=== PATIENT | male | born 1935 | race Caucasian/White ===

== ENCOUNTER 2016-12-03 16:02 | Emergency (ER) | payer MEDICARE, OTHER ==
[2016-12-03 16:31] VITALS: RESP 18; TEMP 97.7
--- NOTE | 2016-12-03 16:55 | ED ---
Lower Extremity Injury HPI - General Chief Complaint: Extremity Injury, Lower Stated Complaint: Foot Injury Time Seen by Provider: 12/03/16 16:34 Source: patient, RN notes reviewed Mode of arrival: ambulatory Limitations: no limitations - History of Present Illness Initial Comments: Patient is a 80-year-old male with chief complaint of right ankle and foot pain for one week and swelling. Patient reports that approximately a week ago he was trying to [place] to get on a bus and tripped and hit his foot on a curb. He reports that he laterally twisted his ankle. He reports that since then he has been able to ambulate however he is noticed increased swelling and some more increased pain over the past day. He states that he has had no other associated symptoms. Reports he has never sprained this ankle before. He denies any peripheral paresthesias. Patient denies any recent fever, chills, shortness of breath, chest pain, back pain, abdominal pain, nausea vomiting, numbness or tingling, dysuria or hematuria, constipation or diarrhea, headaches or visual changes, or any other current symptoms - Related Data Home Medications Medication Instructions Recorded Confirmed Ergocalciferol [Vitamin D2] 50,000 unit PO QMONTH 12/03/16 12/03/16 Gabapentin [Neurontin] 300 mg PO TID 12/03/16 12/03/16 Rivaroxaban [Xarelto] 20 mg PO W/SUPPER 12/03/16 12/03/16 Previous Rx's Medication Instructions Recorded Carvedilol [Coreg] 6.25 mg PO BID-W/MEALS #60 tab 04/11/15 Furosemide [Lasix] 20 mg PO DAILY #30 tab 04/11/15 Lisinopril [Zestril] 5 mg PO DAILY #30 tab 04/11/15 Naproxen 500 mg PO Q12HR #20 tab 12/03/16 Allergies Allergy/AdvReac Type Severity Reaction Status Date / Time No Known Allergies Allergy Verified 12/03/16 17:04 Review of Systems ROS Statement: Those systems with pertinent positive or pertinent negative responses have been documented in the HPI. ROS Other: All systems not noted in ROS Statement are negative. Past Medical History Past Medical History: Coronary Artery Disease (CAD) History of Any Multi-Drug Resistant Organisms: None Reported Past Surgical History: Hernia Repair Past Anesthesia/Blood Transfusion Reactions: No Reported Reaction Past Psychological History: No Psychological Hx Reported Smoking Status: Former smoker Past Alcohol Use History: Occasional Past Drug Use History: None Reported General Exam - General Exam Comments Initial Comments: Patient is a well-appearing 80-year-old male. He does not appear to be in any acute distress. Limitations: no limitations General appearance: alert, in no apparent distress Head exam: Present: atraumatic, normocephalic, normal inspection Eye exam: Present: normal appearance, PERRL, EOMI. Absent: scleral icterus, conjunctival injection, periorbital swelling ENT exam: Present: normal exam, normal oropharynx, mucous membranes moist, TM's normal bilaterally Neck exam: Present: normal inspection. Absent: tenderness, meningismus, lymphadenopathy Respiratory exam: Present: normal lung sounds bilaterally. Absent: respiratory distress, wheezes, rales, rhonchi, stridor Cardiovascular Exam: Present: regular rate, normal rhythm, normal heart sounds. Absent: systolic murmur, diastolic murmur, rubs, gallop, clicks GI/Abdominal exam: Present: soft, normal bowel sounds. Absent: distended, tenderness, guarding, rebound, rigid Extremities exam: Present: normal inspection, full ROM, normal capillary refill. Absent: tenderness, pedal edema, joint swelling, calf tenderness Right Knee exam: Present: normal inspection, full ROM Lower Leg exam: Present: normal inspection, full ROM Ankle exam: Present: normal inspection, full ROM, tenderness, swelling (Patient has significant swelling over the lateral and medial malleolus.) Foot/Toe exam: Present: normal inspection, full ROM, tenderness (over 4th and 5th metatarsal) Neurovascular tendon exam: Present: no vascular compromise Gait: observed and normal Back exam: Present: normal inspection Neurological exam: Present: alert, oriented X3, CN II-XII intact Psychiatric exam: Present: normal affect, normal mood Skin exam: Present: warm, dry, intact, normal color. Absent: rash Course Vital Signs 12/03/16 12/03/16 16:28 17:02 Temperature 97.7 F Pulse Rate 87 72 Respiratory 18 18 Rate Blood Pressure 115/81 132/78 O2 Sat by Pulse 98 99 Oximetry Medical Decision Making - Medical Decision Making Patient is a 80-year-old male with one week of right ankle pain and swelling after tripping over a curb. He states he size primary care provider and instructed him to come the emergency room. He denies any other associated symptoms including erythema or inability to bear weight over the foot. Denies any peripheral paresthesias. X-ray was obtained. X-ray does not show any acute fracture. Patient was given an Js wrap and ankle stirrup splint. I advised patient to rest, ice and elevate extremity. Follow-up with primary care provider. Patient advised to follow-up with orthopedic if symptoms continue persist. Return parameters were discussed. - Radiology Data Radiology results: report reviewed Patient's x-ray was negative for any acute process. There is evidence of soft tissue swelling. Recommended repeat x-ray in the next 7-10 days. Disposition Clinical Impression: Right ankle sprain Disposition: HOME SELF-CARE Condition: Good Instructions: Ankle Sprain (ED) Additional Instructions: Rest, ice, and elevate extremity. It only wear splint and Js wrap while ambulating do not wear was sleeping. Take adhesions as prescribed. Follow-up with orthopedic physician if symptoms continue to persist. Prescriptions: Naproxen 500 mg PO Q12HR #20 tab Referrals: Falguni Cuenca DO [Primary Care Provider] - 1-2 days Chris John DO [Doctor of Osteopathic Medicine] - 1-2 days Time of Disposition: 17:17
--- NOTE | 2016-12-03 17:00 | XR ---
EXAMINATION TYPE: XR ankle complete RT DATE OF EXAM: 12/03/2016 4:55 PM COMPARISON: NONE HISTORY: Pain Three views of the ankle demonstrate the ankle mortise to be intact and symmetric. The joint spaces are preserved. The osseous structures are intact. Soft tissue edema and vascular calcifications are seen. IMPRESSION: 1. No definite acute fracture or dislocation, if symptoms persist follow-up study in 7 to 10 days wou ld be suggested.
--- NOTE | 2016-12-03 17:01 | XR ---
EXAMINATION TYPE: XR foot limited RT DATE OF EXAM: 12/03/2016 4:56 PM COMPARISON: NONE TECHNIQUE: 2 views were obtained HISTORY: Pain The osseous structures are intact and arthropathy of the first MTP joint. Diffuse osteopenia. Narrowi ng of the DIP joint of the second and fourth digits. No erosive changes. Vascular calcifications note d.. There is no acute fracture or dislocation. IMPRESSION: 1. No acute fracture or dislocation. If symptoms persist, follow-up exam in 7 to 10 days could be ob tained.
[2016-12-03 17:04] VITALS: BP 132/78; PULSE 72
== END 2016-12-03 17:26 | disposition home or self-care (01) ==
LOC: EC 16:02
DX: S93.401A Sprain of unspecified ligament of right ankle, initial encounter (principal); I25.10 Atherosclerotic heart disease of native coronary artery without angina pectoris; Z87.891 Personal history of nicotine dependence; Z79.899 Other long term (current) drug therapy; W10.1XXA Fall (on)(from) sidewalk curb, initial encounter; Y92.89 Other specified places as the place of occurrence of the external cause
CPT/HCPCS: 99283

== ENCOUNTER → 2016-12-05 | Outpatient (CLI) | payer MEDICARE, OTHER ==
--- NOTE | 2016-12-06 08:17 | BD ---
EXAMINATION TYPE: MG DEXA axial skeleton. DATE OF EXAM: 12/05/2016 4:07 PM COMPARISON: NONE CLINICAL HISTORY: M81.0 OSTEOPOROSIS Height: 64.5 Weight: 162 FRAX RISK QUESTIONS: Alcohol (3 or more units per day): NO NOT ANYMORE Family History (Parent hip fracture): NOT SURE Glucocorticoids (More than 3mos): NO (Ex: prednisone, prednisolone, methylprednisolone, dexamethasone, and hydrocortisone). History of Fracture in Adulthood: NO Secondary Osteoporosis: ? 1. Type 1 Diabetes: NO 2. Hyperthyroidism: NO 3. Menopause before 45: NA 4. Malnutrition: UNSURE 5. Chronic liver disease: UNSURE Rheumatoid Arthritis: NO Current Tobacco Use: STOPPED 7 YRS AGO RISK FACTORS HISTORY OF: Family History of Osteoporosis: UNSURE Smoke tobacco: STOPPED 7 YRS AGO Drink Alcohol: SOCIAL NOW, PREVIOUSLY YES Active: NOT REALLY Diet low in dairy products/other sources of calcium: YES LOW Lost more than 2 inches in height since high school: YES Frequent falls: UNSTEADY Poor Health: POSSIBLY Adrenal Insufficiency: HAS NEVER HEARD OF IT MEDICATIONS: Prednisone or other steroids: NO Thyroid Medications: NO Osteoporosis Medications: BONIVA, NOW IV THERAPY FOR INFUSION FOR OSTEOPOROSIS Which medication: STOPPED 2 YRS AGO How Lon YRS Additional Medications: UNSURE, PT DOESN'T KNOW, POOR HISTORIAN Additional History: OSTEOPOROSIS, EXAM MEASUREMENTS: Bone mineral densitometry was performed using the [employer] System. Bone mineral density as measured about the Lumbar spine is: ----- L1-L4(G/cm2): 1.453 T Score Values are as follows: ----- L1: 1.6 ----- L2: 2.1 ----- L3: 3.6 ----- L4: 1.9 ----- L1-L4: 2.3 Bone mineral density THIS IS HIS FIRST BONE DENSITY TEST AT [facility] Bone mineral density about the R hip (g/cm2): 0.817 Bone mineral density about the L hip (g/cm2): 0.825 T Score values are as follows: -----R Neck: -1.6 -----L Neck: -1.5 -----R Intertrochanter: -0.8 -----L Intertrochanter: -0.5 Bone mineral density THIS IS HIS FIRST BONE DENSITY TEST AT [facility] FRAX %'S: FOR MAJOR OSTEOPOROTIC FX: 5.7%......FOR HIP FX: 2.2% PROBABILITY OF FX IN 10 Y RS TIME IMPRESSION: Osteopenia (T Score between -2.5 and -1 as noted by T score values at bilateral hips. There is sligh tly increased risk of fracture and the patient may be considered for treatment. Re-Screen 1-2 years. NOTE: T-SCORE=SD OF THE YOUNG ADULT MEAN.
== END | disposition home or self-care (01) ==
LOC: RADBDWWP 15:27
PROVIDERS: ATTEND Internal Medicine Rheumatology
DX: M85.852 Other specified disorders of bone density and structure, left thigh (principal); M85.851 Other specified disorders of bone density and structure, right thigh
CPT/HCPCS: 77080

== ENCOUNTER → 2017-04-01 | Outpatient (CLI) | payer MEDICARE, OTHER ==
[2017-04-01 15:41] LABS: CH 30.8; CHCM 34.5; HCT 37.3 % (39.0-53.0); HDW 2.81; HGB 12.5 gm/dL (13.0-17.5); MCHC 33.5 g/dL (31.0-37.0); MCV 89.8 fL (80.0-100.0); Mean Platelet Volume 6.5; RBC 4.16 m/uL (4.30-5.90); RDW 13.7 % (11.5-15.5); WBC 6.2 k/uL (3.8-10.6)
[2017-04-01 15:53] LABS: Anion Gap 12 mmol/L; Blood Urea Nitrogen 12 mg/dL (9-20); Carbon Dioxide 24 mmol/L (22-30); Chloride 96 mmol/L (98-107); Glucose 101 mg/dL (74-99); Non-African American GFR(MDRD) >60 (>60 ml/min/1.73 sqM); Potassium 3.7 mmol/L (3.5-5.1); Sodium 132 mmol/L (137-145)
== END ==
LOC: LABWHC1 14:56
PROVIDERS: ATTEND Internal Medicine Cardiovascular Disease
DX: I50.9 Heart failure, unspecified (principal); I42.9 Cardiomyopathy, unspecified
CPT/HCPCS: 36415; 80048; 83880; 85027

== ENCOUNTER 2017-10-09 19:34 | Observation (INO) | payer MEDICARE, OTHER ==
[2017-10-09] MEDS ORDERED: HYDROcodone/APAP 5-325MG 1 EACH TAB PO STA (19:51)
[2017-10-09 19:53] VITALS: RESP 18
--- NOTE | 2017-10-09 19:59 | ED ---
Fall HPI - General Chief Complaint: Fall Stated Complaint: fall, L boo injury Time Seen by Provider: 10/09/17 19:46 Source: EMS Mode of arrival: EMS - History of Present Illness Initial Comments: 81-year-old male patient presented to the emergency department today for evaluation of left ankle pain after a slip and fall. Patient states that injury occurred approximately an hour ago. He states he is having significant pain to the left and goes mostly lateral aspect. He states that the pain radiates into his foot. He denies any numbness or tingling to the foot. He states that he did strike his head on the ground however states it is a very minor bump and he is not currently having any head pain. He denies loss of consciousness with this. He denies any neck or back pain. He denies any other injuries. Patient denies any headache, chest pain, shortness of breath, dizziness, weakness, abdominal pain, nausea, vomiting, or difficulties with bowel movements or urination. - Related Data Home Medications Medication Instructions Recorded Confirmed Ergocalciferol [Vitamin D2] 50,000 unit PO QMONTH 12/03/16 12/03/16 Gabapentin [Neurontin] 300 mg PO TID 12/03/16 12/03/16 Rivaroxaban [Xarelto] 20 mg PO W/SUPPER 12/03/16 12/03/16 Previous Rx's Medication Instructions Recorded Carvedilol [Coreg] 6.25 mg PO BID-W/MEALS #60 tab 04/11/15 Furosemide [Lasix] 20 mg PO DAILY #30 tab 04/11/15 Lisinopril [Zestril] 5 mg PO DAILY #30 tab 04/11/15 Naproxen 500 mg PO Q12HR #20 tab 12/03/16 Allergies Allergy/AdvReac Type Severity Reaction Status Date / Time No Known Allergies Allergy Verified 10/09/17 23:05 Review of Systems ROS Statement: Those systems with pertinent positive or pertinent negative responses have been documented in the HPI. ROS Other: All systems not noted in ROS Statement are negative. Past Medical History Past Medical History: Coronary Artery Disease (CAD) History of Any Multi-Drug Resistant Organisms: None Reported Past Surgical History: Hernia Repair Past Anesthesia/Blood Transfusion Reactions: No Reported Reaction Past Psychological History: No Psychological Hx Reported Smoking Status: Former smoker Past Alcohol Use History: Occasional Past Drug Use History: None Reported General Exam Limitations: no limitations General appearance: alert, in no apparent distress, other (This is a well- developed, well-nourished elderly male patient in no acute distress. Vital signs upon presentation are temperature 96.8F, pulse 62, respirations 18, blood pressure 147/81, pulse ox 97% on room air.) Head exam: Present: atraumatic, normocephalic, normal inspection, other (No hematoma, deformity, or bony step-off noted to palpation of the scalp.) Eye exam: Present: normal appearance, PERRL, EOMI. Absent: scleral icterus, conjunctival injection, periorbital swelling ENT exam: Present: normal exam, normal oropharynx, mucous membranes moist Neck exam: Present: normal inspection, full ROM, other (Nontender, no step-off, no deformity to firm midline palpation of the posterior cervical spine. Full range of motion without pain or limitation.). Absent: tenderness, meningismus, lymphadenopathy Respiratory exam: Present: normal lung sounds bilaterally. Absent: respiratory distress, wheezes, rales, rhonchi, stridor Cardiovascular Exam: Present: regular rate, normal rhythm, normal heart sounds. Absent: systolic murmur, diastolic murmur, rubs, gallop, clicks GI/Abdominal exam: Present: soft, normal bowel sounds. Absent: distended, tenderness, guarding, rebound, rigid Extremities exam: Present: tenderness (Tenderness over the lateral aspect of the left ankle.), normal capillary refill, other (There is swelling and ecchymosis noted to the lateral aspect of the left ankle. Pedal and posttibial pulses are 2+ and equal bilaterally. Skin is cool to touch. Cap refills less than 3 seconds.). Absent: full ROM (Decreased range of motion to the left ankle due to increased pain with movement), pedal edema, joint swelling, calf tenderness Back exam: Present: normal inspection, other (Nontender, no step-off, no deformity to firm midline palpation of the thoracic and lumbar vertebrae. Full range of motion without pain or limitation.). Absent: tenderness, paraspinal tenderness, vertebral tenderness Neurological exam: Present: alert, oriented X3, CN II-XII intact Psychiatric exam: Present: normal affect, normal mood Skin exam: Present: warm, dry, intact, normal color. Absent: rash Course Vital Signs 10/09/17 10/09/17 10/09/17 19:46 20:59 22:22 Temperature 96.8 F L Pulse Rate 62 54 L 78 Respiratory 18 18 18 Rate Blood Pressure 147/81 152/89 160/83 O2 Sat by Pulse 97 97 98 Oximetry Procedures - Orthopedic Splinting/Casting Injury #1 Side: left Lower Extremity Injury Location: short leg, ankle Lower Extremity Immobilizer: posterior splint Additional Comments: Neurovascular status intact after splint application. Skin is pink, warm, and dry. Cap refill is less than 3 seconds. Patient denies any numbness or tingling. Medical Decision Making - Medical Decision Making 81-year-old male patient percents into the emergency department today for evaluation of left ankle pain after slip and fall accident. Physical examination did reveal swelling to the lateral aspect of the left ankle. Distal pulses are intact, skin is pink, warm, and dry. Patient also reported striking his head on the ground. He denied any loss of consciousness, current headache, nausea, or vomiting however does take throughout this who did perform computed tomography scan of the head and neck. Those scans were negative for any acute process. X-ray of the left ankle did show a comminuted oblique fracture of the distal shaft of the left tibia, x-ray read that there was no involvement of the fibula however I did see some cortical abnormalities at the distal fibula. Patient has no current transportation, and must remain strict non-weightbearing. Due to the late hour we will be unable to arrange to have medical equipment such as crutches or wheelchair provided for the patient. There is also concern that he will not be able to follow up outpatient with orthopedics due to the fact that his main transportation is the public bus system. We will admit for observation with a social work consult, orthopedics will be consulted as well. We will provide pain medication for him. Left ankle was placed in a posterior OCL splint. Neurovascular status intact after splint application. - Radiology Data Radiology results: report reviewed, image reviewed 3 views of the left ankle show a comminuted, oblique fracture of the distal shaft of the left tibia. No definite intra-articular component. The fibula is intact as seen, as are the visualized hindfoot structures. Mortise is intact. Impression by Dr. Demario Armendariz shows distal tibial fracture. 3 views of the left foot shows no fracture or malalignment of the hindfoot, midfoot or forefoot. The soft tissues of the foot are unremarkable, other than the arterial atherosclerotic calcification. Partial visualization of the distal tibia shaft fracture is noted. Impression by Dr. Demario Armendariz shows no acute left foot process. However distal tibia shaft fracture is noted. CT of the brain and C-spine are performed without contrast. Report was reviewed in its entirety. Impression by Dr. Master Ozuna shows no acute fracture or dislocation evident in the cervical spine. No acute intracranial hemorrhage, mass effect, or midline shift is seen. Disposition Clinical Impression: Left tibial fracture Disposition: ADMITTED IP TO THIS [facility] Condition: Serious Referrals: Falguni Cuenca DO [Primary Care Provider] - 1-2 days Decision to Admit Reason: Admit from EC Decision Date: 10/09/17 Decision Time: 23:03
--- NOTE | 2017-10-09 20:40 | XR ---
PROCEDURE: XR ankle complete LT #3 views DATE AND TIME: 10/09/2017 8:26 PM REFERRING PHYSICIAN: Crissy Bates CLINICAL INDICATION: PHH, Pain TECHNIQUE: Department protocol. COMPARISON: None FINDINGS: There is a comminuted oblique fracture of the distal shaft of the left tibia. No definite i ntra-articular component. The fibula is intact as seen, as are the visualized hindfoot structures. Mortise is intact. IMPRESSION: DISTAL TIBIAL FRACTURE.
--- NOTE | 2017-10-09 20:42 | XR ---
PROCEDURE: XR foot complete LT, 3 views DATE AND TIME: 10/09/2017 8:26 PM REFERRING PHYSICIAN: Crissy Bates CLINICAL INDICATION: PHH, Pain TECHNIQUE: Department protocol. COMPARISON: None FINDINGS: There is no fracture or malalignment of the hindfoot, midfoot or forefoot. The soft tissues of the foot are unremarkable, other than arterial atherosclerotic calcification. Partial visualization of the distal tibial shaft fracture is noted. IMPRESSION: 1. NO ACUTE LEFT FOOT PROCESS. 2. However, distal tibial shaft fracture noted.
--- NOTE | 2017-10-09 21:46 | CT ---
EXAMINATION TYPE: CT brain devon kruse DATE OF EXAM: 10/09/2017 COMPARISON: NONE HISTORY: Fall today. CT DLP: 1328.30 mGycm Automated exposure control for dose reduction was used. TECHNIQUE: CT scan of the head and cervical spine are performed without contrast. FINDINGS: There is no acute intracranial hemorrhage, mass effect, or midline shift identified. The ventricles and sulci are within normal limits in size. The globes are intact and the visualized sin uses are clear. Cervical spine is visualized in its entirety from C1 through upper thoracic levels and demonstrates s atisfactory alignment without evidence of acute fracture or dislocation. Prominent multilevel cervica l spondylosis changes are noted. Prevertebral soft tissue appears within normal limits. The C1-C2 a rticulation is unremarkable. IMPRESSION: 1. THERE IS NO ACUTE FRACTURE OR DISLOCATION EVIDENT IN THE CERVICAL SPINE. 2. NO ACUTE INTRACRANIAL HEMORRHAGE, MASS EFFECT, OR MIDLINE SHIFT IS SEEN.
[2017-10-09] MEDS ORDERED: HYDROcodone/APAP 5-325MG 1 EACH TAB PO PRN (22:55)
[2017-10-09] MEDS ORDERED: NALOXONE 0.4 MG/ML 1 ML VIAL IV PRN (22:55)
[2017-10-09] MEDS ORDERED: ONDANSETRON 4 MG/2 ML VIAL IVP STA (23:00)
[2017-10-10] MEDS: MORPHINE SULFATE 5 MG/ML SYRINGE IV PRN ×3 (00:24→08:48)
[2017-10-10 06:55] LABS: Basophils % (A) 0 %; Eosinophils # (A) 0.2 k/uL (0-0.7); Eosinophils % (A) 3 %; HCT 39.4 % (39.0-53.0); HGB 12.8 gm/dL (13.0-17.5); Lymphocytes # (A) 1.4 k/uL (1.0-4.8); Lymphocytes % (A) 18 %; MCH 29.1 pg (25.0-35.0); MCHC 32.5 g/dL (31.0-37.0); MCV 89.5 fL (80.0-100.0); Mean Platelet Volume 6.9; Monocytes # (A) 0.5 k/uL (0-1.0); Monocytes % (A) 7 %; Neutrophils # (A) 5.4 k/uL (1.3-7.7); Neutrophils % (A) 70 %; Platelet Count 196 k/uL (150-450); RDW 15.7 % (11.5-15.5); WBC 7.7 k/uL (3.8-10.6)
[2017-10-10 07:02] LABS: Anion Gap 9 mmol/L; Blood Urea Nitrogen 13 mg/dL (9-20); Calcium 8.7 mg/dL (8.4-10.2); Carbon Dioxide 28 mmol/L (22-30); Chloride 97 mmol/L (98-107); Glucose 108 mg/dL (74-99); Potassium 3.7 mmol/L (3.5-5.1); Sodium 134 mmol/L (137-145)
--- NOTE | 2017-10-10 07:42 | XR ---
EXAMINATION TYPE: XR chest 2V DATE OF EXAM: 10/10/2017 COMPARISON: 04/08/2015 INDICATION: Presurgical clearance TECHNIQUE: Frontal and lateral views of the chest are obtained. FINDINGS: The heart size is normal. The pulmonary vasculature is normal. Some minimal subsegmental atelectasis along the left diaphragm. There is within small bowel under eac h diaphragm. IMPRESSION: 1. Mild subsegmental atelectasis left lung base. 2. There appears to be air within loops of bowel under right and left hemidiaphragms.
[2017-10-10 07:47] LABS: INR 1.4 (<1.2); Prothrombin Time 13.2 sec (9.0-12.0)
--- NOTE | 2017-10-10 08:08 | CT ---
EXAMINATION TYPE: CT ankle LT wo con DATE OF EXAM: 10/10/2017 COMPARISON: NONE HISTORY: Slipped and fell on ice, fx, pre op CT DLP: [address] of the right ankle with reconstruction imaging. TECHNIQUE: Unenhanced CT of the right ankle was performed with bone and soft tissue window settings s ubmitted in the axial coronal and sagittal planes. At a separate workstation [id number] TR imaging was obta ined. FINDINGS: There is comminuted distal tibial fracture noted with displacement identified of approximat andrew 4.9 mm. No evidence for fracture extension into the ankle mortise. There is also a distal fibular fracture with displacement of 3.8 mm. No additional fractures are identified. There is soft tissue s welling and edema noted. Ankle mortise is intact. IMPRESSION: 1. Distal tibial and fibular fractures as discussed.
[2017-10-10] MEDS ORDERED: ONDANSETRON 4 MG/2 ML VIAL IVP PRN (08:33)
[2017-10-10] MEDS ORDERED: ONDANSETRON 4 MG/2 ML VIAL ONE ×2 (08:48→09:00)
[2017-10-10] MEDS ORDERED: MORPHINE SULFATE 5 MG/ML SYRINGE ONE (09:00)
[2017-10-10] MEDS ORDERED: RIVAROXABAN 10 MG TAB PO ONE (09:00)
[2017-10-10] MEDS ORDERED: HYDROmorphone 1 MG/ML 1 ML SYRINGE ONE ×2 (09:00→14:28)
[2017-10-10] MEDS ORDERED: HYDROcodone/APAP 5-325MG 1 EACH TAB ONE (09:00)
[2017-10-10] MEDS ORDERED: GABAPENTIN 300 MG CAP ONE (09:00)
[2017-10-10] MEDS ORDERED: CARVEDILOL 6.25 MG TAB ONE (09:00)
--- NOTE | 2017-10-10 22:53 | ECHOF ---
Referral Reason: MEASUREMENTS -------- HEIGHT: 182.9 cm WEIGHT: 77.1 kg BP: IVSd: 1.0 cm (0.6 - 1.1) LVIDd: 3.6 cm (3.9 - 5.3) LVPWd: 1.1 cm (0.6 - 1.1) IVSs: 1.4 cm LVIDs: 1.7 cm LVPWs: 1.8 cm Ao Diam: 3.9 cm (2.0 - 3.7) AV Cusp: 1.7 cm (1.5 - 2.6) LA Diam: 4.1 cm (2.7 - 3.8) MV EXCURSION: 23.254 mm (> 18.000) MV EF SLOPE: 191 mm/s (70 - 150) EPSS: 1.8 cm MV E Ariel: 1.10 m/s MV DecT: 165 ms MV A Ariel: 0.41 m/s MV E/A Ratio: 2.70 RAP: 5.00 mmHg RVSP: 42.91 mmHg FINDINGS -------- Sinus rhythm. This was a technically difficult study with suboptimal views. Pt unable to turn due to hip fx. The left ventricular size is normal. Left ventricular wall thickness is normal. Overall left vent ricular systolic function is normal with, an EF between 55 - 60 %. The right ventricle is normal in size and function. The left atrium is mildly dilated. The right atrium is normal in size. The aortic valve is trileaflet, and appears structurally normal. No aortic stenosis or regurgitation. The mitral valve leaflets are mildly thickened. There is trace mitral regurgitation. Mild tricuspid regurgitation present. There is borderline pulmonary artery hypertension. The righ t ventricular systolic pressure, as measured by Doppler, is 42.91mmHg. Pulmonic valve appears structurally normal. The aortic root is mildy dilated. The pericardium is normal. CONCLUSIONS -------- 1. Sinus rhythm. 2. This was a technically difficult study with suboptimal views. 3. Pt unable to turn due to hip fx. 4. The left ventricular size is normal. 5. Left ventricular wall thickness is normal. 6. Overall left ventricular systolic function is normal with, an EF between 55 - 60 %. 7. The right ventricle is normal in size and function. 8. The left atrium is mildly dilated. 9. The right atrium is normal in size. 10. The aortic valve is trileaflet, and appears structurally normal. No aortic stenosis or regurgitat ion. 11. The mitral valve leaflets are mildly thickened. 12. There is trace mitral regurgitation. 13. Mild tricuspid regurgitation present. 14. There is borderline pulmonary artery hypertension. 15. The right ventricular systolic pressure, as measured by Doppler, is 42.91mmHg. 16. Pulmonic valve appears structurally normal. 17. The aortic root is mildy dilated. 18. The pericardium is normal. LOSS CONTROL TECHNICIAN: America Cortez RDCS
--- NOTE | 2017-10-10 22:55 | HP ---
HISTORY AND PHYSICAL DATE OF SERVICE: 10/10/2017. CHIEF COMPLAINT: A fall with the left leg and boo pain. BRIEF HISTORY ON THIS PATIENT: An 81-year-old male patient with a past medical history of coronary artery disease, history of atrial fibrillation, presented to the ED with a complaint of left ankle pain after he slipped and fell. The patient related that he slipped on a patch of ice and he fell down, hitting the back of his head, but the most severe pain was to the left ankle and foot. The patient claims that he did not lose any consciousness and no neck or back pain. Denied any chest pain; any nausea, vomiting, diaphoresis. The patient did not have any new tingling or numbness of his foot. He has a past medical history significant for coronary artery disease, history of atrial fibrillation, vitamin D deficiency, peripheral neuropathy, CHF. PAST SURGICAL HISTORY: Significant for hernia repair. He has no known drug allergies. MEDICATIONS: Patient is on: 1. Coreg 6.25 mg p.o. b.i.d. 2. Lasix 20 mg p.o. daily. 3. Zestril 5 mg p.o. daily and. 4. Naprosyn 500 mg p.o. q.12 hours. He is a former smoker, quit smoking about 5-6 years ago. He is also a former alcoholic, again claims that he quit about a few years ago. Family history is negative for coronary artery disease, hypertension or COPD or any history of cancer in the family. REVIEW OF SYSTEMS: HEENT: Patient denies and any problem with hearing and vision. CARDIOVASCULAR: Denies any chest pain, shortness of breath. GI: No complaints of nausea, vomiting or diaphoresis. GENITOURINARY: Denies dysuria, frequency in urination. NERVOUS: Denies any headaches, lightheadedness or dizziness. ALLERGY/IMMUNOLOGY: No asthma or hay fever. MUSCULOSKELETAL: Pain left ankle and foot as described above. HEMATOLOGY/ONCOLOGY: No history of anemia. ENDOCRINE: No history of diabetes. CONSTITUTIONAL: No headaches. No nausea, vomiting. DERMATOLOGY: No rashes or pigmentation. RHEUMATOLOGY: Complains of arthritic pain in both knees. PHYSICAL EXAMINATION: VITAL SIGNS: A temperature of 96.8, pulse 62, respirations 18, blood pressure 160/83, O2 saturation 97% on time of presentation. HEENT: Atraumatic, normocephalic. Pupils equal and reactive to light. Extraocular movements are intact. Conjunctivae is normal. Buccal mucosa is moist. Neck is supple. No goiter or lymphadenopathy. JVD is negative. No carotid bruit heard. LUNGS: Decreased breath sounds bilaterally, but fair air entry. Heart is irregularly irregular with a heart rate of 86. No murmurs, gallop rhythm. Abdomen is soft and nontender, nondistended. No masses. Bowel sounds are positive. MUSCULOSKELETAL: The patient moves all joints. Some crepitations in knees range of motion. EXTREMITIES: The patient has some tenderness, tenderness, swelling and some ecchymosis on the left outer lower leg and ankle area, 2+ edema. Pulses are palpable. LYMPHATIC SYSTEM: No lymph nodes palpable in the neck and axilla. SKIN: No rashes or pigmentation. NEUROLOGICAL SYSTEM: The patient is alert, oriented x3. No gross motor or sensory deficit. Cranial nerves 2-12 grossly intact. X-RAY DONE ON ADMISSION: X-ray of the left ankle did show a comminuted oblique fracture of the distal shaft of left tibia. Fibula was unremarkable. ASSESSMENT: 1. Left tibial fracture. 2. Uncontrolled hypertension. 3. Atrial fibrillation. Please change blood pressure reading dictated above to .. 4. Cardiomyopathy, congestive heart failure. 5. Degenerative joint disease, polyarthralgias. 6. Peripheral neuropathy. 7. Vitamin D deficiency. Plan is to admit the patient for observation to the medical floor. Consult Orthopedics for further recommendation of the left tibial fracture. Xarelto is put on hold. The patient is going to have IV pain medication for her pain control. The patient will be kept n.p.o. Until further recommendations from Orthopedics. We will hold off home medications at this point. We will order stat echocardiogram of the heart for surgical clearance. The patient's DVT prophylaxis is with SCDs only, and the patient is a FULL CODE. MMODL / IJN: [id number] /
--- NOTE | 2017-10-10 22:55 | CONS ---
CONSULTATION DATE OF CONSULTATION: 10/10/2017 CHIEF COMPLAINT: Left ankle pain. HISTORY OF PRESENT ILLNESS: The patient is a very pleasant 81-year-old male who was admitted to observation with a left distal tibia fracture. According to the patient, he was walking to catch a bus when he slipped and fell on the ice, injuring his left ankle. He says he immediately knew his leg was broken. He was brought to the emergency department, where x-rays showed a displaced distal tibia and fibula fracture. He also had a head CT which was negative. He was admitted for observation. Orthopedics was consulted for management. At the patient's baseline, he walks without assistive device. He lives in an apartment with his . He is very active. He has no other complaints at time of my evaluation. Past medical history, past surgical history, medications, allergies, social history and family history were reviewed with the patient and his and are consistent with the admitting service's H and P. PHYSICAL EXAMINATION: The patient is in no apparent distress and is alert and oriented x3. His head is normocephalic and atraumatic. He has no cervical, thoracic or lumbar tenderness. His chest demonstrates symmetric expansion. His abdomen is soft and nontender. A focused examination of the left lower extremity was conducted. On inspection, there is a posterior splint in place which was taken down. There are no open wounds or fracture blisters. There is significant swelling over the anterior and lateral aspect of the ankle with no wrinkling of the skin. There is exquisite tenderness over the distal ankle. The thigh and calf are soft. He has no tenderness over the knee or hip. Sensation is intact to light touch throughout the left foot and ankle. He is able to actively plantar flex his ankles and his toes. IMAGING: X-rays of the left ankle show a displaced distal third tibia fracture. There is a minimally displaced fibular fracture. CT scan of the left ankle shows a displaced extra-articular distal third tibia fracture and a displaced distal fibula fracture. ASSESSMENT: The patient is an 81-year-old male with a closed left distal extra-articular tibia fracture and left displaced fibular fracture. PLAN: I had a lengthy discussion with the patient, his and their kids on treatment. I recommended operative fixation due to the patient being very active. Due to his current soft tissue swelling, he is unable to undergo surgery at this time. The patient was placed in a very well-padded bulky Quintana splint. He is to remain strictly nonweightbearing on his left leg. He was encouraged to aggressively ice and elevate his leg to help with resolution of swelling. The patient is going to likely be discharged to rehab. He will need to follow up with me in the office next week to take the anterior aspect of the splint down and evaluate for swelling. We discussed that he can safely undergo operative fixation once there is wrinkling of the skin. PROCEDURE: Verbal consent for application of a short-leg splint was obtained. A well-padded bulky Quintana splint was applied. The patient tolerated this well. He was comfortable in the splint. MMODL / IJN: [id number] /
[2017-10-11] MEDS: MORPHINE SULFATE 5 MG/ML SYRINGE IV PRN ×2 (03:22→09:46)
[2017-10-11] MEDS ORDERED: CARVEDILOL 6.25 MG TAB PO SCH (07:30)
[2017-10-11 08:56] VITALS: BP 149/82; PULSE 82; TEMP 97.8
[2017-10-11] MEDS ORDERED: LISINOPRIL 5 MG TAB PO SCH (09:00)
[2017-10-11] MEDS ORDERED: GABAPENTIN 300 MG CAP PO SCH (09:00)
[2017-10-11] MEDS ORDERED: FUROSEMIDE 20 MG TAB PO SCH (09:00)
--- NOTE | 2017-10-11 10:56 | P.PN ---
Subjective The patient is doing well this morning his left ankle feels better after being placed in a well-padded bulky Quintana splint. He has no other complaints today in the office. Objective - Vital Signs Vital signs: Vital Signs Temp 97.8 F 10/11/17 08:00 Pulse 82 10/11/17 08:00 Resp 18 10/11/17 08:00 BP 149/82 10/11/17 08:00 Pulse Ox 94 L 10/11/17 08:00 Intake & Output 10/10/17 10/11/17 10/11/17 18:59 06:59 18:59 Output Total 200 Balance -200 Output: Urine 200 Other: Voiding Method Urinal Urinal # Voids 4 - Exam A focused examination the left lower extremity was conducted. On inspection the patient has a well-padded bulky Quintana splint in place. The tips of the toes are warm and well perfused with brisk capillary refill. There is no pain with passive range of motion of the toes. - Labs CBC & Chem 7: 10/10/17 06:06 10/10/17 06:06 Assessment and Plan Plan: Patient is a very pleasant 81-year-old male with a closed, displaced left distal tibia and lateral malleolus fracture. The patient had a soft tissue evaluation at bedside yesterday and his ankle was too swollen to undergo surgery. He was placed in a well-padded splint. The patient is okay to discharge home an orthopedic standpoint. Instruments strictly nonweightbearing on the left leg. The splint is to stay on at all times. He is to aggressively ice and elevate his leg over the next week to help with resolution of soft tissue swelling. I will see the patient in the office in 1 week to take down the splint and assess his soft tissues.
--- NOTE | 2017-10-11 14:27 | PN ---
PROGRESS NOTE DATE OF SERVICE: 10/11/2017. SUBJECTIVE: The patient claims that he feels fine and he feels that he is ready to go home. Ankle pain is better after he was placed in the joint splint. VITAL SIGNS: Temperature 97.8, pulse 82, respirations 18, blood pressure 149/82, O2 saturation 97%. HEENT: Atraumatic, normocephalic. Pupils were equal and reactive to light. Extraocular movements intact. Buccal mucosa is fair. Neck is supple. No goiter or lymphadenopathy. JVD is negative. No carotid bruit heard. LUNGS: Decreased breath sounds. Scattered rhonchi, but with fair air entry. Heart is irregularly irregular. Heart rate is controlled. There are no murmurs or gallop rhythm. Abdomen is soft, nontender, nondistended. Bowel sounds are positive. There is no organomegaly. GENITOURINARY: There are no lumps or nodules. No penile discharge. EXTREMITIES: Patient's left foot is in a splint. The patient is able to move his left knee. NEUROLOGICAL: Patient is alert, oriented x3. He has no gross motor or sensory deficit. No focal deficit. LABS: From 10/10 are white blood count 7.7, hemoglobin 12.8, hematocrit 39.4 and platelet count of 196. Chemical profile: Sodium 134, potassium 3.7, chloride 97, bicarb 28, BUN 13, creatinine of 0.9, glucose 108. ASSESSMENT: 1. Closed displaced less left distal tibial and lateral malleolar fracture. 2. Atrial fibrillation. 3. Uncontrolled hypertension. 4. Cardiomyopathy, congestive heart failure. 5. Degenerative joint disease with polyarthralgias. 6. Peripheral neuropathy. 7. Vitamin D deficiency. The patient has been on the observation floor. Patient has been seen by Orthopedics and was found to have a markedly swollen ankle found not fit to proceed with surgery. The patient was given a splint and the plan is to discharge home with strict nonweightbearing on the left leg and follow up with Orthopedics in about a week to take down the splint and assess further plan. The patient's blood pressure is markedly improved and stable. Heart rate has been controlled on current medications. No need to make any changes in the blood pressure medications. The patient did have an echocardiogram done yesterday for surgical clearance, which showed ejection fraction of 55%-60% with preserved ventricular systolic function. Will plan to discharge patient home today on current medications to be followed up with Orthopedic Surgery as an outpatient. MMODL / IJN: [id number] /
[2017-10-11] MEDS ORDERED: RIVAROXABAN 10 MG TAB PO SCH (17:30)
== END 2017-10-11 13:55 | disposition home or self-care (01) ==
LOC: EC 19:34 → 3OBS 23:03
PROVIDERS: ADMIT Hospitalist; ATTEND Hospitalist
DX: S82.392A Other fracture of lower end of left tibia, initial encounter for closed fracture (principal); S82.62XA Displaced fracture of lateral malleolus of left fibula, initial encounter for closed fracture; I11.0 Hypertensive heart disease with heart failure; W00.0XXA Fall on same level due to ice and snow, initial encounter; Y93.01 Activity, walking, marching and hiking; I25.10 Atherosclerotic heart disease of native coronary artery without angina pectoris; I50.9 Heart failure, unspecified; M19.90 Unspecified osteoarthritis, unspecified site; I48.91 Unspecified atrial fibrillation; G62.9 Polyneuropathy, unspecified; E55.9 Vitamin D deficiency, unspecified; F10.21 Alcohol dependence, in remission; Z79.01 Long term (current) use of anticoagulants; Z79.899 Other long term (current) drug therapy; Z87.891 Personal history of nicotine dependence
CPT/HCPCS: 29515 ×2; 96374; 96375; 96376 ×2; 99285; 93306; 80048; 85025; 85610; 85730; 71020; 73610; 73630; 72125; 70450; 73700; G0378 ×3; J2405; J2274 ×2; 93005

== ENCOUNTER 2017-10-24 10:34 | Inpatient (IN) | payer MEDICARE, OTHER ==
[2017-10-22 23:21] VITALS: BMI 23.6
[~2017-10-24 10:34] MED LIST: DEXAMETHASONE SOD PHOSPHATE 10 MG/ML 1 ML VIAL IV ONE; ONDANSETRON 4 MG/2 ML VIAL IVP ONE; ceFAZolin IN SWFI 2 GM/20 ML SYRINGE IVP ONE
[2017-10-24] MEDS: LACTATED RINGERS 1,000 ML IV SCH ×2 (12:00→18:36)
[2017-10-24] MEDS ORDERED: LIDOCAINE 1% 20 ML VIAL (10MG/ML) FOR IV START IV ONE (12:00)
[2017-10-24] MEDS ORDERED: LIDOCAINE 1% INJ 10MG/ML (20 ML MDV) ONE (12:48)
[2017-10-24] MEDS ORDERED: fentaNYL (PF) 50 MCG/ML 2 ML AMP ONE (12:48)
[2017-10-24] MEDS ORDERED: HYDROmorphone (PF) 1 MG/ML ONE (12:48)
[2017-10-24] MEDS ORDERED: LIDOCAINE 2%-EPI 1:100,000 20 ML VIAL ONE (12:48)
[2017-10-24] MEDS ORDERED: PHENYLEPHRINE-0.9% NACL SYG 1 MG/10 ML SYRINGE ONE (12:48)
[2017-10-24] MEDS ORDERED: PROPOFOL 10 MG/ML 20 ML VIAL IV ONE (12:48)
[2017-10-24] MEDS ORDERED: MIDAZOLAM 2 MG/2 ML VIAL ONE (12:48)
[2017-10-24] MEDS ORDERED: SUCCINYLCHOLINE CHLORIDE 100 MG/5 ML SYR IV ONE (12:48)
[2017-10-24] MEDS ORDERED: ceFAZolin 1,000 MG in SODIUM CHLORIDE 0.9% 1,000 ML IRRIGATION ONE (13:19)
[2017-10-24] MEDS ORDERED: SENNOSIDES-DOCUSATE SODIUM 1 EACH TAB PO PRN (15:14)
[2017-10-24] MEDS ORDERED: ONDANSETRON 4 MG/2 ML VIAL IVP PRN (15:14)
[2017-10-24] MEDS ORDERED: HYDROcodone/APAP 5-325MG 1 EACH TAB PO PRN (15:14)
[2017-10-24] MEDS ORDERED: TEMAZEPAM 15 MG CAP PO PRN (15:14)
[2017-10-24] MEDS ORDERED: HYDROmorphone 2 MG/ML 1 ML SYRINGE IVP PRN ×3 (15:14)
[2017-10-24] MEDS ORDERED: LACTATED RINGERS 1,000 ML IV ONE ×2 (15:27→17:13)
--- NOTE | 2017-10-24 15:43 | FL ---
EXAMINATION TYPE: FL guidance operating room DATE OF EXAM: 10/24/2017 HISTORY: Flouroscopy time 74 seconds of fluoroscopy provided. IMPRESSION: 1. Fluoroscopy time.
--- NOTE | 2017-10-24 15:44 | XR ---
EXAMINATION TYPE: XR ankle limited LT DATE OF EXAM: 10/24/2017 COMPARISON: NONE HISTORY: Postsurgical TECHNIQUE: One view submitted FINDINGS: There is postsurgical change in near anatomic alignment. IMPRESSION: Postsurgical change
[2017-10-24] MEDS: HYDROmorphone 0.5 MG/0.5 ML SYRINGE IVP PRN ×2 (16:12→16:17)
--- NOTE | 2017-10-24 16:31 | XR ---
EXAMINATION TYPE: XR ankle limited LT DATE OF EXAM: 10/24/2017 CLINICAL HISTORY: Left ankle fracture status post open reduction internal fixation surgery today. TECHNIQUE: Frontal and lateral images of the left ankle are obtained immediately postoperatively. COMPARISON: Left ankle x-ray October 09, 2017 6 FINDINGS: There is overlying bandage material seen which is noted to lower radiographic sensitivity f or evaluation of anatomic detail. There is lateral fixating plate through oblique fracture deformity lateral malleolus. There is lateral anterior fixating plate with multiple fixating screws through comminuted fractures d istal tibial metaphysis. Satisfactory alignment is seen on postoperative views provided. IMPRESSION: As above.
--- NOTE | 2017-10-24 16:32 | P.OP ---
Date of Procedure: 10/24/17 Preoperative Diagnosis: 1. Left distal third tibia and fibula fracture 2. History of prior smoking with current COPD 3. Congestive heart failure Postoperative Diagnosis: Same Procedure(s) Performed: 1. Open reduction and internal fixation of left distal third tibia fracture 2. Open reduction and internal fixation of left lateral malleolus fracture 3. Application of short leg splint by physician Anesthesia: ZAINAB Surgeon: Babak Reinoso Gas Check Pad Maker #1: Evonne Pascual Estimated Blood Loss (ml): 50 IV fluids (ml): 1,000 Pathology: none sent Condition: stable Disposition: PACU Indications for Procedure: Patient is an 81-year-old male with multiple medical problems including CHF and COPD who sustained a closed distal tibia and fibula fracture 2 weeks ago. He was admitted for observation and orthopedics was consulted. He was found to have significant soft tissue swelling that prevented surgery at that time. He was discharged in a splint. He was seen in the office last week it which time his swelling had resolved to the point that there was wrinkling in the skin. Due to the patient being relatively active I recommended surgery. My proposed surgery was open reduction internal fixation of the distal tibia through an anterolateral approach and open reduction and internal fixation of the fibula through a posterolateral approach. I discussed the potential risks and complication of surgery with the patient and his son. These potential risks include but are not limited to risk of anesthesia, risk of superficial infection , risk of deep infection, risk of superficial wound necrosis, risk of deep wound necrosis, risk of fracture nonunion, risk of fracture malunion, risk of intraoperative fracture, risk of postoperative fracture, risk of damage to local blood vessels or nerves, risk of posttraumatic arthritis, risk of symptomatic hardware, risk of need for further surgery, risk of inability to regain preinjury level of function, risk of generalized to satisfaction with surgery, risk of DVT risk of PE risk of other medical complications and possibly loss of life or limb. The patient understands his increased risk of having a complication due to his age and underlying medical comorbidities. He provided his verbal and written consent to go forward with surgery. Operative Findings: The patient had osteopenia with very soft bone Description of Procedure: Patient was identified in preoperative holding and the correct left leg was marked with my initials. I reviewed the consent form with the patient and his family and all their questions were answered. The patient was then brought back to the operating room by anesthesia. He was positioned on the OR table and a general anesthetic and preoperative antibiotics were administered. A tourniquet was applied to the proximal aspect of the left thigh. The right leg was secured to the table with foam and tape. A bone foam bump was placed under his left buttock and a ramp was placed under the left leg. All other bony prominences were well-padded. The patient's leg was then prepped and draped in the standard sterile fashion. Prior to starting surgery timeout was performed identifying the correct patient, operative extremity, and procedure. The patient's leg was then elevated, exsanguinated with an Esmarch bandage, and the tourniquet was inflated to 250 mmHg. I began by outlining an incision over the anterolateral aspect of the distal tibia where an anterolateral approach. Skin incision was made with a 15 blade scalpel and dissection was carried down carefully to the subcutaneous tissue with tenotomy scissors. The superficial peroneal nerve was identified and carefully retracted. The extensor retinaculum was incised longitudinally in line with the skin incision. The anterior compartment muscles were then retracted laterally. The fracture was identified and its edges were sharply debrided to help assist with reduction. An treasury assistant pulled gentle longitudinal traction on the foot while also providing rotation and I attempted to clamp the fracture. Due to the soft bone the clamp fractured through the distal tibia fragment initially and had to be replaced. Once the tibia was out to length it was clamped with 1 brian placed through a stab hole medially and the other brian placed on the lateral aspect of the distal tibia. Clinically the fracture appeared to be out to length with only a small step-off laterally. Fluoroscopy was used to verify reduction in both AP and lateral image. A Dennison elevator was then used to elevate soft tissue off of the lateral face of the tibia. An anterolateral distal tibia plate was then slid up the tibia. Its position was verified both clinically by inspecting the fracture and with fluoroscopy. Once the plate appeared to be in acceptable position was pinned in place. A single 3.5 mm screw was placed in the oblong hole just proximal to the fracture bringing it down to bone. I then proceeded to place four 2.7mm nonlocking screws in the most distal holes of the plate using the lateral fluoroscopic image to direct the drill bit so the screws were not intra- articular. These nonlocking screws brought the plate nicely down to bone. I then proceeded to place locking screws proximal to the nonlocking screws but distal to the fracture. Attention was then turned to the proximal aspect of the plate. A stab incision was made over the most proximal hole of the plate and a percutaneously placed drill bit was used and a fully threaded 3.5 mm nonlocking screw was placed in the most proximal hole of the plate. A stab incision was then made over the lateral aspect of the tibia just proximal to the most proximal fracture fragment and a second 3.5 mm nonlocking screw was placed. A stab incision was then placed between these 2 screws and a locking 3.5 mm screw was placed percutaneously. Fluoroscopy was then used to assess both reduction of the tibia and placement of the hardware. Attention was then turned to the fibula. A longitudinal incision was made over the posterolateral aspect of the ankle. A roller was used to make sure that there was greater than a 5 cm skin bridge. Skin incision was made a 15 blade scalpel. Dissection was carried down to the subcutaneous tissue with tenotomy scissors. The fascia over the peroneal muscles was incised longitudinally in line with the skin incision. The peroneal tendons were retracted posteriorly. The posterior border of the fibula was identified. The periosteum was sharply elevated off the posterior border of the fibula. The fracture site was identified and early callus and consolidating hematoma was sharply debrided. I attempted to reduce and clamp the fracture but the bone was so soft the clamp broke through the distal fragment. I gently reduced the fibula and held it reduced with a K wire placed eccentric leg. A 6-hole one third tubular plate was placed over the posterior border of the distal fibula as an anti-glide construct. A 3.5 mm screw was placed in the hole just proximal to the fracture. Another 3.5 mm screws placed in the most proximal hole of the plate. A third 3.5 mm screw was placed between these in the third hole of the plate. I then placed a fourth 3.5 mm screw in the most distal hole of the plate. I then attempted to place a 2.7 mm lag screw through the plate but it began to fracture the proximal cortex. At this point final fluoroscopic images were taken including an AP view of the distal tibia and ankle as well as a lateral view of the ankle. The tibia fracture appeared to be adequately reduced and the hardware was in acceptable position with 3 screws proximal to the fracture. The fibula fracture appeared to be out to length with no intra-articular screws. At this point both wounds were copiously irrigated. The retinaculum over the anterolateral ankle musculature was closed with a running 0 Vicryl. The deep subcu was reapproximated using 2-0 Vicryl. The skin was closed using 3-0 nylon Allgower modification of the Donati stitch. The posterior lateral incision was closed with 0 Vicryl in the fascia over the peroneal musculature. 2-0 Vicryl was used to close the subcutaneous tissue. 3-0 nylon Algor modification of the Donati stitch were used to close the skin area and all stab incisions were closed using 3-0 nylon horizontal mattress stitches. I verified that all instrument, sponge, and sharp counts were correct. A sterile dressing consisting of Betadine soaked Adaptic, 4 x 4, and web roll was applied. The drapes were taken down and a well-padded bulky Quintana splint was placed. The patient was then awoken from his anesthetic, transferred from an or table to the [facility] and brought to PACU without of the procedure well. Evonne Pascual NP was required as a skilled treasury assistant for patient positioning, surgical retraction, reduction of fracture, placement of hardware, closure of surgical wounds, application of dressing, and application of splint. Plan: The patient is going to be admitted for IV pain medication, IV antibiotics , internal medicine consultation, and discharge planning. He is to be strictly nonweightbearing on his left leg.
--- NOTE | 2017-10-24 17:26 | P.ONQ ---
Anesthesiology Proc Note - PNB - Peripheral Nerve Block Performed Left Popliteal Single Time Out Performed: Yes Procedure Start Time: 16:35 Procedure Stop Time: 16:45 Indication: Acute Post-Operative Pain Sedation Type: Sedate with meaningful contact maintained Preparation: Sterile Prep Position: Prone Catheter: None Needle Types: Facet Needle Size: 100mm (4") Needle Gauge: 21 Technique: Ultrasound Injectate: Other (see comment) (bupivacain 0.5% with epi 1/200k 25 ml) Adjunct: Epinephrine (see comment for dilution ratio) Blood Aspirated: No Pain Paresthesia on Injection Noted: No Resistance on Injection: Normal Events: Uneventful and Well Tolerated
[2017-10-24] MEDS ORDERED: hydrALAZINE HCL 20 MG/ML 1 ML VIAL IVP PRN (17:59)
[2017-10-24] MEDS ORDERED: cloNIDine HCL 0.1 MG TAB PO PRN (17:59)
[2017-10-24] MEDS: CARVEDILOL 6.25 MG TAB PO SCH (19:04)
[2017-10-24] MEDS: LISINOPRIL 5 MG TAB PO SCH (19:04)
[2017-10-24] MEDS: HEPARIN SODIUM,PORCINE 5,000 UNIT/ML 1 ML VIAL SQ SCH (20:26)
[2017-10-24] MEDS: ceFAZolin IN SWFI 2 GM/20 ML SYRINGE IVP SCH (20:27)
[2017-10-24] MEDS: GABAPENTIN 400 MG CAP PO SCH (22:16)
[2017-10-25] MEDS: LACTATED RINGERS 1,000 ML IV SCH ×3 (05:19→19:16)
[2017-10-25] MEDS: HYDROcodone/APAP 5-325MG 1 EACH TAB PO PRN ×4 (05:37→21:42)
[2017-10-25] MEDS: ceFAZolin IN SWFI 2 GM/20 ML SYRINGE IVP SCH (05:37)
[2017-10-25] MEDS: GABAPENTIN 400 MG CAP PO SCH ×3 (08:02→21:42)
[2017-10-25] MEDS: LISINOPRIL 5 MG TAB PO SCH ×2 (08:02→21:44)
[2017-10-25] MEDS: CARVEDILOL 6.25 MG TAB PO SCH ×3 (08:02→17:28)
[2017-10-25] MEDS: FUROSEMIDE 20 MG TAB PO SCH (08:02)
[2017-10-25] MEDS: HEPARIN SODIUM,PORCINE 5,000 UNIT/ML 1 ML VIAL SQ SCH ×2 (08:03→21:42)
[2017-10-25 08:25] LABS: Basophils % (A) 0 %; Eosinophils % (A) 0 %; HCT 33.8 % (39.0-53.0); HGB 11.2 gm/dL (13.0-17.5); Lymphocytes % (A) 14 %; MCH 29.2 pg (25.0-35.0); MCHC 33.1 g/dL (31.0-37.0); MCV 88.2 fL (80.0-100.0); Mean Platelet Volume 6.7; Monocytes # (A) 0.6 k/uL (0-1.0); Monocytes % (A) 9 %; Neutrophils # (A) 5.6 k/uL (1.3-7.7); Neutrophils % (A) 76 %; Platelet Count 253 k/uL (150-450); RBC 3.84 m/uL (4.30-5.90); RDW 13.6 % (11.5-15.5); WBC 7.3 k/uL (3.8-10.6)
[2017-10-25 08:28] LABS: Anion Gap 9 mmol/L; Blood Urea Nitrogen 15 mg/dL (9-20); Calcium 8.8 mg/dL (8.4-10.2); Carbon Dioxide 28 mmol/L (22-30); Chloride 97 mmol/L (98-107); Glucose 120 mg/dL (74-99); Potassium 3.7 mmol/L (3.5-5.1); Sodium 134 mmol/L (137-145)
--- NOTE | 2017-10-25 08:52 | CONS ---
CONSULTATION REASON FOR CONSULTATION: Advice regarding history of atrial fibrillation, CAD, and multiple medications requested by Dr. Reinoso. HISTORY OF PRESENT ILLNESS: This 81-year-old gentleman with past history of atrial fibrillation, history of CAD, CHF, hypertension being followed by Dr. Cuenca in the outpatient setting was admitted after open reduction and fixation of left distal third tibial fracture and as well as left lateral malleolus and as well as application of short-leg splint by Dr. Reinoso for left distal third tibial and fibular fracture. Patient also has history of previous history of COPD, CHF, multiple medical problems. Postoperative the blood pressure is elevated, but currently the blood pressure improved after getting the routine nighttime medications. There is no history of fever, rigors. No history of headache, loss of consciousness, seizures. PAST MEDICAL HISTORY: Atrial fibrillation, CAD, CHF, hypertension, slip and fall on the ice. HOME MEDICATIONS: 1. Xarelto 20 mg with supper. 2. Zestril 5 mg b.i.d. 3. Neurontin 400 mg t.i.d. 4. Lasix 20 mg daily. 5. Coreg 6.25 mg b.i.d. with meals. ALLERGIES: None. FAMILY HISTORY: History coronary artery disease in the family. SOCIAL HISTORY: Previous history of smoking. Occasional alcohol intake. REVIEW OF SYSTEMS: ENT: Diminished hearing or vision. CARDIOVASCULAR: As mentioned. RESPIRATORY: No cough. No hemoptysis. GI: No nausea. : No dysuria. NERVOUS SYSTEM: No numbness, weakness. ALLERGY/IMMUNOLOGY: No asthma. MUSCULOSKELETAL: As mentioned earlier. HEMATOLOGY/ONCOLOGY: No history of anemia. ENDOCRINE: No history of diabetes or hypothyroidism. CONSTITUTIONAL: As mentioned earlier. DERMATOLOGY: Negative. RHEUMATOLOGY: Negative. PSYCHIATRY: As mentioned earlier. EXAMINATION: Alert and oriented x3. Pulse is 88, blood pressure 170/88, respirations 16, temperature 98.1, pulse ox 98% 2 L. HEENT: Conjunctivae normal. Oral mucosa moist. NECK: No jugular venous distention. No carotid bruit. No lymph node enlargement. CARDIOVASCULAR: S1, S2. RESPIRATORY: Breath sounds diminished in the bases. No rhonchi. No crackles. ABDOMEN: Soft, nontender. No mass palpable. LEGS: No edema, no swelling. NERVOUS SYSTEM: Higher functions as mentioned earlier. Moves all four limbs. No focal motor deficits. LYMPHATIC: No lymphadenopathy in the neck, axillae, groin. SKIN: No ulcer, rash, bleeding. LAB STUDIES: Currently not available. ASSESSMENT: 1. Status post open reduction internal fixation of the left distal third tibial fracture and left lateral malleolus fracture. 2. History of atrial fibrillation. 3. History of congestive heart failure. 4. History of coronary artery disease. 5. Hypertension. 6. History of hernia repair. 7. Remote history of nicotine dependence. 8. Peripheral neuropathy. 9. Vitamin D deficiency. 10.Congestive heart failure with chronic diastolic dysfunction, ejection fraction 55- 60%. RECOMMENDATION AND DISCUSSION: In this 81-year-old gentleman who presented with multiple complex medical issues, will monitor the patient closely. Continue the current management and symptomatic treatment. Otherwise at this time I recommend resume the home medications. Xarelto may be initiated when okay with Orthopedic Surgery. Will continue to monitor. We will recommend to monitor fluid and electrolyte balance closely. Otherwise, DVT prophylaxis. Repeat labs. Resume the home medications. We will follow the patient closely with you. Thank you, Dr. Reinoso, for letting us participate in the care of this patient. Patient may be asked to follow with Dr. Cuenca closely after discharge. MMODL / IJN: [id number] /
[2017-10-25] MEDS ORDERED: ENOXAPARIN 40 MG/0.4 ML SYRINGE SQ SCH (09:00)
--- NOTE | 2017-10-25 09:20 | P.PN ---
Subjective Progress Note Date: 10/25/17 Principal diagnosis: Status post ORIF of the left tibia and fibula fractures. This is a 81 year-old male post ORIF of the left tib-fib fractures. This is post-op day 1. The patient was evaluated at the bedside today. The patient denies nausea, vomiting, abdominal pain, shortness of breath, and chest pain this morning. He states his pain is controlled at this time. The patient has not been up out of bed yet today. Objective - Vital Signs Vital signs: Vital Signs Temp 98.1 F 10/25/17 07:13 Pulse 71 10/25/17 07:13 Resp 16 10/25/17 07:13 BP 123/68 10/25/17 07:13 Pulse Ox 99 10/25/17 07:13 Intake & Output 10/24/17 10/25/17 10/25/17 18:59 06:59 18:59 Intake Total 2000 1160 Output Total 50 300 Balance 1950 860 Weight 74.843 kg Intake: IV 2000 Intake, IV Titration 910 Amount Lactated Ringers 1,000 ml 910 @ 70 mls/hr IV .[id number] [facility] Rx#:[id number] Oral 250 Output: Urine 300 Estimated Blood Loss 50 Other: Voiding Method Urinal # Voids 1 - Exam The patient does not appear in acute distress. Alert and orientated x3. Dressing and splint is clean dry and intact. He is able to wiggle his toes without difficulty. Sensation and circulatory status is intact. - Labs CBC & Chem 7: 10/25/17 06:24 10/25/17 06:24 Labs: Abnormal Lab Results - Last 24 Hours (Table) 10/25/17 10/25/17 Range/Units 06:24 06:24 RBC 3.84 L (4.30-5.90) m/uL Hgb 11.2 L (13.0-17.5) gm/dL Hct 33.8 L (39.0-53.0) % Sodium 134 L (137-145) mmol/L Chloride 97 L (98-107) mmol/L Glucose 120 H (74-99) mg/dL Assessment and Plan (1) Status post open reduction with internal fixation (ORIF) of fracture of ankle Current Visit: Yes Status: Acute Code(s): Z96.7 - PRESENCE OF OTHER BONE AND TENDON IMPLANTS; Z87.81 - PERSONAL HISTORY OF (HEALED) TRAUMATIC FRACTURE SNOMED Code(s): 177913464 (2) Left fibular fracture Current Visit: Yes Status: Acute Code(s): S82.402A - UNSP FRACTURE OF SHAFT OF LEFT FIBULA, INIT FOR CLOS FX SNOMED Code(s): 84913081 (3) Left tibial fracture Current Visit: Yes Status: Acute Code(s): S82.202A - UNSP FRACTURE OF SHAFT OF LEFT TIBIA, INIT FOR CLOS FX SNOMED Code(s): 25839088 Plan: 1. Continue pain control 2. Anticoagulation with Xarelto per internal medicine 3. Start physical therapy and ambulation today, non-weightbearing left leg 4. Anticipate discharge to skilled rehab on Friday or Friday.
[2017-10-25] MEDS: hydrOXYzine PAMOATE 25 MG CAP PO PRN ×2 (11:02→16:04)
[2017-10-25] MEDS: RIVAROXABAN 10 MG TAB PO SCH (17:14)
--- NOTE | 2017-10-25 21:11 | CONS ---
CONSULTATION Mr. Gutierrez is an 81-year-old male who presented to undergo left ankle surgery. He has a known history of cardiomyopathy, and coronary artery disease, has been evaluated in the past by Dr. Morris. The patient has declined in the past, aggressive cardiac workup. He has done well from the cardiac standpoint, but apparently 2 weeks ago, fell and fractured his left ankle. He has underwent surgical repair yesterday. At that time, he had a fracture of the distal 3rd of the tibia and left lateral malleolus repair. He has a history of chronic atrial fibrillation and has been anticoagulated. According to him, his breathing has been stable. He denies any dizziness or palpitation. He denies any syncope. No clear PND, orthopnea, or peripheral edema. Has a known history of cardiomyopathy. MEDICATION: At this time include Coreg 6.25 mg twice a day, Xarelto 20 mg daily, lisinopril 5 mg daily, Lasix 20 mg daily. PHYSICAL EXAMINATION: Blood pressure running in the 120s in 130s. His blood pressure was higher earlier. Heart rate in the 80s. LUNGS: Clear. Heart irregularly irregular S1, S2. No S3. No rub. ABDOMEN: Soft, nontender. Left ankle in cast. LAB DATA: Lab data revealed a BUN and creatinine 15 and 0.8, potassium of 3.7. Hemoglobin of 11.2. IMPRESSION: 1. Status post fracture of the left ankle with surgery repair. 2. Chronic atrial fibrillation ablation. 3. History of cardiomyopathy. 4. Hypertension. RECOMMENDATIONS: From the cardiac standpoint, he is stable. I will continue on the present therapy with increasing the hydralazine 5 mg twice a day and stopping his p.r.n. antihypertensive drugs. We will obtain an echocardiogram and if remains stable no further cardiac workup will be needed. Thank you for this consult. We will follow with you. MMODL / IJN: [id number] /
--- NOTE | 2017-10-25 22:08 | PN ---
PROGRESS NOTE DATE OF SERVICE: 10/25/2017 INTERVAL HISTORY: This 81-year-old gentleman who was admitted with ORIF of the left distal tibia-fibula. The area has been improving significantly. Patient is ready for rehab at this time. No chest pain. No palpitations. No fever. EXAM: Alert and oriented x3. Pulse 80, blood pressure 129/69, respirations 16, temperature 97.5, pulse ox 98% on room air. HEENT: Conjunctivae normal. NECK: No jugular venous distention. CARDIOVASCULAR: S1, S2 muffled. RESPIRATORY: Breath sounds diminished in the bases. A few scattered rhonchi. ABDOMEN: Soft. No tenderness. LEGS: No edema. No swelling. NERVOUS SYSTEM: Nonfocal. LABS: WBC 7.2, hemoglobin is 11.2. Sodium 135. ASSESSMENT: 1. Status post open reduction and internal fixation of the left distal third of tibia fracture and left malleolar fracture. 2. History of atrial fibrillation. 3. History of congestive heart failure. 4. History of coronary artery disease. 5. Hypertension. 6. History of hernia repair. 7. Remote history of nicotine dependence. 8. History of peripheral neuropathy. 9. History of vitamin D deficiency. 10.Congestive heart failure with chronic diastolic dysfunction, ejection fraction 55%- 60%. RECOMMENDATIONS AND DISCUSSION: Recommend to continue current medical management, continue monitoring and symptomatic treatment. Otherwise, at this time I recommend to continue with current medications. Continue with Xarelto and closely follow with Orthopedic Surgery. Further recommendations to follow. MMODL / IJN: [id number] /
[2017-10-26] MEDS: hydrOXYzine PAMOATE 25 MG CAP PO PRN ×3 (03:16→15:18)
[2017-10-26] MEDS: HYDROcodone/APAP 5-325MG 1 EACH TAB PO PRN ×4 (03:16→20:02)
--- NOTE | 2017-10-26 09:21 | P.PN ---
Subjective Progress Note Date: 10/26/17 Principal diagnosis: Status post ORIF of the left tibia and fibula fractures. This is a 81 year-old male post ORIF of the left tib-fib fractures. This is post-op day 2. The patient was evaluated at the bedside today. The patient denies nausea, vomiting, abdominal pain, shortness of breath, and chest pain this morning. He states his pain is controlled at this time. The patient is currently sitting up in the chair. Objective - Vital Signs Vital signs: Vital Signs Temp 97.9 F 10/25/17 23:00 Pulse 88 10/26/17 02:28 Resp 17 10/26/17 02:28 BP 87/52 10/26/17 02:28 Pulse Ox 95 10/26/17 02:28 Intake & Output 10/25/17 10/26/17 10/26/17 18:59 06:59 18:59 Intake Total 560 Output Total 760 400 Balance -760 160 Intake: Intake, IV Titration 560 Amount Lactated Ringers 1,000 ml 560 @ 70 mls/hr IV .[id number] COUNTS INCLUDE 234 BEDS AT THE [facility] Rx#:[id number] Output: Urine 760 400 Other: Voiding Method Urinal Urinal - Exam The patient does not appear in acute distress. Alert and orientated x3. Dressing and splint is clean dry and intact. He is able to wiggle his toes without difficulty. Sensation and circulatory status is intact. - Labs CBC & Chem 7: 10/25/17 06:24 10/25/17 06:24 Labs: Abnormal Lab Results - Last 24 Hours (Table) 10/25/17 Range/Units 06:24 Vitamin D 25-Hydroxy 21.7 L (30.0-100.0) ng/mL Assessment and Plan (1) Status post open reduction with internal fixation (ORIF) of fracture of ankle Current Visit: Yes Status: Acute Code(s): Z96.7 - PRESENCE OF OTHER BONE AND TENDON IMPLANTS; Z87.81 - PERSONAL HISTORY OF (HEALED) TRAUMATIC FRACTURE SNOMED Code(s): 958054864 (2) Left fibular fracture Current Visit: Yes Status: Acute Code(s): S82.402A - UNSP FRACTURE OF SHAFT OF LEFT FIBULA, INIT FOR CLOS FX SNOMED Code(s): 82689327 (3) Left tibial fracture Current Visit: Yes Status: Acute Code(s): S82.A - UNSP FRACTURE OF SHAFT OF LEFT TIBIA, INIT FOR CLOS FX SNOMED Code(s): 28181099 Plan: 1. Continue pain control 2. Anticoagulation with Xarelto per internal medicine 3. Continue physical therapy and ambulation today, non-weightbearing left leg 4. Anticipate discharge to skilled rehab on Friday or Friday.
[2017-10-26] MEDS: HEPARIN SODIUM,PORCINE 5,000 UNIT/ML 1 ML VIAL SQ SCH ×2 (09:48→20:01)
[2017-10-26] MEDS: CARVEDILOL 6.25 MG TAB PO SCH ×2 (09:48→16:52)
[2017-10-26] MEDS: LISINOPRIL 5 MG TAB PO SCH ×2 (09:48→20:02)
[2017-10-26] MEDS: GABAPENTIN 400 MG CAP PO SCH ×3 (09:48→20:02)
[2017-10-26] MEDS: FUROSEMIDE 20 MG TAB PO SCH (09:48)
[2017-10-26] MEDS: LACTATED RINGERS 1,000 ML IV SCH (11:26)
--- NOTE | 2017-10-26 15:45 | PN ---
PROGRESS NOTE Mr. Gutierrez is an 81-year-old male who underwent a left ankle surgery. He is doing well this morning. His breathing has been stable. He denies any chest pain. No dizziness, palpitation. He denies any nausea. He has a known history of chronic persistent atrial fibrillation as well as history of cardiomyopathy and hypertension. He continues to be at this time on furosemide 20 mg daily, Coreg 6.5 mg twice a day, lisinopril 5 mg twice a day, and Xarelto 20 mg daily. PHYSICAL EXAMINATION: Blood pressure 119/58 with a heart in 90s. LUNGS: Clear. HEART: Irregular regular S1, S2. No S3. No rub. ABDOMEN: Soft, nontender. Left ankle in cast. IMPRESSION: 1. Status post fracture of the left ankle, status post surgery. 2. Chronic persistent atrial fibrillation. 3. History of hypertension. 4. History of cardiomyopathy. RECOMMENDATION: From the cardiac standpoint he is stable. We will continue present medical regimen. He will follow up with Dr. Morris as an outpatient. We will see him on as needed basis. Please feel free to call us for any questions. MMODL / IJN: [id number] /
[2017-10-26] MEDS: RIVAROXABAN 10 MG TAB PO SCH (16:52)
[2017-10-27 01:57] VITALS: RESP 16
[2017-10-27] MEDS: LACTATED RINGERS 1,000 ML IV SCH ×2 (03:46→15:54)
[2017-10-27] MEDS: HYDROcodone/APAP 5-325MG 1 EACH TAB PO PRN (03:57)
--- NOTE | 2017-10-27 08:34 | PN ---
PROGRESS NOTE DATE OF SERVICE: 10/26/2017 This is an 81-year-old gentleman admitted with ORIF of the distal 3rd of the tibia is being planned for rehab at this time. No chest pain. No palpitations. No fever. PHYSICAL EXAM: Alert and oriented x3. Pulse is 76, blood pressure 124/76, respirations 16, temperature 97.7, pulse ox 97% on room air. HEENT: Conjunctivae normal. NECK: No jugular venous distension. CARDIOVASCULAR SYSTEM: S1, S2, muffled. RESPIRATORY: Breath sounds diminished at the bases, no rhonchi, no crackles. Abdomen is soft, nontender. LEGS: Status post surgery. NERVOUS SYSTEM: No focal deficits. LABS: WBC 7.3, hemoglobin is 11.2, sodium 134. ASSESSMENT: 1. Status post ORIF of the left distal 3rd of tibia fracture and left malleolar fracture. 2. History of atrial fibrillation. 3. History of congestive heart failure. 4. History of coronary artery disease. 5. Hypertension. 6. History of hernia repair. 7. Remote history of nicotine dependence. 8. History of peripheral neuropathy. 9. History of vitamin D deficiency. 10.History of congestive heart failure with chronic diastolic dysfunction, ejection fraction 55% to 60%. 11. RECOMMENDATION: Recommend to continue current med, current with the monitoring and symptomatic management and treatment otherwise at this time. Also vitamin D deficient. Continue to monitor. Otherwise, closely followed with Orthopedic Surgery. Further recommendations recommendations to follow. MMODL / IJN: [id number] /
[2017-10-27] MEDS: LISINOPRIL 5 MG TAB PO SCH (08:42)
[2017-10-27] MEDS: FUROSEMIDE 20 MG TAB PO SCH (08:42)
[2017-10-27] MEDS: GABAPENTIN 400 MG CAP PO SCH (08:42)
[2017-10-27] MEDS: CARVEDILOL 6.25 MG TAB PO SCH (08:42)
[2017-10-27] MEDS: HEPARIN SODIUM,PORCINE 5,000 UNIT/ML 1 ML VIAL SQ SCH (08:42)
[2017-10-27] MEDS ORDERED: HYDROcodone/APAP 7.5-325MG 1 EACH TAB PO PRN (08:48)
--- NOTE | 2017-10-27 08:58 | P.DS ---
Providers Date of admission: 10/24/17 10:34 Expected date of discharge: 10/27/17 Attending physician: Babak Reinoso Consults: 10/24/17 15:17 Consult Physician Routine Consulting Provider: Paris Castaneda Consult Reason/Comments: medical management and anticoagulation Do you want consulting provider notified?: Yes Primary care physician: Stated None - Discharge Diagnosis(es) (1) Status post open reduction with internal fixation (ORIF) of fracture of ankle Patient was admitted to the OR on 10/24/17 to undergo ORIF of left bimalleolar ankle fracture. He had failed conservative measures as an outpatient and desired to proceed with elective surgery after given informed consent. He underwent the above procedure which he tolerated well without complication. Postoperative hospital course has remained without complication. On day of discharge he is afebrile, vital signs stable, labs within acceptable ranges, tolerating by mouth meds and diet, voiding without difficulty, positive flatus, denies abdominal pain or calf pain, pain is controlled on oral pain medication and has no new complaints. Wound is benign, neurovascular status is intact, calf is soft and nontender, abdomen soft and nontender. Review of systems is negative for numbness, tingling, fever, chills, chest pain, shortness breath, nausea, vomiting, dizziness, headaches, slurred speech or other. Current Visit: Yes Status: Acute Priority: Medium Procedures: ORIF Left ANkle fracture Patient Condition at Discharge: Good Plan - Discharge Summary Discharge Rx Participant: Yes New Discharge Prescriptions: New Docusate [Colace] 100 mg PO BID #60 capsule HYDROcodone/APAP 7.5-325MG [Nuevo 7.5-325] 1 - 2 tab PO Q6HR PRN #60 tab PRN Reason: Pain No Action Carvedilol [Coreg] 6.25 mg PO BID-W/MEALS #60 tab Furosemide [Lasix] 20 mg PO DAILY #30 tab Lisinopril [Zestril] 5 mg PO DAILY #30 tab Rivaroxaban [Xarelto] 20 mg PO W/SUPPER Gabapentin [Neurontin] 400 mg PO TID Discharge Medication List Carvedilol [Coreg] 6.25 mg PO BID-W/MEALS #60 tab 04/11/15 [Rx] Furosemide [Lasix] 20 mg PO DAILY #30 tab 04/11/15 [Rx] Lisinopril [Zestril] 5 mg PO DAILY #30 tab 04/11/15 [Rx] Rivaroxaban [Xarelto] 20 mg PO W/SUPPER 12/03/16 [History] Gabapentin [Neurontin] 400 mg PO TID 10/10/17 [History] Docusate [Colace] 100 mg PO BID #60 capsule 10/27/17 [Rx] HYDROcodone/APAP 7.5-325MG [Nuevo 7.5-325] 1 - 2 tab PO Q6HR PRN #60 tab [Rx] Follow up Appointment(s)/Referral(s): Babak Reinoso MD [Medical Doctor] - 10 Days Ambulatory/Diagnostic Orders: Walker w/ Wheels [DME.AMB1] Location: Determined By Patient Activity/Diet/Wound Care/Special Instructions: non weight bearing maintain splint keep clean and dry f/u with Dr. Reinoso in office elevate leg take meds as directed Discharge Disposition: TRANSFER TO SNF/ECF
[2017-10-27] MEDS: HYDROcodone/APAP 7.5-325MG 1 EACH TAB PO PRN ×2 (09:03→14:25)
[2017-10-27 14:55] VITALS: BP 176/88; PULSE 95; TEMP 97.5
--- NOTE | 2017-10-28 11:11 | PN ---
PROGRESS NOTE DATE OF SERVICE: 10/27/2017 This 81-year-old gentleman who was admitted with ORIF of the distal third of the tibia fracture and left malleolar fracture is being closely monitored. No chest pain. No palpitations. No fever. EXAM: Alert and oriented x3. Pulse 87, blood pressure 155/88, respirations 16, temperature 98 degrees, pulse ox 94% on room air. HEENT: Conjunctivae normal. NECK: No jugular venous distention. CARDIOVASCULAR: S1, S2 muffled. RESPIRATORY: Breath sounds diminished in the bases. A few scattered rhonchi. No crackles. ABDOMEN: Soft, nontender. LEGS: No edema. No swelling. NERVOUS SYSTEM: Nonfocal. LABS: WBC 7.5, hemoglobin is 11.2. Sodium 134. ASSESSMENT: 1. Status post open reduction and internal fixation of the left distal third tibia fracture and left malleolar fracture. 2. History of atrial fibrillation. 3. History of congestive heart failure. 4. History of coronary artery disease. 5. Hypertension. 6. History of hernia repair. 7. Remote history of nicotine dependence. 8. History of peripheral neuropathy. 9. History of vitamin D deficiency. 10.History of congestive heart failure with chronic diastolic dysfunction, ejection fraction 50%-60%. RECOMMENDATIONS AND DISCUSSION: Recommend to continue current medical management, continue symptomatic treatment. Otherwise at this time, I recommend follow the patient closely and I would recommend ECF rehab, resume the home medications. Guarded prognosis. Further recommendations to follow. MMCRISTHIANL / SUMIN: [id number] /
== END 2017-10-27 17:30 | DRG 493 ==
LOC: 2ORMAIN 10:34 → 3SUR 15:34
PROVIDERS: ADMIT Orthopaedic Surgery; ATTEND Orthopaedic Surgery
PROC: 0QSH04Z Reposition Left Tibia with Internal Fixation Device, Open Approach (ICD-10-PCS; 2017-10-24)
PROC: 0QSK04Z Reposition Left Fibula with Internal Fixation Device, Open Approach (ICD-10-PCS; principal; 2017-10-24 12:30)
DX: S82.302A Unspecified fracture of lower end of left tibia, initial encounter for closed fracture (principal); I48.1 Persistent atrial fibrillation; G62.9 Polyneuropathy, unspecified; I42.9 Cardiomyopathy, unspecified; I50.32 Chronic diastolic (congestive) heart failure; I11.0 Hypertensive heart disease with heart failure; I48.2 Chronic atrial fibrillation; E55.9 Vitamin D deficiency, unspecified; I25.10 Atherosclerotic heart disease of native coronary artery without angina pectoris; S82.62XA Displaced fracture of lateral malleolus of left fibula, initial encounter for closed fracture; J44.9 Chronic obstructive pulmonary disease, unspecified; M85.80 Other specified disorders of bone density and structure, unspecified site; Z79.01 Long term (current) use of anticoagulants; Z79.899 Other long term (current) drug therapy; Z87.891 Personal history of nicotine dependence; Z82.49 Family history of ischemic heart disease and other diseases of the circulatory system; W00.0XXA Fall on same level due to ice and snow, initial encounter; Y92.9 Unspecified place or not applicable
CPT/HCPCS: 80048; 82306; 85025; 93005

== ENCOUNTER 2018-02-23 21:26 | Emergency (ER) | payer MEDICARE, OTHER ==
--- NOTE | 2018-02-23 21:48 | ED ---
Back Pain HPI - General Chief Complaint: Back Pain/Injury Stated Complaint: back pain Time Seen by Provider: 02/23/18 21:34 Source: patient, RN notes reviewed Limitations: no limitations - History of Present Illness Initial Comments: This is an 82-year-old male who presents to the emergency department with chief complaint of acute onset low back pain. Patient states that at approximately 5 PM this evening he was sitting and felt acute onset of low back pain. He describes it as sharp, increasing with rotational movements. Denies flank pain or urinary symptoms such as dysuria or hematuria. Denies chest pain or shortness of breath. Denies fevers or chills, abdominal pain, nausea or vomiting. Patient states that he broke his left ankle couple of months ago and has been taking [place] for this. He states that the [place] is not helping relieve his low back pain. Denies saddle paresthesias or loss of bladder or bowel function. Denies numbness or tingling or radiation of pain down the legs. - Related Data Home Medications Medication Instructions Recorded Confirmed Rivaroxaban [Xarelto] 20 mg PO W/SUPPER 12/03/16 10/24/17 Gabapentin [Neurontin] 400 mg PO TID 10/10/17 10/24/17 Previous Rx's Medication Instructions Recorded Carvedilol [Coreg] 6.25 mg PO BID-W/MEALS #60 tab 04/11/15 Furosemide [Lasix] 20 mg PO DAILY #30 tab 04/11/15 Lisinopril [Zestril] 5 mg PO DAILY #30 tab 04/11/15 Docusate [Colace] 100 mg PO BID #60 capsule 10/27/17 HYDROcodone/APAP 7.5-325MG [[place] 1 - 2 tab PO Q6HR PRN #60 tab 10/27/17 7.5-325] Sennosides-Docusate Sodium 2 each PO HS PRN tab 10/27/17 [Senokot-S] Allergies Allergy/AdvReac Type Severity Reaction Status Date / Time No Known Allergies Allergy Verified 02/23/18 21:33 Review of Systems ROS Statement: Those systems with pertinent positive or pertinent negative responses have been documented in the HPI. ROS Other: All systems not noted in ROS Statement are negative. Past Medical History Past Medical History: Atrial Fibrillation, Coronary Artery Disease (CAD), Heart Failure, Hypertension Additional Past Medical History / Comment(s): 10/09/17 slip and fall on ice with left tibia fracture, has splint on, and is no weight bearing History of Any Multi-Drug Resistant Organisms: None Reported Past Surgical History: Hernia Repair Past Anesthesia/Blood Transfusion Reactions: No Reported Reaction Past Psychological History: No Psychological Hx Reported Smoking Status: Former smoker Past Alcohol Use History: None Reported Past Drug Use History: None Reported - Past Family History Mother History Unknown: Yes Father Family Medical History: Coronary Artery Disease (CAD) Sister(s) History Unknown: Yes Brother(s) History Unknown: Yes Daughter(s) Family Medical History: No Reported History Son(s) Family Medical History: No Reported History General Exam - General Exam Comments Initial Comments: General: Awake and alert, well-developed; in no apparent distress. is at bedside. HEENT: Head atraumatic, normocephalic. Pupils are equal, round and reactive to light. Extraocular movements intact. Oropharynx moist without erythema or exudate. Neck: Supple. Normal ROM. Cardiovascular: Regular rate and rhythm. No murmurs, rubs or gallops. Chest symmetrical. Respiratory: Lungs clear to auscultation bilaterally. No wheezes, rales or rhonchi. Normal respiratory effort with no use of accessory muscles. Abdomen: Soft, non-distended. Mild tenderness on palpation of periumbilical region. No pulsatile mass. No rigidity, rebound or guarding. Normal bowel sounds in all 4 quadrants. Musculoskeletal: Normal ROM of the spine. Tenderness on palpation of bilateral lumbar paraspinal muscles. No vertebral bony point tenderness. Sensation is intact. Left foot is in a walking boot. Skin: [place], warm and dry without rashes or lesions. Neurological: Alert and oriented x3. CN II-XII grossly intact. Speech is fluent and answers are appropriate. No focal neuro deficits. Psychiatric: Normal mood and affect. No overt signs of depression or anxiety noted. Limitations: no limitations Course Vital Signs 02/23/18 21:30 Temperature 97.1 F L Pulse Rate 73 Respiratory 16 Rate Blood Pressure 178/85 O2 Sat by Pulse 98 Oximetry Medical Decision Making - Medical Decision Making This is an 82-year-old male who presents to the emergency department with chief complaint of acute onset low back pain. On physical examination, there is tenderness along the lumbar paraspinal muscles. Patient is currently taking Allport for a left ankle fracture he sustained a couple of months ago. Patient denies any specific injuries, traumas or recent falls. This case was discussed with attending physician, Dr. Varghese who recommended retrieving a computed tomography scan of the abdomen and pelvis to rule out aortic dissection. 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 Patient denies fevers or chills, chest pain or shortness of breath. Vital signs are stable and he is in no acute distress. Patient will be discharged home at this time to recommendation to follow-up with his primary care provider. Patient is in agreement and voices understanding. All questions were answered. - Radiology Data Radiology results: report reviewed CT abdomen and pelvis without contrast impression: No evidence of renal stone or obstruction. No sign of appendicitis. 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 Atherosclerotic vascular disease. No sign of acute abdomen and pelvis. Cardiomegaly with pleural effusions. This could relate to congestive heart failure. Disposition Clinical Impression: Acute low back pain Disposition: HOME SELF-CARE Condition: Good Instructions: Acute Low Back Pain (ED) Additional Instructions: Please follow up with primary care provider within 1-2 days. Return to emergency department if symptoms should worsen or any concerns arise. Is patient prescribed a controlled substance at d/c from ED?: No Referrals: None,Stated [Primary Care Provider] - 1-2 days Time of Disposition: 22:49
--- NOTE | 2018-02-23 22:43 | CT ---
EXAMINATION TYPE: CT abdomen pelvis wo con DATE OF EXAM: 02/23/2018 COMPARISON: NONE HISTORY: Left flank and low back pain. CT DLP: 362 mGycm Automated exposure control for dose reduction was used. TECHNIQUE: Helical acquisition of images was performed from the lung bases through the pelvis. FINDINGS: Lung bases show bilateral pleural effusions and larger on the right side. Heart is enlarged. There is some atelectasis at the lung bases. Liver and spleen appear normal. Bile ducts are not dilated. Gallbladder appears normal. There is no s ign of a pancreatic mass. There is no adrenal mass. The kidneys have normal size and contour. There is no hydronephrosis. 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 There is no retroperitoneal adenopathy. There is no ascites. There is some retained fecal material in the rectum. Bladder distends smoothly. There is no free fluid in the pelvis. There is no evidence of appendicitis. I see no intestinal wall thickening. There are no dilated loops. There is multilevel spondylosis in the lumbar spine. I see no compressio n fracture. IMPRESSION: NO EVIDENCE OF RENAL STONE OR OBSTRUCTION. NO SIGN OF APPENDICITIS. 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 ATHEROSCLEROTIC VASCULAR DISEASE. NO SIGN OF ACUTE ABDOMEN AND PELVIS. CARDIOMEGALY WITH PLEURAL EFFUSIONS. THIS COULD RELATE TO CONGESTIVE HEART FAILURE.
[2018-02-23] MEDS ORDERED: DIAZEPAM 5 MG TAB PO STA (22:54)
[2018-02-23 23:05] VITALS: BP 189/90; PULSE 65; RESP 18; TEMP 97.6
== END 2018-02-23 23:03 | disposition home or self-care (01) ==
LOC: EC 21:26
DX: M54.5 Low back pain (principal); I48.91 Unspecified atrial fibrillation; I25.10 Atherosclerotic heart disease of native coronary artery without angina pectoris; I11.0 Hypertensive heart disease with heart failure; I50.9 Heart failure, unspecified; Z82.49 Family history of ischemic heart disease and other diseases of the circulatory system; Z87.891 Personal history of nicotine dependence; Z79.01 Long term (current) use of anticoagulants; Z79.899 Other long term (current) drug therapy
CPT/HCPCS: 74176; 99283

== ENCOUNTER 2018-03-20 16:50 | Emergency (ER) | payer MEDICARE, OTHER ==
[2018-03-20 17:07] VITALS: BP 174/104; PULSE 87; RESP 18; TEMP 98.1
--- NOTE | 2018-03-20 17:38 | ED ---
General Adult HPI - General Chief complaint: Recheck/Abnormal Lab/Rx Stated complaint: Needs a brace Time Seen by Provider: 03/20/18 17:22 Source: patient, RN notes reviewed Mode of arrival: ambulatory Limitations: no limitations - History of Present Illness Initial comments: 82-year-old male presents to the emergency department for a chief complaint of needing an ankle brace. Patient states she had surgery on his left ankle weeks ago and has been using a boot. The surgeon ordered him to get an ankle brace and wear with a tennis shoe. Patient comes to the emergency department with a brand-new tennis shoes in search of an ankle brace. Patient states [facility] and they did not have the brace he needed. Patient denies any pain in his foot right now. Patient does not want an exam or any imaging. Patient states he simply needs the brace. Patient has no other complaints at this time including shortness of breath, chest pain, abdominal pain, nausea or vomiting, headache, or visual changes. - Related Data Home Medications Medication Instructions Recorded Confirmed Rivaroxaban [Xarelto] 20 mg PO W/SUPPER 12/03/16 03/20/18 Previous Rx's Medication Instructions Recorded Carvedilol [Coreg] 6.25 mg PO BID-W/MEALS #60 tab 04/11/15 Furosemide [Lasix] 20 mg PO DAILY #30 tab 04/11/15 Lisinopril [Zestril] 5 mg PO DAILY #30 tab 04/11/15 HYDROcodone/APAP 7.5-325MG [[place] 1 - 2 tab PO Q6HR PRN #60 tab 10/27/17 7.5-325] Allergies Allergy/AdvReac Type Severity Reaction Status Date / Time No Known Allergies Allergy Verified 03/20/18 17:12 Review of Systems ROS Statement: Those systems with pertinent positive or pertinent negative responses have been documented in the HPI. ROS Other: All systems not noted in ROS Statement are negative. Past Medical History Past Medical History: Atrial Fibrillation, Coronary Artery Disease (CAD), Heart Failure, Hypertension Additional Past Medical History / Comment(s): 10/09/17 slip and fall on ice with left tibia fracture, has splint on, and is no weight bearing History of Any Multi-Drug Resistant Organisms: None Reported Past Surgical History: Hernia Repair Past Anesthesia/Blood Transfusion Reactions: No Reported Reaction Past Psychological History: No Psychological Hx Reported Smoking Status: Former smoker Past Alcohol Use History: None Reported Past Drug Use History: None Reported - Past Family History Mother History Unknown: Yes Father Family Medical History: Coronary Artery Disease (CAD) Sister(s) History Unknown: Yes Brother(s) History Unknown: Yes Daughter(s) Family Medical History: No Reported History Son(s) Family Medical History: No Reported History General Exam Limitations: no limitations General appearance: alert, in no apparent distress (Patient is sitting in a chair alert and interactive. Pleasant.) Respiratory exam: Present: normal lung sounds bilaterally. Absent: respiratory distress, wheezes, rales, rhonchi, stridor Cardiovascular Exam: Present: regular rate, normal rhythm, normal heart sounds. Absent: systolic murmur, diastolic murmur, rubs, gallop, clicks Extremities exam: Present: full ROM (Full range of motion of the left ankle and foot.), normal capillary refill (Refill less than 2 seconds and pedal pulse 2+.) , other (There is a healed surgical scar on the anterior left ankle.). Absent: tenderness (No tenderness in the left ankle or foot.), pedal edema, joint swelling, calf tenderness Course Vital Signs 03/20/18 16:59 Temperature 98.1 F Pulse Rate 87 Respiratory 18 Rate Blood Pressure 174/104 O2 Sat by Pulse 98 Oximetry Medical Decision Making - Medical Decision Making 82-year-old male presents to the emergency department for a chief complaint of needing an ankle brace. Patient had surgery on his ankle quite some time ago and has been using a walking boot since that time. Patient states the surgeon wanted him to get an ankle brace and wear tennis shoes. Patient states he tried to go to multiple pharmacies to find a brace and could not find one. Patient refuses any imaging or workup including xray. Exam was unremarkable and surgical scar is well-healed. No pain at this time. Patient was given an ankle brace which he tolerated well. Patient was educated to follow up with primary care about his high blood pressure. He is currently asymptomatic and denies headache, visual changes, chest pain, shortness of breath. He will return to the emergency department if he has any other worsening symptoms Disposition Clinical Impression: Normal exam Disposition: HOME SELF-CARE Condition: Good Instructions: RICE Therapy (ED) Additional Instructions: Please take Tylenol for pain. Please use Aircast as directed by orthopedic surgeon. Follow up with orthopedic surgeon in 1-2 days. Return to the emergency department if you develop any symptoms or other concerns. Is patient prescribed a controlled substance at d/c from ED?: No Referrals: Babak Reinoso MD [Medical Doctor] - 1-2 days Shakir Hillman MD [STAFF PHYSICIAN] - 1-2 days Time of Disposition: 17:36
== END 2018-03-20 17:55 | disposition home or self-care (01) ==
LOC: EC 16:50
DX: Z47.89 Encounter for other orthopedic aftercare (principal); I48.91 Unspecified atrial fibrillation; Z87.891 Personal history of nicotine dependence; Z79.01 Long term (current) use of anticoagulants; Z98.890 Other specified postprocedural states
CPT/HCPCS: 99282; L4350

== ENCOUNTER → 2018-04-09 | Outpatient (CLI) | payer MEDICARE, OTHER ==
[2018-04-09 17:25] LABS: Basophils % (A) 0 %; Eosinophils # (A) 0.5 k/uL (0-0.7); Eosinophils % (A) 10 %; HCT 36.9 % (39.0-53.0); HGB 12.1 gm/dL (13.0-17.5); Lymphocytes # (A) 1.6 k/uL (1.0-4.8); Lymphocytes % (A) 29 %; MCH 27.3 pg (25.0-35.0); MCHC 32.7 g/dL (31.0-37.0); MCV 83.3 fL (80.0-100.0); Mean Platelet Volume 6.4; Monocytes # (A) 0.4 k/uL (0-1.0); Monocytes % (A) 7 %; Neutrophils # (A) 2.7 k/uL (1.3-7.7); Neutrophils % (A) 51 %; Platelet Count 198 k/uL (150-450); RBC 4.43 m/uL (4.30-5.90); RDW 14.4 % (11.5-15.5); WBC 5.4 k/uL (3.8-10.6)
[2018-04-09 17:47] LABS: ALT 26 U/L (21-72); AST 20 U/L (17-59); Alkaline Phosphatase 90 U/L (38-126); Anion Gap 13 mmol/L; Blood Urea Nitrogen 11 mg/dL (9-20); Calcium 8.8 mg/dL (8.4-10.2); Carbon Dioxide 24 mmol/L (22-30); Chloride 100 mmol/L (98-107); Glucose 110 mg/dL (74-99); Potassium 3.6 mmol/L (3.5-5.1); Sodium 137 mmol/L (137-145); Total Bilirubin 0.7 mg/dL (0.2-1.3); Total Protein 6.8 g/dL (6.3-8.2)
--- NOTE | 2018-04-10 07:41 | XR ---
EXAMINATION TYPE: XR chest 2V DATE OF EXAM: 04/09/2018 COMPARISON: 10/10/2017 TECHNIQUE: PA and lateral views submitted. HISTORY: Shortness of breath FINDINGS: Bilateral consolidation with tiny right effusion. Biapical pleural thickening and calcification. No o vert failure. The heart is enlarged. Arthropathy of the shoulders. Underlying COPD. Degenerative cote ge of the spine. IMPRESSION: 1. Bibasilar consolidation and small effusion. 2. Correlate for COPD
== END | disposition home or self-care (01) ==
LOC: RADXRMAIN 16:03
PROVIDERS: ATTEND Internal Medicine Cardiovascular Disease
DX: J90 Pleural effusion, not elsewhere classified (principal); R91.8 Other nonspecific abnormal finding of lung field
CPT/HCPCS: 36415; 71046; 80053; 83880; 85025

== ENCOUNTER 2018-09-30 16:28 | Emergency (ER) | payer MEDICARE, OTHER ==
[2018-09-30] MEDS ORDERED: SODIUM CHLORIDE 0.9% 1,000 ML IV STA (17:04)
--- NOTE | 2018-09-30 17:19 | ED ---
Dizziness HPI - General Chief Complaint: Dizziness Stated Complaint: DIZZINESS Time Seen by Provider: 09/30/18 17:04 Source: patient, RN notes reviewed, old records reviewed Mode of arrival: wheelchair Limitations: no limitations - History of Present Illness Initial Comments: THis is an 82 male to the ED for dizziness and near syncopal event. PAtient has heart history and history of Afib. Patient currently without complaint of SALAS, sob, CP. No recent illness or nausea vomiting or diarrhea. Pstient was boarding the bus and then had a near syncopal event. Patient then immediately felt wqell, with no complaints, patient came to hospital to refill RX and wanted to be checked out. Patient with no complaints. MD Complaint: dizziness, near syncope -: hour(s) (2) Timing: sudden onset, now resolved Description: lightheadedness, near-syncope History of Same: Yes History of Trauma: No Severity: mild Improves With: rest Worsens With: exertion Associated Symptoms: denies other symptoms - Related Data Home Medications Medication Instructions Recorded Confirmed Rivaroxaban [Xarelto] 20 mg PO W/SUPPER 12/03/16 09/30/18 HYDROcodone/APAP 5-325MG [[place] 1 tab PO Q6HR PRN 09/30/18 09/30/18 5-325] diphenhydrAMINE [Benadryl] 50 mg PO Q8HR 09/30/18 09/30/18 Previous Rx's Medication Instructions Recorded Carvedilol [Coreg] 6.25 mg PO BID-W/MEALS #60 tab 04/11/15 Furosemide [Lasix] 20 mg PO DAILY #30 tab 04/11/15 Allergies Allergy/AdvReac Type Severity Reaction Status Date / Time No Known Allergies Allergy Verified 09/30/18 17:57 Review of Systems ROS Statement: Those systems with pertinent positive or pertinent negative responses have been documented in the HPI. ROS Other: All systems not noted in ROS Statement are negative. Past Medical History Past Medical History: Atrial Fibrillation, Coronary Artery Disease (CAD), Heart Failure, Hypertension Additional Past Medical History / Comment(s): 10/09/17 slip and fall on ice with left tibia fracture, has splint on, and is no weight bearing History of Any Multi-Drug Resistant Organisms: None Reported Past Surgical History: Hernia Repair Past Anesthesia/Blood Transfusion Reactions: No Reported Reaction Past Psychological History: No Psychological Hx Reported Smoking Status: Former smoker Past Alcohol Use History: None Reported Past Drug Use History: None Reported - Past Family History Mother History Unknown: Yes Father Family Medical History: Coronary Artery Disease (CAD) Sister(s) History Unknown: Yes Brother(s) History Unknown: Yes Daughter(s) Family Medical History: No Reported History Son(s) Family Medical History: No Reported History General Exam Limitations: no limitations General appearance: alert, in no apparent distress Head exam: Present: atraumatic, normocephalic, normal inspection Eye exam: Present: normal appearance, PERRL, EOMI. Absent: scleral icterus, conjunctival injection, periorbital swelling ENT exam: Present: normal exam, mucous membranes moist Neck exam: Present: normal inspection. Absent: tenderness, meningismus, lymphadenopathy Respiratory exam: Present: normal lung sounds bilaterally. Absent: respiratory distress, wheezes, rales, rhonchi, stridor Cardiovascular Exam: Present: regular rate, normal rhythm, normal heart sounds. Absent: systolic murmur, diastolic murmur, rubs, gallop, clicks GI/Abdominal exam: Present: soft, normal bowel sounds. Absent: distended, tenderness, guarding, rebound, rigid Extremities exam: Present: normal inspection, full ROM, normal capillary refill. Absent: tenderness, pedal edema, joint swelling, calf tenderness Back exam: Present: normal inspection Neurological exam: Present: alert, oriented X3, CN II-XII intact Psychiatric exam: Present: normal affect, normal mood Skin exam: Present: warm, dry, intact, normal color. Absent: rash Course Vital Signs 09/30/1818 18 16:30 17:15 17:30 Pulse Rate 82 67 56 L Respiratory 20 24 14 Rate Blood Pressure 111/71 126/83 O2 Sat by Pulse 97 96 Oximetry 09/30/18 18:00 Pulse Rate 61 Respiratory 13 Rate Blood Pressure 112/75 O2 Sat by Pulse 98 Oximetry - Reevaluation(s) Reevaluation #1: 18 18:53 medical record is reviewed Reevaluation #2: 18 18:53 patient has no significant SOB, no CP, no SALAS, no current complaints Reevaluation #3: 18 18:53 patient is able to ambulate without difficulty EKG Findings - EKG Comments: EKG Findings:: EKG shows atrial fibrillation rate of 62, QRS 74, QTc 436 Medical Decision Making - Medical Decision Making 82 male to the ED co dizziness and near syncopal event boarding the bus, patient asymptomatic currently, will discharge home, patient feels well. - Lab Data Result diagrams: 09/30/18 17:20 09/30/18 17:20 Lab Results 09/30/18 09/30/18 09/30/18 Range/Units 17:20 17:20 17:20 WBC 5.7 (3.8-10.6) k/uL RBC 5.15 (4.30-5.90) m/uL Hgb 14.7 (13.0-17.5) gm/dL Hct 43.5 (39.0-53.0) % MCV 84.4 (80.0-100.0) fL MCH 28.6 (25.0-35.0) pg MCHC 33.9 (31.0-37.0) g/dL RDW 15.0 (11.5-15.5) % Plt Count 182 (150-450) k/uL Neutrophils % (Manual) 71 % Band Neutrophils % 1 % Lymphocytes % (Manual) 20 % Monocytes % (Manual) 4 % Eosinophils % (Manual) 3 % Basophils % (Manual) 1 % Neutrophils # (Manual) 4.10 (1.3-7.7) k/uL Lymphocytes # (Manual) 1.14 (1.0-4.8) k/uL Monocytes # (Manual) 0.23 (0-1.0) k/uL Eosinophils # (Manual) 0.17 (0-0.7) k/uL Basophils # (Manual) 0.06 (0-0.2) k/uL Nucleated RBCs 0 (0-0) /100 WBC Manual Slide Review Performed PT (9.0-12.0) sec INR (<1.2) APTT (22.0-30.0) sec Sodium 133 L (137-145) mmol/L Potassium 3.4 L (3.5-5.1) mmol/L Chloride 93 L (98-107) mmol/L Carbon Dioxide 28 (22-30) mmol/L Anion Gap 12 mmol/L BUN 15 (9-20) mg/dL Creatinine 1.19 (0.66-1.25) mg/dL Est GFR (CKD-EPI)AfAm 66 (>60 ml/min/1.73 sqM) Est GFR (CKD-EPI)NonAf 57 (>60 ml/min/1.73 sqM) Glucose 145 H (74-99) mg/dL Calcium 9.2 (8.4-10.2) mg/dL Phosphorus 4.2 (2.5-4.5) mg/dL Magnesium 1.9 (1.6-2.3) mg/dL Total Bilirubin 1.7 H (0.2-1.3) mg/dL AST 27 (17-59) U/L ALT 14 L (21-72) U/L Alkaline Phosphatase 91 (38-126) U/L Total Creatine Kinase 68 (55-170) U/L CK-MB (CK-2) 1.1 (0.0-2.4) ng/mL CK-MB (CK-2) Rel Index 1.6 Troponin I <0.012 (0.000-0.034) ng/mL Total Protein 8.3 H (6.3-8.2) g/dL Albumin 4.5 (3.5-5.0) g/dL TSH 2.190 (0.465-4.680) mIU/L Urine Color Urine Appearance (Clear) Urine pH (5.0-8.0) Ur Specific [place] (1.001-1.035) Urine Protein (Negative) Urine Glucose (UA) (Negative) Urine Ketones (Negative) Urine Blood (Negative) Urine Nitrite (Negative) Urine Bilirubin (Negative) Urine Urobilinogen (<2.0) mg/dL Ur Leukocyte Esterase (Negative) 09/30/18 09/30/18 Range/Units 17:20 18:42 WBC (3.8-10.6) k/uL RBC (4.30-5.90) m/uL Hgb (13.0-17.5) gm/dL Hct (39.0-53.0) % MCV (80.0-100.0) fL MCH (25.0-35.0) pg MCHC (31.0-37.0) g/dL RDW (11.5-15.5) % Plt Count (150-450) k/uL Neutrophils % (Manual) % Band Neutrophils % % Lymphocytes % (Manual) % Monocytes % (Manual) % Eosinophils % (Manual) % Basophils % (Manual) % Neutrophils # (Manual) (1.3-7.7) k/uL Lymphocytes # (Manual) (1.0-4.8) k/uL Monocytes # (Manual) (0-1.0) k/uL Eosinophils # (Manual) (0-0.7) k/uL Basophils # (Manual) (0-0.2) k/uL Nucleated RBCs (0-0) /100 WBC Manual Slide Review PT 16.7 H (9.0-12.0) sec INR 1.7 H (<1.2) APTT 67.6 H (22.0-30.0) sec Sodium (137-145) mmol/L Potassium (3.5-5.1) mmol/L Chloride (98-107) mmol/L Carbon Dioxide (22-30) mmol/L Anion Gap mmol/L BUN (9-20) mg/dL Creatinine (0.66-1.25) mg/dL Est GFR (CKD-EPI)AfAm (>60 ml/min/1.73 sqM) Est GFR (CKD-EPI)NonAf (>60 ml/min/1.73 sqM) Glucose (74-99) mg/dL Calcium (8.4-10.2) mg/dL Phosphorus (2.5-4.5) mg/dL Magnesium (1.6-2.3) mg/dL Total Bilirubin (0.2-1.3) mg/dL AST (17-59) U/L ALT (21-72) U/L Alkaline Phosphatase (38-126) U/L Total Creatine Kinase (55-170) U/L CK-MB (CK-2) (0.0-2.4) ng/mL CK-MB (CK-2) Rel Index Troponin I (0.000-0.034) ng/mL Total Protein (6.3-8.2) g/dL Albumin (3.5-5.0) g/dL TSH (0.465-4.680) mIU/L Urine Color Yellow Urine Appearance Clear (Clear) Urine pH 6.0 (5.0-8.0) Ur Specific [place] 1.005 (1.001-1.035) Urine Protein Negative (Negative) Urine Glucose (UA) Negative (Negative) Urine Ketones Negative (Negative) Urine Blood Negative (Negative) Urine Nitrite Negative (Negative) Urine Bilirubin Negative (Negative) Urine Urobilinogen <2.0 (<2.0) mg/dL Ur Leukocyte Esterase Negative (Negative) Disposition Clinical Impression: Dehydration, Weakness, Dizziness Disposition: HOME SELF-CARE Condition: Good Instructions: Dizziness (ED) Is patient prescribed a controlled substance at d/c from ED?: No Referrals: None,Stated [REFERRING] - 1-2 days
[2018-09-30 17:39] LABS: INR 1.7 (<1.2); Prothrombin Time 16.7 sec (9.0-12.0)
[2018-09-30 17:47] LABS: Albumin 4.5 g/dL (3.5-5.0); Calcium 9.2 mg/dL (8.4-10.2); Magnesium 1.9 mg/dL (1.6-2.3); Phosphorus 4.2 mg/dL (2.5-4.5); Potassium 3.4 mmol/L (3.5-5.1); Total Bilirubin 1.7 mg/dL (0.2-1.3); Total Protein 8.3 g/dL (6.3-8.2)
[2018-09-30 17:50] LABS: Partial Thromboplastin Time 67.6 sec (22.0-30.0)
[2018-09-30 17:51] LABS: Creatine Kinase 68 U/L (55-170)
[2018-09-30 17:53] LABS: HCT 43.5 % (39.0-53.0); HGB 14.7 gm/dL (13.0-17.5); MCH 28.6 pg (25.0-35.0); MCHC 33.9 g/dL (31.0-37.0); MCV 84.4 fL (80.0-100.0); Mean Platelet Volume 6.7; Platelet Count 182 k/uL (150-450); RBC 5.15 m/uL (4.30-5.90); WBC 5.7 k/uL (3.8-10.6)
[2018-09-30 18:04] LABS: Creatine Kinase MB 1.1 ng/mL (0.0-2.4); Troponin I <0.012 ng/mL (0.000-0.034)
[2018-09-30 18:05] LABS: Band Neutrophils % 1 %; Basophils # (M) 0.06 k/uL (0-0.2); Eosinophils # (M) 0.17 k/uL (0-0.7); Lymphocytes # (M) 1.14 k/uL (1.0-4.8); Monocytes # (M) 0.23 k/uL (0-1.0); Neutrophils % (M) 71 %; Nucleated Red Blood Cells 0 /100 WBC (0-0); Total Cells Counted 100
[2018-09-30 18:47] LABS: Appearance,Urine Clear (Clear); Bilirubin,Urine Negative (Negative); Blood,Urine Negative (Negative); Color,Urine Yellow; Glucose,Urine (UA) Negative (Negative); Ketones,Urine Negative (Negative); Leukocyte Esterase,Urine Negative (Negative); Nitrite,Urine Negative (Negative); Protein,Urine Negative (Negative); Specific Gravity,Urine 1.005 (1.001-1.035); Urobilinogen,Urine <2.0 mg/dL (<2.0)
[2018-09-30] MEDS ORDERED: POTASSIUM BICARBONATE/CIT AC 20 MEQ TABLET.EFF PO ONE (18:50)
[2018-09-30 20:01] VITALS: BP 127/87; PULSE 67; RESP 18; TEMP 98.2
== END 2018-09-30 20:00 | disposition home or self-care (01) ==
LOC: EC 16:28
DX: E86.0 Dehydration (principal); I48.91 Unspecified atrial fibrillation; I25.10 Atherosclerotic heart disease of native coronary artery without angina pectoris; I11.0 Hypertensive heart disease with heart failure; I50.9 Heart failure, unspecified; Z87.891 Personal history of nicotine dependence; Z79.01 Long term (current) use of anticoagulants; Z79.899 Other long term (current) drug therapy
CPT/HCPCS: 36415; 80053; 81003; 82550; 82553; 83735; 84100; 84443; 84484; 85025; 85610; 85730; 87086; 93005; 96360; 99284

== ENCOUNTER → 2019-05-14 | Outpatient (CLI) | payer MEDICARE, OTHER ==
[2019-05-14 20:04] LABS: African American GFR (CKD) 72.1 (60.0-200.0); Anion Gap 8.8 mmol/L (4.00-12.00); BUN/Creat Ratio 8.18 Ratio (12.00-20.00); Calcium 8.7 mg/dL (8.7-10.3); Carbon Dioxide 28.2 mmol/L (21.6-31.8); Potassium 3.5 mmol/L (3.5-5.5)
== END | disposition home or self-care (01) ==
LOC: LABWHC1 14:44
PROVIDERS: ATTEND Internal Medicine Cardiovascular Disease
DX: I11.0 Hypertensive heart disease with heart failure (principal); I50.9 Heart failure, unspecified; I42.9 Cardiomyopathy, unspecified
CPT/HCPCS: 36415; 80048; 83880

== ENCOUNTER → 2020-05-11 | Outpatient (CLI) | payer MEDICARE, OTHER ==
[2020-05-11 15:25] LABS: Anisocytosis Slight; Basophils % (A) 0 %; Eosinophils # (A) 0.3 k/uL (0-0.7); Eosinophils % (A) 6 %; HCT 23.7 % (39.0-53.0); Hypochromasia Marked; Lymphocytes # (A) 0.9 k/uL (1.0-4.8); Lymphocytes % (A) 17 %; MCH 18.3 pg (25.0-35.0); MCHC 28.1 g/dL (31.0-37.0); MCV 65.1 fL (80.0-100.0); Mean Platelet Volume 7.2; Microcytosis Marked; Monocytes # (A) 0.3 k/uL (0-1.0); Monocytes % (A) 6 %; Neutrophils # (A) 3.5 k/uL (1.3-7.7); Neutrophils % (A) 68 %; Platelet Count 193 k/uL (150-450); RBC 3.64 m/uL (4.30-5.90); RDW 18.5 % (11.5-15.5); WBC 5.1 k/uL (3.8-10.6)
[2020-05-11 15:33] LABS: HGB 6.7 gm/dL (13.0-17.5)
[2020-05-12 01:29] LABS: ALT <8 U/L (10-49); AST 19 U/L (14-35); African American GFR (CKD) 71.6 (60.0-200.0); Albumin/Globulin Ratio 1.78 (1.60-3.17); Alkaline Phosphatase 80 U/L (41-126); BUN/Creat Ratio 12.73 Ratio (12.00-20.00); Calcium 8.8 mg/dL (8.7-10.3); Carbon Dioxide 25.8 mmol/L (21.6-31.8); Chloride 97 mmol/L (96-109); Globulin 2.3 g/dL (1.6-3.3); Glucose 90 mg/dL (70-110); Non-African American GFR(CKD) 61.8 (60.0-200.0); Potassium 3.9 mmol/L (3.5-5.5); Sodium 132 mmol/L (135-145); Total Bilirubin 0.7 mg/dL (0.3-1.2); Total Protein 6.4 g/dL (6.2-8.2)
== END | disposition home or self-care (01) ==
LOC: LABWHC1 14:35
PROVIDERS: ATTEND Internal Medicine Cardiovascular Disease
DX: I50.9 Heart failure, unspecified (principal); I48.91 Unspecified atrial fibrillation
CPT/HCPCS: 36415; 80053; 84439; 84443; 85025

== ENCOUNTER 2020-05-12 14:04 | Inpatient (IN) | payer MEDICARE, OTHER ==
[2020-05-12] MEDS ORDERED: PANTOPRAZOLE 40 MG/10 ML VIAL IVP STA (14:54)
--- NOTE | 2020-05-12 14:57 | ED ---
General Adult HPI - General Chief complaint: Recheck/Abnormal Lab/Rx Stated complaint: Low hemoglobin Time Seen by Provider: 05/12/20 14:25 Source: patient, family, RN notes reviewed Mode of arrival: ambulatory Limitations: no limitations - History of Present Illness Initial comments: Patient is a pleasant 84-year-old male presenting to the emergency department with concerns for low hemoglobin. Patient did see his heart doctor Dr. Evans yesterday and had blood work done. Patient called today and was told low hemoglobin. Patient states he is on Xarelto. Patient denies any recent bleeding. No black stools. Patient has had some mild loose stools recently however. Patient states he feels fine however family states he has appeared somewhat more fatigued lately. No chest pain or dyspnea. - Related Data Home Medications Medication Instructions Recorded Confirmed Rivaroxaban [Xarelto] 20 mg PO W/SUPPER 12/03/16 09/30/18 HYDROcodone/APAP 5-325MG [[place] 1 tab PO Q6HR PRN 09/30/18 09/30/18 5-325] diphenhydrAMINE [Benadryl] 50 mg PO Q8HR 09/30/18 09/30/18 Previous Rx's Medication Instructions Recorded Furosemide [Lasix] 20 mg PO DAILY #30 tab 04/11/15 carvediloL [Coreg] 6.25 mg PO BID-W/MEALS #60 tab 04/11/15 Allergies Allergy/AdvReac Type Severity Reaction Status Date / Time No Known Allergies Allergy Verified 05/12/20 14:27 Review of Systems ROS Statement: Those systems with pertinent positive or pertinent negative responses have been documented in the HPI. ROS Other: All systems not noted in ROS Statement are negative. Constitutional: Denies: fever Eyes: Denies: eye pain ENT: Denies: ear pain Respiratory: Denies: cough, dyspnea Cardiovascular: Denies: chest pain Endocrine: Reports: as per HPI, fatigue Gastrointestinal: Denies: abdominal pain, melena, hematochezia Genitourinary: Denies: dysuria Musculoskeletal: Denies: back pain Skin: Denies: rash Neurological: Denies: weakness Past Medical History Past Medical History: Atrial Fibrillation, Coronary Artery Disease (CAD), Heart Failure, Hypertension Additional Past Medical History / Comment(s): 10/09/17 slip and fall on ice with left tibia fracture, has splint on, and is no weight bearing History of Any Multi-Drug Resistant Organisms: None Reported Past Surgical History: Hernia Repair Past Anesthesia/Blood Transfusion Reactions: No Reported Reaction Past Psychological History: No Psychological Hx Reported Smoking Status: Former smoker Past Alcohol Use History: None Reported Past Drug Use History: None Reported - Past Family History Mother History Unknown: Yes Father Family Medical History: Coronary Artery Disease (CAD) Sister(s) History Unknown: Yes Brother(s) History Unknown: Yes Daughter(s) Family Medical History: No Reported History Son(s) Family Medical History: No Reported History General Exam Limitations: no limitations General appearance: alert, in no apparent distress Eye exam: Present: normal appearance Neck exam: Present: normal inspection Respiratory exam: Present: normal lung sounds bilaterally Cardiovascular Exam: Present: regular rate, irregular rhythm GI/Abdominal exam: Present: soft. Absent: tenderness Rectal exam: Present: normal inspection. Absent: black stool, bloody stool Extremities exam: Present: normal inspection Neurological exam: Present: alert Psychiatric exam: Present: normal affect, normal mood Skin exam: Present: normal color Course Vital Signs 05/12/20 05/12/20 05/12/20 14:22 15:17 15:19 Temperature 98.2 F Pulse Rate 93 101 H Respiratory 18 18 18 Rate Blood Pressure 144/80 123/68 O2 Sat by Pulse 99 98 Oximetry EKG Findings - EKG Comments: EKG Findings:: A. fib with rate 87. QRS 90. QT 382. QTC 459. Left axis. Premature complexes present. Normal QRS. No acute ST change. Medical Decision Making - Medical Decision Making Patient reevaluated and updated. Case was discussed in detail with Dr. Castaneda, who will admit covering for Dr. Hebert. He does request GI and cardiology con sults. He also requests one unit packed red cells secondary to patient being on Xarelto and a cardiac patient. Blood transfusion ordered - Lab Data Result diagrams: 05/12/20 15:00 05/12/20 15:00 Lab Results 05/12/20 05/12/20 05/12/20 Range/Units 15:00 15:00 15:00 WBC 4.2 (3.8-10.6) k/uL RBC 3.73 L (4.30-5.90) m/uL Hgb 7.1 L (13.0-17.5) gm/dL Hct 24.5 L (39.0-53.0) % MCV 65.6 L (80.0-100.0) fL MCH 19.2 L (25.0-35.0) pg MCHC 29.2 L (31.0-37.0) g/dL RDW 18.3 H (11.5-15.5) % Plt Count 224 (150-450) k/uL Neutrophils % 59 % Lymphocytes % 22 % Monocytes % 8 % Eosinophils % 8 % Basophils % 1 % Neutrophils # 2.5 (1.3-7.7) k/uL Lymphocytes # 0.9 L (1.0-4.8) k/uL Monocytes # 0.3 (0-1.0) k/uL Eosinophils # 0.3 (0-0.7) k/uL Basophils # 0.0 (0-0.2) k/uL Hypochromasia Marked Anisocytosis Slight Microcytosis Marked PT 13.5 H (9.0-12.0) sec INR 1.3 H (<1.2) APTT 41.4 H (22.0-30.0) sec Sodium 132 L (137-145) mmol/L Potassium 3.9 (3.5-5.1) mmol/L Chloride 97 L (98-107) mmol/L Carbon Dioxide 23 (22-30) mmol/L Anion Gap 12 mmol/L BUN 13 (9-20) mg/dL Creatinine 0.94 (0.66-1.25) mg/dL Est GFR (CKD-EPI)AfAm 87 (>60 ml/min/1.73 sqM) Est GFR (CKD-EPI)NonAf 75 (>60 ml/min/1.73 sqM) Glucose 101 H (74-99) mg/dL Calcium 8.8 (8.4-10.2) mg/dL Total Bilirubin 0.8 (0.2-1.3) mg/dL AST 19 (17-59) U/L ALT 7 (4-49) U/L Alkaline Phosphatase 91 (38-126) U/L Total Protein 7.1 (6.3-8.2) g/dL Albumin 4.4 (3.5-5.0) g/dL Stool Occult Blood (Negative) 05/12/20 Range/Units 15:02 WBC (3.8-10.6) k/uL RBC (4.30-5.90) m/uL Hgb (13.0-17.5) gm/dL Hct (39.0-53.0) % MCV (80.0-100.0) fL MCH (25.0-35.0) pg MCHC (31.0-37.0) g/dL RDW (11.5-15.5) % Plt Count (150-450) k/uL Neutrophils % % Lymphocytes % % Monocytes % % Eosinophils % % Basophils % % Neutrophils # (1.3-7.7) k/uL Lymphocytes # (1.0-4.8) k/uL Monocytes # (0-1.0) k/uL Eosinophils # (0-0.7) k/uL Basophils # (0-0.2) k/uL Hypochromasia Anisocytosis Microcytosis PT (9.0-12.0) sec INR (<1.2) APTT (22.0-30.0) sec Sodium (137-145) mmol/L Potassium (3.5-5.1) mmol/L Chloride (98-107) mmol/L Carbon Dioxide (22-30) mmol/L Anion Gap mmol/L BUN (9-20) mg/dL Creatinine (0.66-1.25) mg/dL Est GFR (CKD-EPI)AfAm (>60 ml/min/1.73 sqM) Est GFR (CKD-EPI)NonAf (>60 ml/min/1.73 sqM) Glucose (74-99) mg/dL Calcium (8.4-10.2) mg/dL Total Bilirubin (0.2-1.3) mg/dL AST (17-59) U/L ALT (4-49) U/L Alkaline Phosphatase (38-126) U/L Total Protein (6.3-8.2) g/dL Albumin (3.5-5.0) g/dL Stool Occult Blood Positive (Negative) Critical Care Time Critical Care Time: Yes Total Critical Care Time: 32 Disposition Clinical Impression: Anemia, GI hemorrhage Disposition: ADMITTED IP TO THIS HOSP Is patient prescribed a controlled substance at d/c from ED?: No Referrals: Falguni Hebert DO [Primary Care Provider] - 1-2 days Decision Time: 15:23
[2020-05-12 15:12] LABS: Anisocytosis Slight; Basophils % (A) 1 %; Eosinophils # (A) 0.3 k/uL (0-0.7); Eosinophils % (A) 8 %; HCT 24.5 % (39.0-53.0); HGB 7.1 gm/dL (13.0-17.5); Hypochromasia Marked; Lymphocytes # (A) 0.9 k/uL (1.0-4.8); Lymphocytes % (A) 22 %; MCH 19.2 pg (25.0-35.0); MCHC 29.2 g/dL (31.0-37.0); MCV 65.6 fL (80.0-100.0); Mean Platelet Volume 6.5; Microcytosis Marked; Monocytes # (A) 0.3 k/uL (0-1.0); Monocytes % (A) 8 %; Neutrophils # (A) 2.5 k/uL (1.3-7.7); Neutrophils % (A) 59 %; Platelet Count 224 k/uL (150-450); RBC 3.73 m/uL (4.30-5.90); RDW 18.3 % (11.5-15.5); WBC 4.2 k/uL (3.8-10.6)
[2020-05-12 15:19] LABS: INR 1.3 (<1.2); Partial Thromboplastin Time 41.4 sec (22.0-30.0); Prothrombin Time 13.5 sec (9.0-12.0)
[2020-05-12 15:23] LABS: Albumin 4.4 g/dL (3.5-5.0); Calcium 8.8 mg/dL (8.4-10.2); Potassium 3.9 mmol/L (3.5-5.1); Total Bilirubin 0.8 mg/dL (0.2-1.3); Total Protein 7.1 g/dL (6.3-8.2)
[2020-05-12] MEDS ORDERED: NALOXONE 0.4 MG/ML 1 ML VIAL IV PRN (15:25)
[2020-05-12] MEDS ORDERED: ACETAMINOPHEN TAB 500 MG TAB PO PRN (18:13)
[2020-05-12] MEDS ORDERED: ALPRAZolam 0.25 MG TAB PO PRN (18:13)
--- NOTE | 2020-05-12 20:28 | HP ---
HISTORY AND PHYSICAL DATE OF SERVICE: 05/12/2020 CHIEF COMPLAINT: Anemia. HISTORY OF PRESENT ILLNESS: This 84-year-old gentleman with a past medical history of multiple medical problems, including atrial fibrillation, CAD, CHF, hypertension, being followed by Dr. Cuenca in the outpatient setting, was evaluated by Dr. Morris's office. The patient had complained of some tiredness and weakness. The patient had a hemoglobin workup. Hemoglobin was found to be low and the patient was sent to [facility] and admitted for further evaluation and treatment. Hemoglobin was found to be 7.1. One unit of transfusion was arranged. There is no history of any fever, rigor or chills. No history of headache, loss of consciousness, seizures. No history of any melena. Stool occult blood was positive. Gastroenterology consultation has been sought. There is no history of any fever, rigor or chills. PAST MEDICAL HISTORY: Atrial fibrillation, CAD, CHF, hypertension, history of left tibia fracture, history of nicotine dependence. HOME MEDICATIONS: Zestril 5 mg p.o. daily, Coreg 6.25 mg b.i.d., Neurontin 400 mg p.o. t.i.d., Lasix 20 mg p.o. daily. ALLERGIES: NONE. FAMILY HISTORY: History of coronary artery disease in the family. SOCIAL HISTORY: Previous history of smoking. Occasional alcohol intake. REVIEW OF SYSTEMS: ENT: No diminished hearing. No diminished vision. CARDIOVASCULAR SYSTEM: No angina, palpitations. RESPIRATORY SYSTEM: No cough, hemoptysis. GI: As mentioned earlier. : No dysuria or retention. NERVOUS SYSTEM: No numbness, weakness. ALLERGY/IMMUNOLOGY: No asthma, hayfever. MUSCULOSKELETAL: As mentioned earlier. HEMATOLOGY/ONCOLOGY: Anemia. ENDOCRINE: No history of diabetes, hypothyroidism. CONSTITUTIONAL: As mentioned earlier. DERMATOLOGY: Negative. RHEUMATOLOGY: Negative. PSYCHIATRY: As mentioned earlier. PHYSICAL EXAMINATION: Patient alert and oriented x3. Pulse 101, blood pressure 123/68, respiration 18, temperature 98.2, pulse ox 98% on room air. HEENT: Conjunctivae normal. Oral mucosa moist. NECK: No jugular venous distention. No carotid bruit. No lymph node enlargement. CARDIOVASCULAR SYSTEM: S1, S2 muffled. RESPIRATORY SYSTEM: Breath sounds diminished at the bases. No rhonchi. No crackles. ABDOMEN: Soft, non-tender. No mass palpable. LEGS: No edema. No swelling. NERVOUS SYSTEM: Higher functions as mentioned earlier. Moves all 4 limbs. No focal motor or sensory deficit. LYMPHATICS: No lymph node palpable in neck, axillae or groin. SKIN: No ulcer, rash, bleeding. JOINTS: No active deforming arthropathy. LABS: WBC 4.2, hemoglobin 7.1. INR 1.3. Sodium 132. ASSESSMENT: 1. Anemia, microcytic. Rule out upper GI bleeding. 2. Stool occult blood positive. 3. Mild coagulopathy. 4. Hyponatremia. 5. History of atrial fibrillation. 6. History of coronary artery disease. 7. History of congestive heart failure. 8. Hypertension. 9. History of left tibial fracture. 10.Remote history of nicotine dependence. 11.FULL CODE. RECOMMENDATIONS AND DISCUSSION: In this 84-year-old gentleman who presented with multiple complex medical issues, we will monitor the patient closely, continue the current medications, continue with symptomatic treatment. Otherwise at this time I would recommend one unit transfusion. Repeat labs. Cardiology as well as gastroenterology consultation. Proton pump inhibitors. Prognosis guarded because of the multiple complex medical issues. Will hold antiplatelet agents. Resume the rest of the home medications. Further recommendations to follow. A copy of this dictation is being forwarded to Dr. Cuenca, who is the primary physician. MMODL / IJN: [id number] /
[2020-05-12] MEDS: GABAPENTIN 400 MG CAP PO SCH (21:36)
[2020-05-12] MEDS: SODIUM CHLORIDE 0.9% 1,000 ML IV SCH (23:36)
[2020-05-13 06:35] LABS: Anisocytosis Moderate; Basophils % (A) 1 %; Eosinophils # (A) 0.3 k/uL (0-0.7); Eosinophils % (A) 7 %; HCT 27.6 % (39.0-53.0); HGB 8.2 gm/dL (13.0-17.5); Hypochromasia Marked; Lymphocytes # (A) 1.3 k/uL (1.0-4.8); Lymphocytes % (A) 26 %; MCH 20.5 pg (25.0-35.0); MCHC 29.9 g/dL (31.0-37.0); MCV 68.7 fL (80.0-100.0); Microcytosis Marked; Monocytes # (A) 0.4 k/uL (0-1.0); Monocytes % (A) 8 %; Neutrophils # (A) 2.8 k/uL (1.3-7.7); Neutrophils % (A) 56 %; Platelet Count 199 k/uL (150-450); Poikilocytosis Moderate; RBC 4.01 m/uL (4.30-5.90); RDW 20.5 % (11.5-15.5)
[2020-05-13] MEDS: carvediloL 6.25 MG TAB PO SCH ×2 (07:14→18:30)
[2020-05-13] MEDS: lisinopriL 5 MG TAB PO SCH (08:35)
[2020-05-13] MEDS: GABAPENTIN 400 MG CAP PO SCH ×3 (08:35→21:18)
[2020-05-13] MEDS: PANTOPRAZOLE 40 MG/10 ML VIAL IV SCH (08:35)
[2020-05-13] MEDS: FUROSEMIDE 20 MG TAB PO SCH (08:35)
--- NOTE | 2020-05-13 13:20 | CONS ---
CONSULTATION DATE OF SERVICE: May 13, 2020 REASON FOR CONSULTATION: Severe symptomatic anemia. HISTORY OF PRESENT ILLNESS: The patient is an 84-year-old pleasant white male who was advised to go to the emergency room by Dr. Lui for low hemoglobin. Apparently, he has history of atrial fibrillation and has been on Xarelto for the last several months duration. He had routine labs done on an outpatient basis. Hemoglobin was low and advised to stop the Xarelto and the last dose he took was yesterday morning. He came to the emergency room, was noted to have a hemoglobin of 7.1 g/dL and subsequently received one unit of blood transfusion. This morning hemoglobin is 8.2 g/dL. The patient denies any abdominal pain. Reports no nausea or vomiting. No rectal bleeding or melena. He does not ever recall having a blood transfusion in the past. He denies any recent peptic ulcer disease or recent NSAID use or prior history of peptic ulcer disease. No recent weight loss. PAST MEDICAL HISTORY: Atrial fibrillation, coronary artery disease, congestive heart failure, hypertension, hyperlipidemia. MEDICATIONS: At home, Zestril, Coreg, Neurontin, Lasix, Xarelto. ALLERGIES: None. SOCIAL HISTORY: No smoking. No alcohol use. FAMILY HISTORY: Positive for coronary artery disease. REVIEW OF SYSTEMS: CARDIOPULMONARY: Denies any chest pain, no shortness of breath. : No dysuria or hematuria. MUSCULOSKELETAL unremarkable other than some chronic back pain. NEUROLOGY: Unremarkable. PSYCHIATRIC unremarkable. ENT/VISION: Unremarkable. CONSTITUTIONAL: No recent weight loss. No fever, chills, night sweats. ENDOCRINE unremarkable. HEMATOLOGY: Severe anemia. PHYSICAL EXAMINATION: He appears comfortable. No apparent distress. Vital signs stable. Blood pressure is 152/82, pulse 72, temperature 97.4. HEENT examination unremarkable. Conjunctivae pink. Sclerae anicteric. Oral cavity no lesions. NECK: No JVD. No lymph node enlargement. CHEST was clear to auscultation. HEART: Regular rate and rhythm. ABDOMEN: Soft, it was nontender, nondistended. Bowel sounds are positive. No organomegaly. EXTREMITIES: No pedal edema. SKIN no rashes. NEUROLOGIC: Alert and oriented x3. No focal deficits. LABS: WBC 4.2, hemoglobin 7.1, MCV 65, platelets normal. INR is 1.3. Basic metabolic panel is within normal limits. Stool occult blood was positive. IMPRESSION: 1. Severe symptomatic microcytic hypochromic anemia consistent with iron deficiency secondary to occult gastrointestinal blood loss. The patient has a history of atrial fibrillation on Xarelto which has been on hold. Last dose was yesterday. No prior history of colonoscopy in the past as to the patient's recollection. 2. History of coronary artery disease. 3. Atrial fibrillation on Xarelto, currently on hold since yesterday. 4. History of hypertension. RECOMMENDATIONS: I had a lengthy discussion with the patient regarding further workup of microcytic hypochromic anemia. I did recommend for the patient to undergo an EGD and colonoscopy on Friday. I discussed with him risks, benefits, and complications of the procedure and he is agreeable to it. In the meantime, we will monitor CBC on a daily basis. Continue to hold Xarelto and we will follow with you closely. Thank you for this consultation. MMODL / IJN: [id number] /
--- NOTE | 2020-05-13 16:16 | P.CRDCN ---
History of Present Illness History of present illness: This is Jackeline Jin PA-C dictating a consult on this patient The patient was interviewed and examined by me as well as by Dr. Troncoso Case discussed with Dr. Troncoso and he agrees with the plan of care HPI Patient is a 84-year-old male with a history of atrial fibrillation who was sent for evaluation of abnormal labs. Patient follows with Dr. Morris. He states that for the last month he has been fatigued, more short of breath with exertion and feeling weak. States he has been having diarrhea for about a month. No nausea or vomiting. He denies any abdominal pain or chest pain. He has not noticed any blood in his stool or dark tarry stools. Denies any chest pain or palpitations. He had labs done and was noted to be anemic so he was sent to the emergency department for evaluation. EKG showed atrial fibrillation, rate controlled. Hemoglobin was 7.1. Stool occult was positive. His Xarelto is being held. Patient seen and examined resting in bed. Compla ining of diarrhea. No chest pain or shortness of breath at the time of my examination. ROS: No fevers, chills or rigors, no cough, phlegm or expectoration, Positive for diarrhea no hematuria, dysuria, Positive for weakness no strokes or seizures, no skin lesions. EXAMINATION: Patient is afebrile, pulse in the 80s, respirations 18, blood pressure 142/84, oxygen saturation 100% on room air Patient seen and examined resting in bed, in no acute distress Lungs are clear to auscultation bilaterally Heart is irregularly irregular, no audible murmurs No lower extremity edema Abdomen is soft and nontender to palpation REVIEW OF LABS, ECG & MEDICAL DATA WBC 5.0, hemoglobin 8.2, platelets 199, potassium 3.9, BUN 13, creatinine 0.94 IMPRESSION / ASSESSMENT: #1 symptomatic anemia secondary to GI bleed, Xarelto being held, gastroenterology has been consulted and is planning for EGD and colonoscopy #2 atrial fibrillation, rate controlled, anticoagulation currently on hold secondary to above PLAN: Continue holding anticoagulation Continue all other home cardiac medications including beta blockers, lisinopril, and Lasix Patient will undergo EGD and colonoscopy on Friday Past Medical History Past Medical History: Atrial Fibrillation, Coronary Artery Disease (CAD), Heart Failure, Hypertension Additional Past Medical History / Comment(s): 10/09/17 slip and fall on ice with left tibia fracture, has splint on, and is no weight bearing History of Any Multi-Drug Resistant Organisms: None Reported Past Surgical History: Hernia Repair Past Anesthesia/Blood Transfusion Reactions: No Reported Reaction Past Psychological History: No Psychological Hx Reported Smoking Status: Former smoker Past Alcohol Use History: None Reported Additional Past Alcohol Use History / Comment(s): smoked 1ppd from [id number] Past Drug Use History: None Reported - Past Family History Mother History Unknown: Yes Father Family Medical History: Coronary Artery Disease (CAD) Sister(s) History Unknown: Yes Brother(s) History Unknown: Yes Daughter(s) Family Medical History: No Reported History Son(s) Family Medical History: No Reported History Medications and Allergies Home Medications Medication Instructions Recorded Confirmed Type Furosemide [Lasix] 20 mg PO DAILY #30 tab 04/11/15 05/12/20 Rx Gabapentin [Neurontin] 400 mg PO TID 05/12/20 05/12/20 History carvediloL [Coreg] 6.25 mg PO AC-BID 05/12/20 05/12/20 History lisinopriL [Zestril] 5 mg PO DAILY 05/12/20 05/12/20 History Allergies Allergy/AdvReac Type Severity Reaction Status Date / Time No Known Allergies Allergy Verified 05/12/20 15:45 Physical Exam Vitals: Vital Signs Temp Pulse Pulse Resp BP BP Pulse Ox 05/13/20 12:00 97.3 F L 80 18 147/84 100 05/13/20 08:00 97.6 F 88 18 142/78 05/13/20 04:00 97.4 F L 72 16 153/73 100 05/13/20 00:00 97.7 F 79 16 136/74 100 05/12/20 22:50 98.3 F 72 16 148/73 100 05/12/20 20:10 98.1 F 75 18 153/73 05/12/20 20:00 97.8 F 73 18 147/72 100 05/12/20 19:32 97.8 F 73 18 147/72 100 05/12/20 19:02 98.0 F 68 18 166/76 05/12/20 18:52 97.8 F 82 18 174/86 05/12/20 16:28 18 Intake and Output 05/13/20 05/13/20 05/13/20 06:59 14:59 22:59 Intake Total 840 Output Total 1300 Balance -460 Intake: Oral 840 Output: Urine 1300 Other: # Voids 1 2 Weight 67.7 kg Results 05/13/20 05:41 05/12/20 15:00 CBC 05/13/20 Range/Units 05:41 WBC 5.0 (3.8-10.6) k/uL RBC 4.01 L (4.30-5.90) m/uL Hgb 8.2 L (13.0-17.5) gm/dL Hct 27.6 L (39.0-53.0) % Plt Count 199 (150-450) k/uL Current Medications Generic Name Dose Route Start Last Admin Trade Name Freq PRN Reason Stop Dose Admin Acetaminophen 500 mg 05/12/20 18:13 Tylenol Tab PO Q6HR PRN Fever and/ or Pain Hydrocodone Bitart/Acetaminophen 1 each 05/12/20 18:13 [place] 5-325 PO Q6HR PRN Pain Alprazolam 0.25 mg 05/12/20 18:13 Xanax PO TID PRN Anxiety Carvedilol 6.25 mg 05/13/20 07:30 05/13/20 07:14 Coreg PO 6.25 mg AC-BID SARAH Administration Furosemide 20 mg 05/13/20 09:00 05/13/20 08:35 Lasix PO 20 mg DAILY SARAH Administration Gabapentin 400 mg 05/12/20 22:00 05/13/20 08:35 Neurontin PO 400 mg TID SARAH Administration Hydromorphone HCl 0.5 mg 05/12/20 18:13 Dilaudid IVP Q6HR PRN Severe Pain Sodium Chloride 1,000 mls @ 20 mls/hr 05/12/20 15:30 05/12/20 23:36 Saline 0.9% IV 20 mls/hr .Q24H SARAH Administration Lisinopril 5 mg 05/13/20 09:00 05/13/20 08:35 Zestril PO 5 mg DAILY SARAH Administration Naloxone HCl 0.2 mg 05/12/20 15:25 Narcan IV Q2M PRN Opioid Reversal Pantoprazole Sodium 40 mg 07/25/20 09:00 05/13/20 08:35 Protonix IV 40 mg DAILY SARAH Administration Intake and Output 05/13/20 05/13/20 05/13/20 06:59 14:59 22:59 Intake Total 840 Output Total 1300 Balance -460 Intake: Oral 840 Output: Urine 1300 Other: # Voids 1 2 Weight 67.7 kg 05/13/20 05:41 05/12/20 15:00
[2020-05-13] MEDS: SODIUM CHLORIDE 0.9% 1,000 ML IV SCH (21:19)
[2020-05-14] MEDS: carvediloL 6.25 MG TAB PO SCH ×2 (06:57→17:04)
[2020-05-14 09:17] LABS: Anisocytosis Moderate; HCT 26.6 % (39.0-53.0); HGB 7.8 gm/dL (13.0-17.5); Hypochromasia Marked; MCH 19.8 pg (25.0-35.0); MCHC 29.3 g/dL (31.0-37.0); MCV 67.6 fL (80.0-100.0); Mean Platelet Volume 7.4; Microcytosis Marked; Platelet Count 176 k/uL (150-450); Poikilocytosis Slight; RBC 3.94 m/uL (4.30-5.90); RDW 21.4 % (11.5-15.5); WBC 3.8 k/uL (3.8-10.6)
[2020-05-14] MEDS: FUROSEMIDE 20 MG TAB PO SCH (09:21)
[2020-05-14] MEDS: PANTOPRAZOLE 40 MG/10 ML VIAL IV SCH (09:21)
[2020-05-14] MEDS: lisinopriL 5 MG TAB PO SCH (09:21)
[2020-05-14] MEDS: GABAPENTIN 400 MG CAP PO SCH ×3 (09:21→20:48)
[2020-05-14 09:24] LABS: African American GFR (CKD) >90 (>60 ml/min/1.73 sqM); Anion Gap 9 mmol/L; Blood Urea Nitrogen 10 mg/dL (9-20); Calcium 8.4 mg/dL (8.4-10.2); Carbon Dioxide 24 mmol/L (22-30); Chloride 98 mmol/L (98-107); Glucose 131 mg/dL (74-99); Non-African American GFR(CKD) 80 (>60 ml/min/1.73 sqM); Potassium 3.5 mmol/L (3.5-5.1); Sodium 131 mmol/L (137-145)
--- NOTE | 2020-05-14 14:55 | P.PN ---
Subjective This is Jackeline Jin PA-C dictating a progress note on this patient The patient was interviewed and examined by me as well as by Dr. Troncoso Case discussed with Dr. Troncoso and he agrees with the plan of care HPI/interval history Patient is a 84-year-old male with a history of atrial fibrillation who was sent for evaluation of abnormal labs. He has anemia secondary to GI bleed. Xarelto is on hold. Patient remains in rate controlled atrial fibrillation. Patient seen and examined laying in bed. Denies any dizziness, shortness of breath or chest pain. He did have a bowel movement and denies any bleeding. EXAMINATION Patient is afebrile, pulse 80, respirations 18, blood pressure 134/66, oxygen saturation 100% on room air Patient seen and examined, resting in bed Heart is irregular, no audible murmurs Lungs are clear to auscultation bilaterally REVIEW OF LABS, ECG WBC 3.8, hemoglobin 7.8, platelets 176, potassium 3.5, BUN 10, creatinine 0.87 IMPRESSION / ASSESSMENT: #1 symptomatic anemia secondary to GI bleed, Xarelto being held, gastroenterology has been consulted and is planning for EGD and colonoscopy #2 atrial fibrillation, rate controlled, anticoagulation currently on hold secondary to above PLAN: Continue current cardiac medication regimen Continue holding anticoagulation Continue monitoring hemoglobin Objective - Vital Signs Vital signs: Vital Signs Temp 97.5 F L 05/14/20 08:00 Pulse 64 05/14/20 12:00 Resp 18 05/14/20 12:00 BP 134/66 05/14/20 12:00 Pulse Ox 100 05/14/20 12:00 Intake & Output 05/13/20 05/14/20 05/14/20 18:59 06:59 18:59 Intake Total 1500 440 Output Total 1300 400 Balance 200 40 Weight 68.5 kg Intake: Oral 1500 440 Output: Urine 1300 400 Other: # Voids 2 2 1 - Labs CBC & Chem 7: 05/14/20 08:48 05/14/20 08:48 Labs: Abnormal Lab Results - Last 24 Hours (Table) 05/14/20 05/14/20 Range/Units 08:48 08:48 RBC 3.94 L (4.30-5.90) m/uL Hgb 7.8 L (13.0-17.5) gm/dL Hct 26.6 L (39.0-53.0) % MCV 67.6 L (80.0-100.0) fL MCH 19.8 L (25.0-35.0) pg MCHC 29.3 L (31.0-37.0) g/dL RDW 21.4 H (11.5-15.5) % Sodium 131 L (137-145) mmol/L Glucose 131 H (74-99) mg/dL
--- NOTE | 2020-05-14 15:57 | PN ---
PROGRESS NOTE DATE OF SERVICE: 05/14/2020 Patient is an 84-year-old pleasant male admitted to the hospital with severe symptomatic anemia and no active GI bleed. Hemoglobin of 7, requiring a unit of blood transfusion. Today hemoglobin was 7.8 g/dL. He was on Xarelto which is currently on hold for 2 days. He denies any active GI bleed. PHYSICAL EXAMINATION: Appears comfortable, no apparent distress. Vital signs stable. Blood pressure is 134/66, pulse rate 64, temperature 97.5. HEENT examination unremarkable. Conjunctivae are pink, sclerae anicteric. Oral cavity no lesions. Neck no JVD or lymph node enlargement. Chest was clear to auscultation. Heart revealed regular rate and rhythm. ABDOMEN: Soft bowel sounds are positive. No organomegaly. Extremities no pedal edema. NEUROLOGIC: Alert and oriented x3. No focal deficits. LABS: WBC 3.8, hemoglobin 7.8, platelets 177. IMPRESSION: 1. Severe microcytic hypochromic anemia consistent with iron deficiency anemia most likely from occult gastrointestinal blood loss. Hemoglobin was 7, status post one unit of blood transfusion. His current hemoglobin 7.8. No active bleeding. 2. History of atrial fibrillation, on Xarelto, stopped 2 days ago. RECOMMENDATIONS: 1. Continue with a clear liquid diet. 2. Will proceed with EGD and colonoscopy tomorrow. Discussed with the patient and he is agreeable to it. In the meantime, monitor CBC on a close basis. We will follow with you. Thank you for this consultation. MMCRISTHIANL / IJN: [id number] /
--- NOTE | 2020-05-14 16:57 | P.PN ---
Subjective Progress Note Date: 05/14/20 Principal diagnosis: Acute blood loss anemia/GI bleed Hyponatremia Atrial fibrillation 84-year-old male with a history of atrial fibrillation who was sent for evaluation of abnormal labs. He has anemia secondary to GI bleed. Xarelto is on hold. Patient remains in rate controlled atrial fibrillation. Patient seen and examined laying in bed. Denies any dizziness, shortness of breath or chest pain. He did have a bowel movement and denies any bleeding. 05/14/2020 Patient is seen and evaluated in room with at bedside; patient understands he will be undergoing endoscopy tomorrow Laboratory review shows hemoglobin stable at 7.8; sodium remained stable at 131 Cardiology and gastroenterology following patient; anticoagulation currently on hold due to GI bleed; patient to undergo EGD and colonoscopy possibly tomorrow Objective - Vital Signs Vital signs: Vital Signs Temp 97.5 F L 05/14/20 08:00 Pulse 80 05/14/20 08:00 Resp 18 05/14/20 08:00 BP 117/55 05/14/20 08:00 Pulse Ox 99 05/14/20 08:00 Intake & Output 05/13/20 05/14/20 05/14/20 18:59 06:59 18:59 Intake Total 1500 Output Total 1300 Balance 200 Weight 68.5 kg Intake: Oral 1500 Output: Urine 1300 Other: # Voids 2 2 - Exam PHYSICAL EXAMINATION: GENERAL: The patient is alert and oriented x3, not in any acute distress. Well developed, well nourished. HEENT: Pupils are round and equally reacting to light. EOMI. No scleral icterus. No conjunctival pallor. Normocephalic, atraumatic. No pharyngeal erythema. No thyromegaly. CARDIOVASCULAR: S1 and S2 present. No murmurs, rubs, or gallops. PULMONARY: Chest is clear to auscultation, no wheezing or crackles. ABDOMEN: Soft, nontender, nondistended, normoactive bowel sounds. No palpable organomegaly. MUSCULOSKELETAL: No joint swelling or deformity. EXTREMITIES: No cyanosis, clubbing, or pedal edema. NEUROLOGICAL: Gross neurological examination did not reveal any focal deficits. SKIN: No rashes. - Labs CBC & Chem 7: 05/14/20 08:48 05/14/20 08:48 Labs: Abnormal Lab Results - Last 24 Hours (Table) 05/14/20 05/14/20 Range/Units 08:48 08:48 RBC 3.94 L (4.30-5.90) m/uL Hgb 7.8 L (13.0-17.5) gm/dL Hct 26.6 L (39.0-53.0) % MCV 67.6 L (80.0-100.0) fL MCH 19.8 L (25.0-35.0) pg MCHC 29.3 L (31.0-37.0) g/dL RDW 21.4 H (11.5-15.5) % Sodium 131 L (137-145) mmol/L Glucose 131 H (74-99) mg/dL Assessment and Plan Assessment: 1. Acute blood loss anemia - We will continue to monitor H&H closely and transfuse as needed 2. GI bleed; patient remains on Protonix 40 mg IV daily - GI is following with possible schedule for EGD/colonoscopy tomorrow 3. Atrial fibrillation; remains rate controlled on Coreg 6.25 mg twice a day; anticoagulation on hold due to GI bleed 4. Hypertension; continue with lisinopril 5 mg daily and Coreg 6.25 mg twice a day 5. Electrolyte imbalance/hyponatremia; sodium level stabilized at 131; we will continue to monitor electrolytes and supplement as needed DVT prophylaxis; SCDs only due to GI bleed CODE STATUS; full code Time with Patient: Greater than 30
[2020-05-14] MEDS ORDERED: PEG 3350-NA SULF,BICARB,CL/KCL 4,000 ML BOTTLE PO ONE (17:00)
[2020-05-14] MEDS: SODIUM CHLORIDE 0.9% 1,000 ML IV SCH (17:05)
[2020-05-14] MEDS ORDERED: Potassium Replacement Protocol 1 EACH MISC MISCELLANE PRN (19:14)
[2020-05-14] MEDS: POTASSIUM CHLORIDE ER 20 MEQ TAB.ER PO SCH (20:48)
[2020-05-15] MEDS: carvediloL 6.25 MG TAB PO SCH ×2 (06:40→16:52)
[2020-05-15] MEDS: PANTOPRAZOLE 40 MG/10 ML VIAL IV SCH (08:12)
--- NOTE | 2020-05-15 09:57 | PN ---
PROGRESS NOTE Bj is an 84-year-old gentleman with history of atrial fibrillation and hypertension, who is admitted to the hospital with GI bleed. Cardiology has been consulted because of his atrial fibrillation. This morning, patient is comfortable at rest and is free of symptoms. The patient had anemia secondary to GI bleed and apparently had been on Xarelto that is on hold. I am seeing the patient for the first time today and he is free of cardiac symptoms and is currently awaiting endoscopic evaluation for his bleed. On exam, heart rate is 90 beats per minute, blood pressure is 130/75, respiratory rate is 18. O2 saturation is 98% on room air. There is no jugular venous distention. Chest exam reveals good air entry bilaterally. Heart exam reveals first and second heart sounds. An ejection systolic murmur in the aortic area. Abdomen is soft. Exam of the extremities did not reveal any edema. Peripheral pulses are felt. LABS: Show a hemoglobin of 7.8, potassium is 3.5, creatinine is 0.8. ASSESSMENT: 1. Persistent atrial fibrillation with controlled ventricular rate. 2. Hypertension. 3. Dyslipidemia. 4. GI bleed. PLAN: Will continue to hold the oral anticoagulant. I will obtain a 2D echo to evaluate the LV function and will address the anticoagulant tissue in the outpatient setting after the endoscopic evaluation is complete. Will follow the patient during this hospitalization. DEV / SUMIN: [id number] /
--- NOTE | 2020-05-15 10:30 | CDI ---
Documentation Clarification Form Date: 05/15/2020 10:11:29 AM From: Binta Clayton RN, CCDS Admit Date: 05/12/2020 03:25:00 PM Patient Name: Bj Gutierrez Visit Number: [id number] Discharge Date: ATTENTION: The Clinical Documentation Specialists (CDI) and [facility] Coding Staff appreciate your assistance in clarifying documentation. Please respond to the clarification below the line at the bottom and electronically sign. The CDI & [facility] Coding staff will review the response and follow-up if needed. Please note: Queries are made part of the Legal Health Record. If you have any questions, please contact the author of this message via ITS. Dr. Matthew Troncoso Atrial Fibrillation is documented in your consult and subsequent progress note. Patient with history of atrial fibrillation. Request specificity for the type of atrial fibrillation if known. History/Risk Factors: Atrial Fibrillation, GI bleeding, Coronary artery disease, Congestive heart failure, Hypertension Clinical Indicators: 84-year-old male present on 05/12 with complaints of tiredness and weakness. Patient hemoglobin was found to be 7.1 and was admitted for GI workup. 05/12 VS on admission: 144/80 93 18 98.2 99 % RA 05/12 EKG: Atrial fibrillation with rate 87 Treatment: Telemetry monitoring Xarelto (on hold) Zestril 5 mg po daily Coreg 6.25 MG BID In your professional opinion, can you please clarify the type of Atrial Fibrillation, if known? Chronic/Permanent Paroxysmal Persistent Other, please specify Unable to determine (Last Revision: January 2018) MTDD
--- NOTE | 2020-05-15 11:44 | ECHOF ---
Referral Reason:afib MEASUREMENTS -------- HEIGHT: 180.3 cm WEIGHT: 68.5 kg BP: 138/75 IVSd: 1.2 cm (0.6 - 1.1) LVIDd: 3.8 cm (3.9 - 5.3) LVPWd: 1.2 cm (0.6 - 1.1) IVSs: 1.6 cm LVIDs: 2.8 cm LVPWs: 1.6 cm Ao Diam: 3.5 cm (2.0 - 3.7) AV Cusp: 2.3 cm (1.5 - 2.6) LA Diam: 3.4 cm (2.7 - 3.8) RAP: 5.00 mmHg RVSP: 44.89 mmHg FINDINGS -------- Atrial fibrillation. This was a technically adequate study. The left ventricular size is normal. There is mild concentric left ventricular hypertrophy. Overa ll left ventricular systolic function is low-normal with, an EF between 50 - 55 %. The right ventricle is normal in size. The left atrial size is normal. The right atrial size is normal. Unable to visualize the septum. The aortic valve is trileaflet and appears structurally normal. The mitral valve is normal. There is trace mitral regurgitation. The tricuspid valve appears structurally normal. Mild tricuspid regurgitation present. There is m ild pulmonary hypertension. The right ventricular systolic pressure, as measured by Doppler, is 44. 89mmHg. There is no pulmonic regurgitation present. The aortic root size is normal. IVC Not well visulized. There is no pericardial effusion. CONCLUSIONS -------- 1. Atrial fibrillation. 2. There is mild concentric left ventricular hypertrophy. 3. Overall left ventricular systolic function is low-normal with, an EF between 50 - 55 %. 4. There is trace mitral regurgitation. 5. Mild tricuspid regurgitation present. 6. There is mild pulmonary hypertension. 7. The right ventricular systolic pressure, as measured by Doppler, is 44.89mmHg. PUBLIC SERVICE DIRECTOR: America Cortez RDCS
[2020-05-15] MEDS ORDERED: LACTATED RINGERS 500 ML IV ONE (11:47)
[2020-05-15] MEDS ORDERED: LACTATED RINGERS 1,000 ML IV ONE (11:47)
[2020-05-15] MEDS ORDERED: PROPOFOL 10 MG/ML 20 ML VIAL IV ONE (11:51)
--- NOTE | 2020-05-15 12:42 | P.PCN ---
Date of Procedure: 05/15/20 Description of Procedure: Brief history: Patient is a pleasant 84-year-old male who was seen in the hospital for severe symptomatic iron deficiency anemia. No prior endoscopy reported. He denies any gross GI bleeding seen. Perrformed: Esophagogastroduodenoscopy with biopsy and gold probe ablation of small bowel angioectasia Colonoscopy Estimated blood loss: Minimal. Preoperative diagnosis: Severe symptomatic iron deficiency anemia, no prior endoscopy reported Anesthesia: MAC Procedure: After informed consent was obtained from the patient was brought into the endoscopy unit and IV sedation was administered by anesthesia under continuous monitoring. Initially upper endoscopy was done. The Olympus GF 190 video endoscope was inserted into the mouth and esophagus intubated without any difficulty and was gradually advanced into the stomach and duodenum and carefully examined. The bulb and second part of the duodenum appeared normal, with biopsies taken. There was a nonbleeding angioectasia in the duodenal bulb which was treated with cold probe ablation . The scope was then withdrawn into the stomach adequately insufflated with air and upon careful examination the antrum and body, cardia and fundus appeared normal, except for some mild scattered erythema in the antrum and body suggestive of mild gastritis with biopsies taken . The scope was then withdrawn into the esophagus. The GE junction was located at 38 cm to the incisors. It appeared regular with no erythema erosions or ulcerations. Rest of the esophagus appeared normal. Patient tolerated the procedure well. At this time the patient continued to remain sedation. Initial digital rectal e xamination was normal. Olympus CF 190 video colonoscope was then inserted into the rectum and gradually advanced to the cecum without any difficulty. Careful examination was performed as the scope was gradually being withdrawn. The prep was excellent. The cecum, ascending colon, transverse colon, descending colon, sigmoid colon and rectum appeared normal. A few scattered diverticula noted th roughout the colon. Retroflexion was performed in the rectum and no lesions were noted, low-grade internal hemorrhoids noted.. Patient tolerated the procedure well. Impression: 1. Mild gastritis, antrum and body biopsied. 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 Biopsies of the duodenum. 2. Mild pandiverticulosis. Recommendations: Findings of this examination were discussed with the patient as well as medical team. Okay to resume diet. Okay to resume medications, would hold anticoagulation therapy for an additional 24-48 hours pending hemoglobin. If p atient has further fall in hemoglobin we'll consider video capsule endoscopy. Await pathology from biopsies.
[2020-05-15] MEDS: GABAPENTIN 400 MG CAP PO SCH ×3 (13:12→20:49)
[2020-05-15] MEDS: lisinopriL 5 MG TAB PO SCH (13:12)
[2020-05-15] MEDS: FUROSEMIDE 20 MG TAB PO SCH (13:12)
[2020-05-15] MEDS: SODIUM CHLORIDE 0.9% 1,000 ML IV SCH (15:27)
[2020-05-16] MEDS: carvediloL 6.25 MG TAB PO SCH ×2 (06:28→17:07)
[2020-05-16] MEDS: GABAPENTIN 400 MG CAP PO SCH ×3 (08:40→21:08)
[2020-05-16] MEDS: lisinopriL 5 MG TAB PO SCH (08:40)
[2020-05-16] MEDS: PANTOPRAZOLE 40 MG/10 ML VIAL IV SCH (08:40)
[2020-05-16] MEDS: FUROSEMIDE 20 MG TAB PO SCH (08:40)
--- NOTE | 2020-05-16 10:48 | PN ---
PROGRESS NOTE Bj is an 84-year-old gentleman with history of hypertension who is admitted secondary to GI bleed. Cardiology is consulted because of his persistent atrial fibrillation. An echocardiogram on this admission revealed normal LV function. He had EGD and colonoscopy. He had mild gastritis. GI has recommended that we hold the anticoagulation for another 48 hours and will resume it at that time if the hemoglobin remains stable. On exam today, comfortable at rest. Vital signs are stable. There is no jugular venous distention. Chest exam reveals good air entry bilaterally. Heart exam reveals first and second heart sounds, regular rhythm. Abdomen is soft. Exam of the extremities did not reveal any edema. Peripheral pulses are felt. ASSESSMENT: 1. Persistent atrial fibrillation with controlled ventricular rate. 2. Gastrointestinal bleed without any active source of bleeding. PLAN: Follow hemoglobin and if hemoglobin remains stable, will resume the anticoagulant in 48 hours. BROCKL / SUMIN: [id number] /
[2020-05-16 10:55] LABS: African American GFR (CKD) >90 (>60 ml/min/1.73 sqM); Anion Gap 8 mmol/L; Anisocytosis Moderate; Basophils % (A) 1 %; Blood Urea Nitrogen 8 mg/dL (9-20); Calcium 8.5 mg/dL (8.4-10.2); Carbon Dioxide 27 mmol/L (22-30); Chloride 98 mmol/L (98-107); Eosinophils # (A) 0.2 k/uL (0-0.7); Eosinophils % (A) 4 %; Glucose 112 mg/dL (74-99); Hypochromasia Marked; Lymphocytes % (A) 22 %; MCH 19.9 pg (25.0-35.0); MCHC 29.6 g/dL (31.0-37.0); MCV 67.2 fL (80.0-100.0); Mean Platelet Volume 7.9; Microcytosis Marked; Monocytes # (A) 0.5 k/uL (0-1.0); Monocytes % (A) 11 %; Neutrophils # (A) 2.6 k/uL (1.3-7.7); Neutrophils % (A) 59 %; Non-African American GFR(CKD) 81 (>60 ml/min/1.73 sqM); Platelet Count 169 k/uL (150-450); Poikilocytosis Slight; Potassium 3.4 mmol/L (3.5-5.1); RBC 4.02 m/uL (4.30-5.90); RDW 22.4 % (11.5-15.5); Sodium 133 mmol/L (137-145); WBC 4.4 k/uL (3.8-10.6)
[2020-05-16] MEDS: HYDROcodone/APAP 5-325MG 1 EACH TAB PO PRN (14:17)
--- NOTE | 2020-05-16 15:24 | XR ---
EXAMINATION TYPE: XR abdomen 1V DATE OF EXAM: 05/16/2020 2:54 PM CLINICAL HISTORY: Abdominal pain TECHNIQUE: Upright image of the abdomen and pelvis obtained COMPARISON: None. FINDINGS: Left upper quadrant mildly distended small bowel loops. There is small bowel gas seen dista lly to this point throughout the abdomen. Gas and fecal material is seen in non-distended colon. Ther e is no visceromegaly, pneumoperitoneum, or abnormal calcification appreciated. The lung bases are cl ear with elevation of the left hemidiaphragm. Degenerative changes of the spine. IMPRESSION: Mildly distended left upper quadrant small bowel loops. Findings may represent ileus versus partial b owel obstruction.
[2020-05-16] MEDS ORDERED: POTASSIUM CHLORIDE 20 MEQ in WATER FOR INJECTION 1 100ML.BAG IVPB STA (15:46)
[2020-05-16] MEDS: SODIUM CHLORIDE 0.9% 1,000 ML IV SCH (16:29)
[2020-05-16] MEDS: HYDROmorphone 0.5 MG/0.5 ML SYRINGE IVP PRN ×2 (17:56→23:52)
--- NOTE | 2020-05-16 23:31 | P.PN ---
Subjective Progress Note Date: 05/15/20 Principal diagnosis: Acute blood loss anemia/GI bleed Hyponatremia Atrial fibrillation 84-year-old male with a history of atrial fibrillation who was sent for evaluation of abnormal labs. He has anemia secondary to GI bleed. Xarelto is on hold. Patient remains in rate controlled atrial fibrillation. Patient seen and examined laying in bed. Denies any dizziness, shortness of breath or chest pain. He did have a bowel movement and denies any bleeding. 05/14/2020 Patient is seen and evaluated in room with at bedside; patient understands he will be undergoing endoscopy tomorrow Laboratory review shows hemoglobin stable at 7.8; sodium remained stable at 131 Cardiology and gastroenterology following patient; anticoagulation currently on hold due to GI bleed; patient to undergo EGD and colonoscopy possibly tomorrow 05/15/2020 Patient is currently resting in the bed comfortably. Patient had a EGD showed mild gastritis, antrum and body biopsies. 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 Patient was started on oral diet Anticoagulation is on hold for another 24 to 48 hours as per GI recommendations. Follow-up H&H. Denies any complaints of nausea vomiting or diarrhea. No fever no chills. No cough or sputum production. No chest pain or shortness of breath. Current medications reviewed. Objective - Vital Signs Vital signs: Vital Signs Temp 98.2 F 05/16/20 04:00 Pulse 64 05/16/20 04:00 Resp 18 05/16/20 04:00 BP 118/55 05/16/20 04:00 Pulse Ox 99 05/16/20 04:00 Intake & Output 05/15/20 05/16/20 05/16/20 18:59 06:59 18:59 Intake Total 100 200 Balance 100 200 Weight 68.5 kg Intake: IV 100 Oral 200 Other: Voiding Method Toilet # Voids 1 1 - Exam PHYSICAL EXAMINATION: GENERAL: The patient is alert and oriented x3, not in any acute distress. Well developed, well nourished. HEENT: Pupils are round and equally reacting to light. EOMI. No scleral icterus. No conjunctival pallor. Normocephalic, atraumatic. No pharyngeal erythema. No thyromegaly. CARDIOVASCULAR: S1 and S2 present. No murmurs, rubs, or gallops. PULMONARY: Chest is clear to auscultation, no wheezing or crackles. ABDOMEN: Soft, nontender, nondistended, normoactive bowel sounds. No palpable organomegaly. MUSCULOSKELETAL: No joint swelling or deformity. EXTREMITIES: No cyanosis, clubbing, or pedal edema. NEUROLOGICAL: Gross neurological examination did not reveal any focal deficits. SKIN: No rashes. - Labs CBC & Chem 7: 05/16/20 10:12 05/16/20 10:12 Assessment and Plan Assessment: 1. Acute blood loss anemia - We will continue to monitor H&H closely and transfuse as needed 2. 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 Mild pandiverticulosis 3. Atrial fibrillation; remains rate controlled on Coreg 6.25 mg twice a day; anticoagulation on hold due to GI bleed 4. Hypertension; continue with lisinopril 5 mg daily and Coreg 6.25 mg twice a day 5. Electrolyte imbalance/hyponatremia; sodium level stabilized at 131; we will continue to monitor electrolytes and supplement as needed DVT prophylaxis; SCDs only due to GI bleed CODE STATUS; full code Time with Patient: Greater than 30
[2020-05-17] MEDS: carvediloL 6.25 MG TAB PO SCH ×2 (06:33→17:39)
[2020-05-17] MEDS: HYDROmorphone 0.5 MG/0.5 ML SYRINGE IVP PRN (06:34)
[2020-05-17] MEDS: lisinopriL 5 MG TAB PO SCH (07:45)
[2020-05-17] MEDS: GABAPENTIN 400 MG CAP PO SCH ×2 (07:45→20:11)
[2020-05-17] MEDS: PANTOPRAZOLE 40 MG/10 ML VIAL IV SCH (07:45)
[2020-05-17] MEDS: FUROSEMIDE 20 MG TAB PO SCH (07:45)
[2020-05-17] MEDS: SODIUM CHLORIDE 0.9% 1,000 ML IV SCH (07:51)
[2020-05-17] MEDS: ONDANSETRON 4 MG/2 ML VIAL IVP PRN ×3 (08:04→20:11)
[2020-05-17 12:03] LABS: Anisocytosis Moderate; Basophils % (A) 0 %; Eosinophils % (A) 0 %; HCT 29.4 % (39.0-53.0); HGB 8.7 gm/dL (13.0-17.5); Hypochromasia Marked; Lymphocytes # (A) 0.7 k/uL (1.0-4.8); Lymphocytes % (A) 9 %; MCH 20.2 pg (25.0-35.0); MCHC 29.7 g/dL (31.0-37.0); MCV 68.1 fL (80.0-100.0); Mean Platelet Volume 7.7; Microcytosis Marked; Monocytes # (A) 0.4 k/uL (0-1.0); Monocytes % (A) 6 %; Neutrophils # (A) 6.3 k/uL (1.3-7.7); Neutrophils % (A) 84 %; Platelet Count 184 k/uL (150-450); Poikilocytosis Slight; RBC 4.32 m/uL (4.30-5.90); RDW 22.2 % (11.5-15.5); WBC 7.5 k/uL (3.8-10.6)
[2020-05-17 12:09] LABS: African American GFR (CKD) >90 (>60 ml/min/1.73 sqM); Anion Gap 9 mmol/L; Blood Urea Nitrogen 15 mg/dL (9-20); Calcium 8.8 mg/dL (8.4-10.2); Carbon Dioxide 25 mmol/L (22-30); Chloride 99 mmol/L (98-107); Glucose 132 mg/dL (74-99); Non-African American GFR(CKD) 85 (>60 ml/min/1.73 sqM); Potassium 4.1 mmol/L (3.5-5.1); Sodium 133 mmol/L (137-145)
--- NOTE | 2020-05-17 13:09 | P.PN ---
Subjective Progress Note Date: 05/16/20 Principal diagnosis: Anemia of acute blood loss, duodenal angiectasia, diverticulosis, gastritis Patient is seen sitting bedside today he is tolerating his diet. No nausea or vomiting. He is having some lower abdominal pain. Objective - Vital Signs Vital signs: Vital Signs Temp 97.5 F L 05/16/20 08:00 Pulse 56 L 05/16/20 12:00 Resp 18 05/16/20 12:00 BP 137/67 05/16/20 12:00 Pulse Ox 99 05/16/20 12:00 Intake & Output 05/15/20 05/16/20 05/16/20 18:59 06:59 18:59 Intake Total 100 200 Balance 100 200 Weight 68.5 kg Intake: IV 100 Oral 200 Other: Voiding Method Toilet # Voids 1 1 - Exam On physical examination, patient appears comfortable in no apparent distress. HEAD: Normocephalic, atraumatic. EYES: No scleral icterus. No conjunctival injection. MOUTH: No lesions, tongue midline. NECK: Trachea midline, no gross abnormalities. ABDOMEN: Soft, obese, mildly tender to palpation. Bowel sounds are positive. No organomegaly. No guarding or rigidity. EXTREMITIES: No pedal edema. SKIN: No rashes, no jaundice. NEUROLOGIC: Alert and oriented x3. No focal deficits. - Labs CBC & Chem 7: 05/17/20 11:44 05/17/20 11:44 Labs: Abnormal Lab Results - Last 24 Hours (Table) 05/16/20 05/16/20 Range/Units 10:12 10:12 RBC 4.02 L (4.30-5.90) m/uL Hgb 8.0 L (13.0-17.5) gm/dL Hct 27.0 L (39.0-53.0) % MCV 67.2 L (80.0-100.0) fL MCH 19.9 L (25.0-35.0) pg MCHC 29.6 L (31.0-37.0) g/dL RDW 22.4 H (11.5-15.5) % Sodium 133 L (137-145) mmol/L Potassium 3.4 L (3.5-5.1) mmol/L BUN 8 L (9-20) mg/dL Glucose 112 H (74-99) mg/dL Assessment and Plan (1) Anemia associated with acute blood loss Narrative/Plan: 84-year-old male presenting with anemia underwent EGD significant for gastritis and duodenal angiectasia treated with gold probe ablation and colonoscopy showing pandiverticulosis. No active bleeding on endoscopic evaluation. Current Visit: Yes Status: Acute Code(s): D62 - ACUTE POSTHEMORRHAGIC ANEMIA SNOMED Code(s): 238138163 (2) Angiodysplasia of duodenum with hemorrhage Current Visit: Yes Status: Acute Code(s): K31.811 - ANGIODYSPLASIA OF STOMACH AND DUODENUM WITH BLEEDING SNOMED Code(s): 383048468 (3) GI hemorrhage Current Visit: Yes Status: Acute Code(s): K92.2 - GASTROINTESTINAL HEMORRHAGE, UNSPECIFIED SNOMED Code(s): 07725504 Plan: Supportive care Okay for diet Abdominal x-ray ordered due to abdominal discomfort today. Continue current medical management Continue Protonix therapy Continue to monitor hemoglobin and hematocrit and transfuse as needed Thank you for allowing us to participate in the care of of the patient
--- NOTE | 2020-05-17 15:26 | PN ---
PROGRESS NOTE Bj is an 84-year-old gentleman with history of atrial fibrillation, admitted to hospital with GI bleed, underwent endoscopic workup. The plan at this stage is to resume the oral anticoagulant once we can ensure that his hemoglobin is stable and it has been over the last 2 days. However, the patient developed abdominal discomfort and is currently being worked up for the same. Once that issue is addressed, we can start him back on the oral anticoagulant. On exam, heart rate is 75 beats per minute. Blood pressure is 154/82, respiratory rate is 18. Chest exam reveals good air entry bilaterally. Heart exam reveals first and second heart sounds, irregular rhythm. Abdomen is soft. Exam of the extremities did not reveal any edema. Peripheral pulses are felt. ASSESSMENT: 1. Permanent atrial fibrillation with controlled ventricular rate. 2. GI bleed, status post EGD, colonoscopy. 3. Abdominal pain. PLAN: The patient's hemoglobin is stable. We can resume the anticoagulant once the abdominal pain issues have resolved. MMODL / IJN: [id number] /
[2020-05-17] MEDS: SIMETHICONE 80 MG CHEWABLE PO SCH ×2 (17:39→20:11)
[2020-05-18] MEDS: HYDROcodone/APAP 5-325MG 1 EACH TAB PO PRN (00:54)
[2020-05-18] MEDS: ONDANSETRON 4 MG/2 ML VIAL IVP PRN ×3 (02:58→15:21)
[2020-05-18] MEDS: carvediloL 6.25 MG TAB PO SCH ×2 (06:34→21:32)
[2020-05-18] MEDS: PANTOPRAZOLE 40 MG/10 ML VIAL IV SCH (08:20)
[2020-05-18] MEDS: SIMETHICONE 80 MG CHEWABLE PO SCH ×4 (08:21→23:42)
[2020-05-18] MEDS: GABAPENTIN 400 MG CAP PO SCH ×3 (08:21→23:41)
[2020-05-18] MEDS: lisinopriL 5 MG TAB PO SCH (08:21)
[2020-05-18] MEDS: FUROSEMIDE 20 MG TAB PO SCH (08:21)
[2020-05-18] MEDS ORDERED: IOPAMIDOL CONTRAST (ORAL USE) VIAL PO PRN (11:44)
--- NOTE | 2020-05-18 12:53 | CT ---
EXAMINATION TYPE: CT abdomen pelvis wo con DATE OF EXAM: 05/18/2020 COMPARISON: 02/23/2018 HISTORY: Vomiting stool. CT DLP: 504.4 mGycm Automated exposure control for dose reduction was used. TECHNIQUE: Helical acquisition of images was performed from the lung bases through the pelvis. FINDINGS: LUNG BASES: Heart is enlarged. There is coronary artery calcification and bilateral areas of subsegme ntal consolidation. Pleural-based calcifications noted. LIVER/GB: No significant abnormality is appreciated. PANCREAS: No significant abnormality is seen. SPLEEN: No significant abnormality is seen. ADRENALS: 7 mm incidental right adrenal nodule most likely on the basis of an adenoma.. KIDNEYS: No significant abnormality is seen. ADENOPATHY: None visualized. OSSEOUS STRUCTURES: Hypertrophic and degenerative change of the spine BOWEL: The stomach and several portions of small bowel are markedly distended with the suspicion for a transition point within the right inguinal canal secondary to a right inguinal hernia. Findings ar e suspicious for a right inguinal hernia small bowel obstruction. OTHER: Small amount of free fluid in the pelvis. Atherosclerotic change aorta with evidence of a infr arenal aortic aneurysm measuring 3.5 cm. IMPRESSION: 1. Markedly dilated small bowel loops and stomach with suspicion for a obstruction secondary to right inguinal hernia. Report called to the patient's nurse. 2. Small amount of ascites 3. 3.5 cm abdominal aortic aneurysm. 4. Basilar consolidation likely in the basis of atelectasis with tiny effusion. 5. Severe cardiomegaly with atherosclerotic change of the coronary arteries. 6. Pleural based calcifications correlate for asbestos related disease
[2020-05-18] MEDS: SODIUM CHLORIDE 0.9% 1,000 ML IV SCH (16:05)
--- NOTE | 2020-05-18 16:31 | CDI ---
Documentation Clarification Form Date: 05/18/2020 04:07:00 PM From: Binta Clayton RN, CCDS Admit Date: 05/12/2020 03:25:00 PM Patient Name: Bj Gutierrez Visit Number: [id number] Discharge Date: ATTENTION: The Clinical Documentation Specialists (CDI) and [facility] Coding Staff appreciate your assistance in clarifying documentation. Please respond to the clarification below the line at the bottom and electronically sign. The CDI & [facility] Coding staff will review the response and follow-up if needed. Please note: Queries are made part of the Legal Health Record. If you have any questions, please contact the author of this message via ITS. Dr. Lisandra Cooper History of congestive heart failure is documented in the past medial history and H/P. Please provide further specificity of the heart failure. History/Risk Factors: Coronary artery disease, Atrial fibrillation, Heart failure Clinical Indicators: 84-year-old male with past medical history of coronary artery disease and heart failure. Medication list include ongoing treatment with Lasix 20 mg po daily 05/12 VS/Pulse OX: 114/80 93 18 98.2 99 % RA Echocardiogram Results: Atrial fibrillation. Overall left ventricular systolic function is low-normal with, an EF between 50-55 % Treatment: Lasix 20 mg po daily Coreg 6.25 mg po ac-bid Zestril 5 mg po daily In your professional opinion, can you please clarify the acuity and type of CHF if known? Diastolic Heart Failure: Acute Chronic Acute on Chronic Systolic & Diastolic Heart Failure: Acute Chronic Acute on Chronic Heart Failure Unable to Determine Other, please specify (Last Revision: January 2018) Chronic CHF with diastolic dysfunction MTDD
--- NOTE | 2020-05-18 16:33 | PN ---
PROGRESS NOTE Bj is an 84-year-old gentleman who has history of atrial fibrillation that is admitted to hospital with GI bleed. Yesterday has had some abdominal discomfort, that is currently being evaluated. Patient is doing well and is currently free of chest pain, palpitations but does complain of vague abdominal discomfort. PHYSICAL EXAM: Comfortable at rest. Vital signs are stable. There is no jugular venous distention. Chest exam reveals good air entry bilaterally. Heart exam reveals first and second heart sounds, regular rhythm. Abdomen is soft. Exam of extremities did not reveal any edema. Peripheral pulses are felt. ASSESSMENT: 1. GI bleed, status post EGD. No active source of bleeding. 2. Permanent atrial fibrillation. PLAN: Will resume the oral anticoagulant once the abdominal discomfort issues have resolved. MMODL / IJN: [id number] /
--- NOTE | 2020-05-18 17:20 | P.GSCN ---
History of Present Illness Consult date: 05/18/20 Reason for Consult: Small bowel obstruction History of present illness: This is a 4-year-old male who was admitted to the hospital for workup of GI bleed. Patient has developed a small bowel obstruction with feculent vomiting. His CAT scan today shows an incarcerated right inguinal hernia creating a high- grade small bowel obstruction Past Medical History Past Medical History: Atrial Fibrillation, Coronary Artery Disease (CAD), Heart Failure, Hypertension Additional Past Medical History / Comment(s): 10/09/17 slip and fall on ice with left tibia fracture, has splint on, and is no weight bearing History of Any Multi-Drug Resistant Organisms: None Reported Past Surgical History: Hernia Repair Past Anesthesia/Blood Transfusion Reactions: No Reported Reaction Past Psychological History: No Psychological Hx Reported Smoking Status: Former smoker Past Alcohol Use History: None Reported Additional Past Alcohol Use History / Comment(s): smoked 1ppd from [id number] Past Drug Use History: None Reported - Past Family History Mother History Unknown: Yes Father Family Medical History: Coronary Artery Disease (CAD) Sister(s) History Unknown: Yes Brother(s) History Unknown: Yes Daughter(s) Family Medical History: No Reported History Son(s) Family Medical History: No Reported History Medications and Allergies Home Medications Medication Instructions Recorded Confirmed Type Furosemide [Lasix] 20 mg PO DAILY #30 tab 04/11/15 05/12/20 Rx Gabapentin [Neurontin] 400 mg PO TID 05/12/20 05/12/20 History carvediloL [Coreg] 6.25 mg PO AC-BID 05/12/20 05/12/20 History lisinopriL [Zestril] 5 mg PO DAILY 05/12/20 05/12/20 History Allergies Allergy/AdvReac Type Severity Reaction Status Date / Time No Known Allergies Allergy Verified 05/12/20 15:45 Surgical - Exam Vital Signs Temp Pulse Resp BP Pulse Ox 98.2 F 93 18 144/80 99 05/12/20 14:22 05/12/20 14:22 05/12/20 14:22 05/12/20 14:22 05/12/20 14:22 - General well developed, well nourished, no distress - Eyes PERRL - ENT normal pinna - Neck no masses - Respiratory normal expansion - Cardiovascular Rhythm: regular - Abdomen Abdomen: soft, non tender Hernia: inguinal (Tender mass in right groin consistent with incarcerated inguinal hernia) Results - Labs 05/17/20 11:44 05/17/20 11:44 Assessment and Plan Assessment: Incarcerated we'll hernia creating small bowel obstruction. Patient undergo exploratory laparotomy with repair of inguinal hernia today
[2020-05-18] MEDS ORDERED: NEOSTIGMINE 1 MG/ML 10 ML VIAL ONE (19:10)
[2020-05-18] MEDS ORDERED: ROCURONIUM 10 MG/ML (5 ML VIAL) IV ONE (19:10)
[2020-05-18] MEDS ORDERED: GLYCOPYRROLATE 0.2 MG/ML 2 ML VIAL ONE (19:10)
[2020-05-18] MEDS ORDERED: PROPOFOL 10 MG/ML 20 ML VIAL IV ONE (19:10)
[2020-05-18] MEDS ORDERED: ONDANSETRON 4 MG/2 ML VIAL ONE (19:10)
[2020-05-18] MEDS ORDERED: fentaNYL (PF) 50 MCG/ML 2 ML AMP ONE (19:10)
[2020-05-18] MEDS ORDERED: METOPROLOL TARTRATE 5 MG/5 ML VIAL IVP ONE (19:10)
[2020-05-18] MEDS ORDERED: DEXAMETHASONE SOD PHOSPHATE 10 MG/ML 1 ML VIAL ONE (19:10)
[2020-05-18] MEDS ORDERED: SUCCINYLCHOLINE CHLORIDE 100 MG/5 ML SYR IV ONE (19:10)
[2020-05-18] MEDS ORDERED: PHENYLEPHRINE-0.9% NACL SYG 1 MG/10 ML SYRINGE ONE (19:10)
[2020-05-18] MEDS ORDERED: ceFAZolin 1,000 MG VIAL IVPB ONE (19:17)
[2020-05-18] MEDS ORDERED: IV FLUID CONTINUATION 1,000 ML IV ONE (19:17)
--- NOTE | 2020-05-18 19:58 | P.OP ---
Date of Procedure: 05/18/20 Preoperative Diagnosis: Incarcerated inguinal hernia Postoperative Diagnosis: Incarcerated femoral hernia Procedure(s) Performed: (Femoral hernia Anesthesia: ZAINAB Surgeon: Frank Morgan Estimated Blood Loss (ml): 5 Pathology: other (Hernia sac) Condition: stable Disposition: PACU Description of Procedure: The patient's placed on the operating table in the supine position. He received general anesthesia. His abdomen was prepped and draped usual fashion. Standard inguinal hernia incision was made in the right groin. Using ultrasound a subcutaneous tissue divided. The fascia external oblique was exposed. The hernia sac appeared to be below the inguinal ligament. The hernia sac was then grasped. The bowel had already been spontaneously reduce. This point the hernia sac was opened there was no enteric contents. At this point the hernia sac underwent a high ligation with 2-0 Vicryl. In the femoral canal piece of Prolene mesh was placed this was secured with 3-0 Prolene. The wounds for hemostasis. There is no bleeding seen. The Margarita's fascia was closed with 2-0 Vicryl. Skin was closed interrupted 3-0 Monocryl suture. Dermabond was applied. Patient top she will was sent to recovery room stable condition.
[2020-05-18] MEDS ORDERED: HYDROmorphone 1 MG/ML 1 ML SYRINGE IM PRN (19:59)
[2020-05-18] MEDS ORDERED: LABETALOL SYRINGE 5 MG/ML IVP ONE (20:55)
[2020-05-18] MEDS ORDERED: LACTATED RINGERS 1,000 ML IV ONE ×2 (20:57→22:00)
[2020-05-18] MEDS ORDERED: EPINEPHrine 10 ML SYRINGE (0.1 MG/ML) IV ONE (22:00)
[2020-05-18] MEDS ORDERED: ATROPINE SULFATE 0.1 MG/ML 10ML SYRINGE IVP ONE (22:00)
[2020-05-18] MEDS ORDERED: propofoL 100 ML IV ONE (23:22)
[2020-05-18 23:23] LABS: Glucose,Whole Blood 162 mg/dL (75-99)
--- NOTE | 2020-05-18 23:31 | P.PN ---
Subjective Progress Note Date: 05/16/20 Principal diagnosis: Acute blood loss anemia/GI bleed Hyponatremia Atrial fibrillation 84-year-old male with a history of atrial fibrillation who was sent for evaluation of abnormal labs. He has anemia secondary to GI bleed. Xarelto is on hold. Patient remains in rate controlled atrial fibrillation. Patient seen and examined laying in bed. Denies any dizziness, shortness of breath or chest pain. He did have a bowel movement and denies any bleeding. 05/14/2020 Patient is seen and evaluated in room with at bedside; patient understands he will be undergoing endoscopy tomorrow Laboratory review shows hemoglobin stable at 7.8; sodium remained stable at 131 Cardiology and gastroenterology following patient; anticoagulation currently on hold due to GI bleed; patient to undergo EGD and colonoscopy possibly tomorrow 05/15/2020 Patient is currently resting in the bed comfortably. Patient had a EGD showed mild gastritis, antrum and body biopsies. 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 Patient was started on oral diet Anticoagulation is on hold for another 24 to 48 hours as per GI recommendations. Follow-up H&H. Denies any complaints of nausea vomiting or diarrhea. No fever no chills. No cough or sputum production. No chest pain or shortness of breath. 05/16/2020 Patient is currently lying in the bed and seems to be mildly distressed due to lower abdominal pain. Abdominal x-ray was done this afternoon showed mildly distended left upper quadrant small bowel loops. Findings may represent ileus versus partial small bowel obstruction. Patient was kept nothing by mouth. Continued on pain management and IV hydration. Laboratory data showed hemoglobin 8.0 and platelets 169. Sodium 133, potassium 3.4 which will be replaced. GI is following. Current medications reviewed. Objective - Vital Signs Vital signs: Vital Signs Temp 98.2 F 05/16/20 04:00 Pulse 64 05/16/20 04:00 Resp 18 05/16/20 04:00 BP 118/55 05/16/20 04:00 Pulse Ox 99 05/16/20 04:00 Intake & Output 05/15/20 05/16/20 05/16/20 18:59 06:59 18:59 Intake Total 100 200 Balance 100 200 Weight 68.5 kg Intake: IV 100 Oral 200 Other: Voiding Method Toilet # Voids 1 1 - Exam PHYSICAL EXAMINATION: GENERAL: The patient is alert and oriented x3, not in any acute distress. Well developed, well nourished. HEENT: Pupils are round and equally reacting to light. EOMI. No scleral icterus. No conjunctival pallor. Normocephalic, atraumatic. No pharyngeal erythema. No thyromegaly. CARDIOVASCULAR: S1 and S2 present. No murmurs, rubs, or gallops. PULMONARY: Chest is clear to auscultation, no wheezing or crackles. ABDOMEN: Soft, nontender, nondistended, diminished bowel sounds. No palpable organomegaly. MUSCULOSKELETAL: No joint swelling or deformity. EXTREMITIES: No cyanosis, clubbing, or pedal edema. NEUROLOGICAL: Gross neurological examination did not reveal any focal deficits. SKIN: No rashes. - Labs CBC & Chem 7: 05/17/20 11:44 05/17/20 11:44 Assessment and Plan Assessment: 1. Abdominal pain secondary to acute small bowel ileus and possible obstruction. 1. Acute blood loss anemia - We will continue to monitor H&H closely and transfuse as needed 2. 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 Mild pandiverticulosis 3. Atrial fibrillation; remains rate controlled on Coreg 6.25 mg twice a day; anticoagulation on hold due to GI bleed 4. Hypertension; continue with lisinopril 5 mg daily and Coreg 6.25 mg twice a day 5. Electrolyte imbalance/hyponatremia; sodium level stabilized at 131; we will continue to monitor electrolytes and supplement as needed DVT prophylaxis; SCDs only due to GI bleed CODE STATUS; full code Time with Patient: Greater than 30
--- NOTE | 2020-05-18 23:35 | P.PN ---
Subjective Progress Note Date: 05/17/20 Principal diagnosis: Acute blood loss anemia/GI bleed Hyponatremia Atrial fibrillation 84-year-old male with a history of atrial fibrillation who was sent for evaluation of abnormal labs. He has anemia secondary to GI bleed. Xarelto is on hold. Patient remains in rate controlled atrial fibrillation. Patient seen and examined laying in bed. Denies any dizziness, shortness of breath or chest pain. He did have a bowel movement and denies any bleeding. 05/14/2020 Patient is seen and evaluated in room with at bedside; patient understands he will be undergoing endoscopy tomorrow Laboratory review shows hemoglobin stable at 7.8; sodium remained stable at 131 Cardiology and gastroenterology following patient; anticoagulation currently on hold due to GI bleed; patient to undergo EGD and colonoscopy possibly tomorrow 05/15/2020 Patient is currently resting in the bed comfortably. Patient had a EGD showed mild gastritis, antrum and body biopsies. 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 Patient was started on oral diet Anticoagulation is on hold for another 24 to 48 hours as per GI recommendations. Follow-up H&H. Denies any complaints of nausea vomiting or diarrhea. No fever no chills. No cough or sputum production. No chest pain or shortness of breath. 05/16/2020 Patient is currently lying in the bed and seems to be mildly distressed due to lower abdominal pain. Abdominal x-ray was done this afternoon showed mildly distended left upper quadrant small bowel loops. Findings may represent ileus versus partial small bowel obstruction. Patient was kept nothing by mouth. Continued on pain management and IV hydration. Laboratory data showed hemoglobin 8.0 and platelets 169. Sodium 133, potassium 3.4 which will be replaced. GI is following. 05/17/2020 Patient is currently lying in the bed comfortably. No complaints of chest pain abdominal pain is improved and patient is requesting oral diet. Hemoglobin level is slightly better than yesterday. No nausea vomiting. No diarrhea. Patient did have small bowel movement. Patient has been afebrile. Laboratory data reviewed. Current medications reviewed. Objective - Vital Signs Vital signs: Vital Signs Temp 98.1 F 05/17/20 20:00 Pulse 90 05/17/20 20:00 Resp 20 05/17/20 20:00 BP 132/67 05/17/20 20:00 Pulse Ox 98 07/29/20 20:00 Intake & Output 05/17/20 05/17/20 05/18/20 06:59 18:59 06:59 Intake Total 160 Balance 160 Weight 69.5 kg Intake: Intake, IV Titration 160 Amount Sodium Chloride 0.9% 1, 160 000 ml @ 20 mls/hr IV . Q24H SARAH Rx#:[id number] Oral 0 Other: Voiding Method Toilet Toilet # Voids 4 - Exam PHYSICAL EXAMINATION: GENERAL: The patient is alert and oriented x3, not in any acute distress. Well developed, well nourished. HEENT: Pupils are round and equally reacting to light. EOMI. No scleral icterus. No conjunctival pallor. Normocephalic, atraumatic. No pharyngeal erythema. No thyromegaly. CARDIOVASCULAR: S1 and S2 present. No murmurs, rubs, or gallops. PULMONARY: Chest is clear to auscultation, no wheezing or crackles. ABDOMEN: Soft, nontender, nondistended, normoactive bowel sounds. No palpable organomegaly. MUSCULOSKELETAL: No joint swelling or deformity. EXTREMITIES: No cyanosis, clubbing, or pedal edema. NEUROLOGICAL: Gross neurological examination did not reveal any focal deficits. SKIN: No rashes. - Labs CBC & Chem 7: 05/17/20 11:44 05/17/20 11:44 Labs: Abnormal Lab Results - Last 24 Hours (Table) 05/17/20 05/17/20 Range/Units 11:44 11:44 Hgb 8.7 L (13.0-17.5) gm/dL Hct 29.4 L (39.0-53.0) % MCV 68.1 L (80.0-100.0) fL MCH 20.2 L (25.0-35.0) pg MCHC 29.7 L (31.0-37.0) g/dL RDW 22.2 H (11.5-15.5) % Lymphocytes # 0.7 L (1.0-4.8) k/uL Sodium 133 L (137-145) mmol/L Glucose 132 H (74-99) mg/dL Assessment and Plan Assessment: 1. Abdominal pain secondary to acute small bowel ileus and possible obstruction. improving. 1. Acute blood loss anemia - We will continue to monitor H&H closely and transfuse as needed 2. 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 Mild pandiverticulosis 3. Atrial fibrillation; remains rate controlled on Coreg 6.25 mg twice a day; anticoagulation on hold due to GI bleed 4. Hypertension; continue with lisinopril 5 mg daily and Coreg 6.25 mg twice a day 5. Electrolyte imbalance/hyponatremia; sodium level stabilized at 131; we will continue to monitor electrolytes and supplement as needed DVT prophylaxis; SCDs only due to GI bleed CODE STATUS; full code Time with Patient: Greater than 30
--- NOTE | 2020-05-18 23:38 | P.PN ---
Subjective Progress Note Date: 05/18/20 Principal diagnosis: Acute blood loss anemia/GI bleed Hyponatremia Atrial fibrillation 84-year-old male with a history of atrial fibrillation who was sent for evaluation of abnormal labs. He has anemia secondary to GI bleed. Xarelto is on hold. Patient remains in rate controlled atrial fibrillation. Patient seen and examined laying in bed. Denies any dizziness, shortness of breath or chest pain. He did have a bowel movement and denies any bleeding. 05/14/2020 Patient is seen and evaluated in room with at bedside; patient understands he will be undergoing endoscopy tomorrow Laboratory review shows hemoglobin stable at 7.8; sodium remained stable at 131 Cardiology and gastroenterology following patient; anticoagulation currently on hold due to GI bleed; patient to undergo EGD and colonoscopy possibly tomorrow 05/15/2020 Patient is currently resting in the bed comfortably. Patient had a EGD showed mild gastritis, antrum and body biopsies. 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 Patient was started on oral diet Anticoagulation is on hold for another 24 to 48 hours as per GI recommendations. Follow-up H&H. Denies any complaints of nausea vomiting or diarrhea. No fever no chills. No cough or sputum production. No chest pain or shortness of breath. 05/16/2020 Patient is currently lying in the bed and seems to be mildly distressed due to lower abdominal pain. Abdominal x-ray was done this afternoon showed mildly distended left upper quadrant small bowel loops. Findings may represent ileus versus partial small bowel obstruction. Patient was kept nothing by mouth. Continued on pain management and IV hydration. Laboratory data showed hemoglobin 8.0 and platelets 169. Sodium 133, potassium 3.4 which will be replaced. GI is following. 05/17/2020 Patient is currently lying in the bed comfortably. No complaints of chest pain abdominal pain is improved and patient is requesting oral diet. Hemoglobin level is slightly better than yesterday. No nausea vomiting. No diarrhea. Patient did have small bowel movement. Patient has been afebrile. Laboratory data reviewed. 05/18/2020 Patient is still complaining of abdominal pain today. Patient has been a febrile. No complaints of chest pain or shortness of breath. CT of the abdomen pelvis was done which showed a markedly dilated small bowel loops and stomach with suspicion for a obstruction secondary to right inguinal hernia. General surgery was consulted and is planning for inguinal hernia repair due to incarcerated hernia. Patient will be continued on nothing by mouth. Follow-up CBC and CMP tomorrow. Current medications reviewed. Objective - Vital Signs Vital signs: Vital Signs Temp 99.2 F 05/18/20 20:30 Pulse 106 H 05/18/20 21:17 Resp 22 05/18/20 21:17 BP 150/80 05/18/20 21:17 Pulse Ox 100 05/18/20 21:17 Intake & Output 05/18/20 05/18/20 05/19/20 06:59 18:59 06:59 Intake Total 240 700 Output Total 100 302 Balance 240 -100 398 Weight 66.4 kg Intake: IV 700 Oral 240 Output: Urine 300 Emesis 100 Estimated Blood Loss 2 Other: Voiding Method Toilet # Voids 1 1 - Exam PHYSICAL EXAMINATION: GENERAL: The patient is alert and oriented x3, not in any acute distress. Well developed, well nourished. HEENT: Pupils are round and equally reacting to light. EOMI. No scleral icterus. No conjunctival pallor. Normocephalic, atraumatic. No pharyngeal erythema. No thyromegaly. CARDIOVASCULAR: S1 and S2 present. No murmurs, rubs, or gallops. PULMONARY: Chest is clear to auscultation, no wheezing or crackles. ABDOMEN: Soft, nontender, nondistended, normoactive bowel sounds. No palpable organomegaly. MUSCULOSKELETAL: No joint swelling or deformity. EXTREMITIES: No cyanosis, clubbing, or pedal edema. NEUROLOGICAL: Gross neurological examination did not reveal any focal deficits. SKIN: No rashes. - Labs CBC & Chem 7: 05/17/20 11:44 05/17/20 11:44 Assessment and Plan Assessment: 1. Incarcerated right inguinal hernia with small bowel obstruction. 1. Abdominal pain secondary to acute small bowel ileus and possible obstruction. improving. 1. Acute blood loss anemia - We will continue to monitor H&H closely and transfuse as needed 2. 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 Mild pandiverticulosis 3. Atrial fibrillation; remains rate controlled on Coreg 6.25 mg twice a day; anticoagulation on hold due to GI bleed 4. Hypertension; continue with lisinopril 5 mg daily and Coreg 6.25 mg twice a day 5. Electrolyte imbalance/hyponatremia; sodium level stabilized at 131; we will continue to monitor electrolytes and supplement as needed DVT prophylaxis; SCDs only due to GI bleed CODE STATUS; full code Time with Patient: Greater than 30
--- NOTE | 2020-05-18 23:39 | XR ---
EXAMINATION TYPE: XR chest 1V DATE OF EXAM: 05/18/2020 COMPARISON: 04/09/2018 HISTORY: Short of breath TECHNIQUE: Single view supine FINDINGS: Endotracheal tube is 3.5 cm from the cassie. There is blunting left costophrenic angle cons istent with pleural effusion. The right lung is fairly clear. There is no gross heart failure. There is nasogastric tube in the stomach. IMPRESSION: Left pleural effusion increased compared to old exam. There is clearing of the right pleu ral effusion compared to old exam. Left lower lobe pneumonia not excluded.
[2020-05-19 00:08] LABS: ALT 25 U/L (4-49); AST 93 U/L (17-59); African American GFR (CKD) >90 (>60 ml/min/1.73 sqM); Albumin 3.2 g/dL (3.5-5.0); Alkaline Phosphatase 66 U/L (38-126); Anion Gap 9 mmol/L; Blood Urea Nitrogen 19 mg/dL (9-20); Calcium 8.2 mg/dL (8.4-10.2); Carbon Dioxide 22 mmol/L (22-30); Chloride 102 mmol/L (98-107); Glucose 143 mg/dL (74-99); Magnesium 1.7 mg/dL (1.6-2.3); Non-African American GFR(CKD) 81 (>60 ml/min/1.73 sqM); Potassium 3.4 mmol/L (3.5-5.1); Sodium 133 mmol/L (137-145); Total Bilirubin 1.3 mg/dL (0.2-1.3); Total Protein 5.7 g/dL (6.3-8.2)
[2020-05-19 00:18] LABS: ABG Base Excess 1.8 mmol/L; ABG HCO3 26 mmol/L (21-25); ABG PCO2 35 mmHg (35-45); ABG PH 7.47 (7.35-7.45); ABG PO2 263 mmHg (83-108); ABG TCO2 27 mmol/L (19-24); Allen Test Performed? Yes
[2020-05-19 00:27] LABS: Anisocytosis Moderate; Basophils % (A) 0 %; Eosinophils % (A) 0 %; HCT 30.4 % (39.0-53.0); HGB 8.8 gm/dL (13.0-17.5); Hypochromasia Marked; Lymphocytes # (A) 0.2 k/uL (1.0-4.8); Lymphocytes % (A) 4 %; MCHC 28.9 g/dL (31.0-37.0); MCV 69.3 fL (80.0-100.0); Mean Platelet Volume 7.5; Microcytosis Marked; Monocytes # (A) 0.3 k/uL (0-1.0); Monocytes % (A) 6 %; Neutrophils # (A) 4.7 k/uL (1.3-7.7); Neutrophils % (A) 88 %; Platelet Count 154 k/uL (150-450); Poikilocytosis Slight; RBC 4.39 m/uL (4.30-5.90); RDW 21.8 % (11.5-15.5); WBC 5.4 k/uL (3.8-10.6)
[2020-05-19 00:44] LABS: Appearance,Urine Clear (Clear); Bacteria,Urine Rare /hpf; Bilirubin,Urine Negative (Negative); Blood,Urine Negative (Negative); Color,Urine Yellow; Glucose,Urine (UA) Negative (Negative); Hyaline Casts,Urine 5 /lpf (0-2); Ketones,Urine Negative (Negative); Leukocyte Esterase,Urine Moderate (Negative); Mucus,Urine Rare /hpf; Nitrite,Urine Negative (Negative); Protein,Urine Negative (Negative); RBC,Urine 4 /hpf (0-5); Specific Gravity,Urine 1.012 (1.001-1.035); Squamous Epithelial Cell,Urine <1 /hpf (0-4); Urobilinogen,Urine <2.0 mg/dL (<2.0); WBC,Urine 8 /hpf (0-5)
[2020-05-19] MEDS: LACTATED RINGERS 1,000 ML IV SCH ×2 (01:00→02:56)
[2020-05-19] MEDS: MAGNESIUM SULFATE-D5W PMX 1 GM in DEXTROSE/WATER 1 100ML.BAG IVPB SCH ×2 (01:22→02:42)
[2020-05-19] MEDS: POTASSIUM BICARBONATE/CIT AC 20 MEQ TABLET.EFF NG-TUBE SCH ×4 (01:22→08:14)
[2020-05-19] MEDS: SODIUM CHLORIDE 0.9% 1,000 ML IV SCH (02:14)
[2020-05-19] MEDS: NOREPINEPHRINE 4 MG in SODIUM CHLORIDE 0.9% 250 ML IV SCH ×2 (02:43→22:16)
[2020-05-19 05:00] LABS: Anisocytosis Moderate; Basophils % (A) 0 %; Eosinophils % (A) 0 %; HCT 29.5 % (39.0-53.0); HGB 8.5 gm/dL (13.0-17.5); Hypochromasia Marked; Lymphocytes # (A) 0.3 k/uL (1.0-4.8); Lymphocytes % (A) 4 %; MCH 19.7 pg (25.0-35.0); MCHC 28.9 g/dL (31.0-37.0); Mean Platelet Volume 7.3; Microcytosis Marked; Monocytes # (A) 0.5 k/uL (0-1.0); Monocytes % (A) 6 %; Neutrophils # (A) 7.4 k/uL (1.3-7.7); Neutrophils % (A) 88 %; Platelet Count 165 k/uL (150-450); Poikilocytosis Slight; RBC 4.34 m/uL (4.30-5.90); RDW 22.7 % (11.5-15.5); WBC 8.4 k/uL (3.8-10.6)
[2020-05-19 05:01] LABS: ABG Base Excess 0.8 mmol/L; ABG HCO3 25 mmol/L (21-25); ABG Oxygen Saturation 98.8 % (94-97); ABG PCO2 35 mmHg (35-45); ABG PH 7.46 (7.35-7.45); ABG PO2 119 mmHg (83-108); ABG TCO2 26 mmol/L (19-24); Allen Test Performed? Yes
[2020-05-19 05:04] LABS: Calcium 8.2 mg/dL (8.4-10.2); Magnesium 2.5 mg/dL (1.6-2.3); Potassium 3.3 mmol/L (3.5-5.1)
[2020-05-19] MEDS: FUROSEMIDE 20 MG TAB PO SCH (08:14)
[2020-05-19] MEDS: PANTOPRAZOLE 40 MG/10 ML VIAL IV SCH (08:14)
[2020-05-19] MEDS: GABAPENTIN 400 MG CAP PO SCH ×3 (08:14→23:02)
[2020-05-19] MEDS: SIMETHICONE 80 MG CHEWABLE PO SCH (08:15)
--- NOTE | 2020-05-19 08:54 | XR ---
EXAMINATION TYPE: XR chest 1V DATE OF EXAM: 05/19/2020 CLINICAL HISTORY: Ventilation. Respiratory failure. TECHNIQUE: Portable semiupright view of the chest obtained COMPARISON: Chest radiograph 05/18/2020 FINDINGS: Endotracheal tube distal tip midway between the clavicular heads and the cassie. Enteric t ube nonvisualization of the distal tip, with side-port just below the level of the GE junction. The c ardiomediastinal silhouette is unchanged. Pulmonary vasculature is normal. There is similar. Small to moderate left pleural effusion. No pneumothorax seen. IMPRESSION: [id number] left pleural effusion similar to 05/18/2020 comparison.
[2020-05-19] MEDS ORDERED: CHLORHEXIDINE GLUCONATE 15 ML CUP MUCOUS MEM SCH (09:00)
--- NOTE | 2020-05-19 10:49 | P.PN ---
Subjective Progress Note Date: 05/18/20 Principal diagnosis: Anemia of acute blood loss, duodenal angiectasia, diverticulosis, gastritis, nausea and vomiting, small bowel obstruction Patient is seen sitting bedside earlier today he had multiple episodes of vomiting and continued to have abdominal pain. At this time a computed tomography scan was ordered which showed evidence of dilated small bowel and stomach likely secondary to a right inguinal hernia. At this time surgery was consult and the plan is for the patient to go for surgery Objective - Vital Signs Vital signs: Vital Signs Temp 98.5 F 05/19/20 08:00 Pulse 64 05/19/20 08:30 Resp 16 05/19/20 08:30 BP 118/64 05/19/20 08:30 Pulse Ox 96 05/19/20 08:30 Intake & Output 05/18/20 05/19/20 05/19/20 18:59 06:59 18:59 Intake Total 4025.371 161.164 Output Total 100 894 65 Balance -100 3131.371 96.164 Intake: IV 3930 40 0.9 NaCl 80 40 Lactated Ringers 1050 Magnesium Sulfate 200 Intake, IV Titration 15.371 61.164 Amount Norepinephrine 4 mg In 12.6 Sodium Chloride 0.9% 250 ml @ 0.05 MCG/KG/MIN 12. 649 mls/hr IV .Q20H5M [facility] Rx#:[id number] propofoL 1,000 mg In 15.371 48.564 Empty Bag 1 bag @ Titrate IV .Q0M [facility] Rx#: [id number] Oral 80 Tube Feeding 60 Output: Urine 892 65 Emesis 100 Estimated Blood Loss 2 Other: Voiding Method Toilet Indwelling Catheter # Voids 1 - Exam On physical examination, patient appears comfortable in no apparent distress. HEAD: Normocephalic, atraumatic. EYES: No scleral icterus. No conjunctival injection. MOUTH: No lesions, tongue midline. NECK: Trachea midline, no gross abnormalities. ABDOMEN: Soft, obese, mildly tender to palpation and distended. Bowel sounds are positive. No organomegaly. No guarding or rigidity. EXTREMITIES: No pedal edema. SKIN: No rashes, no jaundice. NEUROLOGIC: Alert and oriented x3. No focal deficits. - Labs CBC & Chem 7: 05/19/20 04:35 05/19/20 04:35 Labs: Abnormal Lab Results - Last 24 Hours (Table) 05/12/20 05/18/20 05/18/20 Range/Units 15:00 00:00 23:21 Hgb (13.0-17.5) gm/dL Hct (39.0-53.0) % MCV (80.0-100.0) fL MCH (25.0-35.0) pg MCHC (31.0-37.0) g/dL RDW (11.5-15.5) % Lymphocytes # (1.0-4.8) k/uL ABG pH (7.35-7.45) ABG pO2 (83-108) mmHg ABG HCO3 (21-25) mmol/L ABG Total CO2 (19-24) mmol/L ABG O2 Saturation (94-97) % Sodium (137-145) mmol/L Potassium (3.5-5.1) mmol/L Glucose (74-99) mg/dL POC Glucose (mg/dL) 162 H (75-99) mg/dL Calcium (8.4-10.2) mg/dL Magnesium (1.6-2.3) mg/dL AST (17-59) U/L Troponin I (0.000-0.034) ng/mL Total Protein (6.3-8.2) g/dL Albumin (3.5-5.0) g/dL Ur Leukocyte Esterase Moderate H (Negative) Urine WBC 8 H (0-5) /hpf Urine Bacteria Rare H (None) /hpf Hyaline Casts 5 H (0-2) /lpf Urine Mucus Rare H (None) /hpf Crossmatch See Detail 05/18/20 05/18/20 05/18/20 Range/Units 23:42 23:44 23:44 Hgb 8.8 L (13.0-17.5) gm/dL Hct 30.4 L (39.0-53.0) % MCV 69.3 L (80.0-100.0) fL MCH 20.0 L (25.0-35.0) pg MCHC 28.9 L (31.0-37.0) g/dL RDW 21.8 H (11.5-15.5) % Lymphocytes # 0.2 L (1.0-4.8) k/uL ABG pH (7.35-7.45) ABG pO2 (83-108) mmHg ABG HCO3 (21-25) mmol/L ABG Total CO2 (19-24) mmol/L ABG O2 Saturation (94-97) % Sodium 133 L (137-145) mmol/L Potassium 3.4 L (3.5-5.1) mmol/L Glucose 143 H (74-99) mg/dL POC Glucose (mg/dL) (75-99) mg/dL Calcium 8.2 L (8.4-10.2) mg/dL Magnesium (1.6-2.3) mg/dL AST 93 H (17-59) U/L Troponin I 0.036 H* (0.000-0.034) ng/mL Total Protein 5.7 L (6.3-8.2) g/dL Albumin 3.2 L (3.5-5.0) g/dL Ur Leukocyte Esterase (Negative) Urine WBC (0-5) /hpf Urine Bacteria (None) /hpf Hyaline Casts (0-2) /lpf Urine Mucus (None) /hpf Crossmatch 05/19/20 05/19/20 05/19/20 Range/Units 00:17 04:35 04:35 Hgb 8.5 L (13.0-17.5) gm/dL Hct 29.5 L (39.0-53.0) % MCV 68.0 L (80.0-100.0) fL MCH 19.7 L (25.0-35.0) pg MCHC 28.9 L (31.0-37.0) g/dL RDW 22.7 H (11.5-15.5) % Lymphocytes # 0.3 L (1.0-4.8) k/uL ABG pH 7.47 H (7.35-7.45) ABG pO2 263 H (83-108) mmHg ABG HCO3 26 H (21-25) mmol/L ABG Total CO2 27 H (19-24) mmol/L ABG O2 Saturation 100.0 H (94-97) % Sodium 132 L (137-145) mmol/L Potassium 3.3 L (3.5-5.1) mmol/L Glucose 142 H (74-99) mg/dL POC Glucose (mg/dL) (75-99) mg/dL Calcium 8.2 L (8.4-10.2) mg/dL Magnesium 2.5 H (1.6-2.3) mg/dL AST (17-59) U/L Troponin I (0.000-0.034) ng/mL Total Protein (6.3-8.2) g/dL Albumin (3.5-5.0) g/dL Ur Leukocyte Esterase (Negative) Urine WBC (0-5) /hpf Urine Bacteria (None) /hpf Hyaline Casts (0-2) /lpf Urine Mucus (None) /hpf Crossmatch 05/19/20 Range/Units 04:59 Hgb (13.0-17.5) gm/dL Hct (39.0-53.0) % MCV (80.0-100.0) fL MCH (25.0-35.0) pg MCHC (31.0-37.0) g/dL RDW (11.5-15.5) % Lymphocytes # (1.0-4.8) k/uL ABG pH 7.46 H (7.35-7.45) ABG pO2 119 H (83-108) mmHg ABG HCO3 (21-25) mmol/L ABG Total CO2 26 H (19-24) mmol/L ABG O2 Saturation 98.8 H (94-97) % Sodium (137-145) mmol/L Potassium (3.5-5.1) mmol/L Glucose (74-99) mg/dL POC Glucose (mg/dL) (75-99) mg/dL Calcium (8.4-10.2) mg/dL Magnesium (1.6-2.3) mg/dL AST (17-59) U/L Troponin I (0.000-0.034) ng/mL Total Protein (6.3-8.2) g/dL Albumin (3.5-5.0) g/dL Ur Leukocyte Esterase (Negative) Urine WBC (0-5) /hpf Urine Bacteria (None) /hpf Hyaline Casts (0-2) /lpf Urine Mucus (None) /hpf Crossmatch Assessment and Plan (1) Anemia associated with acute blood loss Narrative/Plan: 84-year-old male presenting with anemia underwent EGD significant for gastritis and duodenal angiectasia treated with gold probe ablation and colonoscopy showing pandiverticulosis. No active bleeding on endoscopic evaluation. Patient developed abdominal pain and computed tomography scan was ordered suggestive of bowel obstruction secondary to right inguinal hernia and surgery was consult. Current Visit: Yes Status: Acute Code(s): D62 - ACUTE POSTHEMORRHAGIC ANEMIA SNOMED Code(s): 367619241 (2) Angiodysplasia of duodenum with hemorrhage Current Visit: Yes Status: Acute Code(s): K31.811 - ANGIODYSPLASIA OF STOMACH AND DUODENUM WITH BLEEDING SNOMED Code(s): 009440577 (3) GI hemorrhage Current Visit: Yes Status: Acute Code(s): K92.2 - GASTROINTESTINAL HEMORRHAGE, UNSPECIFIED SNOMED Code(s): 12506219 Plan: Supportive care Okay for diet CT scan performed with findings of dilation of the small bowel and stomach with suspicion for obstruction secondary to right inguinal hernia Surgery service has been consultated, we'll defer further management to their service Continue Protonix therapy Continue to monitor hemoglobin and hematocrit and transfuse as needed Thank you for allowing us to participate in the care of of the patient
--- NOTE | 2020-05-19 11:00 | CONS ---
CONSULTATION PULMONARY/CRITICAL CARE CONSULTATION: DATE OF SERVICE: 05/19/2020 This is an 84-year-old male who presented to the emergency department back on May 12 for concerns of low hemoglobin. The patient more recently apparently developed an incarcerated femoral hernia. The patient underwent surgery for that. Apparently by the time the surgery was done, the incarcerated femoral hernia had reduced itself. Anyway, I was consulted because initially the patient was extubated in the recovery area. At post extubation, the patient developed cardiopulmonary arrest, which required CPR for an unknown period of time with eventual return of spontaneous circulation. He apparently did receive atropine, had some atrial fibrillation and ventricular fibrillation and was eventually resuscitated. At that time, he was reintubated. Currently, the patient is on the volume assist-control mode rate of 14, tidal volume 500, FiO2 of 50%, PEEP of 5. Blood gases show a pO2 of 119, pCO2 of 35, and a pH 7.46. Currently, he is on norepinephrine at 3.3 mcg/minute and propofol at 23 mcg/kg/per minute, as well as saline at 20 mL an hour. Today, will see if we cannot wake the patient up and get him extubated. He has had a pretty uneventful night according to the nurses. HOME MEDICATIONS: Reviewed. He apparently is on Xarelto, [place] and Benadryl. In addition, he takes Lasix and Coreg. ALLERGIES: Denied. MEDICAL HISTORY: Apparently positive for atrial fibrillation, CAD, heart failure, hypertension. He has also had a previous slip and fall on ice with left tibial fracture. SURGICAL HISTORY: Includes hernia repair. SOCIAL HISTORY: Positive for previous tobacco use. No alcohol use or illicit drug use. FAMILY HISTORY: Positive for father with CAD, a mother with no health history, a sister who is healthy. Brother who is healthy, a daughter who is healthy and a son with no major medical issues. REVIEW OF SYSTEMS: CONSTITUTIONAL: Negative. NEUROLOGIC: Negative. HEENT: Negative. CARDIOVASCULAR: Negative. PULMONARY: Negative. GI: Negative. : Negative. RHEUMATOLOGIC: Negative. IMMUNOLOGIC: Negative. ENDOCRINOLOGIC: Negative. DERMATOLOGIC: Negative. Current vital signs are reviewed, temperature is 98.5, heart rate 64, respiratory rate 16, blood pressure 118/64 mean 82, and saturations 96%. Appears in no acute distress. Currently comfortable on the propofol at 23 mcg/kg/minute. HEENT: Examination is grossly unremarkable. There is no orally placed endotracheal tube and NG tube. NECK: Supple, full range of motion. No adenopathy. Neck veins are flat. CARDIOVASCULAR: Examination reveals regular rhythm and rate. Heart rate 64. S1, S2 normal. Heart sounds are distant. No S3, S4. No distinct murmur. LUNGS: Reveal mostly clear breath sounds. No wheezes or rhonchi. No crackles. Breath sounds equal. ABDOMEN: Soft, bowel sounds are noted. EXTREMITIES: Intact. No cyanosis, clubbing, or edema. A recent incision in the right femoral area is noted. SKIN: Without rash. NEUROLOGIC: Examination cannot be adequately assessed. LABS: Reviewed. White count 8.4, hemoglobin 8.5, hematocrit 29.5, platelet count is 165,000. Blood gases have been noted. PO2 is 119, pCO2 of 35, and pH of 7.46. This is consistent with the patient with hyperoxia and mild respiratory alkalosis. Sodium 132, potassium 3.3, chloride 98, CO2 is 26, anion gap 8. BUN and creatinine were 18 and 0.94. No recent chest x-ray to review. The patient did have a CT of the abdomen and pelvis which showed remarkably dilated small bowel loops and stomach with suspicion for obstruction secondary to right inguinal hernia. There is also a small amount of ascites. 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 ASSESSMENT: 1. Postoperative day #1 status post attempted repair of incarcerated right femoral hernia. 2. Routine postoperative ventilator management with an episode of cardiopulmonary arrest with cardiopulmonary resuscitation and return of spontaneous circulation, post extubation. The patient did have atrial fibrillation and ventricular fibrillation at that time. 3. Most recent admission for anemia and GI bleed. 4. History of atrial fibrillation. 5. History of hypertension. 6. Coronary artery disease. 7. Previous hernia repair. 8. History of left tibial fracture. PLAN: Currently, the patient will have a daily interruption of sedation and potentially a spontaneous breathing trial. Will place him on PSV 5, CPAP of 5 when he is fully awake. Will get some weaning parameters including tidal volume, vital capacity, negative inspiratory force, respiratory rate, minute volume, and rapid shallow breathing index. Will also do a cuff leak test. If the patient passes those things, will consider extubation. He is currently on a small dose of norepinephrine at 3.3 mcg/minute. He is getting saline at 20 mL an hour. The propofol at 23 mcg/kg/per minute will be turned off. Additional recommendations and suggestions are forthcoming. MMODL / IJN: [id number] /
--- NOTE | 2020-05-19 11:00 | P.PN ---
<Evonne Phillips Shelia - Last Filed: 05/19/20 10:56> Subjective Progress Note Date: 05/19/20 CHIEF COMPLAINT: Incarcerated inguinal hernia HISTORY OF PRESENT ILLNESS: Patient examined at the bedside in the intensive care unit with Dr. Mackey (covering for Dr. Morgan). Patient is status post repair of incarcerated femoral hernia. Postop day #1. Patient was reintubated in the recovery room yesterday. Patient's vital signs are stable this morning. He is afebrile. WBC 8.4. Hemoglobin 8.5. PHYSICAL EXAM: VITAL SIGNS: Reviewed GENERAL: Well-developed in no acute distress. HEENT: No sclera icterus. Extraocular movements grossly intact. Moist buccal mucosa. Head is atraumatic, normocephalic. Hears conversational speech. No nasal drainage. NECK: Supple without lymphadenopathy. CHEST: Non-labored respirations and equal bilateral excursions on mechanical ventilation. CARDIOVASCULAR: Irregular rhythm. Palpable 2+ radial pulses. ABDOMEN: Soft. Nondistended. Incision clean dry and intact. NG tube to low intermittent suction. MUSCULOSKELETAL: No clubbing or cyanosis. NEUROLOGIC: Lightly sedated on mechanical ventilation PSYCH: Lightly sedated on mechanical ventilation SKIN: Well perfused. Good skin turgor. ASSESSMENT: 1. Incarcerated femoral hernia PLAN: -Continue ventilator management per Dr. Elizondo -Nursing reports weaning trial and possible extubation pending CPAP trial -Keep NG tube in if patient gets extubated today. Continue NPO status as well for today. -If extubated today, can consider clear liquid diet starting tomorrow Nurse practitioner note has been reviewed by physician. Signing provider agrees with the documented findings, assessment, and plan of care. Objective - Vital Signs Vital signs: Vital Signs Temp 98.5 F 05/19/20 08:00 Pulse 64 05/19/20 08:30 Resp 16 05/19/20 08:30 BP 118/64 05/19/20 08:30 Pulse Ox 96 05/19/20 08:30 Intake & Output 05/18/20 05/19/20 05/19/20 18:59 06:59 18:59 Intake Total 4025.371 161.164 Output Total 100 894 65 Balance -100 3131.371 96.164 Intake: IV 3930 40 0.9 NaCl 80 40 Lactated Ringers 1050 Magnesium Sulfate 200 Intake, IV Titration 15.371 61.164 Amount Norepinephrine 4 mg In 12.6 Sodium Chloride 0.9% 250 ml @ 0.05 MCG/KG/MIN 12. 649 mls/hr IV .Q20H5M [facility] Rx#:[id number] propofoL 1,000 mg In 15.371 48.564 Empty Bag 1 bag @ Titrate IV .Q0M [facility] Rx#: [id number] Oral 80 Tube Feeding 60 Output: Urine 892 65 Emesis 100 Estimated Blood Loss 2 Other: Voiding Method Toilet Indwelling Catheter # Voids 1 - Labs CBC & Chem 7: 05/19/20 04:35 05/19/20 04:35 Labs: Abnormal Lab Results - Last 24 Hours (Table) 05/12/20 05/18/20 05/18/20 Range/Units 15:00 00:00 23:21 Hgb (13.0-17.5) gm/dL Hct (39.0-53.0) % MCV (80.0-100.0) fL MCH (25.0-35.0) pg MCHC (31.0-37.0) g/dL RDW (11.5-15.5) % Lymphocytes # (1.0-4.8) k/uL ABG pH (7.35-7.45) ABG pO2 (83-108) mmHg ABG HCO3 (21-25) mmol/L ABG Total CO2 (19-24) mmol/L ABG O2 Saturation (94-97) % Sodium (137-145) mmol/L Potassium (3.5-5.1) mmol/L Glucose (74-99) mg/dL POC Glucose (mg/dL) 162 H (75-99) mg/dL Calcium (8.4-10.2) mg/dL Magnesium (1.6-2.3) mg/dL AST (17-59) U/L Troponin I (0.000-0.034) ng/mL Total Protein (6.3-8.2) g/dL Albumin (3.5-5.0) g/dL Ur Leukocyte Esterase Moderate H (Negative) Urine WBC 8 H (0-5) /hpf Urine Bacteria Rare H (None) /hpf Hyaline Casts 5 H (0-2) /lpf Urine Mucus Rare H (None) /hpf Crossmatch See Detail 05/18/20 05/18/20 05/18/20 Range/Units 23:42 23:44 23:44 Hgb 8.8 L (13.0-17.5) gm/dL Hct 30.4 L (39.0-53.0) % MCV 69.3 L (80.0-100.0) fL MCH 20.0 L (25.0-35.0) pg MCHC 28.9 L (31.0-37.0) g/dL RDW 21.8 H (11.5-15.5) % Lymphocytes # 0.2 L (1.0-4.8) k/uL ABG pH (7.35-7.45) ABG pO2 (83-108) mmHg ABG HCO3 (21-25) mmol/L ABG Total CO2 (19-24) mmol/L ABG O2 Saturation (94-97) % Sodium 133 L (137-145) mmol/L Potassium 3.4 L (3.5-5.1) mmol/L Glucose 143 H (74-99) mg/dL POC Glucose (mg/dL) (75-99) mg/dL Calcium 8.2 L (8.4-10.2) mg/dL Magnesium (1.6-2.3) mg/dL AST 93 H (17-59) U/L Troponin I 0.036 H* (0.000-0.034) ng/mL Total Protein 5.7 L (6.3-8.2) g/dL Albumin 3.2 L (3.5-5.0) g/dL Ur Leukocyte Esterase (Negative) Urine WBC (0-5) /hpf Urine Bacteria (None) /hpf Hyaline Casts (0-2) /lpf Urine Mucus (None) /hpf Crossmatch 05/19/20 05/19/20 05/19/20 Range/Units 00:17 04:35 04:35 Hgb 8.5 L (13.0-17.5) gm/dL Hct 29.5 L (39.0-53.0) % MCV 68.0 L (80.0-100.0) fL MCH 19.7 L (25.0-35.0) pg MCHC 28.9 L (31.0-37.0) g/dL RDW 22.7 H (11.5-15.5) % Lymphocytes # 0.3 L (1.0-4.8) k/uL ABG pH 7.47 H (7.35-7.45) ABG pO2 263 H (83-108) mmHg ABG HCO3 26 H (21-25) mmol/L ABG Total CO2 27 H (19-24) mmol/L ABG O2 Saturation 100.0 H (94-97) % Sodium 132 L (137-145) mmol/L Potassium 3.3 L (3.5-5.1) mmol/L Glucose 142 H (74-99) mg/dL POC Glucose (mg/dL) (75-99) mg/dL Calcium 8.2 L (8.4-10.2) mg/dL Magnesium 2.5 H (1.6-2.3) mg/dL AST (17-59) U/L Troponin I (0.000-0.034) ng/mL Total Protein (6.3-8.2) g/dL Albumin (3.5-5.0) g/dL Ur Leukocyte Esterase (Negative) Urine WBC (0-5) /hpf Urine Bacteria (None) /hpf Hyaline Casts (0-2) /lpf Urine Mucus (None) /hpf Crossmatch 05/19/20 Range/Units 04:59 Hgb (13.0-17.5) gm/dL Hct (39.0-53.0) % MCV (80.0-100.0) fL MCH (25.0-35.0) pg MCHC (31.0-37.0) g/dL RDW (11.5-15.5) % Lymphocytes # (1.0-4.8) k/uL ABG pH 7.46 H (7.35-7.45) ABG pO2 119 H (83-108) mmHg ABG HCO3 (21-25) mmol/L ABG Total CO2 26 H (19-24) mmol/L ABG O2 Saturation 98.8 H (94-97) % Sodium (137-145) mmol/L Potassium (3.5-5.1) mmol/L Glucose (74-99) mg/dL POC Glucose (mg/dL) (75-99) mg/dL Calcium (8.4-10.2) mg/dL Magnesium (1.6-2.3) mg/dL AST (17-59) U/L Troponin I (0.000-0.034) ng/mL Total Protein (6.3-8.2) g/dL Albumin (3.5-5.0) g/dL Ur Leukocyte Esterase (Negative) Urine WBC (0-5) /hpf Urine Bacteria (None) /hpf Hyaline Casts (0-2) /lpf Urine Mucus (None) /hpf Crossmatch <Chiquis Mackey N - Last Filed: 05/21/20 22:19> Subjective Patient seen and evaluated with above. Otherwise, stable from a surgical standpoint. Extubation per ICU protocol. Objective - Vital Signs Vital signs: Vital Signs Temp 98.3 F 05/21/20 14:53 Pulse 63 05/21/20 14:53 Resp 19 05/21/20 16:39 BP 132/77 05/21/20 14:53 Pulse Ox 100 05/21/20 14:53 Intake & Output 05/21/20 05/21/20 05/22/20 06:59 18:59 06:59 Intake Total 380.372 138.902 Output Total 200 Balance 180.372 138.902 Weight 70 kg 70 kg Intake: IV 320 0.9 NaCl 320 Intake, IV Titration 60.372 138.902 Amount Heparin Sod,Pork in 0.45% 60.372 138.902 NaCl 25,000 unit In 0.45 % NaCl 1 250ml.bag @ 12 UNITS/KG/HR 8.424 mls/hr IV .Q24H [facility] Rx#: [id number] Output: Urine 200 Other: Voiding Method Indwelling Catheter Toilet # Voids 2 # Bowel Movements 1 - Labs CBC & Chem 7: 05/21/20 04:25 05/21/20 04:25 Labs: Abnormal Lab Results - Last 24 Hours (Table) 05/21/20 05/21/20 05/21/20 Range/Units 04:25 04:25 04:25 RBC 3.85 L (4.30-5.90) m/uL Hgb 7.7 L (13.0-17.5) gm/dL Hct 27.0 L (39.0-53.0) % MCV 70.0 L (80.0-100.0) fL MCH 20.0 L (25.0-35.0) pg MCHC 28.5 L (31.0-37.0) g/dL RDW 22.1 H (11.5-15.5) % Lymphocytes # 0.8 L (1.0-4.8) k/uL APTT 46.5 H (22.0-30.0) sec Potassium 3.4 L (3.5-5.1) mmol/L Assessment and Plan (1) Femoral hernia of right side Current Visit: Yes Status: Acute Code(s): K41.90 - UNIL FEMORAL HERNIA, W/O OBST OR GANGRENE, NOT SPCF RECUR SNOMED Code(s): 06494981671492310 (2) Femoral hernia of right side with obstruction Current Visit: Yes Status: Acute Code(s): K41.30 - UNIL FEMORAL HERNIA, W OBST, W/O GANGRENE, NOT SPCF RECUR SNOMED Code(s): 914772459 (3) Anemia Current Visit: Yes Status: Acute Code(s): D64.9 - ANEMIA, UNSPECIFIED SNOMED Code(s): 362706399 (4) Afib Current Visit: No Status: Acute Code(s): I48.91 - UNSPECIFIED ATRIAL FIBRILLATION SNOMED Code(s): 75105564
[2020-05-19] MEDS ORDERED: HYDROmorphone 1 MG/ML 1 ML SYRINGE IVP PRN (12:34)
--- NOTE | 2020-05-19 15:41 | PN ---
PROGRESS NOTE FOLLOW-UP NOTE: This patient is an 84-year-old gentleman with history of atrial fibrillation who was admitted to hospital with GI bleed, had abdominal discomfort related to inguinal hernia, for which he underwent hernia repair. I am told that in the postoperative setting he became bradycardiac, had an episode of ventricular fibrillation, and had to be intubated. He is currently in ICU on a ventilator. On exam, heart rate is 63 beats per minute, irregular. Blood pressure is 111/60, respiratory rate 16. Chest exam reveals good air entry bilaterally. Heart exam reveals first and second heart sounds, irregular rhythm. Abdomen is status post surgery. Examination of extremities did not reveal any edema. ASSESSMENT: 1. Persistent atrial fibrillation with controlled ventricular rate. 2. Gastrointestinal bleed, status post endoscopic evaluation and therapeutic endoscopy. 3. Persistent atrial fibrillation. PLAN: Patient will start IV heparin whenever it is okay with the surgeon. MMODL / IJN: [id number] /
[2020-05-20 03:14] LABS: African American GFR (CKD) >90 (>60 ml/min/1.73 sqM); Anion Gap 5 mmol/L; Blood Urea Nitrogen 22 mg/dL (9-20); Calcium 7.9 mg/dL (8.4-10.2); Carbon Dioxide 27 mmol/L (22-30); Chloride 102 mmol/L (98-107); Glucose 113 mg/dL (74-99); Non-African American GFR(CKD) 81 (>60 ml/min/1.73 sqM); Potassium 3.2 mmol/L (3.5-5.1); Sodium 134 mmol/L (137-145)
[2020-05-20] MEDS ORDERED: Potassium Replacement Protocol 1 EACH MISC MISCELLANE PRN ×2 (03:52→21:36)
[2020-05-20] MEDS: POTASSIUM CHLORIDE 10 MEQ in WATER FOR INJECTION 1 100ML.BAG IVPB SCH ×7 (04:11→22:43)
[2020-05-20 05:28] LABS: Anisocytosis Moderate; Basophils % (A) 0 %; Eosinophils % (A) 0 %; HCT 28.6 % (39.0-53.0); HGB 8.3 gm/dL (13.0-17.5); Hypochromasia Marked; Lymphocytes # (A) 0.9 k/uL (1.0-4.8); Lymphocytes % (A) 10 %; MCH 20.3 pg (25.0-35.0); MCHC 29.1 g/dL (31.0-37.0); MCV 69.9 fL (80.0-100.0); Mean Platelet Volume 6.9; Microcytosis Marked; Monocytes # (A) 0.6 k/uL (0-1.0); Monocytes % (A) 7 %; Neutrophils # (A) 7.4 k/uL (1.3-7.7); Neutrophils % (A) 82 %; Platelet Count 150 k/uL (150-450); Poikilocytosis Slight; RBC 4.09 m/uL (4.30-5.90); RDW 22.4 % (11.5-15.5); WBC 9.1 k/uL (3.8-10.6)
[2020-05-20 05:33] LABS: African American GFR (CKD) >90 (>60 ml/min/1.73 sqM); Anion Gap 5 mmol/L; Blood Urea Nitrogen 23 mg/dL (9-20); Calcium 8.1 mg/dL (8.4-10.2); Carbon Dioxide 28 mmol/L (22-30); Chloride 102 mmol/L (98-107); Glucose 108 mg/dL (74-99); Non-African American GFR(CKD) 81 (>60 ml/min/1.73 sqM); Potassium 3.5 mmol/L (3.5-5.1); Sodium 135 mmol/L (137-145)
--- NOTE | 2020-05-20 06:08 | XR ---
EXAMINATION TYPE: XR chest 1V DATE OF EXAM: 05/20/2020 HISTORY: Mechanical ventilation. REFERENCE: Previous study dated 05/19/2020. FINDINGS: There is continuing left basilar airspace disease which may be improved slightly. There is a left-sided effusion. The heart is minimally enlarged. There is mild blunting of the right CP angle. I could not exclude a small right effusion. IMPRESSION: SLIGHT IMPROVEMENT IN AERATION OF THE LEFT LUNG BASE.
[2020-05-20] MEDS: GABAPENTIN 400 MG CAP PO SCH ×3 (08:13→22:34)
[2020-05-20] MEDS: PANTOPRAZOLE 40 MG/10 ML VIAL IV SCH (08:13)
--- NOTE | 2020-05-20 11:13 | PN ---
PROGRESS NOTE DATE OF SERVICE: May 20, 2020 84-year-old male who presented to the emergency department on May 12 with concerns of anemia. He was found to have an incarcerated femoral hernia. Currently, he is postop day #2, status post repair of incarcerated femoral hernia. The surgery was done by Dr. Morgan. Currently, the patient is on O2 at 2 L. He is getting 0.9 at 20 mL an hour. He still has an NG tube in place. He is doing very well and could be downgraded to the general medical floor or surgical floor. He denies any pain. There is no shortness of breath. No chest discomfort. Nothing like this. He had an uneventful night according to the nurse. PHYSICAL EXAMINATION: VITAL SIGNS: Vital signs are stable. Temperature 98. Heart rate 84, respiratory rate 18, blood pressure 134/85, mean 101 and 2 L saturations 100%. GENERAL: Appears in no acute distress. HEENT: Examination is grossly unremarkable. NECK: Supple. Full range of motion. No adenopathy. Neck veins are flat. CARDIOVASCULAR: Examination reveals regular rhythm and rate. S1, S2 normal. No S3, S4, or murmur. LUNGS: Clear. Breath sounds equal. ABDOMEN: Soft. Bowel sounds are not heard. EXTREMITIES are intact. No cyanosis, clubbing, or edema. SKIN: Without rash. NEUROLOGIC: Examination is brief but nonfocal. LABS: White count 9.1, hemoglobin 8.3, hematocrit 28.6, platelet count 150,000. Sodium 135, potassium 3.5, chloride 102, CO2 28. Anion gap is 5. BUN and creatinine were 23 and 0.84. A chest x-ray was done. It shows improved aeration, particularly at the left lung base. Medications are reviewed. He is on Tylenol, Neurontin, Dilaudid, Narcan, Zofran, Protonix, potassium replacement, and a basic IV at 20 mL an hour. The patient was extubated yesterday. ASSESSMENT: 1. Postoperative day number two status post repair of incarcerated right femoral hernia. 2. Routine postoperative ventilator management, with an episode of cardiopulmonary arrest and cardiopulmonary resuscitation with return of spontaneous circulation post extubation. The patient apparently did have atrial fibrillation and ventricular fibrillation at that time. Both of those have resolved. 3. Anemia with gastrointestinal bleed. 4. History of atrial fibrillation. 5. History of hypertension. 6. Coronary artery disease. 7. Previous hernia repair. 8. History of left tibial fracture. PLAN: The patient was on PSV CPAP yesterday. He had excellent weaning parameters. The patient was extubated. He is currently on 2 L. He has no major complaints. He is postop day #2. The patient could be downgraded to the general medical floor. MMCORIN / SPEEDY: [id number] /
--- NOTE | 2020-05-20 13:22 | P.PN ---
Subjective Progress Note Date: 05/20/20 History of present illness: This is an 84-year-old male patient of Dr. Morris with past medical history of persistent atrial fibrillation admitted to the hospital for anemia and GI bleed related to incarcerated femoral hernia status post repair. In the postop period, there is concern for bradycardia and episode of ventricular fibrillation and patient had to be intubated. He has been successfully extubated. 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 We would like to start heparin drip once cleared by general surgery. He currently has NG tube in place and Tristan catheter in place. Patient is denying any chest pain, shortness of breath or palpitations. Chest x-ray reveals slight improvement in aeration of the left lung base. Hemoglobin 8.3, white count 9.1. Sodium 135, potassium 3.5, BUN 23 and creatinine 0.84. Physical examination: Gen: This is a an 84-year-old male, resting in the ICU bed and appears to be comfortable and in no acute distress. VS:Afebrile, heart rate 80, blood pressure 135/89, pulse ox 90% on 2 L nasal cannula. HEENT: Head is atraumatic, normocephalic. Pupils equal, round. Sclerae is anicteric. NECK: Supple. No JVD. No lymphadenopathy. No thyromegaly. LUNGS: Clear to auscultation. No wheezes or rhonchi. No intercostal retractions. HEART: Irregularly irregular heart rhythm. ABDOMEN: Soft. Bowel sounds are present. No masses. No tenderness. EXTREMITIES: No pedal edema. No calf tenderness. Dorsalis pedis +1 bilaterally. NEUROLOGICAL: Patient is awake, alert and oriented x3. Cranial nerves 2 through 12 are grossly intact. Assessment: Persistent atrial fibrillation, rate controlled Acute blood loss anemia secondary to GI bleed Status post incarcerated right femoral hernia repair Episode of cardiopulmonary arrest and ventricular fibrillation, stable Plan: Patient is currently rate controlled Start heparin drip once cleared by general surgery Patient is normally on Coreg 6.25 mg twice daily at home Further recommendations to follow based upon clinical course. Nurse practitioner note has been reviewed, I agree with documented findings and plan of care. Patient was seen and examined. Objective - Vital Signs Vital signs: Vital Signs Temp 98.0 F 05/20/20 04:00 Pulse 93 05/20/20 10:00 Resp 17 08/01/20 10:00 BP 127/64 05/20/20 10:00 Pulse Ox 99 05/20/20 10:00 Intake & Output 05/19/20 05/20/20 05/20/20 18:59 06:59 18:59 Intake Total 547.631 240 110 Output Total 285 575 365 Balance 262.631 -335 -255 Weight 66.4 kg 70.2 kg Intake: IV 220 240 80 0.9 NaCl 220 240 80 Intake, IV Titration 267.631 Amount Norepinephrine 4 mg In 156.293 Sodium Chloride 0.9% 250 ml @ 0.05 MCG/KG/MIN 12. 649 mls/hr IV .Q20H5M [facility] Rx#:[id number] propofoL 1,000 mg In 111.338 Empty Bag 1 bag @ Titrate IV .Q0M [facility] Rx#: [id number] Tube Feeding 60 Other 30 Output: Gastric Drainage 200 200 Urine 285 375 165 Other: Voiding Method Indwelling Catheter Indwelling Catheter - Labs CBC & Chem 7: 05/20/20 04:31 05/20/20 04:31 Labs: Abnormal Lab Results - Last 24 Hours (Table) 05/20/20 05/20/20 05/20/20 Range/Units 02:45 04:31 04:31 RBC 4.09 L (4.30-5.90) m/uL Hgb 8.3 L (13.0-17.5) gm/dL Hct 28.6 L (39.0-53.0) % MCV 69.9 L (80.0-100.0) fL MCH 20.3 L (25.0-35.0) pg MCHC 29.1 L (31.0-37.0) g/dL RDW 22.4 H (11.5-15.5) % Lymphocytes # 0.9 L (1.0-4.8) k/uL Sodium 134 L 135 L (137-145) mmol/L Potassium 3.2 L (3.5-5.1) mmol/L BUN 22 H 23 H (9-20) mg/dL Glucose 113 H 108 H (74-99) mg/dL Calcium 7.9 L 8.1 L (8.4-10.2) mg/dL
--- NOTE | 2020-05-20 13:54 | P.PN ---
Subjective Progress Note Date: 05/20/20 CHIEF COMPLAINT: Femoral hernia HISTORY OF PRESENT ILLNESS: The patient is a 84-year-old male status post incarcerated right femoral hernia repair, 05/18/2020. He was in the intensive care unit due to respiratory distress and was intubated. He is extubated today. He feels well. Denies any abdominal pain. He is alert. He is hungry. ROS: No reports of nausea and vomiting. No bowel movements. No fevers or chills. No new chest pain. No productive sputum PHYSICAL EXAM: VITAL SIGNS: Reviewed CONSTITUTIONAL: Well developed and in no acute distress. EYES: Conjuctivae without sclera icterus. Extraocular movements grossly intact. HEAD, EARS, NOSE, THROAT: Moist buccal mucosa. Head is atraumatic, normocephalic. Hears conversational speech. No nasal drainage. I removed his NG tube NECK: Supple. No thyroidomegaly. RESPIRATORY: Non-labored respirations and equal bilateral excursions. CARDIOVASCULAR: Palpable 2+ radial pulses. ABDOMEN: Incisions clean dry and intact, right groin. Soft. No peritonitis. MUSCULOSKELETAL: No gross deformity of the lower extremities noted. No clubb ing. No cyanosis. SKIN: Good skin turgor. Well perfused. NEUROLOGIC: Cranial nerves II through XII grossly intact. No focal or lateralizing signs. PSYCH: Appropriate affect. Alert and oriented to person, place. : Tristan with urine yellow and clear. CLINICAL LABS: White blood cell count normal, 9.8. Hgb 8.2. ASSESSMENT: 1. Incarcerated right femoral hernia PLAN: 1. Start liquids 2. May transfer out of ICU to floor 3. May start heparin gtt. Objective - Vital Signs Vital signs: Vital Signs Temp 98.0 F 05/20/20 04:00 Pulse 85 05/20/20 13:00 Resp 17 05/20/20 13:00 BP 132/75 05/20/20 13:00 Pulse Ox 98 05/20/20 13:00 Intake & Output 05/19/20 05/20/20 05/20/20 18:59 06:59 18:59 Intake Total 547.631 240 150 Output Total 285 575 475 Balance 798.461 335 -951 Weight 66.4 kg 70.2 kg Intake: IV 220 240 120 0.9 NaCl 220 240 120 Intake, IV Titration 267.631 Amount Norepinephrine 4 mg In 156.293 Sodium Chloride 0.9% 250 ml @ 0.05 MCG/KG/MIN 12. 649 mls/hr IV .Q20H5M [facility] Rx#:[id number] propofoL 1,000 mg In 111.338 Empty Bag 1 bag @ Titrate IV .Q0M [facility] Rx#: [id number] Tube Feeding 60 Other 30 Output: Gastric Drainage 200 200 Urine 285 375 275 Other: Voiding Method Indwelling Catheter Indwelling Catheter Indwelling Catheter - Labs CBC & Chem 7: 05/20/20 14:09 05/20/20 04:31 Labs: Abnormal Lab Results - Last 24 Hours (Table) 05/20/20 05/20/20 05/20/20 Range/Units 02:45 04:31 04:31 RBC 4.09 L (4.30-5.90) m/uL Hgb 8.3 L (13.0-17.5) gm/dL Hct 28.6 L (39.0-53.0) % MCV 69.9 L (80.0-100.0) fL MCH 20.3 L (25.0-35.0) pg MCHC 29.1 L (31.0-37.0) g/dL RDW 22.4 H (11.5-15.5) % Lymphocytes # 0.9 L (1.0-4.8) k/uL Sodium 134 L 135 L (137-145) mmol/L Potassium 3.2 L (3.5-5.1) mmol/L BUN 22 H 23 H (9-20) mg/dL Glucose 113 H 108 H (74-99) mg/dL Calcium 7.9 L 8.1 L (8.4-10.2) mg/dL Assessment and Plan (1) Femoral hernia of right side Current Visit: Yes Status: Acute Code(s): K41.90 - UNIL FEMORAL HERNIA, W/O OBST OR GANGRENE, NOT SPCF RECUR SNOMED Code(s): 97644062331590955 (2) Femoral hernia of right side with obstruction Current Visit: Yes Status: Acute Code(s): K41.30 - UNIL FEMORAL HERNIA, W OBST, W/O GANGRENE, NOT SPCF RECUR SNOMED Code(s): 509595475 (3) Anemia Current Visit: Yes Status: Acute Code(s): D64.9 - ANEMIA, UNSPECIFIED SNOMED Code(s): 760220722 (4) Afib Current Visit: No Status: Acute Code(s): I48.91 - UNSPECIFIED ATRIAL FIBRILLATION SNOMED Code(s): 52894302
[2020-05-20] MEDS ORDERED: HEPARIN SODIUM,PORCINE 5,000 UNIT/ML 1 ML VIAL IV PRN (14:02)
[2020-05-20 14:21] LABS: Anisocytosis Moderate; Basophils % (A) 0 %; Eosinophils % (A) 0 %; HCT 28.7 % (39.0-53.0); HGB 8.2 gm/dL (13.0-17.5); Hypochromasia Marked; Lymphocytes # (A) 0.8 k/uL (1.0-4.8); Lymphocytes % (A) 8 %; MCH 19.5 pg (25.0-35.0); MCHC 28.5 g/dL (31.0-37.0); MCV 68.3 fL (80.0-100.0); Mean Platelet Volume 8.6; Microcytosis Marked; Monocytes # (A) 0.6 k/uL (0-1.0); Monocytes % (A) 6 %; Neutrophils # (A) 8.2 k/uL (1.3-7.7); Neutrophils % (A) 84 %; Platelet Count 141 k/uL (150-450); Poikilocytosis Slight; RDW 22.6 % (11.5-15.5); WBC 9.8 k/uL (3.8-10.6)
[2020-05-20 14:27] LABS: INR 1.1 (<1.2); Partial Thromboplastin Time 30.7 sec (22.0-30.0)
[2020-05-20] MEDS: HEPARIN SOD,PORK IN 0.45% NACL 25,000 UNIT in 0.45% NACL 1 250ML.BAG IV SCH (14:56)
[2020-05-20] MEDS: SODIUM CHLORIDE 0.9% 1,000 ML IV SCH (14:58)
--- NOTE | 2020-05-20 22:59 | P.PN ---
Subjective Progress Note Date: 05/19/20 Principal diagnosis: Acute blood loss anemia/GI bleed Hyponatremia Atrial fibrillation incarcerated Hernia Repair 84-year-old male with a history of atrial fibrillation who was sent for evaluation of abnormal labs. He has anemia secondary to GI bleed. Xarelto is on hold. Patient remains in rate controlled atrial fibrillation. Patient seen and examined laying in bed. Denies any dizziness, shortness of breath or chest pain. He did have a bowel movement and denies any bleeding. 05/14/2020 Patient is seen and evaluated in room with at bedside; patient understands he will be undergoing endoscopy tomorrow Laboratory review shows hemoglobin stable at 7.8; sodium remained stable at 131 Cardiology and gastroenterology following patient; anticoagulation currently on hold due to GI bleed; patient to undergo EGD and colonoscopy possibly tomorrow 05/15/2020 Patient is currently resting in the bed comfortably. Patient had a EGD showed mild gastritis, antrum and body biopsies. 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 Patient was started on oral diet Anticoagulation is on hold for another 24 to 48 hours as per GI recommendations. Follow-up H&H. Denies any complaints of nausea vomiting or diarrhea. No fever no chills. No cough or sputum production. No chest pain or shortness of breath. 05/16/2020 Patient is currently lying in the bed and seems to be mildly distressed due to lower abdominal pain. Abdominal x-ray was done this afternoon showed mildly distended left upper quadrant small bowel loops. Findings may represent ileus versus partial small bowel obstruction. Patient was kept nothing by mouth. Continued on pain management and IV hydration. Laboratory data showed hemoglobin 8.0 and platelets 169. Sodium 133, potassium 3.4 which will be replaced. GI is following. 05/17/2020 Patient is currently lying in the bed comfortably. No complaints of chest pain abdominal pain is improved and patient is requesting oral diet. Hemoglobin level is slightly better than yesterday. No nausea vomiting. No diarrhea. Patient did have small bowel movement. Patient has been afebrile. Laboratory data reviewed. 05/18/2020 Patient is still complaining of abdominal pain today. Patient has been afebrile. No complaints of chest pain or shortness of breath. CT of the abdomen pelvis was done which showed a markedly dilated small bowel loops and stomach with suspicion for a obstruction secondary to right inguinal hernia. General surgery was consulted and is planning for inguinal hernia repair due to incarcerated hernia. Patient will be continued on nothing by mouth. Follow-up CBC and CMP tomorrow. [id number] Patient is status post repair of incarcerated femoral hernia. Bowel has been already spontaneously reduced. Postoperatively patient had an episode of ventri cular fibrillation and was intubated. Currently patient was extubated. Continued on NG tube. Patient is currently in MICU. Awake alert and able to communicate slowly. Patient has been afebrile. Chest x-ray today showed small to moderate left pleural effusion similar to 05/18/2020 Pulmonary, cardiology and general surgery is following. Current medications reviewed. Objective - Vital Signs Vital signs: Vital Signs Temp 98.1 F 05/19/20 12:00 Pulse 81 05/19/20 15:00 Resp 18 05/19/20 15:00 BP 116/56 05/19/20 15:00 Pulse Ox 100 05/19/20 15:00 Intake & Output 05/18/20 05/19/20 05/19/20 18:59 06:59 18:59 Intake Total 4025.371 487.631 Output Total 100 894 205 Balance -100 3131.371 282.631 Weight 66.4 kg Intake: IV 3930 160 0.9 NaCl 80 160 Lactated Ringers 1050 Magnesium Sulfate 200 Intake, IV Titration 15.371 267.631 Amount Norepinephrine 4 mg In 156.293 Sodium Chloride 0.9% 250 ml @ 0.05 MCG/KG/MIN 12. 649 mls/hr IV .Q20H5M [facility] Rx#:[id number] propofoL 1,000 mg In 15.371 111.338 Empty Bag 1 bag @ Titrate IV .Q0M [facility] Rx#: [id number] Oral 80 Tube Feeding 60 Output: Urine 892 205 Emesis 100 Estimated Blood Loss 2 Other: Voiding Method Toilet Indwelling Catheter Indwelling Catheter # Voids 1 - Exam PHYSICAL EXAMINATION: GENERAL: The patient is alert and oriented, drowsy, not in any acute distress. Well developed, well nourished. HEENT: Pupils are round and equally reacting to light. EOMI. No scleral icterus. No conjunctival pallor. Normocephalic, atraumatic. No pharyngeal erythema. No thyromegaly. CARDIOVASCULAR: S1 and S2 present. No murmurs, rubs, or gallops. PULMONARY: Chest is clear to auscultation, no wheezing or crackles. ABDOMEN: Soft, nontender, surgical site bandaged. nondistended, diminished bowel sounds. No palpable organomegaly. MUSCULOSKELETAL: No joint swelling or deformity. EXTREMITIES: No cyanosis, clubbing, or pedal edema. NEUROLOGICAL: Gross neurological examination did not reveal any focal deficits. SKIN: No rashes. - Labs CBC & Chem 7: 05/20/20 14:09 05/20/20 20:51 Labs: Abnormal Lab Results - Last 24 Hours (Table) 05/12/20 05/18/20 05/18/20 Range/Units 15:00 00:00 23:21 Hgb (13.0-17.5) gm/dL Hct (39.0-53.0) % MCV (80.0-100.0) fL MCH (25.0-35.0) pg MCHC (31.0-37.0) g/dL RDW (11.5-15.5) % Lymphocytes # (1.0-4.8) k/uL ABG pH (7.35-7.45) ABG pO2 (83-108) mmHg ABG HCO3 (21-25) mmol/L ABG Total CO2 (19-24) mmol/L ABG O2 Saturation (94-97) % Sodium (137-145) mmol/L Potassium (3.5-5.1) mmol/L Glucose (74-99) mg/dL POC Glucose (mg/dL) 162 H (75-99) mg/dL Calcium (8.4-10.2) mg/dL Magnesium (1.6-2.3) mg/dL AST (17-59) U/L Troponin I (0.000-0.034) ng/mL Total Protein (6.3-8.2) g/dL Albumin (3.5-5.0) g/dL Ur Leukocyte Esterase Moderate H (Negative) Urine WBC 8 H (0-5) /hpf Urine Bacteria Rare H (None) /hpf Hyaline Casts 5 H (0-2) /lpf Urine Mucus Rare H (None) /hpf Crossmatch See Detail 07/30/20 07/30/20 07/30/20 Range/Units 23:42 23:44 23:44 Hgb 8.8 L (13.0-17.5) gm/dL Hct 30.4 L (39.0-53.0) % MCV 69.3 L (80.0-100.0) fL MCH 20.0 L (25.0-35.0) pg MCHC 28.9 L (31.0-37.0) g/dL RDW 21.8 H (11.5-15.5) % Lymphocytes # 0.2 L (1.0-4.8) k/uL ABG pH (7.35-7.45) ABG pO2 (83-108) mmHg ABG HCO3 (21-25) mmol/L ABG Total CO2 (19-24) mmol/L ABG O2 Saturation (94-97) % Sodium 133 L (137-145) mmol/L Potassium 3.4 L (3.5-5.1) mmol/L Glucose 143 H (74-99) mg/dL POC Glucose (mg/dL) (75-99) mg/dL Calcium 8.2 L (8.4-10.2) mg/dL Magnesium (1.6-2.3) mg/dL AST 93 H (17-59) U/L Troponin I 0.036 H* (0.000-0.034) ng/mL Total Protein 5.7 L (6.3-8.2) g/dL Albumin 3.2 L (3.5-5.0) g/dL Ur Leukocyte Esterase (Negative) Urine WBC (0-5) /hpf Urine Bacteria (None) /hpf Hyaline Casts (0-2) /lpf Urine Mucus (None) /hpf Crossmatch 05/19/20 05/19/20 05/19/20 Range/Units 00:17 04:35 04:35 Hgb 8.5 L (13.0-17.5) gm/dL Hct 29.5 L (39.0-53.0) % MCV 68.0 L (80.0-100.0) fL MCH 19.7 L (25.0-35.0) pg MCHC 28.9 L (31.0-37.0) g/dL RDW 22.7 H (11.5-15.5) % Lymphocytes # 0.3 L (1.0-4.8) k/uL ABG pH 7.47 H (7.35-7.45) ABG pO2 263 H (83-108) mmHg ABG HCO3 26 H (21-25) mmol/L ABG Total CO2 27 H (19-24) mmol/L ABG O2 Saturation 100.0 H (94-97) % Sodium 132 L (137-145) mmol/L Potassium 3.3 L (3.5-5.1) mmol/L Glucose 142 H (74-99) mg/dL POC Glucose (mg/dL) (75-99) mg/dL Calcium 8.2 L (8.4-10.2) mg/dL Magnesium 2.5 H (1.6-2.3) mg/dL AST (17-59) U/L Troponin I (0.000-0.034) ng/mL Total Protein (6.3-8.2) g/dL Albumin (3.5-5.0) g/dL Ur Leukocyte Esterase (Negative) Urine WBC (0-5) /hpf Urine Bacteria (None) /hpf Hyaline Casts (0-2) /lpf Urine Mucus (None) /hpf Crossmatch 05/19/20 Range/Units 04:59 Hgb (13.0-17.5) gm/dL Hct (39.0-53.0) % MCV (80.0-100.0) fL MCH (25.0-35.0) pg MCHC (31.0-37.0) g/dL RDW (11.5-15.5) % Lymphocytes # (1.0-4.8) k/uL ABG pH 7.46 H (7.35-7.45) ABG pO2 119 H (83-108) mmHg ABG HCO3 (21-25) mmol/L ABG Total CO2 26 H (19-24) mmol/L ABG O2 Saturation 98.8 H (94-97) % Sodium (137-145) mmol/L Potassium (3.5-5.1) mmol/L Glucose (74-99) mg/dL POC Glucose (mg/dL) (75-99) mg/dL Calcium (8.4-10.2) mg/dL Magnesium (1.6-2.3) mg/dL AST (17-59) U/L Troponin I (0.000-0.034) ng/mL Total Protein (6.3-8.2) g/dL Albumin (3.5-5.0) g/dL Ur Leukocyte Esterase (Negative) Urine WBC (0-5) /hpf Urine Bacteria (None) /hpf Hyaline Casts (0-2) /lpf Urine Mucus (None) /hpf Crossmatch Assessment and Plan Assessment: 1. Incarcerated right inguinal hernia with small bowel obstruction.Status post inguinal hernia repair. Bowel was spontaneously reduced. 1. Abdominal pain secondary to acute small bowel ileus and possible obstruction. improving. 1. Acute blood loss anemia - We will continue to monitor H&H closely and transfuse as needed 2. 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 Mild pandiverticulosis 3. Persistent Atrial fibrillation; remains rate controlled on Coreg 6.25 mg twice a day; anticoagulation on hold due to GI bleed 4. Hypertension; continue with lisinopril 5 mg daily and Coreg 6.25 mg twice a day 5. Electrolyte imbalance/hyponatremia; sodium level stabilized at 131; we will continue to monitor electrolytes and supplement as needed DVT prophylaxis; SCDs only due to GI bleed CODE STATUS; full code Time with Patient: Greater than 30
--- NOTE | 2020-05-20 23:02 | P.PN ---
Subjective Progress Note Date: 05/20/20 Principal diagnosis: Acute blood loss anemia/GI bleed Hyponatremia Atrial fibrillation incarcerated Hernia Repair 84-year-old male with a history of atrial fibrillation who was sent for evaluation of abnormal labs. He has anemia secondary to GI bleed. Xarelto is on hold. Patient remains in rate controlled atrial fibrillation. Patient seen and examined laying in bed. Denies any dizziness, shortness of breath or chest pain. He did have a bowel movement and denies any bleeding. 05/14/2020 Patient is seen and evaluated in room with at bedside; patient understands he will be undergoing endoscopy tomorrow Laboratory review shows hemoglobin stable at 7.8; sodium remained stable at 131 Cardiology and gastroenterology following patient; anticoagulation currently on hold due to GI bleed; patient to undergo EGD and colonoscopy possibly tomorrow 05/15/2020 Patient is currently resting in the bed comfortably. Patient had a EGD showed mild gastritis, antrum and body biopsies. 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 Patient was started on oral diet Anticoagulation is on hold for another 24 to 48 hours as per GI recommendations. Follow-up H&H. Denies any complaints of nausea vomiting or diarrhea. No fever no chills. No cough or sputum production. No chest pain or shortness of breath. 05/16/2020 Patient is currently lying in the bed and seems to be mildly distressed due to lower abdominal pain. Abdominal x-ray was done this afternoon showed mildly distended left upper quadrant small bowel loops. Findings may represent ileus versus partial small bowel obstruction. Patient was kept nothing by mouth. Continued on pain management and IV hydration. Laboratory data showed hemoglobin 8.0 and platelets 169. Sodium 133, potassium 3.4 which will be replaced. GI is following. 05/17/2020 Patient is currently lying in the bed comfortably. No complaints of chest pain abdominal pain is improved and patient is requesting oral diet. Hemoglobin level is slightly better than yesterday. No nausea vomiting. No diarrhea. Patient did have small bowel movement. Patient has been afebrile. Laboratory data reviewed. 05/18/2020 Patient is still complaining of abdominal pain today. Patient has been afebrile. No complaints of chest pain or shortness of breath. CT of the abdomen pelvis was done which showed a markedly dilated small bowel loops and stomach with suspicion for a obstruction secondary to right inguinal hernia. General surgery was consulted and is planning for inguinal hernia repair due to incarcerated hernia. Patient will be continued on nothing by mouth. Follow-up CBC and CMP tomorrow. [id number] Patient is status post repair of incarcerated femoral hernia. Bowel has been already spontaneously reduced. Postoperatively patient had an episode of ventri cular fibrillation and was intubated. Currently patient was extubated. Continued on NG tube. Patient is currently in MICU. Awake alert and able to communicate slowly. Patient has been afebrile. Chest x-ray today showed small to moderate left pleural effusion similar to 05/18/2020 Pulmonary, cardiology and general surgery is following. 05/20/2020 Patient is currently lying in the bed comfortably. Status post right inguinal hernia repair due to incarcerated hernia. Remains on NG tube. Patient is being continued on heparin drip due to persistent atrial fibrillation. Cardiology is following. Will monitor H&H. Chest x-ray showed slight improvement in aeration of the left lung base. Cammie nt is currently saturating at 98% on 2 L nasal cannula. Cardiology pulmonary and general surgery is on board. Current medications reviewed. Objective - Vital Signs Vital signs: Vital Signs Temp 98.2 F 05/20/20 16:00 Pulse 93 05/20/20 18:00 Resp 20 05/20/20 18:00 BP 107/89 05/20/20 18:00 Pulse Ox 100 05/20/20 18:00 Intake & Output 05/20/20 05/20/20 05/21/20 06:59 18:59 06:59 Intake Total 240 832.0 260.372 Output Total 575 575 Balance -335 257.0 260.372 Weight 70.2 kg Intake: IV 240 260 200 0.9 NaCl 240 260 200 Intake, IV Titration 42.0 60.372 Amount Heparin Sod,Pork in 0.45% 42.0 60.372 NaCl 25,000 unit In 0.45 % NaCl 1 250ml.bag @ 12 UNITS/KG/HR 8.424 mls/hr IV .Q24H [facility] Rx#: [id number] Tube Feeding 500 Other 30 Output: Gastric Drainage 200 200 Urine 375 375 Other: Voiding Method Indwelling Catheter Indwelling Catheter - Exam PHYSICAL EXAMINATION: GENERAL: The patient is alert and oriented, drowsy, not in any acute distress. Well developed, well nourished. HEENT: Pupils are round and equally reacting to light. EOMI. No scleral icterus. No conjunctival pallor. Normocephalic, atraumatic. No pharyngeal erythema. No thyromegaly. CARDIOVASCULAR: S1 and S2 present. No murmurs, rubs, or gallops. PULMONARY: Chest is clear to auscultation, no wheezing or crackles. ABDOMEN: Soft, nontender, surgical site bandaged. nondistended, diminished bowel sounds. No palpable organomegaly. MUSCULOSKELETAL: No joint swelling or deformity. EXTREMITIES: No cyanosis, clubbing, or pedal edema. NEUROLOGICAL: Gross neurological examination did not reveal any focal deficits. SKIN: No rashes. - Labs CBC & Chem 7: 05/20/20 14:09 05/20/20 20:51 Labs: Abnormal Lab Results - Last 24 Hours (Table) 05/20/20 05/20/20 05/20/20 Range/Units 02:45 04:31 04:31 RBC 4.09 L (4.30-5.90) m/uL Hgb 8.3 L (13.0-17.5) gm/dL Hct 28.6 L (39.0-53.0) % MCV 69.9 L (80.0-100.0) fL MCH 20.3 L (25.0-35.0) pg MCHC 29.1 L (31.0-37.0) g/dL RDW 22.4 H (11.5-15.5) % Plt Count (150-450) k/uL Neutrophils # (1.3-7.7) k/uL Lymphocytes # 0.9 L (1.0-4.8) k/uL APTT (22.0-30.0) sec Sodium 134 L 135 L (137-145) mmol/L Potassium 3.2 L (3.5-5.1) mmol/L BUN 22 H 23 H (9-20) mg/dL Glucose 113 H 108 H (74-99) mg/dL Calcium 7.9 L 8.1 L (8.4-10.2) mg/dL 05/20/20 05/20/20 05/20/20 Range/Units 14:09 14:09 20:51 RBC 4.20 L (4.30-5.90) m/uL Hgb 8.2 L (13.0-17.5) gm/dL Hct 28.7 L (39.0-53.0) % MCV 68.3 L (80.0-100.0) fL MCH 19.5 L (25.0-35.0) pg MCHC 28.5 L (31.0-37.0) g/dL RDW 22.6 H (11.5-15.5) % Plt Count 141 L (150-450) k/uL Neutrophils # 8.2 H (1.3-7.7) k/uL Lymphocytes # 0.8 L (1.0-4.8) k/uL APTT 30.7 H 38.7 H (22.0-30.0) sec Sodium (137-145) mmol/L Potassium (3.5-5.1) mmol/L BUN (9-20) mg/dL Glucose (74-99) mg/dL Calcium (8.4-10.2) mg/dL Assessment and Plan Assessment: 1. Incarcerated right inguinal hernia with small bowel obstruction.Status post inguinal hernia repair. Bowel was spontaneously reduced. 1. Abdominal pain secondary to acute small bowel ileus and possible obstruction. improved now. 1. Acute blood loss anemia due to GI bleed. - We will continue to monitor H&H closely and transfuse as needed 2. 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 Mild pandiverticulosis 3. Persistent Atrial fibrillation; remains rate controlled on Coreg 6.25 mg twice a day; anticoagulation on hold due to GI bleed 4. Hypertension; continue with lisinopril 5 mg daily and Coreg 6.25 mg twice a day 5. Electrolyte imbalance/hyponatremia; sodium level stabilized at 131; we will continue to monitor electrolytes and supplement as needed DVT prophylaxis; SCDs only due to GI bleed CODE STATUS; full code Time with Patient: Greater than 30
[2020-05-21 05:13] LABS: Anisocytosis Moderate; Basophils % (A) 0 %; Eosinophils % (A) 0 %; HGB 7.7 gm/dL (13.0-17.5); Hypochromasia Marked; Lymphocytes # (A) 0.8 k/uL (1.0-4.8); Lymphocytes % (A) 10 %; MCHC 28.5 g/dL (31.0-37.0); Mean Platelet Volume 6.9; Microcytosis Marked; Monocytes # (A) 0.5 k/uL (0-1.0); Monocytes % (A) 6 %; Neutrophils # (A) 6.5 k/uL (1.3-7.7); Neutrophils % (A) 82 %; Platelet Count 153 k/uL (150-450); Poikilocytosis Slight; RBC 3.85 m/uL (4.30-5.90); RDW 22.1 % (11.5-15.5); WBC 7.9 k/uL (3.8-10.6)
[2020-05-21] MEDS: PANTOPRAZOLE 40 MG/10 ML VIAL IV SCH (07:55)
[2020-05-21] MEDS: GABAPENTIN 400 MG CAP PO SCH ×3 (07:55→23:04)
--- NOTE | 2020-05-21 09:45 | P.PN ---
Subjective Progress Note Date: 05/21/20 History of present illness: This is an 84-year-old male patient of Dr. Morris with past medical history of persistent atrial fibrillation admitted to the hospital for anemia and GI bleed related to incarcerated femoral hernia status post repair. In the postop period, there is concern for bradycardia and episode of ventricular fibrillation and patient had to be intubated. He has been successfully extubated. 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 We would like to start heparin drip once cleared by general surgery. He currently has NG tube in place and Tristan catheter in place. Patient is denying any chest pain, shortness of breath or palpitations. Chest x-ray reveals slight improvement in aeration of the left lung base. Hemoglobin 8.3, white count 9.1. Sodium 135, potassium 3.5, BUN 23 and creatinine 0.84. 05/21: Patient is seen today on the [facility] floor. Dr. Mackey has cleared him yesterday to start heparin drip. His heart rate is running in the 90s and we'll start Coreg 6.25 mg twice daily which is his home dose. Today we will also resume patient's Xarelto. Patient denies any new complaints. He denies having any chest pain, shortness of breath, lightheadedness or dizziness. Repeat blood work reveals WBC 7.9, hemoglobin 7.7. Potassium 3.4. Physical examination: Gen: This is a an 84-year-old male, resting in an recliner and appears to be comfortable and in no acute distress. VS:Afebrile, heart rate 90, blood pressure 138/80, pulse ox 92% on 2 L nasal cannula. HEENT: Head is atraumatic, normocephalic. Pupils equal, round. Sclerae is anicteric. NECK: Supple. No JVD. No lymphadenopathy. No thyromegaly. LUNGS: Clear to auscultation. No wheezes or rhonchi. No intercostal retractions. HEART: Irregularly irregular heart rhythm. ABDOMEN: Soft. Bowel sounds are present. No masses. No tenderness. EXTREMITIES: No pedal edema. No calf tenderness. Dorsalis pedis +1 bi laterally. NEUROLOGICAL: Patient is awake, alert and oriented x3. Cranial nerves 2 through 12 are grossly intact. Assessment: Persistent atrial fibrillation, rate controlled Acute blood loss anemia secondary to GI bleed Status post incarcerated right femoral hernia repair Episode of cardiopulmonary arrest and ventricular fibrillation, stable Plan: Patient is currently rate controlled Discontinue heparin drip and start patient on Xarelto 20 mg daily Resume patient on Coreg 6.25 mg twice daily Further recommendations to follow based upon clinical course. Nurse practitioner note has been reviewed, I agree with documented findings and plan of care. Patient was seen and examined. Objective - Vital Signs Vital signs: Vital Signs Temp 98.3 F 05/21/20 07:00 Pulse 90 05/21/20 07:00 Resp 18 05/21/20 07:00 BP 138/80 05/21/20 07:00 Pulse Ox 92 L 05/21/20 07:00 Intake & Output 05/20/20 05/21/20 05/21/20 18:59 06:59 18:59 Intake Total 832.0 380.372 Output Total 575 200 Balance 257.0 180.372 Weight 70 kg Intake: IV 260 320 0.9 NaCl 260 320 Intake, IV Titration 42.0 60.372 Amount Heparin Sod,Pork in 0.45% 42.0 60.372 NaCl 25,000 unit In 0.45 % NaCl 1 250ml.bag @ 12 UNITS/KG/HR 8.424 mls/hr IV .Q24H [facility] Rx#: [id number] Tube Feeding 500 Other 30 Output: Gastric Drainage 200 Urine 375 200 Other: Voiding Method Indwelling Catheter Indwelling Catheter - Labs CBC & Chem 7: 05/21/20 04:25 05/21/20 04:25 Labs: Abnormal Lab Results - Last 24 Hours (Table) 05/20/20 05/20/20 05/20/20 Range/Units 14:09 14:09 20:51 RBC 4.20 L (4.30-5.90) m/uL Hgb 8.2 L (13.0-17.5) gm/dL Hct 28.7 L (39.0-53.0) % MCV 68.3 L (80.0-100.0) fL MCH 19.5 L (25.0-35.0) pg MCHC 28.5 L (31.0-37.0) g/dL RDW 22.6 H (11.5-15.5) % Plt Count 141 L (150-450) k/uL Neutrophils # 8.2 H (1.3-7.7) k/uL Lymphocytes # 0.8 L (1.0-4.8) k/uL APTT 30.7 H 38.7 H (22.0-30.0) sec Potassium (3.5-5.1) mmol/L 05/21/20 05/21/20 05/21/20 Range/Units 04:25 04:25 04:25 RBC 3.85 L (4.30-5.90) m/uL Hgb 7.7 L (13.0-17.5) gm/dL Hct 27.0 L (39.0-53.0) % MCV 70.0 L (80.0-100.0) fL MCH 20.0 L (25.0-35.0) pg MCHC 28.5 L (31.0-37.0) g/dL RDW 22.1 H (11.5-15.5) % Plt Count (150-450) k/uL Neutrophils # (1.3-7.7) k/uL Lymphocytes # 0.8 L (1.0-4.8) k/uL APTT 46.5 H (22.0-30.0) sec Potassium 3.4 L (3.5-5.1) mmol/L
--- NOTE | 2020-05-21 13:46 | P.PN ---
Subjective Progress Note Date: 05/21/20 Principal diagnosis: The patient is seen today 05/21/2020 in follow-up on the surgical floor. He is currently resting quite comfortably in bed. Awake and alert in no acute distre ss. This is postoperative day #3 of a repair of incarcerated femoral hernia. He denies any shortness of breath, cough or congestion. Maintaining good O2 saturations in the 90s on 2 L/m per nasal cannula. He's been afebrile. Hemodynamically stable. He did require 1 unit of packed red blood cells this admission. Current hemoglobin 7.7. White count 7.9. Is currently on a heparin drip. To be transitioned to Xarelto. Objective - Vital Signs Vital signs: Vital Signs Temp 98.3 F 05/21/20 07:00 Pulse 90 05/21/20 07:00 Resp 18 05/21/20 07:00 BP 138/80 05/21/20 07:00 Pulse Ox 92 L 05/21/20 07:00 Intake & Output 05/20/20 05/21/20 05/21/20 18:59 06:59 18:59 Intake Total 832.0 380.372 138.902 Output Total 575 200 Balance 257.0 180.372 138.902 Weight 70 kg Intake: IV 260 320 0.9 NaCl 260 320 Intake, IV Titration 42.0 60.372 138.902 Amount Heparin Sod,Pork in 0.45% 42.0 60.372 138.902 NaCl 25,000 unit In 0.45 % NaCl 1 250ml.bag @ 12 UNITS/KG/HR 8.424 mls/hr IV .Q24H [facility] Rx#: [id number] Tube Feeding 500 Other 30 Output: Gastric Drainage 200 Urine 375 200 Other: Voiding Method Indwelling Catheter Indwelling Catheter - Exam Gen: This is a very pleasant 84-year-old male, resting in bed, on 2 L nasal cannula, and appears to be comfortable and in no acute distress. HEENT: Head is atraumatic, normocephalic. Pupils equal, round. Sclerae is anicteric. NECK: Supple. No JVD. No lymphadenopathy. No thyromegaly. LUNGS: Crackles in the left lung base. No wheezes or rhonchi. No intercostal retractions. HEART: Irregularly irregular heart rhythm. ABDOMEN: Soft. Bowel sounds are present. No masses. No tenderness. EXTREMITIES: No pedal edema. No calf tenderness. Dorsalis pedis +1 bilaterally. NEUROLOGICAL: Patient is awake, alert and oriented x3. Cranial nerves 2 through 12 are grossly intact. - Labs CBC & Chem 7: 05/21/20 04:25 05/21/20 04:25 Labs: Abnormal Lab Results - Last 24 Hours (Table) 05/20/20 05/20/20 05/20/20 Range/Units 14:09 14:09 20:51 RBC 4.20 L (4.30-5.90) m/uL Hgb 8.2 L (13.0-17.5) gm/dL Hct 28.7 L (39.0-53.0) % MCV 68.3 L (80.0-100.0) fL MCH 19.5 L (25.0-35.0) pg MCHC 28.5 L (31.0-37.0) g/dL RDW 22.6 H (11.5-15.5) % Plt Count 141 L (150-450) k/uL Neutrophils # 8.2 H (1.3-7.7) k/uL Lymphocytes # 0.8 L (1.0-4.8) k/uL APTT 30.7 H 38.7 H (22.0-30.0) sec Potassium (3.5-5.1) mmol/L 05/21/20 05/21/20 05/21/20 Range/Units 04:25 04:25 04:25 RBC 3.85 L (4.30-5.90) m/uL Hgb 7.7 L (13.0-17.5) gm/dL Hct 27.0 L (39.0-53.0) % MCV 70.0 L (80.0-100.0) fL MCH 20.0 L (25.0-35.0) pg MCHC 28.5 L (31.0-37.0) g/dL RDW 22.1 H (11.5-15.5) % Plt Count (150-450) k/uL Neutrophils # (1.3-7.7) k/uL Lymphocytes # 0.8 L (1.0-4.8) k/uL APTT 46.5 H (22.0-30.0) sec Potassium 3.4 L (3.5-5.1) mmol/L Assessment and Plan Assessment: 1 Status post repair of incarcerated right femoral hernia, postoperative day #3. 2 Postoperative ventilatory mechanical ventilation requirement secondary to an episode of cardiopulmonary arrest with CPR and return of spontaneous circulation, episodes of atrial fibrillation and ventricular fibrillation. 3 Anemia with gastrointestinal bleed status post 1 unit packed red blood cells this admission, current hemoglobin 7.7 4 History of atrial fibrillation initiated on a heparin drip currently being transitioned to Xarelto 5 Hypertension 6 Coronary disease 7 Previous hernia. 8 History of left tibial fracture Plan: The patient was seen and evaluated by Dr. Elizondo Currently stable from the pulmonary and critical care standpoint Titrate down the FiO2 as tolerated Encourage increased use the incentive spirometer and cough and deep breathing exercises Increase his activity as tolerated We'll continue to follow I, the cosigning physician, performed a history & physical examination of the patient. Lungs sounds with crackles in the left lung base. Maintaining good O2 saturations in the 90s on 2 L/m per nasal cannula. I discussed the assessment and plan of care with my nurse practitioner, Wilda Gutierrez. I attest to the above note as dictated by her.
--- NOTE | 2020-05-21 14:03 | P.PN ---
Subjective Progress Note Date: 05/21/20 CHIEF COMPLAINT: Femoral hernia HISTORY OF PRESENT ILLNESS: The patient is a 84-year-old male status post incarcerated right femoral hernia repair, 05/18/2020. He is on the floor. He is tolerating clear liquid diet. Pain is well-controlled. He is yet to ambulate with PT OT. ROS: No reports of nausea and vomiting. No fevers or chills. No new chest pain. No productive sputum PHYSICAL EXAM: VITAL SIGNS: Reviewed CONSTITUTIONAL: Well developed and in no acute distress. EYES: Conjuctivae without sclera icterus. Extraocular movements grossly intact. HEAD, EARS, NOSE, THROAT: Moist buccal mucosa. Head is atraumatic, normocephalic. Hears conversational speech. No nasal drainage. NECK: Supple. No thyroidomegaly. RESPIRATORY: Non-labored respirations and equal bilateral excursions. CARDIOVASCULAR: Palpable 2+ radial pulses. ABDOMEN: No peritonitis. MUSCULOSKELETAL: No gross deformity of the lower extremities noted. No clubbing. No cyanosis. SKIN: Good skin turgor. Well perfused. NEUROLOGIC: Cranial nerves II through XII grossly intact. No focal or lateralizing signs. PSYCH: Appropriate affect. Alert and oriented to person, place. CLINICAL LABS: White blood cell count normal, 9.8. Hgb 8.2, now 7.7 ASSESSMENT: 1. Incarcerated right femoral hernia PLAN: 1. May advance diet as tolerated 2. Will need PT/OT. Objective - Vital Signs Vital signs: Vital Signs Temp 98.3 F 05/21/20 07:00 Pulse 90 05/21/20 07:00 Resp 18 05/21/20 07:00 BP 138/80 05/21/20 07:00 Pulse Ox 92 L 05/21/20 07:00 Intake & Output 05/20/20 05/21/20 05/21/20 18:59 06:59 18:59 Intake Total 832.0 380.372 138.902 Output Total 575 200 Balance 257.0 180.372 138.902 Weight 70 kg Intake: IV 260 320 0.9 NaCl 260 320 Intake, IV Titration 42.0 60.372 138.902 Amount Heparin Sod,Pork in 0.45% 42.0 60.372 138.902 NaCl 25,000 unit In 0.45 % NaCl 1 250ml.bag @ 12 UNITS/KG/HR 8.424 mls/hr IV .Q24H [facility] Rx#: [id number] Tube Feeding 500 Other 30 Output: Gastric Drainage 200 Urine 375 200 Other: Voiding Method Indwelling Catheter Indwelling Catheter - Labs CBC & Chem 7: 05/21/20 04:25 05/21/20 04:25 Labs: Abnormal Lab Results - Last 24 Hours (Table) 05/20/20 05/20/20 05/20/20 Range/Units 14:09 14:09 20:51 RBC 4.20 L (4.30-5.90) m/uL Hgb 8.2 L (13.0-17.5) gm/dL Hct 28.7 L (39.0-53.0) % MCV 68.3 L (80.0-100.0) fL MCH 19.5 L (25.0-35.0) pg MCHC 28.5 L (31.0-37.0) g/dL RDW 22.6 H (11.5-15.5) % Plt Count 141 L (150-450) k/uL Neutrophils # 8.2 H (1.3-7.7) k/uL Lymphocytes # 0.8 L (1.0-4.8) k/uL APTT 30.7 H 38.7 H (22.0-30.0) sec Potassium (3.5-5.1) mmol/L 05/21/20 05/21/20 05/21/20 Range/Units 04:25 04:25 04:25 RBC 3.85 L (4.30-5.90) m/uL Hgb 7.7 L (13.0-17.5) gm/dL Hct 27.0 L (39.0-53.0) % MCV 70.0 L (80.0-100.0) fL MCH 20.0 L (25.0-35.0) pg MCHC 28.5 L (31.0-37.0) g/dL RDW 22.1 H (11.5-15.5) % Plt Count (150-450) k/uL Neutrophils # (1.3-7.7) k/uL Lymphocytes # 0.8 L (1.0-4.8) k/uL APTT 46.5 H (22.0-30.0) sec Potassium 3.4 L (3.5-5.1) mmol/L Assessment and Plan (1) Femoral hernia of right side Current Visit: Yes Status: Acute Code(s): K41.90 - UNIL FEMORAL HERNIA, W/O OBST OR GANGRENE, NOT SPCF RECUR SNOMED Code(s): 15673307397071263 (2) Femoral hernia of right side with obstruction Current Visit: Yes Status: Acute Code(s): K41.30 - UNIL FEMORAL HERNIA, W OBST, W/O GANGRENE, NOT SPCF RECUR SNOMED Code(s): 513677046 (3) Anemia Current Visit: Yes Status: Acute Code(s): D64.9 - ANEMIA, UNSPECIFIED SNOMED Code(s): 080982660 (4) Afib Current Visit: No Status: Acute Code(s): I48.91 - UNSPECIFIED ATRIAL FIBRIL LATION SNOMED Code(s): 32538123
[2020-05-21 14:55] VITALS: BMI 22.1
[2020-05-21] MEDS: carvediloL 6.25 MG TAB PO SCH ×2 (16:50→17:22)
[2020-05-21] MEDS: HEPARIN SOD,PORK IN 0.45% NACL 25,000 UNIT in 0.45% NACL 1 250ML.BAG IV SCH (17:19)
[2020-05-21] MEDS: RIVAROXABAN 20 MG TAB PO SCH (17:22)
[2020-05-21] MEDS: SODIUM CHLORIDE 0.9% 1,000 ML IV SCH ×2 (20:06→23:05)
[2020-05-21] MEDS: POTASSIUM CHLORIDE ER 20 MEQ TAB.ER PO SCH ×2 (21:40→23:04)
--- NOTE | 2020-05-21 23:30 | P.PN ---
Subjective Progress Note Date: 05/21/20 Principal diagnosis: Acute blood loss anemia/GI bleed Hyponatremia Atrial fibrillation incarcerated Hernia Repair 84-year-old male with a history of atrial fibrillation who was sent for evaluation of abnormal labs. He has anemia secondary to GI bleed. Xarelto is on hold. Patient remains in rate controlled atrial fibrillation. Patient seen and examined laying in bed. Denies any dizziness, shortness of breath or chest pain. He did have a bowel movement and denies any bleeding. 05/14/2020 Patient is seen and evaluated in room with at bedside; patient understands he will be undergoing endoscopy tomorrow Laboratory review shows hemoglobin stable at 7.8; sodium remained stable at 131 Cardiology and gastroenterology following patient; anticoagulation currently on hold due to GI bleed; patient to undergo EGD and colonoscopy possibly tomorrow 05/15/2020 Patient is currently resting in the bed comfortably. Patient had a EGD showed mild gastritis, antrum and body biopsies. 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 Patient was started on oral diet Anticoagulation is on hold for another 24 to 48 hours as per GI recommendations. Follow-up H&H. Denies any complaints of nausea vomiting or diarrhea. No fever no chills. No cough or sputum production. No chest pain or shortness of breath. 05/16/2020 Patient is currently lying in the bed and seems to be mildly distressed due to lower abdominal pain. Abdominal x-ray was done this afternoon showed mildly distended left upper quadrant small bowel loops. Findings may represent ileus versus partial small bowel obstruction. Patient was kept nothing by mouth. Continued on pain management and IV hydration. Laboratory data showed hemoglobin 8.0 and platelets 169. Sodium 133, potassium 3.4 which will be replaced. GI is following. 05/17/2020 Patient is currently lying in the bed comfortably. No complaints of chest pain abdominal pain is improved and patient is requesting oral diet. Hemoglobin level is slightly better than yesterday. No nausea vomiting. No diarrhea. Patient did have small bowel movement. Patient has been afebrile. Laboratory data reviewed. 05/18/2020 Patient is still complaining of abdominal pain today. Patient has been afebrile. No complaints of chest pain or shortness of breath. CT of the abdomen pelvis was done which showed a markedly dilated small bowel loops and stomach with suspicion for a obstruction secondary to right inguinal hernia. General surgery was consulted and is planning for inguinal hernia repair due to incarcerated hernia. Patient will be continued on nothing by mouth. Follow-up CBC and CMP tomorrow. [id number] Patient is status post repair of incarcerated femoral hernia. Bowel has been already spontaneously reduced. Postoperatively patient had an episode of ventricular fibrillation and was intubated. Currently patient was extubated. Continued on NG tube. Patient is currently in MICU. Awake alert and able to communicate slowly. Patient has been afebrile. Chest x-ray today showed small to moderate left pleural effusion similar to 05/18/2020 Pulmonary, cardiology and general surgery is following. 05/20/2020 Patient is currently lying in the bed comfortably. Status post right inguinal hernia repair due to incarcerated hernia. Remains on NG tube. Patient is being continued on heparin drip due to persistent atrial fibrillation. Cardiology is following. Will monitor H&H. Chest x-ray showed slight improvement in aeration of the left lung base. Patient is currently saturating at 98% on 2 L nasal cannula. Cardiology pulmonary and general surgery is on board. 05/21/2020 Patient is currently lying in the bed comfortably. Denies any complaints of abdominal pain. No nausea vomiting or diarrhea. Patient was started on a clear liquid diet. Otherwise hemoglobin level is 7.7 today. Heparin drip has been discontinued and patient was started on Xarelto.Patient was started back on home dose of Coreg. Cardiology is following. PT OT will be consulted. Current medications reviewed. Objective - Vital Signs Vital signs: Vital Signs Temp 98.3 F 05/21/20 14:53 Pulse 63 05/21/20 14:53 Resp 19 05/21/20 14:53 BP 132/77 05/21/20 14:53 Pulse Ox 100 05/21/20 14:53 Intake & Output 05/20/20 05/21/20 05/21/20 18:59 06:59 18:59 Intake Total 832.0 380.372 138.902 Output Total 575 200 Balance 257.0 180.372 138.902 Weight 70 kg 70 kg Intake: IV 260 320 0.9 NaCl 260 320 Intake, IV Titration 42.0 60.372 138.902 Amount Heparin Sod,Pork in 0.45% 42.0 60.372 138.902 NaCl 25,000 unit In 0.45 % NaCl 1 250ml.bag @ 12 UNITS/KG/HR 8.424 mls/hr IV .Q24H [facility] Rx#: [id number] Tube Feeding 500 Other 30 Output: Gastric Drainage 200 Urine 375 200 Other: Voiding Method Indwelling Catheter Indwelling Catheter # Voids 2 - Exam PHYSICAL EXAMINATION: GENERAL: The patient is alert and oriented, drowsy, not in any acute distress. Well developed, well nourished. HEENT: Pupils are round and equally reacting to light. EOMI. No scleral icterus. No conjunctival pallor. Normocephalic, atraumatic. No pharyngeal erythema. No thyromegaly. CARDIOVASCULAR: S1 and S2 present. No murmurs, rubs, or gallops. PULMONARY: Chest is clear to auscultation, no wheezing or crackles. ABDOMEN: Soft, nontender, surgical site bandaged. nondistended, diminished bowel sounds. No palpable organomegaly. MUSCULOSKELETAL: No joint swelling or deformity. EXTREMITIES: No cyanosis, clubbing, or pedal edema. NEUROLOGICAL: Gross neurological examination did not reveal any focal deficits. SKIN: No rashes. - Labs CBC & Chem 7: 05/21/20 04:25 05/21/20 04:25 Labs: Abnormal Lab Results - Last 24 Hours (Table) 05/20/20 05/21/20 05/21/20 Range/Units 20:51 04:25 04:25 RBC 3.85 L (4.30-5.90) m/uL Hgb 7.7 L (13.0-17.5) gm/dL Hct 27.0 L (39.0-53.0) % MCV 70.0 L (80.0-100.0) fL MCH 20.0 L (25.0-35.0) pg MCHC 28.5 L (31.0-37.0) g/dL RDW 22.1 H (11.5-15.5) % Lymphocytes # 0.8 L (1.0-4.8) k/uL APTT 38.7 H 46.5 H (22.0-30.0) sec Potassium (3.5-5.1) mmol/L 05/21/20 Range/Units 04:25 RBC (4.30-5.90) m/uL Hgb (13.0-17.5) gm/dL Hct (39.0-53.0) % MCV (80.0-100.0) fL MCH (25.0-35.0) pg MCHC (31.0-37.0) g/dL RDW (11.5-15.5) % Lymphocytes # (1.0-4.8) k/uL APTT (22.0-30.0) sec Potassium 3.4 L (3.5-5.1) mmol/L Assessment and Plan Assessment: 1. Incarcerated right inguinal hernia with small bowel obstruction.Status post inguinal hernia repair. Bowel was spontaneously reduced. 1. Abdominal pain secondary to acute small bowel ileus and possible obstruction. improved now. 1. Acute blood loss anemia due to GI bleed. - We will continue to monitor H&H closely and transfuse as needed 2. 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 Mild pandiverticulosis 3. Persistent Atrial fibrillation; remains rate controlled on Coreg 6.25 mg twi ce a day; anticoagulation on hold due to GI bleed 4. Hypertension; continue with lisinopril 5 mg daily and Coreg 6.25 mg twice a day 5. Electrolyte imbalance/hyponatremia; sodium level stabilized at 131; we will continue to monitor electrolytes and supplement as needed DVT prophylaxis; SCDs only due to GI bleed CODE STATUS; full code Time with Patient: Greater than 30
[2020-05-22 08:04] LABS: Anisocytosis Moderate; Basophils % (A) 0 %; Eosinophils # (A) 0.1 k/uL (0-0.7); Eosinophils % (A) 2 %; HCT 25.3 % (39.0-53.0); HGB 7.4 gm/dL (13.0-17.5); Hypochromasia Marked; Lymphocytes # (A) 0.7 k/uL (1.0-4.8); Lymphocytes % (A) 15 %; MCH 19.9 pg (25.0-35.0); MCHC 29.2 g/dL (31.0-37.0); MCV 68.1 fL (80.0-100.0); Mean Platelet Volume 7.2; Microcytosis Marked; Monocytes # (A) 0.4 k/uL (0-1.0); Monocytes % (A) 9 %; Neutrophils # (A) 3.4 k/uL (1.3-7.7); Neutrophils % (A) 71 %; Platelet Count 159 k/uL (150-450); Poikilocytosis Slight; RBC 3.72 m/uL (4.30-5.90); RDW 22.1 % (11.5-15.5); WBC 4.8 k/uL (3.8-10.6)
[2020-05-22] MEDS: carvediloL 6.25 MG TAB PO SCH ×2 (08:16→17:25)
[2020-05-22] MEDS: GABAPENTIN 400 MG CAP PO SCH ×3 (08:16→22:36)
[2020-05-22 08:18] LABS: African American GFR (CKD) >90 (>60 ml/min/1.73 sqM); Anion Gap 6 mmol/L; Blood Urea Nitrogen 13 mg/dL (9-20); Calcium 7.3 mg/dL (8.4-10.2); Carbon Dioxide 24 mmol/L (22-30); Chloride 102 mmol/L (98-107); Glucose 101 mg/dL (74-99); Non-African American GFR(CKD) >90 (>60 ml/min/1.73 sqM); Potassium 3.2 mmol/L (3.5-5.1); Sodium 132 mmol/L (137-145)
[2020-05-22] MEDS: PANTOPRAZOLE 40 MG/10 ML VIAL IV SCH (09:09)
--- NOTE | 2020-05-22 09:20 | P.PN ---
Subjective 84-year-old male with a history of atrial fibrillation and multiple medical problems as below, patient was admitted on 05/12 for acute blood loss anemia secondary to GI bleed and found to have right femoral hernia that needed surgical repair. 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 Surgery and GI team are following. Postoperatively he underwent cardiac arrest with A. fib and V. fib. Pulmonary: The patient stable yesterday. Nurse [facility] on board for his A. fib. Xarelto still on hold. This morning he had been tried to his diet. However he was hungry, he denies nausea vomiting, no bowel pain he had one bowel movement last night with no blood. Hemoglobin is 7.7 and this morning 7.4, sodium 132, potassium 3.2 been replaced. Xarelto has been started yesterday by cardiology team, also he was started on Coreg 6.25 mg twice a day Physical therapy is been requested and pending Objective - Vital Signs Vital signs: Vital Signs Temp 97.9 F 05/22/20 07:00 Pulse 86 05/22/20 07:00 Resp 18 05/22/20 07:00 BP 129/66 05/22/20 07:00 Pulse Ox 99 05/22/20 07:00 Intake & Output 05/21/20 05/22/20 05/22/20 18:59 06:59 18:59 Intake Total 138.902 Output Total 400 Balance 138.902 -400 Weight 70 kg Intake: Intake, IV Titration 138.902 Amount Heparin Sod,Pork in 0.45% 138.902 NaCl 25,000 unit In 0.45 % NaCl 1 250ml.bag @ 12 UNITS/KG/HR 8.424 mls/hr IV .Q24H [facility] Rx#: [id number] Output: Urine 400 Other: Voiding Method Toilet # Voids 2 1 # Bowel Movements 1 - Exam GENERAL: The patient is alert and oriented x3, not in any acute distress. Well developed, well nourished. HEENT: Pupils are round and equally reacting to light. EOMI. No scleral icterus. No conjunctival pallor. Normocephalic, atraumatic. No pharyngeal erythema. No thyromegaly. CARDIOVASCULAR: S1 and S2 present. No murmurs, rubs, or gallops. PULMONARY: Chest is clear to auscultation, no wheezing or crackles. ABDOMEN: Soft, nontender, nondistended, normoactive bowel sounds. No palpable organomegaly. MUSCULOSKELETAL: No joint swelling or deformity. EXTREMITIES: No cyanosis, clubbing, or pedal edema. NEUROLOGICAL: Gross neurological examination did not reveal any focal deficits. SKIN: No rashes. no petechiae. - Labs CBC & Chem 7: 05/22/20 06:50 05/22/20 06:50 Labs: Abnormal Lab Results - Last 24 Hours (Table) 05/22/20 05/22/20 05/22/20 Range/Units 06:50 06:50 06:50 RBC 3.72 L (4.30-5.90) m/uL Hgb 7.4 L (13.0-17.5) gm/dL Hct 25.3 L (39.0-53.0) % MCV 68.1 L (80.0-100.0) fL MCH 19.9 L (25.0-35.0) pg MCHC 29.2 L (31.0-37.0) g/dL RDW 22.1 H (11.5-15.5) % Lymphocytes # 0.7 L (1.0-4.8) k/uL APTT 42.1 H (22.0-30.0) sec Sodium 132 L (137-145) mmol/L Potassium 3.2 L (3.5-5.1) mmol/L Creatinine 0.60 L (0.66-1.25) mg/dL Glucose 101 H (74-99) mg/dL Calcium 7.3 L (8.4-10.2) mg/dL Assessment and Plan Assessment: 1. Incarcerated right inguinal hernia with small bowel obstruction.Status post inguinal hernia repair. Patient is tolerating diet well and has regular bowel movements 1. Abdominal pain secondary to acute small bowel ileus and possible obstruction. improved now. 1. Acute blood loss anemia due to GI bleed. He is status post gold probe ablation for his duodenal angiectasia. - Hemoglobin is stable, patient was started on Xarelto - We will continue to monitor H&H closely and transfuse as needed 2. GI bleed; patient remains on Protonix 40 mg IV daily - Status post EGD showed mild gastritis, nonbleeding duodenal angiectasia pamela yaneli with gold probe ablation. Mild pandiverticulosis 3. Persistent Atrial fibrillation; remains rate controlled on Coreg 6.25 mg twice a day; anticoagulation restarted by social insurance administrator team 4. Hypertension; continue with lisinopril 5 mg daily and Coreg 6.25 mg twice a day 5. Electrolyte imbalance/hyponatremia; sodium level stabilized at 131; we will continue to monitor electrolytes and supplement as needed DVT prophylaxis; SCDs only due to GI bleed CODE STATUS; full code PT/OT: Pending
--- NOTE | 2020-05-22 12:57 | P.PN ---
Progress Note - Text Progress Note Date: 05/22/20 The patient is postoperative day 4. He is tolerating full liquids. On exam vital signs are stable. Abdomen soft. Incision site is clean dry intact. Status post repair of incarcerated right femoral hernia. Patient will have his diet advanced.
--- NOTE | 2020-05-22 13:31 | P.PN ---
Subjective Progress Note Date: 05/22/20 Principal diagnosis: Surgery right femoral hernia, status post surgical repair, acute hypoxic respiratory failure, acute cardiopulmonary arrest with ROSC On 05/22/2020 patient seen in follow-up on the general medical surgical floor. Of note patient was admitted on 05/12/2020 3 the emergency department for concern of suspected GI bleeding, and evidence of low hemoglobin on his outpatient blood work. Patient underwent EGD with biopsy and cold probe ablation of small bowel angiectasia for evidence of mild gastritis, nonbleeding duodenal angiectasia. Colonoscopy showed mild pain and diverticulosis. During the course of his stay patient developed a small bowel obstruction with feculent vomiting. His computed tomography scan showed an incarcerated right inguinal hernia creating a high-grade small bowel obstruction. On 05/18/2020 patient underwent right inguinal incarcerated hernia repair, which apparently by the time the surgery was done the hernia had reduced itself. Patient was extubated in the recovery room following the surgery however he suffered cardiopulmonary arrest requiring CPR, and ACLS with eventual return of spontaneous circulation. Patient was reintubated, he was cared for in the intensive care unit. Patient was successfully weaned and extubated from the mechanical ventilator on 05/20/2020. His mentation seems to have recovered, today she is awake and alert, he is answering questions appropriately, he denies any acute distress. He was transferred out of the intensive care unit yesterday, overnight he has not had any acute events, he is on 3 L of oxygen the pulse ox of 95%, hemodynamically stable, he is afebrile. Denies any shortness of breath, denies any abdominal pain, no nausea vomiting diarrhea, he is tolerating full liquid d iet, his diet is being advanced per surgery. Right groin inguinal hernia repair site is clean dry and intact. he remains in A. fib with a controlled rate, she is on oral anticoagulation in the form of Xarelto. His last chest x-ray was done on 05/20/2020 showing slight improvement in aeration of the left lung base with the previously noted left basilar airspace disease. Today's labs have been reviewed, showing white blood cell count of 4.8, hemoglobin of 7.4, platelet count is 159, sodium is 132, potassium is 3.2, the rest of electrolytes are within normal limits. BUN is 13, creatinine 0.60. Patient is participating with physical therapy Objective - Vital Signs Vital signs: Vital Signs Temp 98.0 F 05/22/20 11:48 Pulse 80 05/22/20 11:48 Resp 18 05/22/20 11:48 BP 102/64 05/22/20 11:48 Pulse Ox 95 05/22/20 11:48 Intake & Output 05/21/20 05/22/20 05/22/20 18:59 06:59 18:59 Intake Total 138.902 Output Total 400 Balance 138.902 -400 Weight 70 kg Intake: Intake, IV Titration 138.902 Amount Heparin Sod,Pork in 0.45% 138.902 NaCl 25,000 unit In 0.45 % NaCl 1 250ml.bag @ 12 UNITS/KG/HR 8.424 mls/hr IV .Q24H [facility] Rx#: [id number] Output: Urine 400 Other: Voiding Method Toilet # Voids 2 1 # Bowel Movements 1 - Exam GENERAL EXAM: Alert, very pleasant, 84-year-old on 3 L of oxygen a pulse ox of 95% is seen comfortably in bed, comfortable in no apparent distress. HEAD: Normocephalic/atraumatic. EYES: Normal reaction of pupils, equal size. Conjunctiva pink, sclera white. NOSE: Clear with pink turbinates. THROAT: No erythema or exudates. NECK: No masses, no JVD, no thyroid enlargement, no adenopathy. CHEST: No chest wall deformity. Symmetrical expansion. LUNGS: Equal air entry with no crackles, wheeze, rhonchi or dullness. CVS: Regular rate and rhythm, normal S1 and S2, no gallops, no murmurs, no rubs ABDOMEN: Soft, nontender. No hepatosplenomegaly, normal bowel sounds, no guarding or rigidity. Right inguinal surgical incision is clean dry and intact EXTREMITIES: No clubbing, no edema, no cyanosis, 2+ pulses and upper and lower extremities. MUSCULOSKELETAL: Muscle strength and tone normal. SPINE: No scoliosis or deformity SKIN: No rashes CENTRAL NERVOUS SYSTEM: Alert and oriented -3. No focal deficits, tone is normal in all 4 extremities. PSYCHIATRIC: Alert and oriented -3. Appropriate affect. Intact judgment and insight. - Labs CBC & Chem 7: 05/22/20 06:50 05/22/20 06:50 Labs: Abnormal Lab Results - Last 24 Hours (Table) 05/22/20 05/22/20 05/22/20 Range/Units 06:50 06:50 06:50 RBC 3.72 L (4.30-5.90) m/uL Hgb 7.4 L (13.0-17.5) gm/dL Hct 25.3 L (39.0-53.0) % MCV 68.1 L (80.0-100.0) fL MCH 19.9 L (25.0-35.0) pg MCHC 29.2 L (31.0-37.0) g/dL RDW 22.1 H (11.5-15.5) % Lymphocytes # 0.7 L (1.0-4.8) k/uL APTT 42.1 H (22.0-30.0) sec Sodium 132 L (137-145) mmol/L Potassium 3.2 L (3.5-5.1) mmol/L Creatinine 0.60 L (0.66-1.25) mg/dL Glucose 101 H (74-99) mg/dL Calcium 7.3 L (8.4-10.2) mg/dL Assessment and Plan Plan: Assessment: #1. Acute symptomatic anemia, status post EGD with biopsy and gold probe ablation of small bowel angiectasia, nonbleeding duodenal angiectasia. Colonoscopy showed mild pandiverticulosis. Patient was admitted on 05/12/2020 with a hemoglobin of 7.1, received 1 unit of packed red blood cells during this admission, current hemoglobin on 05/22/2000 27.4 #2. Acute small bowel obstruction, related to incarcerated right inguinal hernia, status post surgical repair, postoperative day 4 #3. Acute cardiopulmonary arrest an episode of ventricular fibrillation, and postoperative day 0, shortly after extubation in the recovery room, requiring CPR, ACLS, and reintubation on 05/18/2020 #4. Acute hypoxic respiratory failure related to acute cardiopulmonary arrest, emergently intubated on 05/18/2020, subsequently successfully weaned and extubated on 05/20/2020 #5. Chronic atrial fibrillation on Xarelto, with no evidence of recurrent GI bleeding #6. Hypertension #7. Coronary artery disease #8. History of chronic congestive heart failure with preserved left systolic function and EF of 50-55% mild TR, trace MR, mild PAH with right-sided pressures of 44.8 mmHg #9. Former smoker Plan: Continue weaning FiO2, encourage deep breathing and coughing, clinically patient is stable, no acute complaints, no worsening dyspnea, vital signs are stable, no acute events overnight, patient has been started on oral diet, being advanced per surgery, no abdominal pain, no nausea or vomiting. Hemodynamically stable, no evidence of bleeding. Follow-up chest x-ray in the morning. I performed a history & physical examination of the patient and discussed their management with my nurse practitioner, Magaly Chiu. I reviewed the nurse practitioner's note and agree with the documented findings and plan of care. Lung sounds are positive for diminished breath sounds. The findings and the impression was discussed with the patient. I attest to the documentation by the nurse practitioner. Time with Patient: Less than 30
[2020-05-22] MEDS: RIVAROXABAN 20 MG TAB PO SCH (17:25)
[2020-05-22] MEDS: POTASSIUM CHLORIDE ER 20 MEQ TAB.ER PO SCH ×2 (21:32→22:37)
[2020-05-23] MEDS: SODIUM CHLORIDE 0.9% 1,000 ML IV SCH (00:59)
[2020-05-23] MEDS: POTASSIUM CHLORIDE 10 MEQ in WATER FOR INJECTION 1 100ML.BAG IVPB SCH ×4 (01:20→04:11)
[2020-05-23] MEDS: carvediloL 6.25 MG TAB PO SCH ×2 (07:21→16:07)
[2020-05-23] MEDS: GABAPENTIN 400 MG CAP PO SCH ×3 (08:51→21:25)
[2020-05-23 08:59] LABS: African American GFR (CKD) >90 (>60 ml/min/1.73 sqM); Anion Gap 7 mmol/L; Blood Urea Nitrogen 10 mg/dL (9-20); Calcium 7.6 mg/dL (8.4-10.2); Carbon Dioxide 25 mmol/L (22-30); Chloride 99 mmol/L (98-107); Glucose 118 mg/dL (74-99); Magnesium 1.9 mg/dL (1.6-2.3); Non-African American GFR(CKD) >90 (>60 ml/min/1.73 sqM); Sodium 131 mmol/L (137-145)
[2020-05-23 09:07] LABS: Potassium 3.7 mmol/L (3.5-5.1)
[2020-05-23] MEDS: PANTOPRAZOLE 40 MG/10 ML VIAL IV SCH (09:25)
--- NOTE | 2020-05-23 09:37 | XR ---
EXAMINATION TYPE: XR chest 1V portable DATE OF EXAM: 05/23/2020 CLINICAL HISTORY: Shortness of breath TECHNIQUE: Portable frontal view of the chest obtained COMPARISON: 05/20/2020 chest radiograph FINDINGS: The cardiomediastinal silhouette is unchanged. There is redemonstrated left basilar airspa ce opacities and small left pleural effusion. There is increased right basilar airspace opacities and small right effusion. No pneumothorax. IMPRESSION: Persistent left basilar airspace opacity and small left pleural effusion. New right basil ar airspace opacity and small right pleural effusion versus 05/20/2020.
[2020-05-23 09:43] LABS: Anisocytosis Moderate; HCT 26.8 % (39.0-53.0); HGB 7.8 gm/dL (13.0-17.5); Hypochromasia Marked; MCH 20.2 pg (25.0-35.0); MCHC 29.2 g/dL (31.0-37.0); MCV 69.2 fL (80.0-100.0); Mean Platelet Volume 7.4; Microcytosis Marked; Platelet Count 177 k/uL (150-450); Poikilocytosis Slight; RBC 3.87 m/uL (4.30-5.90); RDW 22.4 % (11.5-15.5); WBC 6.3 k/uL (3.8-10.6)
[2020-05-23] MEDS ORDERED: FUROSEMIDE 10 MG/ML 4 ML VIAL IV STA (10:47)
--- NOTE | 2020-05-23 11:53 | P.PN ---
Progress Note - Text Progress Note Date: 05/23/20 The patient appears well. He has multiple pain. Is tolerating a diet. On exam vital signs are stable. Abdomen soft. Right groin incision is clean dry tach. Status post repair of incarcerated rating right femoral hernia. Patient will be discharged home per medicine
--- NOTE | 2020-05-23 12:56 | CDI ---
Documentation Clarification Form Date: 05/23/2020 12:11:59 PM From: Binta Clayton RN, CCDS Admit Date: 05/12/2020 03:25:00 PM Patient Name: Bj Gutierrez Visit Number: [id number] Discharge Date: ATTENTION: The Clinical Documentation Specialists (CDI) and [facility] Coding Staff appreciate your assistance in clarifying documentation. Please respond to the clarification below the line at the bottom and electronically sign. The CDI & [facility] Coding staff will review the response and follow-up if needed. Please note: Queries are made part of the Legal Health Record. If you have any questions, please contact the author of this message via ITS. Dr. Wagner Bates 05/19 Cardiopumonary arrest which required CPR for Atrial fibrillation and Ventricular fibrillation is documented in the pulmonary progress note on 05/19/20. Please provide possible indication of ventricular fibrillation. Patients Preoperative Diagnosis: Incarcerated inguinal hernia Post-Operative Diagnosis: Incarcerated femoral hernia 05/18 Procedure performed: Femoral hernia History/Risk Factors: Persistent Atrial Fibrillation, GI Bleeding, Coronary artery disease, Hypertension, CHF Clinical Indicators: 84-year-old male on 05/18 was post procedure femoral hernia repair was extubated to simple mask @ 8/L at 21:25 05/18 at 22:15 vital signs; 119/59 100 14 Rentubated at 22:30 vital signs 85/50 80 14 on mechanical vent. Treatment: ICU monitoring Mechanical ventilation (reintubation) Adrenalin 1ml IV X1 Atropine 1mg IVP X1 .9NS 20 mls hr, Propofol at 23 mcg/kg per min In order to accurately reflect this patients severity of illness, please clarify if the patient ventricular fibrillation: -is a complication of surgical procedure -is an expected outcome of the surgical procedure -is related to co-morbid condition(s) of -Other please specify -Unable to determine (Last Revision: November 2019) please have pulmonary give the reason MTDD
--- NOTE | 2020-05-23 13:06 | P.PN ---
Subjective Progress Note Date: 05/23/20 Principal diagnosis: Surgery right femoral hernia, status post surgical repair, acute hypoxic respiratory failure, acute cardiopulmonary arrest with ROSC On 05/22/2020 patient seen in follow-up on the general medical surgical floor. Of note patient was admitted on 05/12/2020 3 the emergency department for concern of suspected GI bleeding, and evidence of low hemoglobin on his outpatient blood work. Patient underwent EGD with biopsy and cold probe ablation of small bowel angiectasia for evidence of mild gastritis, nonbleeding duodenal angiectasia. Colonoscopy showed mild pain and diverticulosis. During the course of his stay patient developed a small bowel obstruction with feculent vomiting. His computed tomography scan showed an incarcerated right inguinal hernia creating a high-grade small bowel obstruction. On 05/18/2020 patient underwent right inguinal incarcerated hernia repair, which apparently by the time the surgery was done the hernia had reduced itself. Patient was extubated in the recovery room following the surgery however he suffered cardiopulmonary arrest requiring CPR, and ACLS with eventual return of spontaneous circulation. Patient was reintubated, he was cared for in the intensive care unit. Patient was successfully weaned and extubated from the mechanical ventilator on 05/20/2020. His mentation seems to have recovered, today she is awake and alert, he is answering questions appropriately, he denies any acute distress. He was transferred out of the intensive care unit yesterday, overnight he has not had any acute events, he is on 3 L of oxygen the pulse ox of 95%, hemodynamically stable, he is afebrile. Denies any shortness of breath, denies any abdominal pain, no nausea vomiting diarrhea, he is tolerating full liquid d iet, his diet is being advanced per surgery. Right groin inguinal hernia repair site is clean dry and intact. he remains in A. fib with a controlled rate, she is on oral anticoagulation in the form of Xarelto. His last chest x-ray was done on 05/20/2020 showing slight improvement in aeration of the left lung base with the previously noted left basilar airspace disease. Today's labs have been reviewed, showing white blood cell count of 4.8, hemoglobin of 7.4, platelet count is 159, sodium is 132, potassium is 3.2, the rest of electrolytes are within normal limits. BUN is 13, creatinine 0.60. Patient is participating with physical therapy On 05/23/2020 patient seen in follow-up on the general medical surgical floor, he is resting comfortably in bed, he denies any acute distress, denies any worsening dyspnea, he is on room air his pulse ox of 95%, hemodynamically stable, he is afebrile, abdomen is nontender, is right groin incision is clean dry and intact, today's chest x-ray has been reviewed showing persistent left basilar airspace disease and small left pleural effusion, there was a new right basilar airspace opacity and small right pleural effusion noted compared to previous exam. We'll give the patient a dose of IV Lasix. No worsening dyspnea, white blood cell count is within normal limits 6.3, hemoglobin is 7.8, relatively stable, no evidence of recurrent bleeding, patient has been restarted on his Xarelto. Sodium is 131, and the rest of the electrolytes were within normal limits, BUN is 10 creatinine 0.63. ProBNP came back elevated at 6730. The fluids have been cut back to KVO. Patient is tolerating regular diet, he had been up in the chair yesterday, and his participating with physical therapy. Objective - Vital Signs Vital signs: Vital Signs Temp 98.7 F 05/23/20 11:31 Pulse 83 05/23/20 11:31 Resp 19 05/23/20 11:31 BP 122/62 05/23/20 11:31 Pulse Ox 95 05/23/20 12:32 Intake & Output 05/22/20 05/23/20 05/23/20 18:59 06:59 18:59 Intake Total 160 Output Total 200 Balance -200 160 Intake: IV 160 Sodium Chloride 0.9% 1, 160 000 ml @ 20 mls/hr IV . Q24H [facility] Rx#:[id number] Output: Urine 200 Other: Voiding Method Urinal Urinal Urinal # Voids 2 - Exam GENERAL EXAM: Alert, very pleasant, 84-year-old on 3 L of oxygen a pulse ox of 97% is seen comfortably in bed, comfortable in no apparent distress. HEAD: Normocephalic/atraumatic. EYES: Normal reaction of pupils, equal size. Conjunctiva pink, sclera white. NOSE: Clear with pink turbinates. THROAT: No erythema or exudates. NECK: No masses, no JVD, no thyroid enlargement, no adenopathy. CHEST: No chest wall deformity. Symmetrical expansion. LUNGS: Equal air entry with no crackles, wheeze, rhonchi or dullness. CVS: Regular rate and rhythm, normal S1 and S2, no gallops, no murmurs, no rubs ABDOMEN: Soft, nontender. No hepatosplenomegaly, normal bowel sounds, no guarding or rigidity. Right inguinal surgical incision is clean dry and intact EXTREMITIES: No clubbing, no edema, no cyanosis, 2+ pulses and upper and lower extremities. MUSCULOSKELETAL: Muscle strength and tone normal. SPINE: No scoliosis or deformity SKIN: No rashes CENTRAL NERVOUS SYSTEM: Alert and oriented -3. No focal deficits, tone is normal in all 4 extremities. PSYCHIATRIC: Alert and oriented -3. Appropriate affect. Intact judgment and insight. - Labs CBC & Chem 7: 05/23/20 07:39 05/23/20 07:39 Labs: Abnormal Lab Results - Last 24 Hours (Table) 05/23/20 05/23/20 05/23/20 Range/Units 00:29 07:39 07:39 RBC 3.87 L (4.30-5.90) m/uL Hgb 7.8 L (13.0-17.5) gm/dL Hct 26.8 L (39.0-53.0) % MCV 69.2 L (80.0-100.0) fL MCH 20.2 L (25.0-35.0) pg MCHC 29.2 L (31.0-37.0) g/dL RDW 22.4 H (11.5-15.5) % Sodium 131 L (137-145) mmol/L Potassium 3.1 L (3.5-5.1) mmol/L Creatinine 0.63 L (0.66-1.25) mg/dL Glucose 118 H (74-99) mg/dL Calcium 7.6 L (8.4-10.2) mg/dL Assessment and Plan Plan: Assessment: #1. Acute symptomatic anemia, status post EGD with biopsy and gold probe ablation of small bowel angiectasia, nonbleeding duodenal angiectasia. Colonoscopy showed mild pandiverticulosis. Patient was admitted on 05/12/2020 with a hemoglobin of 7.1, received 1 unit of packed red blood cells during this admission, current hemoglobin on 05/22/2000 27.4 #2. Acute small bowel obstruction, related to incarcerated right inguinal hernia, status post surgical repair, postoperative day 5 #3. Acute cardiopulmonary arrest an episode of ventricular fibrillation, and postoperative day 0, shortly after extubation in the recovery room, requiring CPR, ACLS, and reintubation on 05/18/2020 #4. Acute hypoxic respiratory failure related to acute cardiopulmonary arrest, emergently intubated on 05/18/2020, subsequently successfully weaned and extubated on 05/20/2020 #5. Chronic atrial fibrillation on Xarelto, with no evidence of recurrent GI bleeding #6. Hypertension #7. Coronary artery disease #8. History of chronic congestive heart failure with preserved left systolic function and EF of 50-55% mild TR, trace MR, mild PAH with right-sided pressures of 44.8 mmHg #9. Former smoker #10. Bibasilar airspace opacity and small bilateral pleural effusions possibly related to fluid overload and atelectasis, we'll give the patient on dose of Lasix Plan: Continue weaning FiO2, encouraged the patient sit up in chair, deep breathing cough, today's chest x-ray shows bibasilar airspace disease and small bilateral pleural effusions, will give patient a dose of IV Lasix, Hep-Lock IV fluids, otherwise patient is doing well, he is working with physical therapy, discharge planning is in progress for discharge to [facility] nursing [facility] rehab. I performed a history & physical examination of the patient and discussed their management with my nurse practitioner, Magaly Chiu. I reviewed the nurse practitioner's note and agree with the documented findings and plan of care. Lung sounds are positive for diminished breath sounds. The findings and the impression was discussed with the patient. I attest to the documentation by the nurse practitioner. Time with Patient: Less than 30
--- NOTE | 2020-05-23 14:14 | P.PN ---
Subjective This is a pleasant 84-year-old male past medical history significant for persistent atrial fibrillation presented to the hospital with anemia and GI bleed related to an incarcerated femoral hernia he is status post surgical repair. He follows in the office with Dr. Morris. He is seen and examined resting comfortably lying flat in bed in no acute distress. He denies symptoms of chest pain, shortness of breath, dizziness or palpitations. Blood pressure 120/62 heart rate 83 afebrile maintaining oxygen saturation on nasal cannula. Laboratory data reviewed, WBC 6.3, hemoglobin 7.8, platelets 177, sodium 131, potassium 3.7, creatinine 0.63. GENERAL: Well-appearing, well-nourished and in no acute distress. NECK: Supple without JVD or thyromegaly. LUNGS: Breath sounds clear to auscultation bilaterally. Respiration equal and unlabored. No wheezes, rales or rhonchi. HEART: Irregular rate and rhythm without murmurs, rubs or gallops. S1 and S2 heard. EXTREMITIES: Normal range of motion, no edema. No clubbing or cyanosis. Peripheral pulses intact. ASSESSMENT Chronic persistent atrial fibrillation, rate controlled. Xarelto was resumed Acute blood loss anemia secondary to GI bleeding Status post incarcerated right femoral hernia repair Episode of V. fib requiring intubation and CPR PLAN Stable on current regimen. Continue long-term anticoagulation. Follow-up my office with Dr. Morris. We will follow along as needed. Nurse Practitioner note has been reviewed, I agree with a documented findings and plan of care. Patient was seen and examined. Objective - Vital Signs Vital signs: Vital Signs Temp 98.7 F 05/23/20 11:31 Pulse 83 05/23/20 11:31 Resp 19 05/23/20 11:31 BP 122/62 05/23/20 11:31 Pulse Ox 97 05/23/20 11:31 Intake & Output 05/22/20 05/23/20 05/23/20 18:59 06:59 18:59 Intake Total 160 Output Total 200 Balance -200 160 Intake: IV 160 Sodium Chloride 0.9% 1, 160 000 ml @ 20 mls/hr IV . Q24H [facility] Rx#:[id number] Output: Urine 200 Other: Voiding Method Urinal Urinal Urinal # Voids 2 - Labs CBC & Chem 7: 05/23/20 07:39 05/23/20 07:39 Labs: Abnormal Lab Results - Last 24 Hours (Table) 05/23/20 05/23/20 05/23/20 Range/Units 00:29 07:39 07:39 RBC 3.87 L (4.30-5.90) m/uL Hgb 7.8 L (13.0-17.5) gm/dL Hct 26.8 L (39.0-53.0) % MCV 69.2 L (80.0-100.0) fL MCH 20.2 L (25.0-35.0) pg MCHC 29.2 L (31.0-37.0) g/dL RDW 22.4 H (11.5-15.5) % Sodium 131 L (137-145) mmol/L Potassium 3.1 L (3.5-5.1) mmol/L Creatinine 0.63 L (0.66-1.25) mg/dL Glucose 118 H (74-99) mg/dL Calcium 7.6 L (8.4-10.2) mg/dL
--- NOTE | 2020-05-23 15:33 | P.PN ---
Subjective 84-year-old male with a history of atrial fibrillation and multiple medical problems as below, patient was admitted on 05/12 for acute blood loss anemia secondary to GI bleed and found to have right femoral hernia that needed surgical repair. 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 Surgery and GI team are following. Postoperatively he underwent cardiac arrest with A. fib and V. fib. Pulmonary: The patient stable yesterday. Surgery Aid on board for his A. fib. Xarelto still on hold. This morning he had been tried to his diet. However he was hungry, he denies nausea vomiting, no bowel pain he had one bowel movement last night with no blood. Hemoglobin is 7.7 and this morning 7.4, sodium 132, potassium 3.2 been replaced. Xarelto has been started yesterday by cardiology team, also he was started on Coreg 6.25 mg twice a day 05/23/2020 Patient is approved to go to subacute rehabilitation but patient has bilateral pleural effusions because of which patient was started on IV Lasix patient is also with hyponatremic probably hypervolemic hyponatremia. Patient has elevated proBNP. Patient the will be monitored today for his heart failure improves will be discharged to subacute rehabilitation tomorrow. Patient is still quite weak although feels better still on oxygen which we'll try to wean off. Chest x-ray is consistent with CHF with bilateral pleural effusions.Constitutional: Denied any fatigue denied any fever. Cardio vascular: denied any chest pain, palpitations Gastrointestinal denied any nausea vomiting Pulmonary: Denied any shortness of breath cough Neurologic denied any new focal deficits All inpatient medications were reviewed and appropriate changes in these medications as dictated in the interval history and assessment and plan. Objective - Vital Signs Vital signs: Vital Signs Temp 97.5 F L 05/23/20 14:57 Pulse 79 05/23/20 14:57 Resp 19 05/23/20 14:57 BP 125/75 05/23/20 14:57 Pulse Ox 96 05/23/20 14:57 Intake & Output 05/22/20 05/23/20 05/23/20 18:59 06:59 18:59 Intake Total 160 Output Total 200 Balance -200 160 Intake: IV 160 Sodium Chloride 0.9% 1, 160 000 ml @ 20 mls/hr IV . Q24H [facility] Rx#:[id number] Output: Urine 200 Other: Voiding Method Urinal Urinal Urinal # Voids 2 - Exam PHYSICAL EXAMINATION: GENERAL: The patient is alert and oriented x3, not in any acute distress. Well developed, well nourished. Patient appears to be significantly lethargic and weak although denies any complaints HEENT: Pupils are round and equally reacting to light. EOMI. No scleral icterus. No conjunctival pallor. Normocephalic, atraumatic. No pharyngeal erythema. No thyromegaly. CARDIOVASCULAR: S1 and S2 present. No murmurs, rubs, or gallops. PULMONARY: Chest is clear to auscultation, no wheezing or crackles. ABDOMEN: Soft, nontender, nondistended, normoactive bowel sounds. No palpable organomegaly. MUSCULOSKELETAL: No joint swelling or deformity. EXTREMITIES: No cyanosis, clubbing, or pedal edema. NEUROLOGICAL: Gross neurological examination did not reveal any focal deficits. SKIN: No rashes. - Labs CBC & Chem 7: 05/23/20 07:39 05/23/20 07:39 Labs: Abnormal Lab Results - Last 24 Hours (Table) 05/23/20 05/23/20 05/23/20 Range/Units 00:29 07:39 07:39 RBC 3.87 L (4.30-5.90) m/uL Hgb 7.8 L (13.0-17.5) gm/dL Hct 26.8 L (39.0-53.0) % MCV 69.2 L (80.0-100.0) fL MCH 20.2 L (25.0-35.0) pg MCHC 29.2 L (31.0-37.0) g/dL RDW 22.4 H (11.5-15.5) % Sodium 131 L (137-145) mmol/L Potassium 3.1 L (3.5-5.1) mmol/L Creatinine 0.63 L (0.66-1.25) mg/dL Glucose 118 H (74-99) mg/dL Calcium 7.6 L (8.4-10.2) mg/dL Assessment and Plan Plan: Assessment and Plan Assessment: - Incarcerated right inguinal hernia with small bowel obstruction.Status post in guinal hernia repair. Patient is tolerating diet well and has regular bowel movements - Abdominal pain secondary to acute small bowel ileus and possible obstruction. improved now. . Acute blood loss anemia due to GI bleed. He is status post gold probe ablation for his duodenal angiectasia. - Hemoglobin is stable, patient was started on Xarelto -Congestive heart failure chronic diastolic dysfunction with acute exacerbation IV Lasix as mentioned above -Hypervolemic hyponatremia expected to improve with Lasix - Persistent Atrial fibrillation; remains rate controlled on Coreg 6.25 mg twice a day; anticoagulation restarted by operations supervisor chemical cleaning team - Hypertension; continue with lisinopril 5 mg daily and Coreg 6.25 mg twice a day - Electrolyte imbalance/hyponatremia; sodium level stabilized at 131; we will continue to monitor electrolytes and supplement as needed DVT prophylaxis; SCDs only d
[2020-05-23] MEDS: RIVAROXABAN 20 MG TAB PO SCH (16:07)
[2020-05-24] MEDS: carvediloL 6.25 MG TAB PO SCH (08:06)
[2020-05-24] MEDS: GABAPENTIN 400 MG CAP PO SCH ×2 (08:06→08:08)
[2020-05-24] MEDS: PANTOPRAZOLE 40 MG/10 ML VIAL IV SCH (08:34)
[2020-05-24 09:07] LABS: Anisocytosis Moderate; HCT 27.6 % (39.0-53.0); HGB 8.1 gm/dL (13.0-17.5); Hypochromasia Marked; MCHC 29.3 g/dL (31.0-37.0); MCV 68.1 fL (80.0-100.0); Mean Platelet Volume 6.7; Microcytosis Marked; Platelet Count 207 k/uL (150-450); Poikilocytosis Slight; RBC 4.05 m/uL (4.30-5.90); RDW 22.8 % (11.5-15.5); WBC 7.6 k/uL (3.8-10.6)
[2020-05-24 09:24] LABS: African American GFR (CKD) >90 (>60 ml/min/1.73 sqM); Anion Gap 7 mmol/L; Blood Urea Nitrogen 10 mg/dL (9-20); Calcium 7.8 mg/dL (8.4-10.2); Carbon Dioxide 28 mmol/L (22-30); Chloride 96 mmol/L (98-107); Glucose 117 mg/dL (74-99); Non-African American GFR(CKD) 88 (>60 ml/min/1.73 sqM); Potassium 3.2 mmol/L (3.5-5.1); Sodium 131 mmol/L (137-145)
[2020-05-24] MEDS: POTASSIUM CHLORIDE ER 20 MEQ TAB.ER PO SCH ×2 (10:56→11:44)
--- NOTE | 2020-05-24 12:42 | P.DS ---
Providers Date of admission: 05/12/20 15:25 Attending physician: Lisandra Cooper Consults: 05/12/20 15:27 Consult Physician Urgent Consulting Provider: Annika Morris Consult Reason/Comments: anemia, cardiac pt Do you want consulting provider notified?: Yes 05/18/20 11:34 Consult Physician Urgent Consulting Provider: Frank Morgan Consult Reason/Comments: ileus vs SBO s/p EGD/Colonoscopy Do you want consulting provider notified?: Yes 05/18/20 22:49 Consult Physician Stat Consulting Provider: Clint Elizondo Consult Reason/Comments: mechanical ventilation Do you want consulting provider notified?: Already Contacted 05/18/20 23:42 Consult Physician Stat Consulting Provider: Clint Elizondo Consult Reason/Comments: ICU management Do you want consulting provider notified?: Already Contacted Primary care physician: Falguni Cuenca [facility] Course: 84-year-old male with a history of atrial fibrillation and multiple medical problems as below, patient was admitted on 05/12 for acute blood loss anemia secondary to GI bleed and found to have right femoral hernia that needed surgical repair. 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 Surgery and GI team are following. Postoperatively he underwent cardiac arrest with A. fib and V. fib. Pulmonary: The patient stable yesterday. Adventure Therapist on board for his A. fib. Xarelto still on hold. This morning he had been tried to his diet. However he was hungry, he denies nausea vomiting, no bowel pain he had one bowel movement last night with no blood. Hemoglobin is 7.7 and this morning 7.4, sodium 132, potassium 3.2 been replaced. Xarelto has been started yesterday by cardiology team, also he was started on Coreg 6.25 mg twice a day 05/23/2020 Patient is approved to go to subacute rehabilitation but patient has bilateral pleural effusions because of which patient was started on IV Lasix patient is also with hyponatremic probably hypervolemic hyponatremia. Patient has elevated proBNP. Patient the will be monitored today for his heart failure improves will be discharged to subacute rehabilitation tomorrow. Patient is still quite weak although feels better still on oxygen which we'll try to wean off. Chest x-ray is consistent with CHF with bilateral pleural effusions.Constitutional: Denied any fatigue denied any fever. 05/24/2020 Patient is off Lasix patient is off oxygen. Patient appears to have some chronic diastolic dysfunction with acute exacerbation patient was switched to 20 mg of oral Lasix patient's serum sodium is 131 remains stable at this level. I'm expecting it'll improve patient will need a repeat basic metabolic profile and now around 3-4 days. Patient was started on anticoagulation for gram atrial fibrillation patient is presently rate controlled. Discussed with gastroenterology because of his recent GI bleed secondary to duodenal ectasia which was clamped. PHYSICAL EXAMINATION: GENERAL: The patient is alert and oriented x3, thin built significantly weak. HEENT: Pupils are round and equally reacting to light. EOMI. No scleral icterus. No conjunctival pallor. Normocephalic, atraumatic. No pharyngeal erythema. No thyromegaly. CARDIOVASCULAR: S1 and S2 present. No murmurs, rubs, or gallops. PULMONARY: Chest is clear to auscultation, no wheezing or crackles. ABDOMEN: Soft, nontender, nondistended, normoactive bowel sounds. No palpable organomegaly. MUSCULOSKELETAL: No joint swelling or deformity. EXTREMITIES: No cyanosis, clubbing, or pedal edema. NEUROLOGICAL: Gross neurological examination did not reveal any focal deficits. SKIN: No rashes. Assessment and Plan Assessment: - Incarcerated right inguinal hernia with small bowel obstruction.Status post inguinal hernia repair. . Acute blood loss anemia due to GI bleed. He is status post gold probe ablation for his duodenal angiectasia. - Hemoglobin is stable, patient was started on Xarelto -Congestive heart failure chronic diastolic dysfunction with acute exacerbation improved now and patient is off oxygen -hyponatremia: Secondary to IV diuretics expected to improve as diuretics are being changed to oral now - Persistent Atrial fibrillation; remains rate controlled on Coreg 6.25 mg twice a daypatient is on anti-correlation as mentioned above - Hypertension; continue with lisinopril 5 mg daily and Coreg 6.25 mg twice a day Plan - Discharge Summary Discharge Rx Participant: Yes New Discharge Prescriptions: New Pantoprazole Sodium [Protonix] 40 mg PO DAILY #30 tablet. Rivaroxaban [Xarelto] 20 mg PO W/SUPPER #0 tab Continue Furosemide [Lasix] 20 mg PO DAILY #30 tab lisinopriL [Zestril] 5 mg PO DAILY Gabapentin [Neurontin] 400 mg PO TID carvediloL [Coreg] 6.25 mg PO AC-BID Discharge Medication List Furosemide [Lasix] 20 mg PO DAILY #30 tab 04/11/15 [Rx] Gabapentin [Neurontin] 400 mg PO TID 05/12/20 [History] carvediloL [Coreg] 6.25 mg PO AC-BID 05/12/20 [History] lisinopriL [Zestril] 5 mg PO DAILY 05/12/20 [History] Pantoprazole Sodium [Protonix] 40 mg PO DAILY #30 tablet. 05/24/20 [Rx] Rivaroxaban [Xarelto] 20 mg PO W/SUPPER #0 tab 05/24/20 [Rx] Follow up Appointment(s)/Referral(s): Fer Mott MD [STAFF PHYSICIAN] - 1 Week Falguni Cuenca DO [Primary Care Provider] - 1-2 days Annika Morris MD [STAFF PHYSICIAN] - 06/08/20 2:30 pm Vinicio Villasenor MD [STAFF PHYSICIAN] - 06/05/20 3:15 pm Patient Instructions/Handouts: Gastrointestinal Bleeding (DC), Anemia (DC) Discharge Disposition: TRANSFER TO SNF/ECF
--- NOTE | 2020-05-24 14:15 | P.PN ---
Subjective Progress Note Date: 05/24/20 CHIEF COMPLAINT: HISTORY OF PRESENT ILLNESS: Status post right femoral hernia repair. Patient denies any pain. Denies any nausea or vomiting. Reports tolerating diet. Reports having bowel movements. Low-grade temp of 100 this morning. WBC 7.6 PHYSICAL EXAM: VITAL SIGNS: Reviewed. GENERAL: Well-developed in no acute distress. HEENT: No sclera icterus. Extraocular movements grossly intact. Moist buccal mucosa. Head is atraumatic, normocephalic. ABDOMEN: Soft. Nondistended. Nontender. Right groin incision clean dry and intact NEUROLOGIC: Alert and oriented. Cranial nerves II through XII grossly intact. ASSESSMENT: 1. Status post repair of incarcerated right femoral hernia PLAN: Patient is surgically stable for discharge Physician Inserting Operator note has been reviewed by physician. Signing provider agrees with the documented findings, assessment, and plan of care. Objective - Vital Signs Vital signs: Vital Signs Temp 98.2 F 05/24/20 07:00 Pulse 69 05/24/20 07:00 Resp 18 05/24/20 07:00 BP 117/72 05/24/20 07:00 Pulse Ox 93 L 05/24/20 07:00 Intake & Output 05/23/20 05/24/20 05/24/20 18:59 06:59 18:59 Intake Total 160 160 Output Total 550 Balance 160 -550 160 Weight 70 kg Intake: IV 160 160 Sodium Chloride 0.9% 1, 160 160 000 ml @ 20 mls/hr IV . Q24H [facility] Rx#:[id number] Output: Urine 550 Other: Voiding Method Urinal Urinal # Voids 1 - Labs CBC & Chem 7: 05/24/20 07:54 05/24/20 07:54 Labs: Abnormal Lab Results - Last 24 Hours (Table) 05/24/20 05/24/20 Range/Units 07:54 07:54 RBC 4.05 L (4.30-5.90) m/uL Hgb 8.1 L (13.0-17.5) gm/dL Hct 27.6 L (39.0-53.0) % MCV 68.1 L (80.0-100.0) fL MCH 20.0 L (25.0-35.0) pg MCHC 29.3 L (31.0-37.0) g/dL RDW 22.8 H (11.5-15.5) % Sodium 131 L (137-145) mmol/L Potassium 3.2 L (3.5-5.1) mmol/L Chloride 96 L (98-107) mmol/L Glucose 117 H (74-99) mg/dL Calcium 7.8 L (8.4-10.2) mg/dL
[2020-05-24 14:22] VITALS: BP 104/61; PULSE 92; RESP 20; TEMP 98
--- NOTE | 2020-06-05 09:58 | CDI ---
Documentation Clarification Form Date: 06/05/2020 09:38:00 AM From: Binta Clayton RN, CCDS Admit Date: 05/12/2020 03:25:00 PM Patient Name: Bj Gutierrez Visit Number: [id number] Discharge Date: 05/24/2020 04:44:00 PM ATTENTION: The Clinical Documentation Specialists (CDI) and [facility] Coding Staff appreciate your assistance in clarifying documentation. Please respond to the clarification below the line at the bottom and electronically sign. The CDI & [facility] Coding staff will review the response and follow-up if needed. Please note: Queries are made part of the Legal Health Record. If you have any questions, please contact the author of this message via ITS. Dr. Clint Elizondo 05/19 Cardiopulmonary arrest which required CPR for Atrial fibrillation and Ventricular fibrillation is documented in the pulmonary progress note on 05/19/20. Please provide possible indication of ventricular fibrillation. Patients Preoperative Diagnosis: Incarcerated inguinal hernia Post-Operative Diagnosis: Incarcerated femoral hernia 05/18 Procedure performed: Femoral hernia History/Risk Factors: Persistent Atrial Fibrillation, GI Bleeding, Coronary artery disease, Hypertension, CHF Clinical Indicators: 84-year-old male on 05/18 was post procedure femoral hernia repair was extubated to simple mask @ 8/L at 21:25 in recovery. 06/19 Pulmonary consult: "At post extubation, the patient developed cardiopulmonary arrest, which required CPR for an unknown period of time with eventual return of spontaneous circulation. He apparently did receive atropine, had some atrial fibrillation and ventricular fibrillation and was eventually resuscitated". 05/18 at 22:15 vital signs; 119/59 100 14 Reintubated at 22:30 vital signs 85/50 80 14 on mechanical vent. Treatment: ICU monitoring Mechanical ventilation (reintubation) Adrenalin 1ml IV X1 Atropine 1mg IVP X1 .9NS 20 mls hr, Propofol at 23 mcg/kg per min In order to accurately reflect this patients severity of illness, please clarify if the patient ventricular fibrillation: -is a complication of surgical procedure -is an expected outcome of the surgical procedure -is related to co-morbid condition(s) of -Other please specify -Unable to determine (Last Revision: November 2019) Unable to determine MTDD
== END 2020-05-24 16:44 | DRG 350 ==
LOC: EC 14:04 → 3SCARD 15:25 → 2SICU 05-18 22:16 → 4SSUR 05-21 06:17
PROVIDERS: ADMIT Internal Medicine; ATTEND Internal Medicine
PROC: 0DB98ZX Excision of Duodenum, Via Natural or Artificial Opening Endoscopic, Diagnostic (ICD-10-PCS; 2020-05-15 07:30)
PROC: 0D588ZZ Destruction of Small Intestine, Via Natural or Artificial Opening Endoscopic (ICD-10-PCS; 2020-05-15 07:30)
PROC: 0DJD8ZZ Inspection of Lower Intestinal Tract, Via Natural or Artificial Opening Endoscopic (ICD-10-PCS; 2020-05-15 07:30)
PROC: 0DB78ZX Excision of Stomach, Pylorus, Via Natural or Artificial Opening Endoscopic, Diagnostic (ICD-10-PCS; 2020-05-15 07:30)
PROC: 30233N1 Transfusion of Nonautologous Red Blood Cells into Peripheral Vein, Percutaneous Approach (ICD-10-PCS; 2020-05-15 07:30)
PROC: 0YU70JZ Supplement Right Femoral Region with Synthetic Substitute, Open Approach (ICD-10-PCS; principal; 2020-05-18 19:17)
PROC: 3E033XZ Introduction of Vasopressor into Peripheral Vein, Percutaneous Approach (ICD-10-PCS; 2020-05-19)
PROC: 5A1945Z Respiratory Ventilation, 24-96 Consecutive Hours (ICD-10-PCS; 2020-05-19)
PROC: 0BH17EZ Insertion of Endotracheal Airway into Trachea, Via Natural or Artificial Opening (ICD-10-PCS; 2020-05-19)
DX: K31.811 Angiodysplasia of stomach and duodenum with bleeding (principal); I49.01 Ventricular fibrillation; I46.9 Cardiac arrest, cause unspecified; J96.01 Acute respiratory failure with hypoxia; I50.43 Acute on chronic combined systolic (congestive) and diastolic (congestive) heart failure; K41.30 Unilateral femoral hernia, with obstruction, without gangrene, not specified as recurrent; D62 Acute posthemorrhagic anemia; D68.9 Coagulation defect, unspecified; E87.1 Hypo-osmolality and hyponatremia; I48.21 Permanent atrial fibrillation; K56.7 Ileus, unspecified; I25.10 Atherosclerotic heart disease of native coronary artery without angina pectoris; I11.0 Hypertensive heart disease with heart failure; E78.5 Hyperlipidemia, unspecified; Z11.59 Encounter for screening for other viral diseases; K57.90 Diverticulosis of intestine, part unspecified, without perforation or abscess without bleeding; K29.70 Gastritis, unspecified, without bleeding; Z79.01 Long term (current) use of anticoagulants; Z79.899 Other long term (current) drug therapy; Z98.890 Other specified postprocedural states; Z87.891 Personal history of nicotine dependence; Z82.49 Family history of ischemic heart disease and other diseases of the circulatory system
CPT/HCPCS: 36415; 36600; 43239; 43270; 45378; 71045; 74018; 74176; 80048; 80053; 81001; 82272; 82805; 83735; 83880; 84132; 84439; 84443; 84484; 85025; 85027; 85610; 85730; 86850; 86900; 86901; 86920; 87635; 88302; 88305; 88342; 93005; 93306; 94002; 94003; 96374; 99285

== ENCOUNTER 2020-06-02 17:26 | Inpatient (IN) | payer MEDICARE, OTHER ==
[2020-06-02 18:34] LABS: Anisocytosis Moderate; Basophils % (A) 1 %; Eosinophils # (A) 0.2 k/uL (0-0.7); Eosinophils % (A) 4 %; HCT 26.6 % (39.0-53.0); HGB 7.7 gm/dL (13.0-17.5); Hypochromasia Marked; Lymphocytes # (A) 1.1 k/uL (1.0-4.8); Lymphocytes % (A) 21 %; MCH 19.8 pg (25.0-35.0); MCV 68.3 fL (80.0-100.0); Mean Platelet Volume 6.8; Microcytosis Marked; Monocytes # (A) 0.5 k/uL (0-1.0); Monocytes % (A) 8 %; Neutrophils # (A) 3.5 k/uL (1.3-7.7); Neutrophils % (A) 64 %; Platelet Count 485 k/uL (150-450); Poikilocytosis Slight; RBC 3.89 m/uL (4.30-5.90); RDW 22.7 % (11.5-15.5); WBC 5.5 k/uL (3.8-10.6)
--- NOTE | 2020-06-02 18:43 | ED ---
GI Bleed HPI - General Chief complaint: GI Bleed Stated complaint: Abnormal Labs Time Seen by Provider: 06/02/20 18:05 Source: EMS Mode of arrival: EMS Limitations: no limitations - History of Present Illness Initial comments: 84-year-old male who presents emergency department from [facility] for low hemoglobin. Patient was recently hospitalized and had a GI bleed with clipping due to a duodenal angiectasia. He was then sent to [facility] where his hemoglobin has been stable up until today. Labs were performed and the patient had a hemoglobin of 6.8. He was instructed to come to the hospital to get up blood transfusion. Patient thought he was going to [facility]. EMS did transfer him here. He denies any black, tarry or sticky stools. No hematochezia. Reports he was placed back on his Elquis for his A. fib. Has been feeling well here he denies any weakness. Eyes hemoptysis or hematemesis. No nausea or vomiting. Good oral intake. The remainder of the HPI is limited as the patient is a very poor historian - Related Data Home Medications Medication Instructions Recorded Confirmed carvediloL [Coreg] 6.25 mg PO BID@0600,1700 05/12/20 06/02/20 lisinopriL [Zestril] 5 mg PO DAILY@0800 05/12/20 06/02/20 Acetaminophen [Tylenol Arthritis] 650 mg PO Q4H PRN 06/02/20 06/02/20 Furosemide [Lasix] 20 mg PO DAILY@0800 06/02/20 06/02/20 Gabapentin [Neurontin] 400 mg PO TID@0600,1400,2100 06/02/20 06/02/20 Lactose-Reduced Food [Ensure Plus] 1 can PO BID@0800,1700 06/02/20 06/02/20 Loperamide [Imodium] 2 mg PO DAILY PRN 06/02/20 06/02/20 Magnesium Hydroxide [Milk of 7,200 mg PO DAILY PRN 06/02/20 06/02/20 Magnesia Concentrate] Na Phos,M-B/Na Phos,Di-Ba [Fleet 133 ml RECTAL DAILY PRN 06/02/20 06/02/20 Adult] Omeprazole 20 mg PO BID@0800,1700 06/02/20 06/02/20 Pantoprazole Sodium [Protonix] 40 mg PO DAILY@0600 06/02/20 06/02/20 Potassium Citrate [Potassium 10 meq PO DAILY@0806/02/20 06/02/20 Citrate ER] bisacodyL [Dulcolax] 10 mg RECTAL DAILY PRN 06/02/20 06/02/20 Allergies Allergy/AdvReac Type Severity Reaction Status Date / Time No Known Allergies Allergy Verified 06/02/20 19:56 Review of Systems ROS Statement: Those systems with pertinent positive or pertinent negative responses have been documented in the HPI. ROS Other: All systems not noted in ROS Statement are negative. Past Medical History Past Medical History: Atrial Fibrillation, Coronary Artery Disease (CAD), Heart Failure, Hypertension Additional Past Medical History / Comment(s): 10/09/17 slip and fall on ice with left tibia fracture, has splint on, and is no weight bearing History of Any Multi-Drug Resistant Organisms: None Reported Past Surgical History: Hernia Repair Past Anesthesia/Blood Transfusion Reactions: No Reported Reaction Past Psychological History: No Psychological Hx Reported Smoking Status: Former smoker Past Alcohol Use History: None Reported Past Drug Use History: None Reported - Past Family History Mother History Unknown: Yes Father Family Medical History: Coronary Artery Disease (CAD) Sister(s) History Unknown: Yes Brother(s) History Unknown: Yes Daughter(s) Family Medical History: No Reported History Son(s) Family Medical History: No Reported History General Exam Limitations: no limitations General appearance: alert, in no apparent distress Head exam: Present: atraumatic, normocephalic, normal inspection Eye exam: Present: normal appearance, PERRL, EOMI. Absent: scleral icterus, conjunctival injection, periorbital swelling ENT exam: Present: normal exam, mucous membranes moist Neck exam: Present: normal inspection. Absent: tenderness, meningismus, lymphadenopathy Respiratory exam: Present: normal lung sounds bilaterally. Absent: respiratory distress, wheezes, rales, rhonchi, stridor Cardiovascular Exam: Present: regular rate, normal rhythm, normal heart sounds. Absent: systolic murmur, diastolic murmur, rubs, gallop, clicks GI/Abdominal exam: Present: soft, normal bowel sounds. Absent: distended, tenderness, guarding, rebound, rigid Rectal exam: Present: normal inspection, normal rectal tone. Absent: black stool, bloody stool Extremities exam: Present: normal inspection, full ROM, normal capillary refill. Absent: tenderness, pedal edema, joint swelling, calf tenderness Back exam: Present: normal inspection Neurological exam: Present: alert, oriented X3, CN II-XII intact Psychiatric exam: Present: normal affect, normal mood Skin exam: Present: warm, dry, intact, normal color. Absent: rash Course Vital Signs 06/02/20 06/02/20 18:02 19:37 Pulse Rate 84 97 Respiratory 16 Rate Blood Pressure 128/85 139/83 O2 Sat by Pulse 97 Oximetry Medical Decision Making - Medical Decision Making Upon arrival the patient is placed in room 4. A thorough history and physical exam was performed. Patient has accompanied blood work which reports a hemoglobin of 6.8. As I am assuming that the patient is continuously losing blood I did perform a rectal exam which does not demonstrate any gross blood. Specimen is sent for occult testing. I did repeat the patient's labs which demonstrates a hemoglobin of 7.7. PT patient is fecal occult positive. The pa angel does have a stable hemoglobin at this time he will not be transfused. I did recommend hospital admission order repeat labs in the morning as the patient is still fecal occult blood positive. He did agree to this. I discussed the case with Petty from [facility]. Patient was transferred to the floor in stable condition - Lab Data Result diagrams: 06/06/20 07:45 06/04/20 09:10 Lab Results 06/02/20 06/02/20 06/02/20 Range/Units 18:17 18:17 18:17 WBC 5.5 (3.8-10.6) k/uL RBC 3.89 L (4.30-5.90) m/uL Hgb 7.7 L (13.0-17.5) gm/dL Hct 26.6 L (39.0-53.0) % MCV 68.3 L (80.0-100.0) fL MCH 19.8 L (25.0-35.0) pg MCHC 29.0 L (31.0-37.0) g/dL RDW 22.7 H (11.5-15.5) % Plt Count 485 H (150-450) k/uL Neutrophils % 64 % Lymphocytes % 21 % Monocytes % 8 % Eosinophils % 4 % Basophils % 1 % Neutrophils # 3.5 (1.3-7.7) k/uL Lymphocytes # 1.1 (1.0-4.8) k/uL Monocytes # 0.5 (0-1.0) k/uL Eosinophils # 0.2 (0-0.7) k/uL Basophils # 0.0 (0-0.2) k/uL Hypochromasia Marked Poikilocytosis Slight Anisocytosis Moderate Microcytosis Marked PT 13.0 H (9.0-12.0) sec INR 1.3 H (<1.2) APTT 39.0 H (22.0-30.0) sec Sodium 132 L (137-145) mmol/L Potassium 4.2 (3.5-5.1) mmol/L Chloride 97 L (98-107) mmol/L Carbon Dioxide 26 (22-30) mmol/L Anion Gap 9 mmol/L BUN 17 (9-20) mg/dL Creatinine 0.91 (0.66-1.25) mg/dL Est GFR (CKD-EPI)AfAm 90 (>60 ml/min/1.73 sqM) Est GFR (CKD-EPI)NonAf 78 (>60 ml/min/1.73 sqM) Glucose 103 H (74-99) mg/dL Plasma Lactic Acid Surinder (0.7-2.0) mmol/L Calcium 8.3 L (8.4-10.2) mg/dL Total Bilirubin 0.7 (0.2-1.3) mg/dL AST 20 (17-59) U/L ALT 9 (4-49) U/L Alkaline Phosphatase 112 (38-126) U/L Total Protein 6.0 L (6.3-8.2) g/dL Albumin 3.4 L (3.5-5.0) g/dL Stool Occult Blood (Negative) 06/02/20 06/02/20 Range/Units 18:17 18:23 WBC (3.8-10.6) k/uL RBC (4.30-5.90) m/uL Hgb (13.0-17.5) gm/dL Hct (39.0-53.0) % MCV (80.0-100.0) fL MCH (25.0-35.0) pg MCHC (31.0-37.0) g/dL RDW (11.5-15.5) % Plt Count (150-450) k/uL Neutrophils % % Lymphocytes % % Monocytes % % Eosinophils % % Basophils % % Neutrophils # (1.3-7.7) k/uL Lymphocytes # (1.0-4.8) k/uL Monocytes # (0-1.0) k/uL Eosinophils # (0-0.7) k/uL Basophils # (0-0.2) k/uL Hypochromasia Poikilocytosis Anisocytosis Microcytosis PT (9.0-12.0) sec INR (<1.2) APTT (22.0-30.0) sec Sodium (137-145) mmol/L Potassium (3.5-5.1) mmol/L Chloride (98-107) mmol/L Carbon Dioxide (22-30) mmol/L Anion Gap mmol/L BUN (9-20) mg/dL Creatinine (0.66-1.25) mg/dL Est GFR (CKD-EPI)AfAm (>60 ml/min/1.73 sqM) Est GFR (CKD-EPI)NonAf (>60 ml/min/1.73 sqM) Glucose (74-99) mg/dL Plasma Lactic Acid Surinder 1.1 (0.7-2.0) mmol/L Calcium (8.4-10.2) mg/dL Total Bilirubin (0.2-1.3) mg/dL AST (17-59) U/L ALT (4-49) U/L Alkaline Phosphatase (38-126) U/L Total Protein (6.3-8.2) g/dL Albumin (3.5-5.0) g/dL Stool Occult Blood Positive (Negative) - EKG Data EKG Comments: EKG demonstrates A. fib with a rate of 75. QRS 90. QTC of 49. No acute ST segment elevations or depressions Disposition Clinical Impression: Anemia Disposition: ADMITTED IP TO THIS HOSP Condition: Stable Is patient prescribed a controlled substance at d/c from ED?: No Decision to Admit Reason: Admit from EC Decision Date: 06/02/20 Decision Time: 18:42
[2020-06-02 18:51] LABS: INR 1.3 (<1.2)
[2020-06-02 19:12] LABS: Albumin 3.4 g/dL (3.5-5.0); Calcium 8.3 mg/dL (8.4-10.2); Potassium 4.2 mmol/L (3.5-5.1); Total Bilirubin 0.7 mg/dL (0.2-1.3)
[2020-06-02] MEDS ORDERED: NALOXONE 0.4 MG/ML 1 ML VIAL IV PRN (19:21)
[2020-06-02] MEDS ORDERED: bisacodyL 10 MG SUPP RECTAL PRN (22:13)
[2020-06-03] MEDS: ACETAMINOPHEN TAB 325 MG TAB PO PRN ×2 (00:39→19:41)
[2020-06-03] MEDS: carvediloL 6.25 MG TAB PO SCH ×2 (05:48→18:09)
[2020-06-03] MEDS: GABAPENTIN 400 MG CAP PO SCH ×3 (05:48→20:17)
[2020-06-03] MEDS ORDERED: PANTOPRAZOLE 40 MG TABLET PO SCH (06:00)
[2020-06-03 08:10] LABS: Anisocytosis Moderate; Basophils % (A) 1 %; Eosinophils # (A) 0.2 k/uL (0-0.7); Eosinophils % (A) 4 %; HCT 26.5 % (39.0-53.0); HGB 7.8 gm/dL (13.0-17.5); Hypochromasia Marked; Lymphocytes # (A) 0.9 k/uL (1.0-4.8); Lymphocytes % (A) 17 %; MCHC 29.3 g/dL (31.0-37.0); MCV 71.7 fL (80.0-100.0); Mean Platelet Volume 7.1; Microcytosis Marked; Monocytes # (A) 0.4 k/uL (0-1.0); Monocytes % (A) 8 %; Neutrophils # (A) 3.6 k/uL (1.3-7.7); Neutrophils % (A) 69 %; Platelet Count 404 k/uL (150-450); Poikilocytosis Slight; RDW 23.6 % (11.5-15.5); WBC 5.1 k/uL (3.8-10.6)
[2020-06-03 08:26] LABS: Potassium 3.9 mmol/L (3.5-5.1)
[2020-06-03 08:27] LABS: African American GFR (CKD) >90 (>60 ml/min/1.73 sqM); Anion Gap 6 mmol/L; Blood Urea Nitrogen 14 mg/dL (9-20); Calcium 8.1 mg/dL (8.4-10.2); Carbon Dioxide 28 mmol/L (22-30); Chloride 99 mmol/L (98-107); Glucose 96 mg/dL (74-99); Non-African American GFR(CKD) 81 (>60 ml/min/1.73 sqM); Sodium 133 mmol/L (137-145)
[2020-06-03] MEDS: FUROSEMIDE 20 MG TAB PO SCH (09:20)
[2020-06-03] MEDS: lisinopriL 5 MG TAB PO SCH (09:20)
--- NOTE | 2020-06-03 09:41 | P.HPIM ---
History of Present Illness This is a pleasant 84 years old male with past medical history of atrial fibrillation, acute GI bleed. Coronary artery disease, heart failure, hypertension. Patient was sent from our wait for low hemoglobin, his hemoglobin was 6.8 and he got one unit of blood transfusion. Patient denies abdominal pain, no nausea vomiting, no overt bleeding in the stool. No chest pain or dyspnea or other complaints He was recently discharged from the hospital 05/12-05/24 for GI bleed and he was in the ICU for short time. 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 His course was complicated by postop cardiac arrest with A. fib and V. fib. Xarelto was held at that time for short time and then resumed prior to discharge, found to have some diastolic dysfunction Vitas looks stable EKG showing A. fib at [address]-T changes. CBC showing low hemoglobin 7.7 and 7.8, compared to 8.1 upon discharge last time. He is status post one unit of blood transfusion. BMP and liver enzymes were unremarkable. Lactic acid is normal at 1.1. Positive occult blood in stool Review of Systems CONSTITUTIONAL: No fever, no malaise, no fatigue. HEENT: No recent visual problems or hearing problems. Denied any sore throat. CARDIOVASCULAR: No orthopnea, PND, no palpitations, no syncope. PULMONARY: No shortness of breath, no cough, no hemoptysis. GASTROINTESTINAL: No diarrhea, no nausea, no vomiting, no abdominal pain. Normoactive bowel sounds. NEUROLOGICAL: No headaches, no weakness, no numbness. HEMATOLOGICAL: Denies any bleeding or petechiae. GENITOURINARY: Denies any burning micturition, frequency, or urgency. MUSCULOSKELETAL/RHEUMATOLOGICAL: Denies any joint pain, swelling, or any muscle pain. ENDOCRINE: Denies any polyuria or polydipsia. Past Medical History Past Medical History: Atrial Fibrillation, Coronary Artery Disease (CAD), Heart Failure, Hypertension Additional Past Medical History / Comment(s): 10/09/17 slip and fall on ice with left tibia fracture, has splint on, and is no weight bearing History of Any Multi-Drug Resistant Organisms: None Reported Past Surgical History: Hernia Repair Additional Past Surgical History / Comment(s): Ankle surgery; hernia repair x 2 Past Anesthesia/Blood Transfusion Reactions: No Reported Reaction Past Psychological History: No Psychological Hx Reported Smoking Status: Former smoker Past Alcohol Use History: None Reported Past Drug Use History: None Reported - Past Family History Mother History Unknown: Yes Father Family Medical History: Coronary Artery Disease (CAD) Sister(s) History Unknown: Yes Brother(s) History Unknown: Yes Daughter(s) Family Medical History: No Reported History Son(s) Family Medical History: No Reported History Medications and Allergies Home Medications Medication Instructions Recorded Confirmed Type carvediloL [Coreg] 6.25 mg PO BID@0600,1700 05/12/20 06/02/20 History lisinopriL [Zestril] 5 mg PO DAILY@0805/12/20 06/02/20 History Acetaminophen [Tylenol Arthritis] 650 mg PO Q4H PRN 06/02/20 06/02/20 History Amoxicillin 1,000 mg PO BID@0800,1700 06/02/20 06/02/20 History Clarithromycin 500 mg PO BID@0800,209906/02/20 06/02/20 History Furosemide [Lasix] 20 mg PO DAILY@0806/02/20 06/02/20 History Gabapentin [Neurontin] 400 mg PO TID@0600,1400,209906/02/20 06/02/20 History Lactose-Reduced Food [Ensure Plus] 1 can PO BID@0800,1700 06/02/20 06/02/20 History Loperamide [Imodium] 2 mg PO DAILY PRN 06/02/20 06/02/20 History Magnesium Hydroxide [Milk of 7,200 mg PO DAILY PRN 06/02/20 06/02/20 History Magnesia Concentrate] Na Phos,M-B/Na Phos,Di-Ba [Fleet 133 ml RECTAL DAILY PRN 06/02/20 06/02/20 History Adult] Omeprazole 20 mg PO BID@0800,0 06/02/20 06/02/20 History Pantoprazole Sodium [Protonix] 40 mg PO DAILY@0600 06/02/20 06/02/20 History Potassium Citrate [Potassium 10 meq PO DAILY@0800 06/02/20 06/02/20 History Citrate ER] Rivaroxaban [Xarelto] 20 mg PO DAILY@1700 06/02/20 06/02/20 History bisacodyL [Dulcolax] 10 mg RECTAL DAILY PRN 06/02/20 06/02/20 History Allergies Allergy/AdvReac Type Severity Reaction Status Date / Time No Known Allergies Allergy Verified 06/02/20 19:56 Physical Exam Vitals: Vital Signs Temp Pulse Pulse Pulse Resp BP BP 06/03/20 04:51 97.7 F 85 17 124/72 06/03/20 04:26 97.9 F 75 16 145/75 06/03/20 02:38 97.7 F 73 16 123/65 06/03/20 02:08 97.5 F L 91 16 125/69 06/03/20 02:05 98 F 84 16 113/68 06/03/20 01:58 98 F 84 16 113/68 06/03/20 01:53 97.9 F 84 16 123/74 06/03/20 00:00 16 06/02/20 21:39 97.7 F 94 18 136/65 06/02/20 19:37 97 16 139/83 06/02/20 18:02 84 128/85 Pulse Ox 06/03/20 04:51 95 06/03/20 04:26 97 06/03/20 02:38 06/03/20 02:08 95 06/03/20 02:05 98 06/03/20 01:58 98 06/03/20 01:53 97 06/03/20 00:00 06/02/20 21:39 100 06/02/20 19:37 97 06/02/20 18:02 Intake and Output 06/02/20 06/03/20 06/03/20 22:59 06:59 14:59 Intake Total 310 Balance 310 Intake: Blood Product 310 Rc As-1 Unit 310 [id number] Other: # Voids 2 1 # Bowel Movements 1 # Emeses 0 Weight 72.575 kg 71.1 kg GENERAL: The patient is alert and oriented x3, not in any acute distress. Well developed, well nourished. HEENT: Pupils are round and equally reacting to light. EOMI. No scleral icterus. No conjunctival pallor. Normocephalic, atraumatic. No pharyngeal erythema. No thyromegaly. CARDIOVASCULAR: S1 and S2 present. No murmurs, rubs, or gallops. PULMONARY: Chest is clear to auscultation, no wheezing or crackles. ABDOMEN: Soft, nontender, nondistended, normoactive bowel sounds. No palpable organomegaly. MUSCULOSKELETAL: No joint swelling or deformity. EXTREMITIES: No cyanosis, clubbing, or pedal edema. NEUROLOGICAL: Gross neurological examination did not reveal any focal deficits. SKIN: No rashes. No petechiae Results CBC & Chem 7: 06/03/20 07:47 06/03/20 07:47 Labs: Abnormal Lab Results - Last 24 Hours (Table) 06/02/20 06/02/20 06/02/20 Range/Units 18:17 18:17 18:17 RBC 3.89 L (4.30-5.90) m/uL Hgb 7.7 L (13.0-17.5) gm/dL Hct 26.6 L (39.0-53.0) % MCV 68.3 L (80.0-100.0) fL MCH 19.8 L (25.0-35.0) pg MCHC 29.0 L (31.0-37.0) g/dL RDW 22.7 H (11.5-15.5) % Plt Count 485 H (150-450) k/uL Lymphocytes # (1.0-4.8) k/uL PT 13.0 H (9.0-12.0) sec INR 1.3 H (<1.2) APTT 39.0 H (22.0-30.0) sec Sodium 132 L (137-145) mmol/L Chloride 97 L (98-107) mmol/L Glucose 103 H (74-99) mg/dL Calcium 8.3 L (8.4-10.2) mg/dL Total Protein 6.0 L (6.3-8.2) g/dL Albumin 3.4 L (3.5-5.0) g/dL Crossmatch 06/02/20 06/03/20 06/03/20 Range/Units 21:31 07:47 07:47 RBC 3.70 L (4.30-5.90) m/uL Hgb 7.8 L (13.0-17.5) gm/dL Hct 26.5 L (39.0-53.0) % MCV 71.7 L (80.0-100.0) fL MCH 21.0 L (25.0-35.0) pg MCHC 29.3 L (31.0-37.0) g/dL RDW 23.6 H (11.5-15.5) % Plt Count (150-450) k/uL Lymphocytes # 0.9 L (1.0-4.8) k/uL PT (9.0-12.0) sec INR (<1.2) APTT (22.0-30.0) sec Sodium 133 L (137-145) mmol/L Chloride (98-107) mmol/L Glucose (74-99) mg/dL Calcium 8.1 L (8.4-10.2) mg/dL Total Protein (6.3-8.2) g/dL Albumin (3.5-5.0) g/dL Crossmatch See Detail Thrombosis Risk Factor Assmnt - Choose All That Apply Any of the Below Risk Factors Present?: Yes Other Risk Factors: Yes Each Risk Factor Represents 3 Points: Age 75 years or older Thrombosis Risk Factor Assessment Total Risk Factor Score: 3 Thrombosis Risk Factor Assessment Level: Moderate Risk Assessment and Plan Assessment: Acute GI bleed Acute blood loss anemia Chronic atrial fibrillation on Xarelto 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 Monitor hemoglobin and transfuse blood as needed. I'll Xarelto. Continue with Protonix. GI consult Labs and medication were reviewed.. Continue same treatment. Continue with symptomatic treatment. Resume home medication. Monitor lytes and vitals. DVT and GI prophylaxis. Further recommendations of the clinical course of the patient DVT prophylaxis: No anti-coagulation in view of GI bleed GI Prophylaxis: Ppi PT/OT: Pending Prognosis is guarded
[2020-06-03] MEDS: PANTOPRAZOLE 40 MG/10 ML VIAL IVP SCH ×2 (11:14→20:17)
--- NOTE | 2020-06-03 21:43 | P.CONS ---
History of Present Illness - Reason for Consult Consult date: 06/03/20 Anemia Requesting physician: Ravin E Sheet - Chief Complaint Anemia - History of Present Illness 84-year-old male with medical history significant for atrial fibrillation, coronary artery disease, hypertension and recent hospitalization for anemia and presented back to the hospital due to low hemoglobin found to be 6.8. The patient denies any abdominal pain, nausea, vomiting, or any signs or symptoms of GI bleeding including hematemesis, coffee-ground emesis, melena or hematochezia. Patient had endoscopic evaluation on his hospitalization in April with findings of mild gastritis in the duodenal angiectasia treated with coagulation therapy with no active bleeding or old blood noted on EGD or colonoscopy and diverticulosis found on colonoscopy. Currently hemoglobin stable at 7.8 with WBC 5.1, platelet count 404,000. Stool testing was positive for occult blood on presentation. He also underwent hernia repair on his last hospitalization after developing abdominal pain secondary to an incarcerated hernia. Review of Systems REVIEW OF SYSTEMS: CONSTITUTIONAL: Denies any fevers, chills, weight change or fatigue. CARDIOVASCULAR: Denies any chest pain, palpitations high or low blood pressures RESPIRATORY: Denies any shortness of breath, hemoptysis or cough. GENITOURINARY: No dysuria or hematuria. MUSCULOSKELETAL: No weakness reported. SKIN: Denies any new rashes or lesions, jaundice or pallor. PSYCHIATRIC: Denies any depression or anxiety. NEUROLOGY: Denies headache, denies any new focal deficits. EARS/NOSE/THROAT: No recent hearing change, congestion, nasal discharge or sore throat. EYES: No pain in eyes, discharge or change in vision. GASTROINTESTINAL: As per HPI. Past Medical History Past Medical History: Atrial Fibrillation, Coronary Artery Disease (CAD), Heart Failure, Hypertension Additional Past Medical History / Comment(s): 10/09/17 slip and fall on ice with left tibia fracture, has splint on, and is no weight bearing History of Any Multi-Drug Resistant Organisms: None Reported Past Surgical History: Hernia Repair Additional Past Surgical History / Comment(s): Ankle surgery; hernia repair x 2 Past Anesthesia/Blood Transfusion Reactions: No Reported Reaction Past Psychological History: No Psychological Hx Reported Smoking Status: Former smoker Past Alcohol Use History: None Reported Past Drug Use History: None Reported - Past Family History Mother History Unknown: Yes Father Family Medical History: Coronary Artery Disease (CAD) Sister(s) History Unknown: Yes Brother(s) History Unknown: Yes Daughter(s) Family Medical History: No Reported History Son(s) Family Medical History: No Reported History Medications and Allergies Home Medications Medication Instructions Recorded Confirmed Type carvediloL [Coreg] 6.25 mg PO BID@0600,1700 05/12/20 06/02/20 History lisinopriL [Zestril] 5 mg PO DAILY@0805/12/20 06/02/20 History Acetaminophen [Tylenol Arthritis] 650 mg PO Q4H PRN 06/02/20 06/02/20 History Amoxicillin 1,000 mg PO BID@0800,169906/02/20 06/02/20 History Clarithromycin 500 mg PO BID@0800,209906/02/20 06/02/20 History Furosemide [Lasix] 20 mg PO DAILY@0806/02/20 06/02/20 History Gabapentin [Neurontin] 400 mg PO TID@0600,1400,209906/02/20 06/02/20 History Lactose-Reduced Food [Ensure Plus] 1 can PO BID@0800,1700 06/02/20 06/02/20 History Loperamide [Imodium] 2 mg PO DAILY PRN 06/02/20 06/02/20 History Magnesium Hydroxide [Milk of 7,200 mg PO DAILY PRN 06/02/20 06/02/20 History Magnesia Concentrate] Na Phos,M-B/Na Phos,Di-Ba [Fleet 133 ml RECTAL DAILY PRN 06/02/20 06/02/20 History Adult] Omeprazole 20 mg PO BID@0800,1700 06/02/20 06/02/20 History Pantoprazole Sodium [Protonix] 40 mg PO DAILY@0606/02/20 06/02/20 History Potassium Citrate [Potassium 10 meq PO DAILY@79906/02/20 06/02/20 History Citrate ER] Rivaroxaban [Xarelto] 20 mg PO DAILY@169906/02/20 06/02/20 History bisacodyL [Dulcolax] 10 mg RECTAL DAILY PRN 06/02/20 06/02/20 History Allergies Allergy/AdvReac Type Severity Reaction Status Date / Time No Known Allergies Allergy Verified 06/02/20 19:56 Physical Exam Vitals: Vital Signs Temp Pulse Pulse Pulse Resp BP BP 06/03/20 11:41 98.3 F 85 17 114/67 06/03/20 04:51 97.7 F 85 17 124/72 06/03/20 04:26 97.9 F 75 16 145/75 06/03/20 02:38 97.7 F 73 16 123/65 06/03/20 02:08 97.5 F L 91 16 125/69 06/03/20 02:05 98 F 84 16 113/68 06/03/20 01:58 98 F 84 16 113/68 06/03/20 01:53 97.9 F 84 16 123/74 06/03/20 00:00 16 06/02/20 21:39 97.7 F 94 18 136/65 06/02/20 19:37 97 16 139/83 06/02/20 18:02 84 128/85 Pulse Ox 06/03/20 11:41 96 06/03/20 04:51 95 06/03/20 04:26 97 06/03/20 02:38 06/03/20 02:08 95 06/03/20 02:05 98 06/03/20 01:58 98 06/03/20 01:53 97 06/03/20 00:00 06/02/20 21:39 100 06/02/20 19:37 97 06/02/20 18:02 Intake and Output 06/02/20 06/03/20 06/03/20 22:59 06:59 14:59 Intake Total 310 Balance 310 Intake: Blood Product 310 Rc As-1 Unit 310 [id number] Other: Voiding Method Toilet Urinal # Voids 2 1 # Bowel Movements 1 # Emeses 0 Weight 72.575 kg 71.1 kg On physical examination, patient appears comfortable in no apparent distress. HEAD: Normocephalic, atraumatic. EYES: No scleral icterus. No conjunctival injection. MOUTH: No lesions, tongue midline. NECK: Trachea midline, no gross abnormalities. CHEST: Decreased air entry in all lung neely. HEART: S1-S2 appreciated. ABDOMEN: Soft, obese. Bowel sounds are positive. No organomegaly. No guarding or rigidity. EXTREMITIES: No pedal edema. SKIN: No rashes, no jaundice. NEUROLOGIC: Alert and oriented x3. Results CBC & Chem 7: 06/03/20 07:47 06/03/20 07:47 Labs: Abnormal Lab Results - Last 24 Hours (Table) 06/02/20 06/02/20 06/02/20 Range/Units 18:17 18:17 18:17 RBC 3.89 L (4.30-5.90) m/uL Hgb 7.7 L (13.0-17.5) gm/dL Hct 26.6 L (39.0-53.0) % MCV 68.3 L (80.0-100.0) fL MCH 19.8 L (25.0-35.0) pg MCHC 29.0 L (31.0-37.0) g/dL RDW 22.7 H (11.5-15.5) % Plt Count 485 H (150-450) k/uL Lymphocytes # (1.0-4.8) k/uL PT 13.0 H (9.0-12.0) sec INR 1.3 H (<1.2) APTT 39.0 H (22.0-30.0) sec Sodium 132 L (137-145) mmol/L Chloride 97 L (98-107) mmol/L Glucose 103 H (74-99) mg/dL Calcium 8.3 L (8.4-10.2) mg/dL Total Protein 6.0 L (6.3-8.2) g/dL Albumin 3.4 L (3.5-5.0) g/dL Crossmatch 06/02/20 06/03/20 06/03/20 Range/Units 21:31 07:47 07:47 RBC 3.70 L (4.30-5.90) m/uL Hgb 7.8 L (13.0-17.5) gm/dL Hct 26.5 L (39.0-53.0) % MCV 71.7 L (80.0-100.0) fL MCH 21.0 L (25.0-35.0) pg MCHC 29.3 L (31.0-37.0) g/dL RDW 23.6 H (11.5-15.5) % Plt Count (150-450) k/uL Lymphocytes # 0.9 L (1.0-4.8) k/uL PT (9.0-12.0) sec INR (<1.2) APTT (22.0-30.0) sec Sodium 133 L (137-145) mmol/L Chloride (98-107) mmol/L Glucose (74-99) mg/dL Calcium 8.1 L (8.4-10.2) mg/dL Total Protein (6.3-8.2) g/dL Albumin (3.5-5.0) g/dL Crossmatch See Detail Assessment and Plan (1) Angiodysplasia of duodenum with hemorrhage Narrative/Plan: 84-year-old male with multiple medical comorbidities recently hospitalized for anemia with findings of gastritis and nonbleeding AVM treated with coagulation therapy on EGD and pandiverticulosis on colonoscopy. He presents back for anemia. Denies any signs or symptoms of GI bleeding. No abdominal pain. He also recently underwent hernia repair due to an incarcerated inguinal hernia. Stool testing was positive for occult blood. Hemoglobin was 6.7 on presentation but is stable status post transfusion of packed red blood cells. Unclear etiology, plan will be for video capsule endoscopy to rule out small bowel bleed. Current Visit: No Status: Acute Code(s): K31.811 - ANGIODYSPLASIA OF STOMACH AND DUODENUM WITH BLEEDING SNOMED Code(s): 214280321 (2) Diverticulosis Current Visit: Yes Status: Acute Code(s): K57.90 - DVRTCLOS OF INTEST, PART UNSP, W/O PERF OR ABSCESS W/O BLEED SNOMED Code(s): 899022100 Plan: Supportive care We'll change diet to clear liquids for tomorrow Magnesium citrate will be ordered for tomorrow night Plan for video capsule endoscopy on Friday Can consider second look endoscopy if any bleeding is noted which is amenable to endoscopic therapy Continue monitor hemoglobin and hematocrit and transfuse as needed Thank you for allowing us to participate in the care of the patient
[2020-06-04] MEDS: carvediloL 6.25 MG TAB PO SCH ×2 (05:39→18:08)
[2020-06-04] MEDS: GABAPENTIN 400 MG CAP PO SCH ×3 (05:39→20:10)
[2020-06-04] MEDS: FUROSEMIDE 20 MG TAB PO SCH (08:21)
[2020-06-04] MEDS: PANTOPRAZOLE 40 MG/10 ML VIAL IVP SCH ×2 (08:21→20:10)
[2020-06-04] MEDS: lisinopriL 5 MG TAB PO SCH (08:21)
[2020-06-04 09:48] LABS: Anisocytosis Moderate; Basophils % (A) 1 %; Eosinophils # (A) 0.2 k/uL (0-0.7); Eosinophils % (A) 4 %; HGB 7.6 gm/dL (13.0-17.5); Hypochromasia Marked; Lymphocytes # (A) 1.2 k/uL (1.0-4.8); Lymphocytes % (A) 22 %; MCH 20.9 pg (25.0-35.0); MCHC 29.3 g/dL (31.0-37.0); MCV 71.3 fL (80.0-100.0); Mean Platelet Volume 6.6; Microcytosis Marked; Monocytes # (A) 0.5 k/uL (0-1.0); Monocytes % (A) 9 %; Neutrophils # (A) 3.2 k/uL (1.3-7.7); Neutrophils % (A) 61 %; Platelet Count 390 k/uL (150-450); Poikilocytosis Slight; RBC 3.65 m/uL (4.30-5.90); RDW 23.5 % (11.5-15.5); WBC 5.3 k/uL (3.8-10.6)
[2020-06-04 10:06] LABS: African American GFR (CKD) >90 (>60 ml/min/1.73 sqM); Anion Gap 6 mmol/L; Blood Urea Nitrogen 12 mg/dL (9-20); Calcium 8.3 mg/dL (8.4-10.2); Carbon Dioxide 27 mmol/L (22-30); Chloride 98 mmol/L (98-107); Glucose 98 mg/dL (74-99); Non-African American GFR(CKD) 81 (>60 ml/min/1.73 sqM); Potassium 3.5 mmol/L (3.5-5.1); Sodium 131 mmol/L (137-145)
--- NOTE | 2020-06-04 10:43 | P.PN ---
Subjective This is a pleasant 84 years old male with past medical history of atrial fibrillation, acute GI bleed. Coronary artery disease, heart failure, hyp ertension. Patient was sent from our wait for low hemoglobin, his hemoglobin was 6.8 and he got one unit of blood transfusion. Patient denies abdominal pain, no nausea vomiting, no overt bleeding in the stool. No chest pain or dyspnea or other complaints He was recently discharged from the hospital 05/12-05/24 for GI bleed and he was in the ICU for short time. 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 His course was complicated by postop cardiac arrest with A. fib and V. fib. Xarelto was held at that time for short time and then resumed prior to discharge, found to have some diastolic dysfunction Vitas looks stable EKG showing A. fib at [address]-T changes. CBC showing low hemoglobin 7.7 and 7.8, compared to 8.1 upon discharge last time. He is status post one unit of blood transfusion. BMP and liver enzymes were unremarkable. Lactic acid is normal at 1.1. Positive occult blood in stool 06/04/2020 Patient is awake with no abdominal pain. Also denies chest pain or dyspnea. No other new complaints. He is hemodynamically stable, hem, and continue with IV Protonix twice daily. oglobin is 7.8, and down to 6.6 only. Platelet and the blue CR normal as well as BMP Xarelto is still on hold GI team on the caseAnd they recommended capsule endoscopy on Friday Review of Systems CONSTITUTIONAL: No fever, no malaise, no fatigue. HEENT: No recent visual problems or hearing problems. Denied any sore throat. CARDIOVASCULAR: No orthopnea, PND, no palpitations, no syncope. PULMONARY: No shortness of breath, no cough, no hemoptysis. GASTROINTESTINAL: No diarrhea, no nausea, no vomiting, no abdominal pain. Normoactive bowel sounds. NEUROLOGICAL: No headaches, no weakness, no numbness. HEMATOLOGICAL: Denies any bleeding or petechiae. GENITOURINARY: Denies any burning micturition, frequency, or urgency. MUSCULOSKELETAL/RHEUMATOLOGICAL: Denies any joint pain, swelling, or any muscle pain. ENDOCRINE: Denies any polyuria or polydipsia. Active Medications Generic Name Dose Route Start Last Admin Trade Name Freq PRN Reason Stop Dose Admin Acetaminophen 650 mg 06/02/20 22:13 06/03/20 19:41 Tylenol Tab PO 650 mg Q4H PRN Administration Pain Bisacodyl 10 mg 06/02/20 22:13 Dulcolax RECTAL DAILY PRN Constipation Carvedilol 6.25 mg 06/03/20 06:00 06/04/20 05:39 Coreg PO 6.25 mg BID@0600,1700 [facility] Administration Furosemide 20 mg 06/03/20 08:00 06/04/20 08:21 Lasix PO 20 mg DAILY@0800 SARAH Administration Gabapentin 400 mg 06/03/20 06:00 06/04/20 05:39 Neurontin PO 400 mg TID@0600,1400,2100 [facility] Administration Lisinopril 5 mg 06/03/20 08:00 06/04/20 08:21 Zestril PO 5 mg DAILY@0800 SARAH Administration Magnesium Citrate 296 ml 06/04/20 17:00 Citrate Of Magnesia PO 06/04/20 17:01 ONCE ONE Naloxone HCl 0.2 mg 06/02/20 19:21 Narcan IV Q2M PRN Opioid Reversal Pantoprazole Sodium 40 mg 06/03/20 09:45 06/04/20 08:21 Protonix IVP 40 mg BID SARAH Administration Objective - Vital Signs Vital signs: Vital Signs Temp 97.4 F L 06/04/20 05:46 Pulse 83 06/04/20 05:46 Resp 17 06/04/20 05:46 BP 149/78 06/04/20 05:46 Pulse Ox 94 L 06/04/20 05:46 Intake & Output 06/03/20 06/04/20 06/04/20 18:59 06:59 18:59 Intake Total 600 Output Total 600 Balance 600 -600 Weight 70.7 kg Intake: Oral 600 Output: Urine 600 Other: Voiding Method Toilet Toilet Urinal Urinal # Voids 2 0 - Exam GENERAL: The patient is alert and oriented x3, not in any acute distress. Well developed, well nourished. HEENT: Pupils are round and equally reacting to light. EOMI. No scleral icterus. No conjunctival pallor. Normocephalic, atraumatic. No pharyngeal erythema. No thyromegaly. CARDIOVASCULAR: S1 and S2 present. No murmurs, rubs, or gallops. PULMONARY: Chest is clear to auscultation, no wheezing or crackles. ABDOMEN: Soft, nontender, nondistended, normoactive bowel sounds. No palpable organomegaly. MUSCULOSKELETAL: No joint swelling or deformity. EXTREMITIES: No cyanosis, clubbing, or pedal edema. NEUROLOGICAL: Gross neurological examination did not reveal any focal deficits. SKIN: No rashes. no petechiae. 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 Monitor hemoglobin and transfuse blood as needed. Hold Xarelto. Continue with Protonix. GI consult . Capsule endoscopy tomorrow Labs and medication were reviewed.. Continue same treatment. Continue with symptomatic treatment. Resume home medication. Monitor lytes and vitals. DVT and GI prophylaxis. Further recommendations of the clinical course of the patient DVT prophylaxis: No anti-coagulation in view of GI bleed GI Prophylaxis: Ppi PT/OT: Pending Prognosis is guarded
[2020-06-04] MEDS ORDERED: MAGNESIUM CITRATE 296 ML BOTTLE PO ONE (17:00)
[2020-06-05] MEDS: GABAPENTIN 400 MG CAP PO SCH ×3 (02:52→20:08)
[2020-06-05] MEDS: carvediloL 6.25 MG TAB PO SCH ×2 (02:52→17:04)
[2020-06-05 06:57] LABS: Anisocytosis Moderate; Basophils % (A) 0 %; Eosinophils # (A) 0.2 k/uL (0-0.7); Eosinophils % (A) 4 %; HCT 26.7 % (39.0-53.0); HGB 7.9 gm/dL (13.0-17.5); Hypochromasia Marked; Lymphocytes # (A) 1.1 k/uL (1.0-4.8); Lymphocytes % (A) 21 %; MCHC 29.5 g/dL (31.0-37.0); MCV 71.2 fL (80.0-100.0); Mean Platelet Volume 6.5; Microcytosis Marked; Monocytes # (A) 0.5 k/uL (0-1.0); Monocytes % (A) 9 %; Neutrophils # (A) 3.1 k/uL (1.3-7.7); Neutrophils % (A) 61 %; Platelet Count 379 k/uL (150-450); Poikilocytosis Slight; RBC 3.74 m/uL (4.30-5.90); RDW 23.6 % (11.5-15.5)
[2020-06-05] MEDS ORDERED: SIMETHICONE 40 MG/0.6 ML DROPS 2,000 MG/30 ML BOTTLE PO ONE (07:18)
--- NOTE | 2020-06-05 07:32 | P.PN ---
Subjective Progress Note Date: 06/04/20 Principal diagnosis: Angiodysplasia of the small bowel, diverticulosis, microcytic hypochromic anemia Patient is seen sitting bedside. He is tolerating his diet. No signs or sym ptoms of GI bleeding reported. No abdominal pain reported. Objective - Vital Signs Vital signs: Vital Signs Temp 97.4 F L 06/04/20 05:46 Pulse 83 06/04/20 05:46 Resp 17 06/04/20 05:46 BP 149/78 06/04/20 05:46 Pulse Ox 94 L 06/04/20 05:46 Intake & Output 06/03/20 06/04/20 06/04/20 18:59 06:59 18:59 Intake Total 600 Output Total 600 Balance 600 -600 Weight 70.7 kg Intake: Oral 600 Output: Urine 600 Other: Voiding Method Toilet Toilet Toilet Urinal Urinal Urinal # Voids 2 0 - Exam On physical examination, patient appears comfortable in no apparent distress. HEAD: Normocephalic, atraumatic. EYES: No scleral icterus. No conjunctival injection. MOUTH: No lesions, tongue midline. NECK: Trachea midline, no gross abnormalities. ABDOMEN: Soft, nontender to palpation. Bowel sounds are positive. No organomegaly. No guarding or rigidity. EXTREMITIES: No pedal edema. SKIN: No rashes, no jaundice. NEUROLOGIC: Alert and oriented. No focal deficits. - Labs CBC & Chem 7: 06/05/20 06:30 06/04/20 09:10 Labs: Abnormal Lab Results - Last 24 Hours (Table) 06/04/20 06/04/20 Range/Units 09:10 09:10 RBC 3.65 L (4.30-5.90) m/uL Hgb 7.6 L (13.0-17.5) gm/dL Hct 26.0 L (39.0-53.0) % MCV 71.3 L (80.0-100.0) fL MCH 20.9 L (25.0-35.0) pg MCHC 29.3 L (31.0-37.0) g/dL RDW 23.5 H (11.5-15.5) % Sodium 131 L (137-145) mmol/L Calcium 8.3 L (8.4-10.2) mg/dL Assessment and Plan (1) Angiodysplasia of duodenum with hemorrhage Narrative/Plan: 84-year-old male with multiple medical comorbidities recently hospitalized for anemia with findings of gastritis and nonbleeding AVM treated with coagulation therapy on EGD and pandiverticulosis on colonoscopy. He presents back for anemia. Denies any signs or symptoms of GI bleeding. No abdominal pain. He also recently underwent hernia repair due to an incarcerated inguinal hernia. Stool testing was positive for occult blood. Hemoglobin was 6.7 on presentation but is stable status post transfusion of packed red blood cells, 7.6 from 7.8 yesterday. Unclear etiology, plan will be for video capsule endoscopy to rule out small bowel bleed. Current Visit: No Status: Acute Code(s): K31.811 - ANGIODYSPLASIA OF STOMACH AND DUODENUM WITH BLEEDING SNOMED Code(s): 751622139 (2) Diverticulosis Current Visit: Yes Status: Acute Code(s): K57.90 - DVRTCLOS OF INTEST, PART UNSP, W/O PERF OR ABSCESS W/O BLEED SNOMED Code(s): 511321705 (3) Anemia Narrative/Plan: Microcytic hypochromic anemia with no signs or symptoms of GI bleeding, stool testing was positive for blood. He did have an EGD and colonoscopy on his last admission with no active bleeding noted. Current Visit: Yes Status: Acute Code(s): D64.9 - ANEMIA, UNSPECIFIED SNOMED Code(s): 983122049 Plan: Supportive care Clear liquid diet Magnesium citrate tonight Plan for video capsule endoscopy on Friday Can consider second look endoscopy if any bleeding is noted which is amenable to endoscopic therapy Continue monitor hemoglobin and hematocrit and transfuse as needed Thank you for allowing us to participate in the care of the patient
[2020-06-05] MEDS: PANTOPRAZOLE 40 MG/10 ML VIAL IVP SCH ×2 (12:10→20:08)
[2020-06-05] MEDS: FUROSEMIDE 20 MG TAB PO SCH (12:11)
[2020-06-05] MEDS: lisinopriL 5 MG TAB PO SCH (12:11)
--- NOTE | 2020-06-05 20:20 | PN ---
PROGRESS NOTE DATE OF DICTATION: 06/05/2020 This patient is an 84-year-old pleasant white male admitted to the hospital with severe symptomatic anemia and hemoglobin of 6.8 g/dL requiring 2 units of blood transfusion. The patient was admitted to the hospital a month ago for the same reasons, and he underwent an upper endoscopy as well as colonoscopy that showed mild gastritis and duodenal angiectasia, for which he underwent argon plasma coagulation, as well as diverticulosis. He is currently undergoing small bowel capsule endoscopy to evaluate the anemia. In the meantime patient is doing well. He denies any abdominal pain. He reports no nausea, vomiting. No rectal bleeding or melena. PHYSICAL EXAMINATION: Appears comfortable. No apparent distress. Vital signs are stable. Blood pressure is 140/73, pulse rate 87, temperature 97.9. HEENT examination unremarkable. Conjunctivae pink. Sclerae anicteric. Oral cavity no lesions. NECK: No JVD or lymph node enlargement. CHEST: Clear to auscultation. HEART: Regular rate and rhythm. ABDOMEN: Soft. Bowel sounds are positive. No organomegaly. EXTREMITIES: No pedal edema. NEUROLOGIC: Alert and oriented x3. No focal deficits. LABS: Labs from today show WBC 5, hemoglobin 7.9, platelets normal, MCV 71. INR is 1.3. Stool occult blood was positive. IMPRESSION: 1. Severe symptomatic anemia consistent with iron deficiency anemia. Clinically no evidence of active ongoing bleeding. He underwent an EGD and colonoscopy during his last hospitalization that showed duodenal angioectasia that we cauterized and some gastritis and diverticulosis. He is currently undergoing small bowel capsule endoscopy today. 2. Microcytic hypochromic anemia. 3. History of atrial fibrillation, on Xarelto, currently on hold. RECOMMENDATIONS: 1. Monitor CBC closely. 2. Start him on a regular diet for dinner today. 3. Await small bowel capsule endoscopy results. 4. Will follow with you closely. Thank you for this consultation. MMODL / IJN: [id number] /
--- NOTE | 2020-06-05 21:03 | P.PN ---
Subjective This is a pleasant 84 years old male with past medical history of atrial fibrillation, acute GI bleed. Coronary artery disease, heart failure, hyp ertension. Patient was sent from our wait for low hemoglobin, his hemoglobin was 6.8 and he got one unit of blood transfusion. Patient denies abdominal pain, no nausea vomiting, no overt bleeding in the stool. No chest pain or dyspnea or other complaints He was recently discharged from the hospital 05/12-05/24 for GI bleed and he was in the ICU for short time. 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 His course was complicated by postop cardiac arrest with A. fib and V. fib. Xarelto was held at that time for short time and then resumed prior to discharge, found to have some diastolic dysfunction Vitas looks stable EKG showing A. fib at [address]-T changes. CBC showing low hemoglobin 7.7 and 7.8, compared to 8.1 upon discharge last time. He is status post one unit of blood transfusion. BMP and liver enzymes were unremarkable. Lactic acid is normal at 1.1. Positive occult blood in stool 06/04/2020 Patient is awake with no abdominal pain. Also denies chest pain or dyspnea. No other new complaints. He is hemodynamically stable, hem, and continue with IV Protonix twice daily. oglobin is 7.8, and down to 6.6 only. Platelet and the blue CR normal as well as BMP Xarelto is still on hold GI team on the caseAnd they recommended capsule endoscopy on Friday06/05/2020 Patient remains asymptomatic, hemoglobin improved to 7.9, his walking with no difficulty Capsule endoscopy is in progress, GI team on the case We'll keep monitoring Objective - Vital Signs Vital signs: Vital Signs Temp 98.2 F 06/05/20 20:07 Pulse 93 06/05/20 20:07 Resp 18 06/05/20 20:07 BP 119/67 06/05/20 20:07 Pulse Ox 97 06/05/20 20:07 Intake & Output 06/05/20 06/05/20 06/06/20 06:59 18:59 06:59 Intake Total 590 Balance 590 Weight 68.2 kg Intake: Oral 590 Other: Voiding Method Toilet # Voids 3 1 # Bowel Movements 1 - Exam GENERAL: The patient is alert and oriented x3, not in any acute distress. Well developed, well nourished. HEENT: Pupils are round and equally reacting to light. EOMI. No scleral icterus. No conjunctival pallor. Normocephalic, atraumatic. No pharyngeal erythema. No thyromegaly. CARDIOVASCULAR: S1 and S2 present. No murmurs, rubs, or gallops. PULMONARY: Chest is clear to auscultation, no wheezing or crackles. ABDOMEN: Soft, nontender, nondistended, normoactive bowel sounds. No palpable organomegaly. MUSCULOSKELETAL: No joint swelling or deformity. EXTREMITIES: No cyanosis, clubbing, or pedal edema. NEUROLOGICAL: Gross neurological examination did not reveal any focal deficits. SKIN: No rashes. no petechiae. 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 Monitor hemoglobin and transfuse blood as needed. Hold Xarelto. Continue with Protonix. GI consult . Capsule endoscopy tomorrow Labs and medication were reviewed.. Continue same treatment. Continue with symptomatic treatment. Resume home medication. Monitor lytes and vitals. DVT and GI prophylaxis. Further recommendations of the clinical course of the patient DVT prophylaxis: No anti-coagulation in view of GI bleed GI Prophylaxis: Ppi PT/OT: Pending Prognosis is guarded
[2020-06-06] MEDS: GABAPENTIN 400 MG CAP PO SCH ×2 (05:21→13:19)
[2020-06-06] MEDS: carvediloL 6.25 MG TAB PO SCH (05:22)
[2020-06-06 05:23] VITALS: RESP 16; TEMP 98.1
[2020-06-06 08:00] LABS: Anisocytosis Moderate; Basophils % (A) 1 %; Eosinophils # (A) 0.2 k/uL (0-0.7); Eosinophils % (A) 4 %; HCT 27.4 % (39.0-53.0); Hypochromasia Marked; Lymphocytes # (A) 1.2 k/uL (1.0-4.8); Lymphocytes % (A) 26 %; MCH 20.7 pg (25.0-35.0); MCV 71.4 fL (80.0-100.0); Mean Platelet Volume 7.8; Microcytosis Marked; Monocytes # (A) 0.5 k/uL (0-1.0); Monocytes % (A) 10 %; Neutrophils # (A) 2.6 k/uL (1.3-7.7); Neutrophils % (A) 56 %; Platelet Count 306 k/uL (150-450); Poikilocytosis Slight; RBC 3.84 m/uL (4.30-5.90); RDW 23.8 % (11.5-15.5); WBC 4.6 k/uL (3.8-10.6)
[2020-06-06] MEDS: lisinopriL 5 MG TAB PO SCH (08:27)
[2020-06-06] MEDS: FUROSEMIDE 20 MG TAB PO SCH (08:27)
[2020-06-06] MEDS: PANTOPRAZOLE 40 MG/10 ML VIAL IVP SCH (08:28)
[2020-06-06 13:12] VITALS: BP 129/87; PULSE 73
--- NOTE | 2020-06-06 22:54 | PN ---
PROGRESS NOTE DATE OF DICTATION: 06/06/2020 This patient is an 84-year-old pleasant white male admitted to the hospital with severe anemia with a hemoglobin of 6, requiring 2 units of blood transfusion. He underwent EGD and colonoscopy during his last hospitalization a month ago by Dr. Villasenor that was unremarkable. He had a small bowel capsule endoscopy done yesterday that was done by Dr. Villasenor which revealed a few scattered nonbleeding angioectasia in the distal duodenum and proximal jejunum. The patient in the meantime is doing well. Xarelto has been on hold. Hemoglobin stable. Today hemoglobin is 8 g/dL. He denies any rectal bleeding or melena. PHYSICAL EXAMINATION: Appears comfortable. No apparent distress. Vital signs are stable. Blood pressure is 129/97, pulse rate 73, temperature 98.4. HEENT examination unremarkable. Conjunctivae pink. Sclerae anicteric. Oral cavity no lesions. NECK: No JVD or lymph node enlargement. CHEST: Clear to auscultation. HEART: Regular rate and rhythm. ABDOMEN: Soft. Bowel sounds are positive. No organomegaly. EXTREMITIES: No pedal edema. SKIN: No rashes. NEUROLOGIC: Alert and oriented x3. No focal deficits. LABS: WBC 4.6, hemoglobin 8, platelets 306. Basic metabolic panel is within normal limits. IMPRESSION: 1. Severe symptomatic anemia requiring 2 units of PRBC transfusion. Small bowel capsule endoscopy done yesterday showed nonbleeding angioectasia in the distal duodenum and proximal jejunum, which appears to be the source of occult blood loss. 2. Atrial fibrillation, on Xarelto, currently on hold. 3. Anemia. Hemoglobin stable. RECOMMENDATIONS: Discussed the findings of small bowel capsule endoscopy with the patient. At this time we will hold off on the anticoagulation if okay with Cardiology for another week, and if his hemoglobin is stable, it can be restarted at that time. If he continues to have recurrent anemia, he may need to have a small bowel enteroscopy for possible cautery of the angiodysplasia in the distal duodenum and proximal jejunum. The patient is agreeable with the plan. Discussed with Dr. Jay. He will be discharged home today with outpatient followup with Dr. Villasenor in 2 weeks. Thank you for this consultation. MMODL / IJN: [id number] /
--- NOTE | 2020-06-06 23:33 | P.DS ---
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 Coronary artery disease, heart failure, hypertension. He was recently discharged from the hospital 05/12-05/24 for GI bleed and he was in the ICU for short time. 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 Patient was sent from rehab for low hemoglobin, his hemoglobin was 6.8 and he got two units of blood transfusion. His hemoglobin remained stable after that and on discharge was 8.0 Patient underwent Capsule endoscopy which showed nonbleeding angiectasia in the distal duodenum and proximal G Diana, which appears to be source of occult blood loss. GI team cleared patient for discharge and they recommended to hold Xarelto for 1 week and if there is no evidence of bleeding then it can be resumed. Patient informed about this recommendation and he said it back to me. Also I called his PCP office and I spoke with Dr. Hebert about the above recommendation to restart Xarelto after one week, and he kindly took note of this and he expected the patient on 06/12 at 2-40 p.m. and patient agrees for this appointment. Also patient agrees with his appointment with Yoshi Howard on 06/[address] Morris on 06/08 Physical therapist recommended home health care Problems and management plan were discussed with the patient and he verbalized understanding and acceptance Patient was found stable and can be discharged home however he needs follow-up as an outpatient. Patient was instructed to follow up with PCP, GI and cardiology as above and patient agrees Gen: patient is a AAOx3, no distress CVS: S1-S2, RRR, no murmur Lungs: B/L CTA, no wheezing Abdomen: soft, no distention, no tenderness, positive bowel sounds Extremity: no leg edema or induration Time spent more than 35 minutes Patient Condition at Discharge: Stable Plan - Discharge Summary New Discharge Prescriptions: Continue lisinopriL [Zestril] 5 mg PO DAILY@0800 carvediloL [Coreg] 6.25 mg PO BID@0600,1700 Lactose-Reduced Food [Ensure Plus] 1 can PO BID@0800,1700 Magnesium Hydroxide [Milk of Magnesia Concentrate] 7,200 mg PO DAILY PRN PRN Reason: Constipation lasting 3days Pantoprazole Sodium [Protonix] 40 mg PO DAILY@0600 Potassium Citrate [Potassium Citrate ER] 10 meq PO DAILY@0800 Furosemide [Lasix] 20 mg PO DAILY@0800 Loperamide [Imodium] 2 mg PO DAILY PRN PRN Reason: Diarrhea bisacodyL [Dulcolax] 10 mg RECTAL DAILY PRN PRN Reason: Constipation Na Phos,M-B/Na Phos,Di-Ba [Fleet Adult] 133 ml RECTAL DAILY PRN PRN Reason: Constipation Gabapentin [Neurontin] 400 mg PO TID@0600,1400,2100 Acetaminophen [Tylenol Arthritis] 650 mg PO Q4H PRN PRN Reason: Pain Omeprazole 20 mg PO BID@0800,1700 Discontinued Clarithromycin 500 mg PO BID@0800,2100 Rivaroxaban [Xarelto] 20 mg PO DAILY@1700 Amoxicillin 1,000 mg PO BID@0800,1700 Discharge Medication List carvediloL [Coreg] 6.25 mg PO BID@0600,1700 05/12/20 [History] lisinopriL [Zestril] 5 mg PO DAILY@0800 05/12/20 [History] Acetaminophen [Tylenol Arthritis] 650 mg PO Q4H PRN 06/02/20 [History] Furosemide [Lasix] 20 mg PO DAILY@0800 06/02/20 [History] Gabapentin [Neurontin] 400 mg PO TID@0600,1400,2100 06/02/20 [History] Lactose-Reduced Food [Ensure Plus] 1 can PO BID@0800,1700 06/02/20 [History] Loperamide [Imodium] 2 mg PO DAILY PRN 06/02/20 [History] Magnesium Hydroxide [Milk of Magnesia Concentrate] 7,200 mg PO DAILY PRN 06/02/20 [History] Na Phos,M-B/Na Phos,Di-Ba [Fleet Adult] 133 ml RECTAL DAILY PRN 06/02/20 [History] Omeprazole 20 mg PO BID@0800,1700 06/02/20 [History] Pantoprazole Sodium [Protonix] 40 mg PO DAILY@0600 06/02/20 [History] Potassium Citrate [Potassium Citrate ER] 10 meq PO DAILY@0800 06/02/20 [History] bisacodyL [Dulcolax] 10 mg RECTAL DAILY PRN 06/02/20 [History] Follow up Appointment(s)/Referral(s): Leatha Bates MD [STAFF PHYSICIAN] - 06/19/20 1:30 pm Falguni Hebert DO [REFERRING] - 06/12/20 2:40 pm [facility], [NON-STAFF] - 1 Week Annika Morris MD [STAFF PHYSICIAN] - 06/08/20 2:30 pm Patient Instructions/Handouts: Heart Failure (DC), Iron Deficiency Anemia (DC) Activity/Diet/Wound Care/Special Instructions: Heart healthy diet Activity is limited till you see your doctor Hold Xarelto for 1 week, then resume Xarelto with your doctor after 1 week at 20 mg daily while keep monitoring for any bleeding and monitor hemoglobin Discharge Disposition: HOME WITH HOME HEALTH SERVICES
== END 2020-06-06 17:26 | disposition home health service (06) | DRG 378 ==
LOC: EC 17:26 → 5NMEDONC 19:21
PROVIDERS: ADMIT Internal Medicine; ATTEND Internal Medicine
PROC: 30233N1 Transfusion of Nonautologous Red Blood Cells into Peripheral Vein, Percutaneous Approach (ICD-10-PCS; principal; 2020-06-02)
DX: K31.811 Angiodysplasia of stomach and duodenum with bleeding (principal); D62 Acute posthemorrhagic anemia; I48.20 Chronic atrial fibrillation, unspecified; I50.32 Chronic diastolic (congestive) heart failure; K40.30 Unilateral inguinal hernia, with obstruction, without gangrene, not specified as recurrent; I25.10 Atherosclerotic heart disease of native coronary artery without angina pectoris; I11.0 Hypertensive heart disease with heart failure; K57.90 Diverticulosis of intestine, part unspecified, without perforation or abscess without bleeding; K29.70 Gastritis, unspecified, without bleeding; K55.20 Angiodysplasia of colon without hemorrhage; D50.9 Iron deficiency anemia, unspecified; Z79.01 Long term (current) use of anticoagulants; Z79.899 Other long term (current) drug therapy; Z98.890 Other specified postprocedural states; Z87.891 Personal history of nicotine dependence; Z82.49 Family history of ischemic heart disease and other diseases of the circulatory system
CPT/HCPCS: 36415; 80048; 80053; 82272; 83605; 85025; 85610; 85730; 86850; 86900; 86901; 86920; 91110; 93005; 99284

== ENCOUNTER 2021-02-07 12:00 | Inpatient (IN) | payer MEDICARE, OTHER ==
[2021-02-07] MEDS ORDERED: SODIUM CHLORIDE 0.9% 1,000 ML IV STA ×2 (12:03)
--- NOTE | 2021-02-07 12:26 | ED ---
Weakness HPI - General Stated complaint: Weakness Time Seen by Provider: 02/07/21 12:00 Source: EMS, RN notes reviewed, old records reviewed Mode of arrival: EMS - History of Present Illness Initial comments: This is an 85-year-old male with a history of multiple medical problems including GI bleed and anemia hypertension and COPD who was sent in by family by EMS with complaints of weakness for the past couple days decreased oral intake. Per paramedics she did demonstrate A. fib with RVR rate going from 1 07/20/1939 he also did demonstrate urinary incontinence and route he is slow to answer but does know her birthday main. No complaints of any falls fevers chills nausea vomiting sweats. MD Complaint: generalized weakness - Related Data Home Medications Medication Instructions Recorded Confirmed carvediloL [Coreg] 6.25 mg PO BID 05/12/20 02/07/21 lisinopriL [Zestril] 5 mg PO DAILY 05/12/20 02/07/21 Furosemide [Lasix] 20 mg PO DAILY 06/02/20 02/07/21 Rivaroxaban [Xarelto] 20 mg PO HS 02/07/21 02/07/21 Allergies Allergy/AdvReac Type Severity Reaction Status Date / Time No Known Allergies Allergy Verified 02/07/21 14:01 Review of Systems ROS Statement: Those systems with pertinent positive or pertinent negative responses have been documented in the HPI. ROS Other: All systems not noted in ROS Statement are negative. Past Medical History Past Medical History: Atrial Fibrillation, Coronary Artery Disease (CAD), Heart Failure, Hypertension Additional Past Medical History / Comment(s): 10/09/17 slip and fall on ice with left tibia fracture, has splint on, and is no weight bearing History of Any Multi-Drug Resistant Organisms: None Reported Past Surgical History: Hernia Repair Additional Past Surgical History / Comment(s): Ankle surgery; hernia repair x 2 Past Anesthesia/Blood Transfusion Reactions: No Reported Reaction Past Psychological History: No Psychological Hx Reported Smoking Status: Former smoker Past Alcohol Use History: None Reported Past Drug Use History: None Reported - Past Family History Mother History Unknown: Yes Father Family Medical History: Coronary Artery Disease (CAD) Sister(s) History Unknown: Yes Brother(s) History Unknown: Yes Daughter(s) Family Medical History: No Reported History Son(s) Family Medical History: No Reported History General Exam - General Exam Comments Initial Comments: This is a well-developed asthenic appearing male who is awake alert somewhat lethargic. General appearance: alert, lethargic Head exam: Present: atraumatic, normocephalic, normal inspection Eye exam: Present: normal appearance, PERRL, EOMI. Absent: scleral icterus, c onjunctival injection, periorbital swelling ENT exam: Present: mucous membranes dry Neck exam: Present: normal inspection, full ROM, other. Absent: tenderness, meningismus, lymphadenopathy Respiratory exam: Present: decreased breath sounds (No stridor JVD or bruits). Absent: respiratory distress, wheezes, rales, rhonchi, stridor Cardiovascular Exam: Present: tachycardia, irregular rhythm, normal heart sounds. Absent: systolic murmur, diastolic murmur, rubs, gallop, clicks GI/Abdominal exam: Present: soft, normal bowel sounds. Absent: distended, tenderness, guarding, rebound, rigid Extremities exam: Present: normal inspection, full ROM, normal capillary refill. Absent: tenderness, pedal edema, joint swelling, calf tenderness Back exam: Present: normal inspection Neurological exam: Present: alert, oriented X3, CN II-XII intact Psychiatric exam: Present: normal affect, normal mood Skin exam: Present: warm, dry, intact, normal color. Absent: rash Course Vital Signs 02/07/21 02/07/21 12:20 13:26 Temperature 100.2 F H Pulse Rate 52 L Respiratory 18 20 Rate Blood Pressure 103/88 O2 Sat by Pulse 93 L Oximetry EKG Findings - EKG Results: EKG: interpreted by ERMD (A. fib RVR 121 heart rate QRS 90 QT since QTC 324/460 PVCs noted) Medical Decision Making - Medical Decision Making Patient case is discussed with Dr. Castaneda. Patient will be admitted he does demonstrate evidence of CHF elevated troponin elevated positive. Lactic acid 3.4 troponin 0.085 d-dimer 1.5 to - Lab Data Result diagrams: 02/07/21 12:32 02/07/21 12:32 Lab Results 02/07/21 02/07/21 02/07/21 Range/Units 12:32 12:32 12:32 WBC 5.0 (3.8-10.6) k/uL RBC 6.17 H (4.30-5.90) m/uL Hgb 13.8 (13.0-17.5) gm/dL Hct 42.6 (39.0-53.0) % MCV 69.2 L (80.0-100.0) fL MCH 22.4 L (25.0-35.0) pg MCHC 32.4 (31.0-37.0) g/dL RDW 17.8 H (11.5-15.5) % Plt Count 104 L (150-450) k/uL MPV 7.7 Neutrophils % 79 % Lymphocytes % 16 % Monocytes % 4 % Eosinophils % 0 % Basophils % 0 % Neutrophils # 3.9 (1.3-7.7) k/uL Lymphocytes # 0.8 L (1.0-4.8) k/uL Monocytes # 0.2 (0-1.0) k/uL Eosinophils # 0.0 (0-0.7) k/uL Basophils # 0.0 (0-0.2) k/uL Hypochromasia Slight Anisocytosis Slight Microcytosis Marked PT 13.2 H (9.0-12.0) sec INR 1.3 H (<1.2) APTT 28.2 (22.0-30.0) sec D-Dimer 1.52 H (<0.60) mg/L FEU Sodium 133 L (137-145) mmol/L Potassium 3.6 (3.5-5.1) mmol/L Chloride 94 L (98-107) mmol/L Carbon Dioxide 25 (22-30) mmol/L Anion Gap 14 mmol/L BUN 26 H (9-20) mg/dL Creatinine 1.09 (0.66-1.25) mg/dL Est GFR (CKD-EPI)AfAm 72 (>60 ml/min/1.73 sqM) Est GFR (CKD-EPI)NonAf 62 (>60 ml/min/1.73 sqM) Glucose 145 H (74-99) mg/dL Plasma Lactic Acid Surinder (0.7-2.0) mmol/L Calcium 8.9 (8.4-10.2) mg/dL Magnesium 2.1 (1.6-2.3) mg/dL Total Bilirubin 1.5 H (0.2-1.3) mg/dL AST 39 (17-59) U/L ALT 13 (4-49) U/L Alkaline Phosphatase 75 (38-126) U/L Creatine Kinase 237 H (55-170) U/L Troponin I (0.000-0.034) ng/mL NT-Pro-B Natriuret Pep pg/mL Total Protein 7.7 (6.3-8.2) g/dL Albumin 4.2 (3.5-5.0) g/dL Urine Color Urine Appearance (Clear) Urine pH (5.0-8.0) Ur Specific [place] (1.001-1.035) Urine Protein (Negative) Urine Glucose (UA) (Negative) Urine Ketones (Negative) Urine Blood (Negative) Urine Nitrite (Negative) Urine Bilirubin (Negative) Urine Urobilinogen (<2.0) mg/dL Ur Leukocyte Esterase (Negative) Urine RBC (0-5) /hpf Urine WBC (0-5) /hpf Ur Squamous Epith Cells (0-4) /hpf Urine Mucus (None) /hpf Coronavirus (PCR) (Not Detectd) 02/07/21 02/07/21 02/07/21 Range/Units 12:32 12:32 12:32 WBC (3.8-10.6) k/uL RBC (4.30-5.90) m/uL Hgb (13.0-17.5) gm/dL Hct (39.0-53.0) % MCV (80.0-100.0) fL MCH (25.0-35.0) pg MCHC (31.0-37.0) g/dL RDW (11.5-15.5) % Plt Count (150-450) k/uL MPV Neutrophils % % Lymphocytes % % Monocytes % % Eosinophils % % Basophils % % Neutrophils # (1.3-7.7) k/uL Lymphocytes # (1.0-4.8) k/uL Monocytes # (0-1.0) k/uL Eosinophils # (0-0.7) k/uL Basophils # (0-0.2) k/uL Hypochromasia Anisocytosis Microcytosis PT (9.0-12.0) sec INR (<1.2) APTT (22.0-30.0) sec D-Dimer (<0.60) mg/L FEU Sodium (137-145) mmol/L Potassium (3.5-5.1) mmol/L Chloride (98-107) mmol/L Carbon Dioxide (22-30) mmol/L Anion Gap mmol/L BUN (9-20) mg/dL Creatinine (0.66-1.25) mg/dL Est GFR (CKD-EPI)AfAm (>60 ml/min/1.73 sqM) Est GFR (CKD-EPI)NonAf (>60 ml/min/1.73 sqM) Glucose (74-99) mg/dL Plasma Lactic Acid Surinder 3.4 H* (0.7-2.0) mmol/L Calcium (8.4-10.2) mg/dL Magnesium (1.6-2.3) mg/dL Total Bilirubin (0.2-1.3) mg/dL AST (17-59) U/L ALT (4-49) U/L Alkaline Phosphatase (38-126) U/L Creatine Kinase (55-170) U/L Troponin I 0.085 H* (0.000-0.034) ng/mL NT-Pro-B Natriuret Pep 84230 pg/mL Total Protein (6.3-8.2) g/dL Albumin (3.5-5.0) g/dL Urine Color Urine Appearance (Clear) Urine pH (5.0-8.0) Ur Specific [place] (1.001-1.035) Urine Protein (Negative) Urine Glucose (UA) (Negative) Urine Ketones (Negative) Urine Blood (Negative) Urine Nitrite (Negative) Urine Bilirubin (Negative) Urine Urobilinogen (<2.0) mg/dL Ur Leukocyte Esterase (Negative) Urine RBC (0-5) /hpf Urine WBC (0-5) /hpf Ur Squamous Epith Cells (0-4) /hpf Urine Mucus (None) /hpf Coronavirus (PCR) (Not Detectd) 02/07/21 02/07/21 Range/Units 12:32 12:51 WBC (3.8-10.6) k/uL RBC (4.30-5.90) m/uL Hgb (13.0-17.5) gm/dL Hct (39.0-53.0) % MCV (80.0-100.0) fL MCH (25.0-35.0) pg MCHC (31.0-37.0) g/dL RDW (11.5-15.5) % Plt Count (150-450) k/uL MPV Neutrophils % % Lymphocytes % % Monocytes % % Eosinophils % % Basophils % % Neutrophils # (1.3-7.7) k/uL Lymphocytes # (1.0-4.8) k/uL Monocytes # (0-1.0) k/uL Eosinophils # (0-0.7) k/uL Basophils # (0-0.2) k/uL Hypochromasia Anisocytosis Microcytosis PT (9.0-12.0) sec INR (<1.2) APTT (22.0-30.0) sec D-Dimer (<0.60) mg/L FEU Sodium (137-145) mmol/L Potassium (3.5-5.1) mmol/L Chloride (98-107) mmol/L Carbon Dioxide (22-30) mmol/L Anion Gap mmol/L BUN (9-20) mg/dL Creatinine (0.66-1.25) mg/dL Est GFR (CKD-EPI)AfAm (>60 ml/min/1.73 sqM) Est GFR (CKD-EPI)NonAf (>60 ml/min/1.73 sqM) Glucose (74-99) mg/dL Plasma Lactic Acid Surinder (0.7-2.0) mmol/L Calcium (8.4-10.2) mg/dL Magnesium (1.6-2.3) mg/dL Total Bilirubin (0.2-1.3) mg/dL AST (17-59) U/L ALT (4-49) U/L Alkaline Phosphatase (38-126) U/L Creatine Kinase (55-170) U/L Troponin I (0.000-0.034) ng/mL NT-Pro-B Natriuret Pep pg/mL Total Protein (6.3-8.2) g/dL Albumin (3.5-5.0) g/dL Urine Color Dark Yellow Urine Appearance Cloudy (Clear) Urine pH 6.0 (5.0-8.0) Ur Specific [place] 1.029 (1.001-1.035) Urine Protein 3+ H (Negative) Urine Glucose (UA) Negative (Negative) Urine Ketones Trace H (Negative) Urine Blood Moderate H (Negative) Urine Nitrite Negative (Negative) Urine Bilirubin Negative (Negative) Urine Urobilinogen 4.0 (<2.0) mg/dL Ur Leukocyte Esterase Negative (Negative) Urine RBC 2 (0-5) /hpf Urine WBC 5 (0-5) /hpf Ur Squamous Epith Cells <1 (0-4) /hpf Urine Mucus Many H (None) /hpf Coronavirus (PCR) Detected A (Not Detectd) - Radiology Data Radiology results: report reviewed (Imaging shows evidence of congestive failure infiltrate included in differential. Right than the left no definite PE), image reviewed Critical Care Time Critical Care Time: Yes Total Critical Care Time: 39 Critical Care Time: Critical care time was including the initial presentation with history physical labs x-rays discussed with paramedics review of old charting also reevaluation the patient discussed with the main physician admission orders neck mentation t he above Disposition Clinical Impression: Pneumonia due to COVID-19 virus, Atrial fibrillation, COPD with exacerbation, Congestive heart failure, Lactic acidosis, Elevated troponin I level, Failure to thrive Disposition: ADMITTED IP TO THIS HOSP Condition: Fair Referrals: Edgard Villar DO [Primary Care Provider] - 1-2 days
[2021-02-07 12:57] LABS: Anisocytosis Slight; Basophils % (A) 0 %; Eosinophils % (A) 0 %; HCT 42.6 % (39.0-53.0); HGB 13.8 gm/dL (13.0-17.5); Hypochromasia Slight; Lymphocytes # (A) 0.8 k/uL (1.0-4.8); Lymphocytes % (A) 16 %; MCH 22.4 pg (25.0-35.0); MCHC 32.4 g/dL (31.0-37.0); MCV 69.2 fL (80.0-100.0); Mean Platelet Volume 7.7; Microcytosis Marked; Monocytes # (A) 0.2 k/uL (0-1.0); Monocytes % (A) 4 %; Neutrophils # (A) 3.9 k/uL (1.3-7.7); Neutrophils % (A) 79 %; Platelet Count 104 k/uL (150-450); RBC 6.17 m/uL (4.30-5.90); RDW 17.8 % (11.5-15.5)
[2021-02-07 13:10] LABS: Albumin 4.2 g/dL (3.5-5.0); Calcium 8.9 mg/dL (8.4-10.2); Magnesium 2.1 mg/dL (1.6-2.3); Potassium 3.6 mmol/L (3.5-5.1); Total Bilirubin 1.5 mg/dL (0.2-1.3); Total Protein 7.7 g/dL (6.3-8.2)
[2021-02-07 13:17] LABS: Appearance,Urine Cloudy (Clear); Bilirubin,Urine Negative (Negative); Blood,Urine Moderate (Negative); Color,Urine Dark Yellow; Glucose,Urine (UA) Negative (Negative); Ketones,Urine Trace (Negative); Leukocyte Esterase,Urine Negative (Negative); Mucus,Urine Many /hpf; Nitrite,Urine Negative (Negative); Protein,Urine 3+ (Negative); RBC,Urine 2 /hpf (0-5); Specific Gravity,Urine 1.029 (1.001-1.035); Squamous Epithelial Cell,Urine <1 /hpf (0-4); WBC,Urine 5 /hpf (0-5)
[2021-02-07 13:19] LABS: INR 1.3 (<1.2); Partial Thromboplastin Time 28.2 sec (22.0-30.0); Prothrombin Time 13.2 sec (9.0-12.0)
[2021-02-07 13:25] LABS: D-Dimer 1.52 mg/L FEU (<0.60)
--- NOTE | 2021-02-07 13:27 | XR ---
EXAMINATION TYPE: XR chest 2V DATE OF EXAM: 02/07/2021 COMPARISON: Chest x-ray 05/23/2020 HISTORY: Weakness, coronary artery disease, atrial fibrillation and hypertension TECHNIQUE: Frontal and lateral views of the chest are obtained. FINDINGS: Minimal patchy basilar density is improved at the lung bases. There is no pneumothorax seen . Some minimal blunting of the costophrenic angles noted. Aorta is dense. There are overlying leads. The cardiac silhouette size is within normal limits. Some basilar interstitial changes are present. The osseous structures are intact. IMPRESSION: There is improved aeration at the lung bases. Possible interstitial lung disease, diffic ult to exclude pneumonia, pleural effusion
[2021-02-07] MEDS ORDERED: FUROSEMIDE 10 MG/ML 4 ML VIAL IV STA (13:36)
[2021-02-07] MEDS ORDERED: cefTRIAXone IN SWFI 1,000 MG/10 ML SYRINGE IVP STA (14:51)
--- NOTE | 2021-02-07 14:52 | CT ---
EXAMINATION TYPE: CT angio chest DATE OF EXAM: 02/07/2021 2:37 PM COMPARISON: Chest x-ray earlier today. HISTORY: Suspected d-dimer, shortness of breath. CT DLP: 431.3 mGycm Automated exposure control for dose reduction was used. CONTRAST: CTA scan of the thorax is performed with IV Contrast, patient injected with 100 mL of Isovue 370, pul monary embolism protocol. MIP images are created and reviewed. FINDINGS: LUNGS: New small to tiny right greater than left bilateral pleural effusions. There is centrilobular septal thickening and groundglass opacities adjacent to a effusions in the bilateral lower lobes with slightly more anterior extension of the right lung versus left lung noted. Similar findings are seen abutting the major fissure is more prominent findings in the right upper lung versus left upper lung . Mild to moderate right apical pleural/parenchymal partially calcified scarring. There is suspicious 1.4 x 1.0 cm medial right lower lobe nodule axial image 85. MEDIASTINUM: There is satisfactory enhancement of the pulmonary artery and its branches, there is no CT evidence for pulmonary embolism. There are no greater than 1 cm hilar or mediastinal lymph nodes. No pericardial effusion is seen. Cardiomegaly is present. OTHER: There slightly displaced midsternal fracture or sagittal image 100 is presumed subacute or li matheus chronic in age. IMPRESSION: No CT evidence for acute pulmonary embolism. Possible CHF exacerbation as there is cardio megaly with small to tiny right greater than left pleural effusions and mild bilateral alveolar and i nterstitial edema thought present. I however also suspect areas of atypical acute infection with slig htly more prominent right-sided findings versus left-sided findings. Possible organizing consolidatio n. Follow-up for suspicious 1.4 x 1.0 cm medial right lower lobe nodule advised to rule out neoplasm. Consider nonemergent PET/CT.
[2021-02-07] MEDS: SODIUM CHLORIDE 0.9% 1,000 ML IV SCH (15:24)
[2021-02-07] MEDS ORDERED: ALBUTEROL HFA INHALER INHALATION STA (15:33)
[2021-02-07] MEDS ORDERED: IPRATROPIUM-ALBUTEROL 3 ML NEB INHALATION SCH (16:00)
[2021-02-07] MEDS: methylPREDNISolone SOD SUCCI 125 MG/2 ML VIAL IV SCH ×2 (17:19→22:03)
[2021-02-07] MEDS: carvediloL 6.25 MG TAB PO SCH (17:19)
--- NOTE | 2021-02-07 19:30 | HP ---
HISTORY AND PHYSICAL DATE OF SERVICE: 02/07/2021. CHIEF COMPLAINTS: Weakness and fever. HISTORY OF PRESENT ILLNESS: This 85-year-old gentleman with a past medical history of multiple medical problems including atrial fibrillation, CAD, CHF, hypertension, history of tibial fracture, history of hernia repair, being followed by Dr. Villar in the outpatient setting was apparently sent by the family with complaints of weakness for the past of couple days and diminished p.o. intake. Patient is running fever also. The patient also had atrial fibrillation with rapid ventricular rate. The patient was monitored closely. The evaluation in the ER showed elevated D-dimer, elevated inflammatory markers of Covid 19. Troponin elevated to 0.085 and Covid 19 was positive. Influenza is negative. The patient was also found to be hypoxic and 100% on 15 L non-rebreather. The patient also had a chest x-ray which was done which was reviewed personally by me showed evidence of bilateral interstitial pneumonia and a CT angio of the chest was also done which showed extensive bilateral lesions suggestive of COVID-19 pneumonia. The patient was admitted to the hospital for further evaluation and treatment. The patient is slightly confused, unable to give a coherent history. Most of the history is taken from my discussion with staff and review of chart and discussion with the ER physician. The CTA of the chest did not show any new pulmonary embolism. PAST MEDICAL HISTORY: History of atrial fibrillation, history of CAD, CHF, hypertension. MEDICATIONS: Medications prior to admission home medications are: Zestril. Coreg, Xarelto, Lasix. Doses are reviewed. ALLERGIES: None. Family history, social history and review of systems could not be taken because of change in mental status. Previous history of smoking. PHYSICAL EXAM: Patient is conscious, confused. Pulse is 109. Blood pressure 116/105, respiration 18, temperature 97.8, pulse ox 94% on 4 L. HEENT: Conjunctivae normal. NECK: No JVD. CARDIOVASCULAR: S1, S2 muffled. RESPIRATIONS: Breath sounds diminished in the bases. A few scattered rhonchi and crackles. ABDOMEN: Soft, nontender. Scaphoid. LEGS are no edema. No swelling. NERVOUS SYSTEM: Diffusely weak and emaciated and weak. SKIN: No ulcers, rashes. JOINTS: No active deforming arthropathy. LABS: WBC 5, hemoglobin 13.8, platelets 104. INR is 1.3. D-dimer is 1.5. Sodium 133. ASSESSMENT: 1. Acute COVID-19 infection with acute COVID-19 bilateral interstitial pneumonia with acute hypoxic respiratory failure. 2. Possible sepsis secondary to Covid 19. 3. Change in mental status acute metabolic encephalopathy. 4. Atrial fibrillation with fast ventricular rate. 5. Severe protein calorie malnutrition with body mass index of 15.8. 6. Microcytosis. 7. Thrombocytopenia. 8. Lymphopenia. 9. Elevated D-dimer without any evidence of pulmonary embolism. 10.Hyponatremia. 11.Elevated plasma lactic acid. 12.Elevated total bilirubin. 13.Troponin 0.083, indeterminate possibly secondary to Covid 19. 14.Severe dehydration present on admission. 15.Atrial fibrillation history. 16.History of coronary artery disease. 17.History of congestive heart failure. 18.Hypertension. 19.History of tibial fracture. 20.Gait dysfunction. 21.Remote history of nicotine dependence. RECOMMENDATIONS AND DISCUSSION: In this 85-year-old gentleman who presented with multiple complex medical issues, we will monitor the patient closely. Continue the current medications, management and symptomatic treatment. Otherwise, at this time, I recommend continue with zinc, IV steroids have been initiated. The patient also received one dose of antibiotics. I would recommend a procalcitonin level and cultures. Otherwise, I would also consult Dr. Mukherjee for possible Remdesivir administration. The patient seems to be in the window of Remdesivir administration otherwise. Overall prognosis guarded because of multiple complex medical issues. Home medication will be started. I would also consult Cardiology as well. A 2D echo with Doppler also will be ordered. A copy of this dictation being forwarded to Dr. Villar, who is the primary physician. MMODL / IJN: [id number] /
[2021-02-07] MEDS: FUROSEMIDE 10 MG/ML 4 ML VIAL IV SCH (22:03)
[2021-02-07] MEDS: RIVAROXABAN 20 MG TAB PO SCH (22:03)
[2021-02-07 22:56] LABS: Calcium 7.9 mg/dL (8.4-10.2); Potassium 2.9 mmol/L (3.5-5.1)
[2021-02-07] MEDS ORDERED: Potassium Replacement Protocol 1 EACH MISC MISCELLANE PRN (23:01)
[2021-02-07] MEDS: POTASSIUM CHLORIDE 20 MEQ in WATER FOR INJECTION 1 100ML.BAG IVPB SCH (23:25)
[2021-02-08] MEDS: POTASSIUM CHLORIDE 20 MEQ in WATER FOR INJECTION 1 100ML.BAG IVPB SCH ×3 (00:08→04:11)
[2021-02-08 06:02] LABS: Glucose,Whole Blood 166 mg/dL (75-99)
[2021-02-08] MEDS: methylPREDNISolone SOD SUCCI 125 MG/2 ML VIAL IV SCH ×4 (06:12→22:20)
[2021-02-08] MEDS: carvediloL 6.25 MG TAB PO SCH ×2 (06:13→18:24)
[2021-02-08 08:05] LABS: Anisocytosis Slight; Basophils % (A) 0 %; Eosinophils % (A) 0 %; Hypochromasia Moderate; Lymphocytes # (A) 0.8 k/uL (1.0-4.8); Lymphocytes % (A) 11 %; MCH 22.8 pg (25.0-35.0); MCHC 32.7 g/dL (31.0-37.0); MCV 69.8 fL (80.0-100.0); Mean Platelet Volume 7.6; Microcytosis Marked; Monocytes # (A) 0.2 k/uL (0-1.0); Monocytes % (A) 3 %; Neutrophils # (A) 6.2 k/uL (1.3-7.7); Neutrophils % (A) 84 %; Platelet Count 103 k/uL (150-450); RBC 6.16 m/uL (4.30-5.90); RDW 17.8 % (11.5-15.5); WBC 7.3 k/uL (3.8-10.6)
[2021-02-08 08:22] LABS: Albumin 3.3 g/dL (3.5-5.0); Potassium 3.8 mmol/L (3.5-5.1); Total Protein 6.6 g/dL (6.3-8.2)
[2021-02-08] MEDS ORDERED: FUROSEMIDE 20 MG TAB PO SCH (09:00)
--- NOTE | 2021-02-08 09:09 | P.CRDCN ---
History of Present Illness History of present illness: HISTORY OF PRESENTING ILLNESS This is a pleasant 85 year-old male. Patient has a history of atrial fibrillation, congestive heart failure, hypertension, coronary artery disease. He had an echocardiogram I 2019 which showed ejection fraction 50-55%, mild tricuspid regurg regurgitation, RVSP 44. Patient is a poor historian and much of history was obtained from the chart. Then entered with weakness, fatigue and shortness breath and was found Macrobid pneumonia. He had chest CT performed which showed no pulmonary embolism, ground glass opacities related to possible CHF exacerbation vs more likely pneumonia. Initial EKG showed atrial fibrillation with heart rate 121 bpm, Q waves in the inferior leads, left axis deviation. He was placed on home medications and heart rate 70 in the 90s to low 100s. He is on River Ativan 20 mg at home. Blood pressures at been well controlled and he is maintaining oxygen saturation any 2% on 4 L nasal cannula. Blood work shows white blood cell count 7.3, hemoglobin 14.0, sodium 1:30, BUN 31, creatinine 1.2, troponin 0.085. He normally follows with Dr Cardenas. He denies any chest pain, pressure. REVIEW OF SYSTEMS At the time of my exam: CONSTITUTIONAL: + fever, no chills. CARDIOVASCULAR: Denies chest pain, +shortness of breath, no orthopnea, PND or palpitations. RESPIRATORY: Denies cough. GASTROINTESTINAL: Denies abdominal pain, diarrhea, constipation, nausea or vomiting. MUSCULOSKELETAL: Denies myalgias. NEUROLOGIC: Denies numbness, tingling or weakness. ENDOCRINE: Denies fatigue, weight change, polydipsia or polyurina. GENITOURINARY: Denies burning, hematuria or urgency with micturation. HEMATOLOGIC: Denies history of anemia or bleeding. PHYSICAL EXAMINATION Vitals reviewed. CONSTITUTIONAL: No apparent distress. HEENT: Head is normocephalic. Pupils are equal, round. Sclerae anicteric. Mucous membranes of the mouth are moist. No JVD. No carotid bruit. CHEST EXAMINATION: Coarse breath sounds bilaterally, with crackles at bases HEART EXAMINATION: Irregular rate and rhythm. S1, S2 heard. No murmurs, gallops or rub. ABDOMEN: Soft, nontender. Positive bowel sounds. EXTREMITIES: 2+ peripheral pulses, no lower extremity edema and no calf tenderness. NEUROLOGIC EXAMINATION: Patient is awake, alert, confused ASSESSMENT 1. Covid 19 pneumonia 2. Elevated troponin x 1, trend, rule out ACS, no angina. 3. Histroy of CAD 4. Persistent Afib intially with mild RVR, improved 5. Essential hypertension PLAN Check 2-D echo for left ventricular function. Trend troponins however patient not currently having any chest pain or angina. Majority of patient's presentation appears related to COVID-19 infection. Continue with Xarelto and rate control medication. Currently heart rates predominantly controlled. Further recommendations to follow. Past Medical History Past Medical History: Atrial Fibrillation, Coronary Artery Disease (CAD), Heart Failure, Hypertension Additional Past Medical History / Comment(s): 10/09/17 slip and fall on ice with left tibia fracture, has splint on, and is no weight bearing History of Any Multi-Drug Resistant Organisms: None Reported Past Surgical History: Hernia Repair Additional Past Surgical History / Comment(s): Ankle surgery; hernia repair x 2 Past Anesthesia/Blood Transfusion Reactions: No Reported Reaction Past Psychological History: No Psychological Hx Reported Smoking Status: Former smoker Past Alcohol Use History: None Reported Additional Past Alcohol Use History / Comment(s): smoked 1ppd from [id number] Past Drug Use History: None Reported - Past Family History Mother History Unknown: Yes Father Family Medical History: Coronary Artery Disease (CAD) Sister(s) History Unknown: Yes Brother(s) History Unknown: Yes Daughter(s) Family Medical History: No Reported History Son(s) Family Medical History: No Reported History Medications and Allergies Home Medications Medication Instructions Recorded Confirmed Type carvediloL [Coreg] 6.25 mg PO BID 05/12/20 02/07/21 History lisinopriL [Zestril] 5 mg PO DAILY 05/12/20 02/07/21 History Furosemide [Lasix] 20 mg PO DAILY 06/02/20 02/07/21 History Rivaroxaban [Xarelto] 20 mg PO HS 02/07/21 02/07/21 History Allergies Allergy/AdvReac Type Severity Reaction Status Date / Time No Known Allergies Allergy Verified 02/07/21 14:01 Physical Exam Vitals: Vital Signs Temp Pulse Pulse Resp BP BP Pulse Ox 02/08/21 04:00 98.9 F 84 20 108/60 92 L 04/22/21 02:00 90 20 02/08/21 00:00 98.4 F 85 20 118/64 91 L 02/07/21 20:00 90 20 02/07/21 19:00 109 H 18 116/105 95 02/07/21 18:00 109 H 18 95 02/07/21 17:00 97.8 F 109 H 18 116/105 95 02/07/21 16:17 97.9 F 90 20 112/72 93 L 02/07/21 16:00 97.8 F 98 18 140/96 98 02/07/21 15:42 97.8 F 02/07/21 15:00 111 H 24 136/98 100 02/07/21 13:26 20 02/07/21 12:20 100.2 F H 52 L 18 103/88 93 L Intake and Output 02/07/21 02/08/21 02/08/21 22:59 06:59 14:59 Intake Total 500 Output Total 2100 800 Balance -1600 -800 Intake: Intake, IV Titration 260 Amount Sodium Chloride 0.9% 1, 260 000 ml @ 130 mls/hr IV . Q7H42M STA Rx#:[id number] Oral 240 Output: Urine 2100 800 Uretheral (Tristan) 1500 Other: Voiding Method Indwelling Catheter Indwelling Catheter Weight 43.091 kg 57 kg Results 02/08/21 07:34 02/08/21 07:34 Cardiac Enzymes 02/07/21 02/07/21 02/08/21 Range/Units 12:32 12:32 07:34 AST 39 36 (17-59) U/L Troponin I 0.085 H* (0.000-0.034) ng/mL Coagulation 02/07/21 Range/Units 12:32 PT 13.2 H (9.0-12.0) sec APTT 28.2 (22.0-30.0) sec CBC 02/07/21 02/08/21 Range/Units 12:32 07:34 WBC 5.0 7.3 (3.8-10.6) k/uL RBC 6.17 H 6.16 H (4.30-5.90) m/uL Hgb 13.8 14.0 (13.0-17.5) gm/dL Hct 42.6 43.0 (39.0-53.0) % Plt Count 104 L 103 L (150-450) k/uL Comprehensive Metabolic Panel 02/07/21 02/07/21 02/08/21 Range/Units 12:32 22:35 07:34 Sodium 133 L 134 L 130 L (137-145) mmol/L Potassium 3.6 2.9 L 3.8 (3.5-5.1) mmol/L Chloride 94 L 93 L 93 L (98-107) mmol/L Carbon Dioxide 25 30 25 (22-30) mmol/L BUN 26 H 27 H 31 H (9-20) mg/dL Creatinine 1.09 1.13 1.20 (0.66-1.25) mg/dL Glucose 145 H 150 H 151 H (74-99) mg/dL Calcium 8.9 7.9 L 8.0 L (8.4-10.2) mg/dL AST 39 36 (17-59) U/L ALT 13 11 (4-49) U/L Alkaline Phosphatase 75 61 (38-126) U/L Total Protein 7.7 6.6 (6.3-8.2) g/dL Albumin 4.2 3.3 L (3.5-5.0) g/dL Current Medications Generic Name Dose Route Start Last Admin Trade Name Freq PRN Reason Stop Dose Admin Ascorbic Acid 1,000 mg 02/08/21 09:00 Ascorbic Acid 500 Mg Tab PO DAILY SARAH Carvedilol 6.25 mg 02/07/21 17:30 02/08/21 06:13 Carvedilol 6.25 Mg Tab PO 6.25 mg AC-BID SARAH Administration Cholecalciferol 100 mcg 02/08/21 09:00 Cholecalciferol 25 Mcg (1000 Iu) Tablet PO DAILY SARAH Folic Acid 1 mg 02/08/21 12:00 Folic Acid 1 Mg Tab PO DAILY@1200 SARAH Furosemide 40 mg 02/07/21 21:00 02/07/21 22:03 Furosemide 10 Mg/Ml 4 Ml Vial IV 40 mg Q12HR SARAH Administration Sodium Chloride 1,000 mls @ 20 mls/hr 02/07/21 15:15 02/07/21 15:24 Saline 0.9% IV Not Given .Q24H SARAH Lisinopril 5 mg 02/08/21 09:00 Lisinopril 5 Mg Tab PO DAILY [facility] Methylprednisolone Sodium Succinate 60 mg 02/07/21 18:00 02/08/21 06:12 Methylprednisolone Sod Succi 125 Mg/2 Ml Vial IV 60 mg Q6HR SARAH Administration Miscellaneous Information 1 each 02/07/21 23:01 Potassium Replacement Protocol 1 Each Misc MISCELLANE DAILY PRN Per Protocol Protocol Multivitamins 1 each 02/08/21 12:00 Multivitamins, Thera 1 Each Tab PO DAILY@1200 SARAH Rivaroxaban 20 mg 02/07/21 21:00 02/07/21 22:03 Rivaroxaban 20 Mg Tab PO 20 mg HS SARAH Administration Thiamine HCl 100 mg 02/08/21 12:00 Thiamine 100 Mg Tab PO DAILY@1200 SARAH Zinc Sulfate 220 mg 02/08/21 09:00 Zinc Sulfate 220 Mg Cap PO DAILY SARAH Intake and Output 02/07/21 02/08/21 02/08/21 22:59 06:59 14:59 Intake Total 500 Output Total 2100 800 Balance -1600 -800 Intake: Intake, IV Titration 260 Amount Sodium Chloride 0.9% 1, 260 000 ml @ 130 mls/hr IV . Q7H42M STA Rx#:[id number] Oral 240 Output: Urine 2100 800 Uretheral (Tristan) 1500 Other: Voiding Method Indwelling Catheter Indwelling Catheter Weight 43.091 kg 57 kg 02/08/21 07:34 02/08/21 07:34
[2021-02-08] MEDS ORDERED: Potassium Replacement Protocol 1 EACH MISC MISCELLANE PRN (09:24)
[2021-02-08] MEDS: ZINC SULFATE 220 MG CAP PO SCH (09:58)
[2021-02-08] MEDS: CHOLECALCIFEROL 25 MCG (1000 IU) TABLET PO SCH (09:58)
[2021-02-08] MEDS: lisinopriL 5 MG TAB PO SCH (09:58)
[2021-02-08] MEDS: FUROSEMIDE 10 MG/ML 4 ML VIAL IV SCH ×2 (09:58→20:01)
[2021-02-08] MEDS: ASCORBIC ACID 500 MG TAB PO SCH (09:58)
[2021-02-08] MEDS ORDERED: POTASSIUM CHLORIDE ER 20 MEQ TAB.ER PO SCH (10:00)
[2021-02-08 11:45] LABS: Glucose,Whole Blood 139 mg/dL (75-99)
[2021-02-08] MEDS: THIAMINE 100 MG TAB PO SCH (12:36)
[2021-02-08] MEDS: FOLIC ACID 1 MG TAB PO SCH (12:36)
[2021-02-08] MEDS: MULTIVITAMINS, THERA 1 EACH TAB PO SCH (12:36)
[2021-02-08] MEDS ORDERED: REMDESIVIR 200 MG in SODIUM CHLORIDE 0.9% 250 ML IVPB ONE (14:00)
--- NOTE | 2021-02-08 16:07 | P.CNPUL ---
History of Present Illness Consult date: 02/08/21 Reason for consult: cough, hypoxemia, pneumonia Chief complaint: Weakness and poor oral intake. History of present illness: This is an 85-year-old male with history of dementia, coronary artery disease, hypertension, patient was brought into the ER by EMS based on family's request, patient has been weak and not eating well for the last few days. The patient is a poor historian, and not much information could be obtained from the patient himself. Apparently upon presentation to the hospital, patient was found to be in A. fib and RVR. Patient was seen by cardiology on consultation, apparently he has known history of pulmonary hypertension, and history of congestive heart failure. Patient tested positive for valle virus, and chest x-ray as well as CT angiogram of the chest showed groundglass opacities bilaterally in lower lobe. Right more so than left. Patient was also noted to have a new small tiny right-sided pleural effusion and small pleural effusion. Patient was admitted, and this consult was initiated. Again could not get any information from the patient himself. Review of Systems ROS unobtainable: due to mental status Past Medical History Past Medical History: Atrial Fibrillation, Coronary Artery Disease (CAD), Heart Failure, Hypertension Additional Past Medical History / Comment(s): 10/09/17 slip and fall on ice with left tibia fracture, has splint on, and is no weight bearing History of Any Multi-Drug Resistant Organisms: None Reported Past Surgical History: Hernia Repair Additional Past Surgical History / Comment(s): Ankle surgery; hernia repair x 2 Past Anesthesia/Blood Transfusion Reactions: No Reported Reaction Past Psychological History: No Psychological Hx Reported Smoking Status: Former smoker Past Alcohol Use History: None Reported Additional Past Alcohol Use History / Comment(s): smoked 1ppd from [id number] Past Drug Use History: None Reported - Past Family History Mother History Unknown: Yes Father Family Medical History: Coronary Artery Disease (CAD) Sister(s) History Unknown: Yes Brother(s) History Unknown: Yes Daughter(s) Family Medical History: No Reported History Son(s) Family Medical History: No Reported History Medications and Allergies Home Medications Medication Instructions Recorded Confirmed Type carvediloL [Coreg] 6.25 mg PO BID 05/12/20 02/07/21 History lisinopriL [Zestril] 5 mg PO DAILY 05/12/20 02/07/21 History Furosemide [Lasix] 20 mg PO DAILY 06/02/20 02/07/21 History Rivaroxaban [Xarelto] 20 mg PO HS 02/07/21 02/07/21 History Allergies Allergy/AdvReac Type Severity Reaction Status Date / Time No Known Allergies Allergy Verified 02/07/21 14:01 Physical Exam Vitals: Vital Signs Temp Pulse Pulse Resp BP BP Pulse Ox 02/08/21 14:00 102 H 18 02/08/21 08:00 98.5 F 102 H 18 113/57 95 02/08/21 04:00 98.9 F 84 20 108/60 92 L 02/08/21 02:00 90 20 02/08/21 00:00 98.4 F 85 20 118/64 91 L 02/07/21 20:00 90 20 02/07/21 19:00 109 H 18 116/105 95 02/07/21 18:00 109 H 18 95 02/07/21 17:00 97.8 F 109 H 18 116/105 95 02/07/21 16:17 97.9 F 90 20 112/72 93 L 02/07/21 16:00 97.8 F 98 18 140/96 98 Intake and Output 02/08/21 02/08/21 02/08/21 06:59 14:59 22:59 Intake Total 0 Output Total 800 Balance -800 0 Intake: Oral 0 Output: Urine 800 Other: Voiding Method Indwelling Catheter Indwelling Catheter Weight 57 kg 57 kg Physical exam revealed a 85-year-old male in no distress. On few liters nasal cannula. HEENT: PERRLA, EOMI, nonicteric, no neck masses, no JVD, no stridor. Chest: Symmetrical chest expansion. Lungs: Coarse crackles at the bases bilaterally. Cardiac: Irregular irregular rhythm, no S3 gallop, 2/6 systolic murmur thought the precordium. Abdomen: Soft nontender no megaly no rebound no guarding. Extremities: No edema, no cyanosis, good pulses bilaterally. Musculoskeletal: No deformities noted limitation of range of motion Neurologic: Confused, awake, poor mental status. Psychiatric: Normal mood, blunt affect, confused. Skin: No rashes. Results - Laboratory Findings CBC and BMP: 02/08/21 07:34 02/08/21 07:34 PT/INR, D-dimer PT 13.2 sec (9.0-12.0) H 02/07/21 12:32 INR 1.3 (<1.2) H 02/07/21 12:32 D-Dimer 1.52 mg/L FEU (<0.60) H 02/07/21 12:32 Abnormal lab findings: Abnormal Labs 02/07/21 02/07/21 02/07/21 12:32 12:32 12:32 RBC 6.17 H MCV 69.2 L MCH 22.4 L RDW 17.8 H Plt Count 104 L Lymphocytes # 0.8 L PT 13.2 H INR 1.3 H D-Dimer 1.52 H Sodium 133 L Potassium Chloride 94 L BUN 26 H Glucose 145 H POC Glucose (mg/dL) Plasma Lactic Acid Surinder Calcium Total Bilirubin 1.5 H Creatine Kinase 237 H Troponin I Albumin Urine Protein Urine Ketones Urine Blood Urine Mucus Coronavirus (PCR) 02/07/21 02/07/21 02/07/21 12:32 12:32 12:32 RBC MCV MCH RDW Plt Count Lymphocytes # PT INR D-Dimer Sodium Potassium Chloride BUN Glucose POC Glucose (mg/dL) Plasma Lactic Acid Surinder 3.4 H* Calcium Total Bilirubin Creatine Kinase Troponin I 0.085 H* Albumin Urine Protein Urine Ketones Urine Blood Urine Mucus Coronavirus (PCR) Detected A 02/07/21 02/07/21 02/08/21 12:51 22:35 06:01 RBC MCV MCH RDW Plt Count Lymphocytes # PT INR D-Dimer Sodium 134 L Potassium 2.9 L Chloride 93 L BUN 27 H Glucose 150 H POC Glucose (mg/dL) 166 H Plasma Lactic Acid Surinder Calcium 7.9 L Total Bilirubin Creatine Kinase Troponin I Albumin Urine Protein 3+ H Urine Ketones Trace H Urine Blood Moderate H Urine Mucus Many H Coronavirus (PCR) 02/08/21 02/08/21 02/08/21 07:34 07:34 09:45 RBC 6.16 H MCV 69.8 L MCH 22.8 L RDW 17.8 H Plt Count 103 L Lymphocytes # 0.8 L PT INR D-Dimer Sodium 130 L Potassium Chloride 93 L BUN 31 H Glucose 151 H POC Glucose (mg/dL) Plasma Lactic Acid Surinder Calcium 8.0 L Total Bilirubin Creatine Kinase Troponin I 0.396 H* Albumin 3.3 L Urine Protein Urine Ketones Urine Blood Urine Mucus Coronavirus (PCR) 02/08/21 11:43 RBC MCV MCH RDW Plt Count Lymphocytes # PT INR D-Dimer Sodium Potassium Chloride BUN Glucose POC Glucose (mg/dL) 139 H Plasma Lactic Acid Surinder Calcium Total Bilirubin Creatine Kinase Troponin I Albumin Urine Protein Urine Ketones Urine Blood Urine Mucus Coronavirus (PCR) - Diagnostic Findings CT scan - chest: image reviewed (As noted in HPI) Assessment and Plan Assessment: Impression: Acute hypoxic respiratory failure secondary to COVID-19 pneumonia. Chronic atrial fibrillation. Benign essential hypertension. Troponin leak. Suspect profound underlying dementia. Recommendation: Continue present COVID-19 cocktail. Continue methylprednisolone. Continue vitamins. Patient seems to be within the window for receiving REM, and this will be initiated today. Continue Xarelto for his underlying atrial fibrillation. Cut down her IV fluid to KVO. Ordered inflammatory markers to monitor his disease progression. Continue oxygen and titrate accordingly. We'll continue to follow. Time with Patient: Greater than 30
--- NOTE | 2021-02-08 16:45 | PN ---
PROGRESS NOTE DATE OF SERVICE: 02/08/2021 This 85-year-old gentleman admitted with COVID-19 infection also had significant COVID- 19 pneumonia. The patient also had possible sepsis. The patient had change in mental status. He is being closely monitored. Multiple consultants are following the patient closely. Cardiology has seen the patient, also. Past medical history reviewed. REVIEW OF SYSTEMS: CARDIOVASCULAR SYSTEM: No angina, palpitations. RESPIRATORY SYSTEM: As mentioned earlier. GI: As mentioned earlier. : No dysuria or retention. NERVOUS SYSTEM: No numbness, weakness. CURRENT MEDICATIONS: Reviewed. They include vitamin C, Coreg, vitamin D3, Zestril, Solu-Medrol, multivitamins, remdesivir. Doses are reviewed. PHYSICAL EXAMINATION: Patient is alert, oriented x2. Pulse is 102, blood pressure 130/57, respiration 18, temperature 98.2, pulse ox 95% on 4 L. HEENT: Conjunctivae normal. NECK: No jugular venous distention. CARDIOVASCULAR SYSTEM: S1, S2 muffled. RESPIRATORY SYSTEM: Breath sounds diminished at the bases. A few scattered rhonchi and crackles. ABDOMEN: Soft, non-tender. NERVOUS SYSTEM: No focal deficit. LABS: WBC 7.3, hemoglobin 14. Otherwise, troponin 0.396. ASSESSMENT: 1. Acute COVID-19 infection with acute COVID-19 bilateral interstitial pneumonia with hypoxic respiratory failure. 2. Possible sepsis secondary to COVID-19, present on admission. 3. Change in mental status, acute metabolic encephalopathy. 4. Troponin 0.396; possible acute [id number]-elevation myocardial infarction or related to COVID-19. 5. Atrial fibrillation with a fast ventricular rate. 6. Severe protein-calorie malnutrition with body mass index of 15.8. 7. Microcytosis. 8. Thrombocytopenia. 9. Lymphopenia. 10.Elevated D-dimer without any evidence of acute pulmonary embolism. 11.Hyponatremia. 12.Elevated plasma lactic acid. 13.Elevated total bilirubin. 14.Severe dehydration, present on admission. 15.Atrial fibrillation history. 16.History of coronary artery disease. 17.History of congestive heart failure. 18.Hypertension. 19.History of tibial fracture. 20.Gait dysfunction. 21.Remote history of nicotine dependence. 22.FULL CODE. RECOMMENDATIONS AND DISCUSSION: In this 85-year-old gentleman who presented with multiple complex medical issues, we will monitor the patient closely, continue the current medications, continue symptomatic treatment. Continue steroids. Continue the remdesivir. Continue the rest of the medications. Xarelto has been initiated. A 2D echo has been ordered. Will continue to monitor. Repeat labs will be ordered for tomorrow. Guarded prognosis. Further recommendations to follow. MMODL / IJN: [id number] /
[2021-02-08 16:48] LABS: Glucose,Whole Blood 180 mg/dL (75-99)
[2021-02-08] MEDS: SODIUM CHLORIDE 0.9% 1,000 ML IV SCH (18:24)
[2021-02-08] MEDS: RIVAROXABAN 20 MG TAB PO SCH (20:01)
[2021-02-08 20:17] LABS: Glucose,Whole Blood 153 mg/dL (75-99)
[2021-02-09] MEDS: carvediloL 6.25 MG TAB PO SCH ×2 (05:50→17:47)
[2021-02-09] MEDS: methylPREDNISolone SOD SUCCI 125 MG/2 ML VIAL IV SCH ×4 (05:50→22:54)
[2021-02-09 06:28] LABS: Glucose,Whole Blood 167 mg/dL (75-99)
[2021-02-09] MEDS: INSULIN ASPART (NovoLOG) 100 UNIT/ML VIAL SQ SCH ×4 (06:36→20:16)
--- NOTE | 2021-02-09 10:03 | ECHOF ---
Referral Reason:afib MEASUREMENTS -------- HEIGHT: 165.1 cm WEIGHT: 56.7 kg BP: 108/60 RVIDd: 3.1 cm (< 3.3) IVSd: 1.1 cm (0.6 - 1.1) LVIDd: 4.4 cm (3.9 - 5.3) LVPWd: 1.0 cm (0.6 - 1.1) IVSs: 1.2 cm LVIDs: 4.2 cm LVPWs: 1.6 cm LA Diam: 4.3 cm (2.7 - 3.8) Ao Diam: 3.6 cm (2.0 - 3.7) MV EXCURSION: 15.271 mm (> 18.000) MV EF SLOPE: 129 mm/s (70 - 150) EPSS: 4.0 cm AR PHT: 689 ms RAP: 15.00 mmHg RVSP: 43.46 mmHg FINDINGS -------- Atrial fibrillation. This was a technically difficult study with suboptimal views. The left ventricular size is normal. There is borderline concentric left ventricular hypertrophy. Overall left ventricular systolic function is severely impaired with, an EF < 20%. The right ventricle is normal in size. The left atrium is mildly dilated. The right atrium is normal in size. 3 ml of Lumason was utilized for enhancement of images. There is mild aortic valve sclerosis. There is mild aortic regurgitation. The mitral valve leaflets are mildly thickened. Mild mitral annular calcification present. Modera [id number] mitral regurgitation is present. Mild tricuspid regurgitation present. There is mild pulmonary hypertension. The right ventricular systolic pressure, as measured by Doppler, is 43.46mmHg. The pulmonic valve was not well visualized. The aortic root size is normal. IVC Not well visulized. There is no pericardial effusion. CONCLUSIONS -------- 1. This was a technically difficult study with suboptimal views. 2. The left ventricular size is normal. 3. There is borderline concentric left ventricular hypertrophy. 4. Overall left ventricular systolic function is severely impaired with, an EF < 20%. 5. The left atrium is mildly dilated. 6. 3 ml of Lumason was utilized for enhancement of images. 7. There is mild aortic valve sclerosis. 8. There is mild aortic regurgitation. 9. The mitral valve leaflets are mildly thickened. 10. Mild mitral annular calcification present. 11. [id number] mitral regurgitation is present. 12. Mild tricuspid regurgitation present. 13. There is mild pulmonary hypertension. 14. The right ventricular systolic pressure, as measured by Doppler, is 43.46mmHg. 15. IVC Not well visulized. 16. There is no pericardial effusion. GENERAL HOUSE WORKER: Swati Mauricio RDCS
--- NOTE | 2021-02-09 10:44 | P.PN ---
Subjective HISTORY OF PRESENTING ILLNESS This is a pleasant 85 year-old male. Patient has a history of atrial fibrillation, congestive heart failure, hypertension, coronary artery disease. He had an echocardiogram I 2019 which showed ejection fraction 50-55%, mild tricuspid regurg regurgitation, RVSP 44. Patient is a poor historian and much of history was obtained from the chart. Then entered with weakness, fatigue and shortness breath and was found Macrobid pneumonia. He had chest CT performed which showed no pulmonary embolism, ground glass opacities related to possible CHF exacerbation vs more likely pneumonia. Initial EKG showed atrial fibril lation with heart rate 121 bpm, Q waves in the inferior leads, left axis deviation. He was placed on home medications and heart rate 70 in the 90s to low 100s. He is on River Ativan 20 mg at home. Blood pressures at been well controlled and he is maintaining oxygen saturation any 2% on 4 L nasal cannula. Blood work shows white blood cell count 7.3, hemoglobin 14.0, sodium 1:30, BUN 31, creatinine 1.2, troponin 0.085. He normally follows with Dr Cardenas. He denies any chest pain, pressure. 02/09 Seen and examined. Patient or lethargic today however able to say he is not having any pain at this time. Per nursing decreased oral intake and has not been eating much food. His blood pressures remain borderline 90s over 60s. He has been receiving IV Lasix, labs pending from this morning. Resulted yesterday with ejection fraction less than 20%, moderate to severe mitral regurgitation. Troponins mildly increased up to 0.4. REVIEW OF SYSTEMS At the time of my exam: CONSTITUTIONAL: + fever, no chills. CARDIOVASCULAR: Denies chest pain, +shortness of breath, no orthopnea, PND or palpitations. RESPIRATORY: Denies cough. GASTROINTESTINAL: Denies abdominal pain, diarrhea, constipation, nausea or vomiting. MUSCULOSKELETAL: Denies myalgias. NEUROLOGIC: Denies numbness, tingling or weakness. ENDOCRINE: Denies fatigue, weight change, polydipsia or polyurina. GENITOURINARY: Denies burning, hematuria or urgency with micturation. HEMATOLOGIC: Denies history of anemia or bleeding. PHYSICAL EXAMINATION Vitals reviewed. CONSTITUTIONAL: No apparent distress, lethargic, ill-appearing HEENT: Head is normocephalic. Pupils are equal, round. Sclerae anicteric. Mucous membranes of the mouth are moist. No JVD. No carotid bruit. CHEST EXAMINATION: Coarse breath sounds bilaterally, with crackles at bases HEART EXAMINATION: Irregular rate and rhythm. S1, S2 heard. No murmurs, gallops or rub. ABDOMEN: Soft, nontender. Positive bowel sounds. EXTREMITIES: 2+ peripheral pulses, no lower extremity edema and no calf tenderness. NEUROLOGIC EXAMINATION: Patient is awake, alert, confused ASSESSMENT 1. Covid 19 pneumonia 2. NSTEMI, likely type 2 mechanism secondary to Covid infection however does have drop in ejection fraction 3. Histroy of CAD 4. Persistent Afib intially with mild RVR, improved 5. Essential hypertension 6. Cardiomyopathy new onset with ejection fraction less than 20% 7. Moderate to severe mitral regurgitation 8. Chronic systolic heart failure PLAN Patient somewhat more lethargic today, labs pending. He has not been able to tolerate any oral intake. Stop IV Lasix as he appears euvolemic to dry. If creatinine is increased may consider IV fluids. Suspect elevated troponins likely type II mechanism related to Covid infection. Patient however would likely need an ischemic workup pending clinical course etiology of cardiomyopathy however this will likely be delayed until after he is recovered from Covid. Add aspirin and continue Xarelto. Objective - Vital Signs Vital signs: Vital Signs Temp 98.6 F 02/09/21 03:44 Pulse 97 02/09/21 03:44 Resp 17 02/09/21 03:44 BP 108/57 02/09/21 03:44 Pulse Ox 95 02/09/21 03:44 Intake & Output 02/08/21 02/09/21 02/09/21 18:59 06:59 18:59 Intake Total 0 Output Total 200 275 Balance -200 -275 Weight 57 kg 56 kg Intake: Oral 0 Output: Urine 200 275 Other: Voiding Method Indwelling Catheter Indwelling Catheter # Bowel Movements 1 - Labs CBC & Chem 7: 02/08/21 07:34 02/08/21 07:34 Labs: Abnormal Lab Results - Last 24 Hours (Table) 02/08/21 02/08/21 02/08/21 Range/Units 09:45 11:43 16:17 POC Glucose (mg/dL) 139 H (75-99) mg/dL Troponin I 0.396 H* 0.457 H* (0.000-0.034) ng/mL 02/08/21 02/08/21 02/09/21 Range/Units 16:46 20:09 06:20 POC Glucose (mg/dL) 180 H 153 H 167 H (75-99) mg/dL Troponin I (0.000-0.034) ng/mL Microbiology - Last 24 Hours (Table) 02/07/21 12:51 Blood Culture - Preliminary Blood No Growth after 24 hours 02/07/21 12:33 Blood Culture - Preliminary Blood No Growth after 24 hours
[2021-02-09] MEDS ORDERED: SODIUM CHLORIDE 0.9% 500 ML 500 ML IV ONE (11:31)
[2021-02-09 11:34] LABS: Albumin 3.1 g/dL (3.5-5.0); Calcium 7.9 mg/dL (8.4-10.2)
[2021-02-09 11:45] LABS: Anisocytosis Slight; Basophils % (A) 0 %; Eosinophils % (A) 0 %; HCT 45.3 % (39.0-53.0); HGB 13.8 gm/dL (13.0-17.5); Hypochromasia Marked; Lymphocytes # (A) 0.6 k/uL (1.0-4.8); Lymphocytes % (A) 7 %; MCH 21.6 pg (25.0-35.0); MCHC 30.4 g/dL (31.0-37.0); Mean Platelet Volume 9.8; Microcytosis Marked; Monocytes # (A) 0.2 k/uL (0-1.0); Monocytes % (A) 2 %; Neutrophils # (A) 7.6 k/uL (1.3-7.7); Neutrophils % (A) 90 %; Platelet Count 140 k/uL (150-450); RBC 6.39 m/uL (4.30-5.90); WBC 8.5 k/uL (3.8-10.6)
[2021-02-09 11:47] LABS: Glucose,Whole Blood 186 mg/dL (75-99)
--- NOTE | 2021-02-09 12:02 | XR ---
EXAMINATION TYPE: XR chest 1V portable DATE OF EXAM: 02/09/2021 COMPARISON: Chest x-ray and CT 02/07/2021 HISTORY: Covid pneumonia, abnormal chest x-ray TECHNIQUE: frontal view of the chest is obtained on 2 images. FINDINGS: Bilateral airspace disease persists, there is prominence of interstitium. No evident pneum othorax or pleural effusion. Heart and mediastinal silhouette is within normal limits. Aorta is dense . Apical pleural calcification is present. There is underlying emphysema. IMPRESSION: Correlate for pneumonia.
[2021-02-09] MEDS: REMDESIVIR 100 MG in SODIUM CHLORIDE 0.9% 250 ML IVPB SCH (13:40)
[2021-02-09] MEDS: SODIUM CHLORIDE 0.9% 1,000 ML IV SCH ×2 (13:41→18:18)
[2021-02-09 16:12] LABS: Calcium 8.1 mg/dL (8.4-10.2); Potassium 4.1 mmol/L (3.5-5.1); Total Bilirubin 0.9 mg/dL (0.2-1.3); Total Protein 5.7 g/dL (6.3-8.2)
[2021-02-09 16:46] LABS: Glucose,Whole Blood 167 mg/dL (75-99)
--- NOTE | 2021-02-09 16:51 | P.PN ---
Subjective Progress Note Date: 02/09/21 Principal diagnosis: Acute hypoxic respiratory failure secondary to COVID-19 pneumonitis. This is an 85-year-old male with history of dementia, coronary artery disease, hypertension, patient was brought into the ER by EMS based on family's request, patient has been weak and not eating well for the last few days. The patient is a poor historian, and not much information could be obtained from the patient himself. Apparently upon presentation to the hospital, patient was found to be in A. fib and RVR. Patient was seen by cardiology on consultation, apparently he has known history of pulmonary hypertension, and history of congestive heart failure. Patient tested positive for valle virus, and chest x-ray as well as CT angiogram of the chest showed groundglass opacities bilaterally in lower lobe. Right more so than left. Patient was also noted to have a new small tiny right-sided pleural effusion and small pleural effusion. Patient was admitted, and this consult was initiated. Again could not get any information from the patient himself. Patient was reevaluated today on 02/09/2021, remains on a regular medical floor, he is on 2 L, O2 sats is 95%. Patient does not seem to be in any distress. He is doing great. Electrolytes are normal basic metabolic profile is normal his creatinine is improving down to 1.86. Blood sugar is 167. Troponin on admission was 0.295. That being addressed by cardiology. Objective - Vital Signs Vital signs: Vital Signs Temp 97.6 F 02/09/21 08:00 Pulse 94 02/09/21 14:00 Resp 18 02/09/21 14:00 BP 108/61 02/09/21 12:00 Pulse Ox 95 02/09/21 12:00 Intake & Output 02/08/21 02/09/21 02/09/21 18:59 06:59 18:59 Intake Total 0 0 Output Total 200 275 Balance -200 -275 0 Weight 57 kg 56 kg Intake: Oral 0 0 Output: Urine 200 275 Other: Voiding Method Indwelling Catheter Indwelling Catheter Indwelling Catheter # Bowel Movements 1 - Exam Physical exam revealed a 85-year-old male in no distress. On 2 L nasal cannula. HEENT: PERRLA, EOMI, nonicteric, no neck masses, no JVD, no stridor. Chest: Symmetrical chest expansion. Lungs: Coarse crackles at the bases bilaterally. Cardiac: Irregular irregular rhythm, no S3 gallop, 2/6 systolic murmur thought the precordium. Abdomen: Soft nontender no megaly no rebound no guarding. Extremities: No edema, no cyanosis, good pulses bilaterally. Musculoskeletal: No deformities noted limitation of range of motion Neurologic: Confused, awake, poor mental status. Psychiatric: Normal mood, blunt affect, confused. Skin: No rashes. - Labs CBC & Chem 7: 02/09/21 10:02 02/09/21 14:38 Labs: Abnormal Lab Results - Last 24 Hours (Table) 02/08/21 02/08/21 02/08/21 Range/Units 16:17 16:46 20:09 RBC (4.30-5.90) m/uL MCV (80.0-100.0) fL MCH (25.0-35.0) pg MCHC (31.0-37.0) g/dL RDW (11.5-15.5) % Plt Count (150-450) k/uL Lymphocytes # (1.0-4.8) k/uL Sodium (137-145) mmol/L Chloride (98-107) mmol/L Carbon Dioxide (22-30) mmol/L BUN (9-20) mg/dL Creatinine (0.66-1.25) mg/dL Glucose (74-99) mg/dL POC Glucose (mg/dL) 180 H 153 H (75-99) mg/dL Calcium (8.4-10.2) mg/dL Troponin I 0.457 H* (0.000-0.034) ng/mL Total Protein (6.3-8.2) g/dL Albumin (3.5-5.0) g/dL 02/09/21 02/09/21 02/09/21 Range/Units 06:20 10:02 10:02 RBC 6.39 H (4.30-5.90) m/uL MCV 71.0 L (80.0-100.0) fL MCH 21.6 L (25.0-35.0) pg MCHC 30.4 L (31.0-37.0) g/dL RDW 18.0 H (11.5-15.5) % Plt Count 140 L (150-450) k/uL Lymphocytes # 0.6 L (1.0-4.8) k/uL Sodium 131 L (137-145) mmol/L Chloride 95 L (98-107) mmol/L Carbon Dioxide (22-30) mmol/L BUN 63 H (9-20) mg/dL Creatinine 1.92 H (0.66-1.25) mg/dL Glucose 205 H (74-99) mg/dL POC Glucose (mg/dL) 167 H (75-99) mg/dL Calcium 7.9 L (8.4-10.2) mg/dL Troponin I (0.000-0.034) ng/mL Total Protein 6.0 L (6.3-8.2) g/dL Albumin 3.1 L (3.5-5.0) g/dL 02/09/21 02/09/21 02/09/21 Range/Units 11:41 11:46 14:38 RBC (4.30-5.90) m/uL MCV (80.0-100.0) fL MCH (25.0-35.0) pg MCHC (31.0-37.0) g/dL RDW (11.5-15.5) % Plt Count (150-450) k/uL Lymphocytes # (1.0-4.8) k/uL Sodium 130 L (137-145) mmol/L Chloride 96 L (98-107) mmol/L Carbon Dioxide 21 L (22-30) mmol/L BUN 73 H (9-20) mg/dL Creatinine 1.86 H (0.66-1.25) mg/dL Glucose 213 H (74-99) mg/dL POC Glucose (mg/dL) 186 H (75-99) mg/dL Calcium 8.1 L (8.4-10.2) mg/dL Troponin I 0.295 H* (0.000-0.034) ng/mL Total Protein 5.7 L (6.3-8.2) g/dL Albumin 3.0 L (3.5-5.0) g/dL 02/09/21 Range/Units 16:44 RBC (4.30-5.90) m/uL MCV (80.0-100.0) fL MCH (25.0-35.0) pg MCHC (31.0-37.0) g/dL RDW (11.5-15.5) % Plt Count (150-450) k/uL Lymphocytes # (1.0-4.8) k/uL Sodium (137-145) mmol/L Chloride (98-107) mmol/L Carbon Dioxide (22-30) mmol/L BUN (9-20) mg/dL Creatinine (0.66-1.25) mg/dL Glucose (74-99) mg/dL POC Glucose (mg/dL) 167 H (75-99) mg/dL Calcium (8.4-10.2) mg/dL Troponin I (0.000-0.034) ng/mL Total Protein (6.3-8.2) g/dL Albumin (3.5-5.0) g/dL Microbiology - Last 24 Hours (Table) 02/07/21 12:33 Blood Culture - Preliminary Blood No Growth after 48 hours 02/07/21 12:51 Blood Culture - Preliminary Blood No Growth after 48 hours Assessment and Plan Assessment: Impression: Acute hypoxic respiratory failure secondary to COVID-19 pneumonia. Chronic atrial fibrillation. Benign essential hypertension. Troponin leak. Suspect profound underlying dementia. Recommendation: Continue present COVID-19 cocktail. Continue methylprednisolone. Continue vitamins. Continue REM. Continue Xarelto for his underlying atrial fibrillation. Cut down her IV fluid to KVO. Ordered inflammatory markers to monitor his disease progression. Continue oxygen and titrate accordingly. Possible discharge planning once the patient is done with his REM. We'll continue to follow. Time with Patient: Less than 30
--- NOTE | 2021-02-09 16:52 | PN ---
PROGRESS NOTE DATE OF SERVICE: 02/09/2021 This 85-year-old gentleman who was admitted with acute COVID-19 infection with acute COVID-19 bilateral interstitial pneumonia with acute hypoxic respiratory failure also had possible sepsis. Patient is being closely monitored at this time. The patient has hypotension at this time. The patient is also less responsive. Patient is on multiple antihypertensive medications. Multiple consultants are following the patient closely. A chest x-ray done today showed interstitial infiltrate, mostly on the right side, indicating interstitial pneumonia. The patient also had acute hypoxic respiratory failure. Patient is being closely monitored. Dr. Mukherjee is also following the patient closely. The patient is remdesivir. Past medical history reviewed. Review of systems could not be taken; the patient is mildly confused. CURRENT MEDICATIONS: Reviewed. They include aspirin, Coreg, NovoLog, multivitamins, remdesivir, Xarelto, Orazinc, vitamin B1. PHYSICAL EXAMINATION: Patient is conscious, confused. Pulse 94, blood pressure 90/60, respiration 16, temperature 97.6, pulse ox 98% on 2 L. HEENT: Conjunctivae normal. NECK: No jugular venous distention. CARDIOVASCULAR SYSTEM: S1, S2 muffled. RESPIRATORY SYSTEM: Breath sounds diminished at the bases. A few scattered rhonchi. ABDOMEN: Soft, non-tender. LEGS: No edema. No swelling. NERVOUS SYSTEM: No focal deficit. LABS: WBC 8.5, hemoglobin 13.8. Sodium 131, potassium 3. Troponin 0.295. ASSESSMENT: 1. Acute COVID-19 infection with acute COVID-19 bilateral interstitial pneumonia, right more than the left, with acute hypoxic respiratory failure, present on admission. 2. Sepsis secondary to COVID-19 pneumonia, present on admission. 3. Change in mental status, acute metabolic encephalopathy. 4. Troponin 0.396; possible acute [id number]-elevation myocardial infarction. 5. Atrial fibrillation with fast ventricular rate. 6. Severe protein-calorie malnutrition with body mass index of 15.8. 7. Microcytosis. 8. Thrombocytopenia. 9. Lymphopenia. 10.Elevated D-dimer without any evidence of acute pulmonary embolism. 11.Hyponatremia. 12.Elevated plasma lactic acid. 13.Elevated total bilirubin. 14.Severe dehydration, present on admission. 15.Atrial fibrillation history. 16.History of coronary artery disease. 17.History of congestive heart failure, ejection fraction unknown. 18.Hypertension. 19.History of tibial fracture. 20.Gait dysfunction. 21.Remote history of nicotine dependence. 22.FULL CODE. RECOMMENDATIONS AND DISCUSSION: I recommend to continue current medications, continue with the monitoring, symptomatic treatment. Otherwise at this time I would recommend fluid bolus. Hold off the antihypertension medications. Other than that, I would recommend a serum procalcitonin STAT. The patient is on IV steroids. Also obtain a serum cortisol. Recommend empiric antibiotics. Guarded prognosis. Further recommendations to follow. MMODL / IJN: [id number] /
[2021-02-09] MEDS: ZINC SULFATE 220 MG CAP PO SCH (17:45)
[2021-02-09] MEDS: CHOLECALCIFEROL 25 MCG (1000 IU) TABLET PO SCH (17:45)
[2021-02-09] MEDS: TAMSULOSIN 0.4 MG CAP.ER.24H PO SCH (17:45)
[2021-02-09] MEDS: ASCORBIC ACID 500 MG TAB PO SCH (17:45)
[2021-02-09] MEDS: FOLIC ACID 1 MG TAB PO SCH (17:46)
[2021-02-09] MEDS: ASPIRIN 81 MG PO SCH (17:46)
[2021-02-09] MEDS: THIAMINE 100 MG TAB PO SCH (17:46)
[2021-02-09] MEDS: MULTIVITAMINS, THERA 1 EACH TAB PO SCH (17:46)
[2021-02-09] MEDS: FUROSEMIDE 10 MG/ML 4 ML VIAL IV SCH (17:47)
[2021-02-09] MEDS: lisinopriL 5 MG TAB PO SCH (17:47)
[2021-02-09] MEDS: RIVAROXABAN 15 MG TAB PO SCH (20:16)
[2021-02-09 20:18] LABS: Glucose,Whole Blood 227 mg/dL (75-99)
[2021-02-10] MEDS: SODIUM CHLORIDE 0.9% 1,000 ML IV SCH ×2 (02:16→17:37)
[2021-02-10] MEDS: carvediloL 6.25 MG TAB PO SCH ×2 (06:11→17:38)
[2021-02-10 06:52] LABS: Glucose,Whole Blood 168 mg/dL (75-99)
[2021-02-10] MEDS: INSULIN ASPART (NovoLOG) 100 UNIT/ML VIAL SQ SCH ×4 (06:53→21:23)
[2021-02-10] MEDS: methylPREDNISolone SOD SUCCI 125 MG/2 ML VIAL IV SCH ×2 (06:53→12:18)
[2021-02-10 09:07] LABS: Anisocytosis Slight; Basophils % (A) 0 %; Eosinophils % (A) 0 %; HCT 38.1 % (39.0-53.0); HGB 12.1 gm/dL (13.0-17.5); Hypochromasia Moderate; Lymphocytes # (A) 0.3 k/uL (1.0-4.8); Lymphocytes % (A) 5 %; MCH 22.2 pg (25.0-35.0); MCHC 31.7 g/dL (31.0-37.0); MCV 69.9 fL (80.0-100.0); Mean Platelet Volume 7.9; Microcytosis Marked; Monocytes # (A) 0.2 k/uL (0-1.0); Monocytes % (A) 4 %; Neutrophils # (A) 5.2 k/uL (1.3-7.7); Neutrophils % (A) 90 %; Platelet Count 101 k/uL (150-450); RBC 5.45 m/uL (4.30-5.90); RDW 18.2 % (11.5-15.5); WBC 5.8 k/uL (3.8-10.6)
[2021-02-10] MEDS: ASCORBIC ACID 500 MG TAB PO SCH (09:52)
[2021-02-10] MEDS: CHOLECALCIFEROL 25 MCG (1000 IU) TABLET PO SCH (09:52)
[2021-02-10] MEDS: ASPIRIN 81 MG PO SCH (09:52)
[2021-02-10] MEDS: TAMSULOSIN 0.4 MG CAP.ER.24H PO SCH (09:52)
[2021-02-10] MEDS: ZINC SULFATE 220 MG CAP PO SCH (09:53)
[2021-02-10 12:02] LABS: Glucose,Whole Blood 179 mg/dL (75-99)
[2021-02-10] MEDS: THIAMINE 100 MG TAB PO SCH (12:18)
[2021-02-10] MEDS: MULTIVITAMINS, THERA 1 EACH TAB PO SCH (12:18)
[2021-02-10] MEDS: FOLIC ACID 1 MG TAB PO SCH (12:18)
--- NOTE | 2021-02-10 14:08 | CT ---
EXAMINATION TYPE: CT brain wo con DATE OF EXAM: 02/10/2021 COMPARISON: 10/09/2017 HISTORY: Mental status changes CT DLP: 1060.4 mGycm Automated exposure control for dose reduction was used. there is cerebral cortical atrophy. There is no mass effect nor midline shift. There is no sign of in tracranial hemorrhage. There is old 4 x 2.5 cm infarct right occipital lobe. The calvarium is intact. The skull base is intact. There is normal aeration of the mastoid sinuses. There is 2 x 1 cm area of hypodensity in the anterior left internal capsule and insula of the left temporal lobe. IMPRESSION: Old right occipital lobe infarct. This is a change compared to old exam. Cerebral atrophy. 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
[2021-02-10] MEDS: REMDESIVIR 100 MG in SODIUM CHLORIDE 0.9% 250 ML IVPB SCH (15:06)
--- NOTE | 2021-02-10 16:37 | P.PN ---
Subjective Progress Note Date: 02/10/21 Principal diagnosis: Acute hypoxic respiratory failure secondary to COVID-19 pneumonitis. This is an 85-year-old male with history of dementia, coronary artery disease, hypertension, patient was brought into the ER by EMS based on family's request, patient has been weak and not eating well for the last few days. The patient is a poor historian, and not much information could be obtained from the patient himself. Apparently upon presentation to the hospital, patient was found to be in A. fib and RVR. Patient was seen by cardiology on consultation, apparently he has known history of pulmonary hypertension, and history of congestive heart failure. Patient tested positive for valle virus, and chest x-ray as well as CT angiogram of the chest showed groundglass opacities bilaterally in lower lobe. Right more so than left. Patient was also noted to have a new small tiny right-sided pleural effusion and small pleural effusion. Patient was admitted, and this consult was initiated. Again could not get any information from the patient himself. Patient was reevaluated today on 02/09/2021, remains on a regular medical floor, he is on 2 L, O2 sats is 95%. Patient does not seem to be in any distress. He is doing great. Electrolytes are normal basic metabolic profile is normal his creatinine is improving down to 1.86. Blood sugar is 167. Troponin on admission was 0.295. That being addressed by cardiology. Patient was reevaluated today on 02/10/2021, patient seems to be doing relatively well, he is intermittently on room air and O2 saturations 96%. During my evaluation he was on 3 L. On room air his O2 saturations were 96% documented on the chart. Mental status remains about the same, patient is confused. Labs today are relatively unremarkable. And his serum cortisol level was 38. Glucose 179 Objective - Vital Signs Vital signs: Vital Signs Temp 97.4 F L 02/10/21 09:44 Pulse 89 02/10/21 15:04 Resp 16 02/10/21 15:04 BP 123/79 02/10/21 15:04 Pulse Ox 96 02/10/21 15:04 Intake & Output 02/09/21 02/10/21 02/10/21 18:59 06:59 18:59 Intake Total 0 100 Output Total 301 450 401 Balance -301 -450 -301 Weight 56.5 kg Intake: Oral 0 100 Output: Urine 300 450 400 Stool 1 1 Other: Voiding Method Indwelling Catheter Indwelling Catheter Indwelling Catheter # Bowel Movements 1 - Exam Physical exam revealed a 85-year-old male in no distress. On room air. HEENT: PERRLA, EOMI, nonicteric, no neck masses, no JVD, no stridor. Chest: Symmetrical chest expansion. Lungs: Coarse crackles at the bases bilaterally. Cardiac: Irregular irregular rhythm, no S3 gallop, 2/6 systolic murmur thought the precordium. Abdomen: Soft nontender no megaly no rebound no guarding. Extremities: No edema, no cyanosis, good pulses bilaterally. Musculoskeletal: No deformities noted limitation of range of motion Neurologic: Confused, awake, poor mental status. Psychiatric: Normal mood, blunt affect, confused. Skin: No rashes. - Labs CBC & Chem 7: 02/10/21 08:28 02/09/21 14:38 Labs: Abnormal Lab Results - Last 24 Hours (Table) 02/09/21 02/09/21 02/09/21 Range/Units 14:38 16:44 20:12 Hgb (13.0-17.5) gm/dL Hct (39.0-53.0) % MCV (80.0-100.0) fL MCH (25.0-35.0) pg RDW (11.5-15.5) % Plt Count (150-450) k/uL Lymphocytes # (1.0-4.8) k/uL POC Glucose (mg/dL) 167 H 227 H (75-99) mg/dL Procalcitonin 0.45 H (0.02-0.09) ng/mL 02/10/21 02/10/21 02/10/21 Range/Units 06:51 08:28 12:01 Hgb 12.1 L (13.0-17.5) gm/dL Hct 38.1 L (39.0-53.0) % MCV 69.9 L (80.0-100.0) fL MCH 22.2 L (25.0-35.0) pg RDW 18.2 H (11.5-15.5) % Plt Count 101 L (150-450) k/uL Lymphocytes # 0.3 L (1.0-4.8) k/uL POC Glucose (mg/dL) 168 H 179 H (75-99) mg/dL Procalcitonin (0.02-0.09) ng/mL Microbiology - Last 24 Hours (Table) 02/07/21 12:33 Blood Culture - Preliminary Blood No Growth after 72 hours 02/07/21 12:51 Blood Culture - Preliminary Blood No Growth after 72 hours Assessment and Plan Assessment: Impression: Acute hypoxic respiratory failure secondary to COVID-19 pneumonia. Chronic atrial fibrillation. Benign essential hypertension. Troponin leak. Suspect profound underlying dementia. Recommendation: Continue present COVID-19 cocktail. Change methylprednisolone to Decadron. Continue vitamins. Continue REM. Continue Xarelto for his underlying atrial fibrillation. Cut down her IV fluid to KVO. Ordered inflammatory markers to monitor his disease progression. We'll clear the patient for discharge once he is finished with his course of REM. We'll continue to follow. Time with Patient: Less than 30
[2021-02-10 16:49] LABS: Glucose,Whole Blood 195 mg/dL (75-99)
--- NOTE | 2021-02-10 16:53 | P.PN ---
Subjective HISTORY OF PRESENTING ILLNESS This is a pleasant 85 year-old male. Patient has a history of atrial fibrillation, congestive heart failure, hypertension, coronary artery disease. He had an echocardiogram I 2019 which showed ejection fraction 50-55%, mild tricuspid regurg regurgitation, RVSP 44. Patient is a poor historian and much of history was obtained from the chart. Then entered with weakness, fatigue and shortness breath and was found Macrobid pneumonia. He had chest CT performed which showed no pulmonary embolism, ground glass opacities related to possible CHF exacerbation vs more likely pneumonia. Initial EKG showed atrial fibril lation with heart rate 121 bpm, Q waves in the inferior leads, left axis deviation. He was placed on home medications and heart rate 70 in the 90s to low 100s. He is on River Ativan 20 mg at home. Blood pressures at been well controlled and he is maintaining oxygen saturation any 2% on 4 L nasal cannula. Blood work shows white blood cell count 7.3, hemoglobin 14.0, sodium 1:30, BUN 31, creatinine 1.2, troponin 0.085. He normally follows with Dr Cardenas. He denies any chest pain, pressure. 02/09 Seen and examined. Patient or lethargic today however able to say he is not having any pain at this time. Per nursing decreased oral intake and has not been eating much food. His blood pressures remain borderline 90s over 60s. He has been receiving IV Lasix, labs pending from this morning. Resulted yesterday with ejection fraction less than 20%, moderate to severe mitral regurgitation. Troponins mildly increased up to 0.4. 02/10 Seen and examined. Patient again is lethargic and not taking much oral intake. He did have CT brain performed which showed old infarcts. Not complaining of any chest pain. REVIEW OF SYSTEMS At the time of my exam: CONSTITUTIONAL: + fever, no chills. CARDIOVASCULAR: Denies chest pain, +shortness of breath, no orthopnea, PND or palpitations. RESPIRATORY: Denies cough. GASTROINTESTINAL: Denies abdominal pain, diarrhea, constipation, nausea or vomiting. MUSCULOSKELETAL: Denies myalgias. NEUROLOGIC: Denies numbness, tingling or weakness. ENDOCRINE: Denies fatigue, weight change, polydipsia or polyurina. GENITOURINARY: Denies burning, hematuria or urgency with micturation. HEMATOLOGIC: Denies history of anemia or bleeding. PHYSICAL EXAMINATION Vitals reviewed. CONSTITUTIONAL: No apparent distress, lethargic, ill-appearing HEENT: Head is normocephalic. Pupils are equal, round. Sclerae anicteric. Mucous membranes of the mouth are moist. No JVD. No carotid bruit. CHEST EXAMINATION: Coarse breath sounds bilaterally, with crackles at bases HEART EXAMINATION: Irregular rate and rhythm. S1, S2 heard. No murmurs, gallops or rub. ABDOMEN: Soft, nontender. Positive bowel sounds. EXTREMITIES: 2+ peripheral pulses, no lower extremity edema and no calf tenderness. NEUROLOGIC EXAMINATION: Patient is awake, alert, confused ASSESSMENT 1. Covid 19 pneumonia 2. NSTEMI, likely type 2 mechanism secondary to Covid infection however does h ave drop in ejection fraction 3. Histroy of CAD 4. Persistent Afib intially with mild RVR, improved 5. Essential hypertension 6. Cardiomyopathy new onset with ejection fraction less than 20% 7. Moderate to severe mitral regurgitation 8. Chronic systolic heart failure 9. Altered mental status 10. 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 Acute kidney injury PLAN Patient appears to have had some decline neurologically and being worked up for possible stroke however CAT scan shows old strokes. May be encephalopathy from Covid infection. Patient appears euvolemic from a heart failure standpoint. Patient currently not an appropriate interventional candidate with multiple core morbidities and altered mental status. Continue to treat medically. Continue aspirin and Xarelto. Ideally HARRISON inhibitor if creatinine improves. Defer diuretic/fluid management to primary team and agree with gentle IV fluids for acute kidney injury. No further recommendations from cardiology standpoint. Patient should follow-up with cardiology 1 week after discharge. Please call with any questions. Objective - Vital Signs Vital signs: Vital Signs Temp 97.4 F L 02/10/21 09:44 Pulse 89 02/10/21 15:04 Resp 16 02/10/21 15:04 BP 123/79 02/10/21 15:04 Pulse Ox 96 02/10/21 15:04 Intake & Output 02/09/21 02/10/21 02/10/21 18:59 06:59 18:59 Intake Total 0 100 Output Total 301 450 401 Balance -301 -450 -301 Weight 56.5 kg Intake: Oral 0 100 Output: Urine 300 450 400 Stool 1 1 Other: Voiding Method Indwelling Catheter Indwelling Catheter Indwelling Catheter # Bowel Movements 1 - Labs CBC & Chem 7: 02/10/21 08:28 02/09/21 14:38 Labs: Abnormal Lab Results - Last 24 Hours (Table) 02/09/21 02/09/21 02/10/21 Range/Units 14:38 20:12 06:51 Hgb (13.0-17.5) gm/dL Hct (39.0-53.0) % MCV (80.0-100.0) fL MCH (25.0-35.0) pg RDW (11.5-15.5) % Plt Count (150-450) k/uL Lymphocytes # (1.0-4.8) k/uL POC Glucose (mg/dL) 227 H 168 H (75-99) mg/dL Procalcitonin 0.45 H (0.02-0.09) ng/mL 02/10/21 02/10/21 Range/Units 08:28 12:01 Hgb 12.1 L (13.0-17.5) gm/dL Hct 38.1 L (39.0-53.0) % MCV 69.9 L (80.0-100.0) fL MCH 22.2 L (25.0-35.0) pg RDW 18.2 H (11.5-15.5) % Plt Count 101 L (150-450) k/uL Lymphocytes # 0.3 L (1.0-4.8) k/uL POC Glucose (mg/dL) 179 H (75-99) mg/dL Procalcitonin (0.02-0.09) ng/mL Microbiology - Last 24 Hours (Table) 02/07/21 12:33 Blood Culture - Preliminary Blood No Growth after 72 hours 02/07/21 12:51 Blood Culture - Preliminary Blood No Growth after 72 hours
--- NOTE | 2021-02-10 17:14 | PN ---
PROGRESS NOTE DATE OF SERVICE: 02/10/2021 This 85-year-old gentleman who was admitted with acute COVID-19 infection, bilateral interstitial pneumonia, also had significant hypotension. Medication adjusted yesterday. The patient is very less responsive. Patient complains of generalized weakness and CT scan of the brain which was done today, which was reviewed personally by me, showed significant right occipital infarct which is probably new. Significant cerebral atrophy and old left internal capsule lacunar infarct also suspected. The patient being closely monitored at this time. The patient is on Remdesivir. Multiple consultants are following the patient closely. PAST MEDICAL HISTORY: Reviewed. REVIEW OF SYSTEMS: Could not be taken. The patient is generally weak and change in mental status. CURRENT MEDICATIONS: Vitamin C, Lipitor, Coreg, Solu-Medrol, Remdesivir, doses reviewed. PHYSICAL EXAM: Patient is conscious, arousable, oriented x1. Pulse 89. Blood pressure 120/79, respirations 16, temperature 97.4, pulse ox 97% on room air. HEENT is conjunctivae normal. NECK: No JVD. CARDIOVASCULAR: S1, S2 muffled. RESPIRATION: Breath sounds diminished in the bases. A few scattered rhonchi. ABDOMEN: Soft, nontender. LEGS are no edema. No swelling. NERVOUS SYSTEM: Diffusely weak and emaciated. LABS: At this time shows WBC 5.2, hemoglobin 12.2. Other labs are noted. ASSESSMENT: 1. Acute COVID-19 infection with acute COVID-19 bilateral interstitial pneumonia, right more the left with acute hypoxic respiratory failure, present on admission. 2. Sepsis secondary to COVID-19 pneumonia, present on admission. 3. Change in mental status, acute metabolic encephalopathy. 4. Troponin 0.396. Possible acute hxo-CW-rtlwbbc-elevation myocardial infarction, present on admission. 5. Possible acute right occipital lobe infarct. 6. 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 7. Atrial fibrillation with fast ventricular rate, paroxysmal. 8. Severe protein calorie malnutrition with body mass index 15.8. 9. Microcytosis. 10.Thrombocytopenia. 11.Lymphopenia. 12.Elevated D-dimer without any evidence of acute pulmonary embolism. 13.Hyponatremia. 14.Elevated plasma lactic acid. 15.Elevated total bilirubin. 16.Severe dehydration present on admission. 17.Atrial fibrillation history. 18.History of coronary artery disease. 19.History of congestive heart failure with ejection fraction unknown. 20.History of hypertension. 21.History of tibial fracture. 22.History of gait dysfunction. 23.Remote history of nicotine dependence. 24.FULL CODE. RECOMMENDATIONS AND DISCUSSION: Recommend to continue current medications, management and symptomatic treatment. Add Lipitor. The patient is also on antiplatelets. Neurology evaluation. Neuro checks. Continue the rest of medications. Remote possibility the stroke could be related Covid- 19 also. The patient has significant atrophy in the frontal and parietal area secondary to dementia and some enlargement of the ventricles also. Overall prognosis is extremely guarded because of the multiple complex medical issues. Further recommendations will follow. We will discuss. DEV / SUMIN: [id number] /
[2021-02-10] MEDS: ATORVASTATIN 10 MG TAB PO SCH (19:57)
[2021-02-10] MEDS: RIVAROXABAN 15 MG TAB PO SCH (20:06)
[2021-02-10 20:50] LABS: Glucose,Whole Blood 196 mg/dL (75-99)
[2021-02-11] MEDS: SODIUM CHLORIDE 0.9% 1,000 ML IV SCH ×2 (05:11→17:23)
[2021-02-11] MEDS: carvediloL 6.25 MG TAB PO SCH ×2 (06:20→17:21)
[2021-02-11] MEDS: INSULIN ASPART (NovoLOG) 100 UNIT/ML VIAL SQ SCH ×4 (06:20→20:45)
[2021-02-11 06:34] LABS: Glucose,Whole Blood 140 mg/dL (75-99)
[2021-02-11] MEDS: ZINC SULFATE 220 MG CAP PO SCH (08:22)
[2021-02-11] MEDS: TAMSULOSIN 0.4 MG CAP.ER.24H PO SCH (08:22)
[2021-02-11] MEDS: ASCORBIC ACID 500 MG TAB PO SCH (08:22)
[2021-02-11] MEDS: CHOLECALCIFEROL 25 MCG (1000 IU) TABLET PO SCH (08:22)
[2021-02-11] MEDS: ASPIRIN 81 MG PO SCH (08:22)
[2021-02-11 08:48] LABS: Anisocytosis Slight; HCT 36.2 % (39.0-53.0); HGB 11.5 gm/dL (13.0-17.5); Hypochromasia Marked; MCH 22.6 pg (25.0-35.0); MCHC 31.8 g/dL (31.0-37.0); MCV 71.2 fL (80.0-100.0); Mean Platelet Volume 8.8; Microcytosis Marked; Platelet Count 114 k/uL (150-450); RBC 5.09 m/uL (4.30-5.90); RDW 18.4 % (11.5-15.5); WBC 8.4 k/uL (3.8-10.6)
[2021-02-11 09:04] LABS: African American GFR (CKD) >90 (>60 ml/min/1.73 sqM); Anion Gap 7 mmol/L; Blood Urea Nitrogen 48 mg/dL (9-20); Calcium 7.9 mg/dL (8.4-10.2); Carbon Dioxide 25 mmol/L (22-30); Chloride 110 mmol/L (98-107); Glucose 137 mg/dL (74-99); Non-African American GFR(CKD) 79 (>60 ml/min/1.73 sqM); Potassium 3.4 mmol/L (3.5-5.1); Sodium 142 mmol/L (137-145)
[2021-02-11] MEDS: DEXAMETHASONE SOD PHOSPHATE 10 MG/ML 1 ML VIAL IV SCH (09:56)
[2021-02-11] MEDS ORDERED: Magnesium Replacement Protocol 1 EACH MISC MISCELLANE PRN (11:40)
[2021-02-11 11:55] LABS: Glucose,Whole Blood 140 mg/dL (75-99)
[2021-02-11] MEDS: FOLIC ACID 1 MG TAB PO SCH (13:48)
[2021-02-11] MEDS: MULTIVITAMINS, THERA 1 EACH TAB PO SCH (13:48)
[2021-02-11] MEDS: THIAMINE 100 MG TAB PO SCH (13:48)
[2021-02-11] MEDS: REMDESIVIR 100 MG in SODIUM CHLORIDE 0.9% 250 ML IVPB SCH (13:59)
--- NOTE | 2021-02-11 15:43 | PN ---
PROGRESS NOTE DATE OF SERVICE: 02/11/2021 INTERVAL HISTORY: This 85-year-old gentleman was admitted with acute COVID-19 infection, acute COVID-19 bilateral interstitial pneumonia also had sepsis. The patient also had change in mental status. Patient has elevated troponin indicative of possible acute non-ST- segment-elevation myocardial infarction. The patient also developed acute right occipital lobe infarct, possibly secondary to COVID-19 infection. The patient also has some dementia. Patient is closely monitored. The patient is oriented x1 only. Neurology following the patient closely. The patient also has hypotension which is improved because of possible hypovolemia. PAST MEDICAL HISTORY: Reviewed. REVIEW OF SYSTEMS: CARDIOVASCULAR: No angina or palpitations. RESPIRATORY: As mentioned earlier. GI: As mentioned earlier. : No dysuria. NERVOUS SYSTEM: Diffusely weak. CURRENT MEDICATIONS ARE: Noted including vitamin C, aspirin, Lipitor, Coreg, vitamin D3, Decadron, NovoLog, multivitamins. Doses reviewed. PHYSICAL EXAMINATION: GENERAL: Patient is alert and oriented times one. VITAL SIGNS: Pulse 89, blood pressure 133/87, respirations 16, temperature 98, pulse ox 94% on 2 liters. HEENT: Conjunctivae normal. NECK: No jugular venous distention. No carotid bruits. No lymph node enlargement. RESPIRATORY: Breath sounds diminished at the bases. A few scattered rhonchi and crackles. HEART: S1 and S2, muffled. ABDOMEN: Soft, obese, no tenderness. EXTREMITIES: No edema, no swelling. NERVOUS: No focal deficits. LABS: At this time shows WBC 8.2, hemoglobin 11.5, sodium 142, potassium 3.2. ASSESSMENT: 1. Acute COVID-19 infection with acute COVID-19 bilateral interstitial pneumonia, right more than the left, with acute hypoxic respiratory failure present on admission. 2. Sepsis secondary to COVID-19 pneumonia, present on admission. 3. Change in mental status acute metabolic encephalopathy. 4. Troponin 0.396. Possible acute dij-XQ-wrtsmqq-elevation myocardial infarction present on admission. 5. Possible acute right occipital lobe infarct. 6. 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 Lateral infarct. 7. Atrial fibrillation with fast ventricular rate, paroxysmal. 8. Severe protein calorie malnutrition with body mass index of 15.8. 9. Microcytosis. 10.Thrombocytopenia. 11.Leukopenia. 12.Elevated D-dimer without any evidence of acute pulmonary embolism. 13.Hyponatremia. 14.Elevated plasma lactic acid. 15.Elevated total bilirubin. 16.Severe dehydration present on admission. 17.Atrial fibrillation history. 18.History of coronary artery disease. 19.History of congestive heart failure with ejection fraction unknown. 20.History of hypertension. 21.History of tibial fracture. 22.History of gait dysfunction. 23.Remote history of nicotine dependence. 24.FULL CODE. RECOMMENDATIONS AND DISCUSSION: In this 85-year-old gentleman who presented with multiple medical issues, we will monitor the patient closely. Continue the current management, continue symptomatic treatment. Otherwise, at this time, replace potassium. Neurology input appreciated. Repeat labs. PT/OT evaluation, possible ECF rehab. The patient is on remdesivir, which the patient will be completing tomorrow for the 5th dose. Patient is on Xarelto. Prognosis guarded because of multiple complex medical issues. Further recommendations to follow. The patient is on antiplatelet agents as well. MMODL / IJN: [id number] /
[2021-02-11 16:44] LABS: Glucose,Whole Blood 208 mg/dL (75-99)
[2021-02-11] MEDS: ATORVASTATIN 10 MG TAB PO SCH (20:35)
[2021-02-11] MEDS: RIVAROXABAN 15 MG TAB PO SCH (20:35)
[2021-02-11 20:48] LABS: Glucose,Whole Blood 158 mg/dL (75-99)
[2021-02-12] MEDS: SODIUM CHLORIDE 0.9% 1,000 ML IV SCH ×2 (06:19→14:48)
[2021-02-12] MEDS: INSULIN ASPART (NovoLOG) 100 UNIT/ML VIAL SQ SCH ×4 (06:32→21:13)
[2021-02-12] MEDS: carvediloL 6.25 MG TAB PO SCH ×2 (06:35→17:14)
[2021-02-12 06:55] LABS: Glucose,Whole Blood 113 mg/dL (75-99)
--- NOTE | 2021-02-12 08:42 | P.CNNES ---
History of Present Illness Consult date: 02/11/21 Requesting physician: Paris Castaneda Reason for Consult: Right occipital lobe, lethargy History of Present Illness: This is a Teleneurology consultation performed on this patient, who is an 85-year-old male with history of dementia, coronary artery disease, CHF, hypertension came to the hospital 02/06/2021 at 12 PM by ambulance for weakness of the past couple of days, decreased oral intake, feeling weak. Per paramedics , he did demonstrate atrial fibrillation with rapid ventricular rate went from 110-140. Patient also had some urinary incontinence and during route to the hospital was slow to answer but does know his birthday. Patient has been on Xarelto 20 mg at bedtime. EKG showed atrial fibrillation with heart rate of 121. CTA of the chest showed no evidence of acute pulmonary embolism. Possible CHF exacerbation as there is cardiomegaly with small tiny right greater than left pleural effusion and mild bilateral alveolar and interstitial edema thought present. Also areas of atypical acute infection with slight more prominent right sided findings versus left-sided findings. Possible organizing conso lidation. 2-D echo showed normal left ventricular size. Borderline concentric LVH. EF is <20%. Left atrium is mildly dilated. Mild aortic valve sclerosis. Mild aortic regurgitation. Moderate to severe mitral regurgitation. Patient has turned positive for valle virus PCR. Patient was noted to have weakness, for which computed tomography scan of the head was done yesterday for 02/10/2021 at 2 PM, which revealed right occipital lobe infarct. This prompted neurology consultation. Apparently patient has been on Xarelto 20 mg at bedtime as his outpatient medications, still had this stroke. Patient is currently on Remdesivir. Patient appears very sick, appears to be slightly short of breath, would not cooperate with the examination and history taking. Patient does not know why he is here. He denies pain, but keeps on stating that he is "thirsty". He states he can see all right, denies any visual disturbance. Patient appears to be uncomfortable, but not able to answer any more questions. Review of Systems Multiple attempts tried to elicit review of systems and patient would not answer except for being thirsty and appears to be in pain but could not express where. ROS unobtainable: due to mental status Past Medical History Past Medical History: Atrial Fibrillation, Coronary Artery Disease (CAD), Heart Failure, Hypertension Additional Past Medical History / Comment(s): 10/09/17 slip and fall on ice with left tibia fracture, has splint on, and is no weight bearing History of Any Multi-Drug Resistant Organisms: None Reported Past Surgical History: Hernia Repair Additional Past Surgical History / Comment(s): Ankle surgery; hernia repair x 2 Past Anesthesia/Blood Transfusion Reactions: No Reported Reaction Past Psychological History: No Psychological Hx Reported Smoking Status: Former smoker Past Alcohol Use History: None Reported Additional Past Alcohol Use History / Comment(s): smoked 1ppd from [id number] Past Drug Use History: None Reported - Past Family History Mother History Unknown: Yes Father Family Medical History: Coronary Artery Disease (CAD) Sister(s) History Unknown: Yes Brother(s) History Unknown: Yes Daughter(s) Family Medical History: No Reported History Son(s) Family Medical History: No Reported History Medications and Allergies Home Medications Medication Instructions Recorded Confirmed Type carvediloL [Coreg] 6.25 mg PO BID 05/12/20 02/07/21 History lisinopriL [Zestril] 5 mg PO DAILY 05/12/20 02/07/21 History Furosemide [Lasix] 20 mg PO DAILY 06/02/20 02/07/21 History Rivaroxaban [Xarelto] 20 mg PO HS 02/07/21 02/07/21 History Allergies Allergy/AdvReac Type Severity Reaction Status Date / Time No Known Allergies Allergy Verified 02/07/21 14:01 Physical Examination - Vital Signs Vital Signs: Vital Signs Temp Pulse Resp BP Pulse Ox 02/11/21 08:15 97.4 F L 75 18 139/74 93 L 02/11/21 03:36 97.2 F L 77 16 139/62 95 02/10/21 23:29 81 16 101/58 100 02/10/21 20:00 97.4 F L 85 16 117/70 96 02/10/21 15:04 89 16 123/79 96 02/10/21 12:00 91 15 127/64 90 L Intake and Output 02/10/21 02/11/21 02/11/21 22:59 06:59 14:59 Intake Total 0 525 0 Output Total 450 1 Balance -450 525 -1 Intake: Intake, IV Titration 525 Amount Sodium Chloride 0.9% 1, 525 000 ml @ 75 mls/hr IV . [id number] [facility] Rx#:[id number] Oral 0 0 Output: Urine 450 Stool 1 Other: Voiding Method Indwelling Catheter Indwelling Catheter Indwelling Catheter Weight 57.5 kg On examination patient is an elderly male, appears to be slightly in distress, knows his first name Denny, but did not speak up his last name. He knows his date of but would not tell his age. He knows he is in [facility] in [place]. He knows name of the current president is Sumanth. He could not tell what season is it or what year. It is uncertain if he does not want to answer questions because of being sick or does not know. Speech is minimally slurred. He can repeat and simple name objects. No obvious aphasia noted whatever he was saying. On cranial nerve examination his pupils are equal, round and reactive to light, there is very prominent arcus senilis seen bilaterally. Patient has ptosis on the left side. Visual neely were very difficult to assess because of his noncooperation, possible some deficits on the left. Face is symmetric, tongue protrudes to the midline. Patient would not let us check his palate. Shoulder shrug is normal. Facial sensation is normal. On muscle strength testing his programs manager is equal bilaterally. Upper extremities appears normal proximally as well. In the lower limbs, his knee extension is 5, hip flexion 4, ankle dorsiflexion right side appears stronger than the left. After couple attempts, patient becomes irritable, and states "you are hurting me". Patient has Dupuytren's contracture in bilateral fifth fingers. Deep tendon reflexes are 2 in the upper and lower limbs and his toes are staying up at baseline, which possibly goes up on plantar stimulation. Sensory to touch appears equal. Sensory revealed very inconsistent response. He would say left for everything or right very inconsistent response, noncooperation. Tone and bulk of muscles normal, gait deferred. On general examination no obvious bruit, S1 and S2 audible. Abdomen soft nontender. No peripheral edema. Peripheral pulses are present. No rash. Results - Laboratory Findings CBC and BMP: 02/11/21 08:02 02/11/21 08:02 Abnormal Lab Findings: Abnormal Labs 02/07/21 02/07/21 02/07/21 12:32 12:32 12:32 RBC 6.17 H Hgb Hct MCV 69.2 L MCH 22.4 L MCHC RDW 17.8 H Plt Count 104 L Lymphocytes # 0.8 L PT 13.2 H INR 1.3 H D-Dimer 1.52 H Sodium 133 L Potassium Chloride 94 L Carbon Dioxide BUN 26 H Creatinine Glucose 145 H POC Glucose (mg/dL) Plasma Lactic Acid Surinder Calcium Total Bilirubin 1.5 H Creatine Kinase 237 H Troponin I Total Protein Albumin Procalcitonin Urine Protein Urine Ketones Urine Blood Urine Mucus Coronavirus (PCR) 02/07/21 02/07/21 02/07/21 12:32 12:32 12:32 RBC Hgb Hct MCV MCH MCHC RDW Plt Count Lymphocytes # PT INR D-Dimer Sodium Potassium Chloride Carbon Dioxide BUN Creatinine Glucose POC Glucose (mg/dL) Plasma Lactic Acid Surinder 3.4 H* Calcium Total Bilirubin Creatine Kinase Troponin I 0.085 H* Total Protein Albumin Procalcitonin Urine Protein Urine Ketones Urine Blood Urine Mucus Coronavirus (PCR) Detected A 02/07/21 02/07/21 02/08/21 12:51 22:35 06:01 RBC Hgb Hct MCV MCH MCHC RDW Plt Count Lymphocytes # PT INR D-Dimer Sodium 134 L Potassium 2.9 L Chloride 93 L Carbon Dioxide BUN 27 H Creatinine Glucose 150 H POC Glucose (mg/dL) 166 H Plasma Lactic Acid Surinder Calcium 7.9 L Total Bilirubin Creatine Kinase Troponin I Total Protein Albumin Procalcitonin Urine Protein 3+ H Urine Ketones Trace H Urine Blood Moderate H Urine Mucus Many H Coronavirus (PCR) 02/08/21 02/08/21 02/08/21 07:34 07:34 09:45 RBC 6.16 H Hgb Hct MCV 69.8 L MCH 22.8 L MCHC RDW 17.8 H Plt Count 103 L Lymphocytes # 0.8 L PT INR D-Dimer Sodium 130 L Potassium Chloride 93 L Carbon Dioxide BUN 31 H Creatinine Glucose 151 H POC Glucose (mg/dL) Plasma Lactic Acid Surinder Calcium 8.0 L Total Bilirubin Creatine Kinase Troponin I 0.396 H* Total Protein Albumin 3.3 L Procalcitonin Urine Protein Urine Ketones Urine Blood Urine Mucus Coronavirus (PCR) 02/08/21 02/08/21 02/08/21 11:43 16:17 16:46 RBC Hgb Hct MCV MCH MCHC RDW Plt Count Lymphocytes # PT INR D-Dimer Sodium Potassium Chloride Carbon Dioxide BUN Creatinine Glucose POC Glucose (mg/dL) 139 H 180 H Plasma Lactic Acid Surinder Calcium Total Bilirubin Creatine Kinase Troponin I 0.457 H* Total Protein Albumin Procalcitonin Urine Protein Urine Ketones Urine Blood Urine Mucus Coronavirus (PCR) 02/08/21 02/09/21 02/09/21 20:09 06:20 10:02 RBC Hgb Hct MCV MCH MCHC RDW Plt Count Lymphocytes # PT INR D-Dimer Sodium 131 L Potassium Chloride 95 L Carbon Dioxide BUN 63 H Creatinine 1.92 H Glucose 205 H POC Glucose (mg/dL) 153 H 167 H Plasma Lactic Acid Surinder Calcium 7.9 L Total Bilirubin Creatine Kinase Troponin I Total Protein 6.0 L Albumin 3.1 L Procalcitonin Urine Protein Urine Ketones Urine Blood Urine Mucus Coronavirus (PCR) 02/09/21 02/09/21 02/09/21 10:02 11:41 11:46 RBC 6.39 H Hgb Hct MCV 71.0 L MCH 21.6 L MCHC 30.4 L RDW 18.0 H Plt Count 140 L Lymphocytes # 0.6 L PT INR D-Dimer Sodium Potassium Chloride Carbon Dioxide BUN Creatinine Glucose POC Glucose (mg/dL) 186 H Plasma Lactic Acid Surinder Calcium Total Bilirubin Creatine Kinase Troponin I 0.295 H* Total Protein Albumin Procalcitonin Urine Protein Urine Ketones Urine Blood Urine Mucus Coronavirus (PCR) 02/09/21 02/09/21 02/09/21 14:38 14:38 16:44 RBC Hgb Hct MCV MCH MCHC RDW Plt Count Lymphocytes # PT INR D-Dimer Sodium 130 L Potassium Chloride 96 L Carbon Dioxide 21 L BUN 73 H Creatinine 1.86 H Glucose 213 H POC Glucose (mg/dL) 167 H Plasma Lactic Acid Surinder Calcium 8.1 L Total Bilirubin Creatine Kinase Troponin I Total Protein 5.7 L Albumin 3.0 L Procalcitonin 0.45 H Urine Protein Urine Ketones Urine Blood Urine Mucus Coronavirus (PCR) 02/09/21 02/10/21 02/10/21 20:12 06:51 08:28 RBC Hgb 12.1 L Hct 38.1 L MCV 69.9 L MCH 22.2 L MCHC RDW 18.2 H Plt Count 101 L Lymphocytes # 0.3 L PT INR D-Dimer Sodium Potassium Chloride Carbon Dioxide BUN Creatinine Glucose POC Glucose (mg/dL) 227 H 168 H Plasma Lactic Acid Surinder Calcium Total Bilirubin Creatine Kinase Troponin I Total Protein Albumin Procalcitonin Urine Protein Urine Ketones Urine Blood Urine Mucus Coronavirus (PCR) 02/10/21 02/10/21 02/10/21 12:01 16:48 20:37 RBC Hgb Hct MCV MCH MCHC RDW Plt Count Lymphocytes # PT INR D-Dimer Sodium Potassium Chloride Carbon Dioxide BUN Creatinine Glucose POC Glucose (mg/dL) 179 H 195 H 196 H Plasma Lactic Acid Surinder Calcium Total Bilirubin Creatine Kinase Troponin I Total Protein Albumin Procalcitonin Urine Protein Urine Ketones Urine Blood Urine Mucus Coronavirus (PCR) 02/11/21 02/11/21 02/11/21 06:12 08:02 08:02 RBC Hgb 11.5 L Hct 36.2 L MCV 71.2 L MCH 22.6 L MCHC RDW 18.4 H Plt Count 114 L Lymphocytes # PT INR D-Dimer Sodium Potassium 3.4 L Chloride 110 H Carbon Dioxide BUN 48 H Creatinine Glucose 137 H POC Glucose (mg/dL) 140 H Plasma Lactic Acid Surinder Calcium 7.9 L Total Bilirubin Creatine Kinase Troponin I Total Protein Albumin Procalcitonin Urine Protein Urine Ketones Urine Blood Urine Mucus Coronavirus (PCR) Assessment and Plan Assessment: * Acute to subacute ischemic stroke right occipital lobe, 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 Event appears embolic in nature, likely due to atrial fibrillation. Patient apparently was on Xarelto. Uncertain if there was any breaks in the treatment regimen, that may have resulted in CVA. Patient appears somewhat mildly encephalopathic at this time, not cooperating with exam. * Atrial fibrillation with rapid ventricular rate. * Acute Covis-19 pneumonia * Elevated troponins, cardiology on board * Hypertension Plan: * Continue Xarelto 15 mg daily. Agree with adding aspirin 81 mg. Continue Lipitor 10 mg. * Check fasting lipid panel, hemoglobin A1c. * Carotid Doppler. * 2-D echo performed 02/08/2021 was technically limited study. Left ventricular size is normal. Borderline concentric LVH. EF is <20%. The left atrium is mildly dilated. Mild aortic valve sclerosis. Mild aortic regurgitation. * Treatment of other medical conditions as per IM and other specialists. * We will follow.
[2021-02-12] MEDS: TAMSULOSIN 0.4 MG CAP.ER.24H PO SCH (09:16)
[2021-02-12] MEDS: ZINC SULFATE 220 MG CAP PO SCH (09:16)
[2021-02-12] MEDS: ASPIRIN 81 MG PO SCH (09:16)
[2021-02-12] MEDS: DEXAMETHASONE SOD PHOSPHATE 10 MG/ML 1 ML VIAL IV SCH (09:16)
[2021-02-12] MEDS: CHOLECALCIFEROL 25 MCG (1000 IU) TABLET PO SCH (09:17)
[2021-02-12] MEDS: ASCORBIC ACID 500 MG TAB PO SCH (09:17)
[2021-02-12] MEDS: FOLIC ACID 1 MG TAB PO SCH (09:17)
[2021-02-12 10:35] LABS: Anisocytosis Slight; Basophils % (A) 0 %; Eosinophils % (A) 0 %; HCT 40.1 % (39.0-53.0); HGB 12.2 gm/dL (13.0-17.5); Hypochromasia Marked; Lymphocytes # (A) 0.3 k/uL (1.0-4.8); Lymphocytes % (A) 4 %; MCH 21.8 pg (25.0-35.0); MCHC 30.5 g/dL (31.0-37.0); MCV 71.6 fL (80.0-100.0); Mean Platelet Volume 7.6; Microcytosis Marked; Monocytes # (A) 0.4 k/uL (0-1.0); Monocytes % (A) 5 %; Neutrophils # (A) 7.9 k/uL (1.3-7.7); Neutrophils % (A) 91 %; Platelet Count 141 k/uL (150-450); RDW 18.6 % (11.5-15.5); WBC 8.8 k/uL (3.8-10.6)
[2021-02-12 10:50] LABS: ALT 16 U/L (4-49); AST 33 U/L (17-59); African American GFR (CKD) >90 (>60 ml/min/1.73 sqM); Albumin 2.9 g/dL (3.5-5.0); Alkaline Phosphatase 65 U/L (38-126); Anion Gap 8 mmol/L; Blood Urea Nitrogen 38 mg/dL (9-20); Calcium 7.9 mg/dL (8.4-10.2); Carbon Dioxide 26 mmol/L (22-30); Chloride 113 mmol/L (98-107); Glucose 134 mg/dL (74-99); Magnesium 2.6 mg/dL (1.6-2.3); Non-African American GFR(CKD) 82 (>60 ml/min/1.73 sqM); Potassium 3.1 mmol/L (3.5-5.1); Sodium 147 mmol/L (137-145); Total Protein 5.7 g/dL (6.3-8.2)
[2021-02-12] MEDS: THIAMINE 100 MG TAB PO SCH (11:58)
[2021-02-12] MEDS: MULTIVITAMINS, THERA 1 EACH TAB PO SCH (11:58)
--- NOTE | 2021-02-12 12:07 | US ---
EXAMINATION TYPE: US carotid duplex BILAT DATE OF EXAM: 02/12/2021 COMPARISON: NONE CLINICAL HISTORY: CVA. CVA exam limited due to patient moving around. EXAM MEASUREMENTS: RIGHT: Peak Systolic Velocity (PSV) cm/sec ----- Right CCA: 46.4 ----- Right ICA: 53.1 ----- Right ECA: 25.2 ICA/CCA ratio: 1.1 RIGHT: End Diastole cm/sec ----- Right CCA: 0 ----- Right ICA: 4.3 ----- Right ECA: 0 LEFT: Peak Systolic Velocity (PSV) cm/sec ----- Left CCA: 37.0 ----- Left ICA: 66.1 ----- Left ECA: 37.0 ICA/CCA ratio: 1.8 LEFT: End Diastole cm/sec ----- Left CCA: 0 ----- Left ICA: 0 ----- Left ECA: 0 VERTEBRALS (direction of flow): Right Vertebral: Antegrade Left Vertebral: Antegrade Rhythm: Arrhythmia Grayscale, color Doppler, spectral Doppler imaging performed of the carotid arteries. Waveform analys is does not show significant stenosis of the internal carotid arteries. No significant stenosis seen IMPRESSION: No hemodynamic significant stenosis of the proximal internal carotid arteries by Doppler criteria, an indirect measurement of carotid stenosis. Arrhythmia is noted incidentally. Criteria for Assigning % of Stenosis / Diameter reduction (Estimation based on the indirect measurements of the internal carotid artery velocities (ICA PSV). 1. Normal (no stenosis)=ICA PSV < 125 cm/s: ratio < 2.0: ICA EDV<40 cm/s. 2. Less than 50% stenosis=ICA PSV < 125 cm/s: ratio < 2.0: ICA EDV<40 cm/s. 3. 50 to 69% stenosis=ICA PSV of 125 to 230 cm/s: ration 2.0 ? 4.0: ICA EDV 40-100 cm/s. 4. Greater than 70% stenosis to near occlusion= ICA PSV > 230 cm/s: ratio > 4.0: ICA EDV > 100 cm/s. 5. Near occlusion= ICA PSV velocities may be low or undetectable: variable ratio and ICA EDV. 6. Total occlusion=unable to detect flow.
[2021-02-12 12:21] LABS: Glucose,Whole Blood 146 mg/dL (75-99)
[2021-02-12] MEDS: REMDESIVIR 100 MG in SODIUM CHLORIDE 0.9% 250 ML IVPB SCH (14:47)
[2021-02-12 16:44] LABS: Hemoglobin A1C 6.2 % (4.0-6.0)
[2021-02-12 17:16] LABS: Glucose,Whole Blood 146 mg/dL (75-99)
--- NOTE | 2021-02-12 18:00 | PN ---
PROGRESS NOTE DATE OF SERVICE: 02/12/2021 This 85-year-old gentleman admitted with acute COVID-19 infection with acute COVID-19 bilateral pneumonia also had multiple other medical problems, including sepsis as well as acute stroke. Troponins were elevated. Patient also had change in mental status. The patient continues to be confused. Multiple consultants are following the patient closely, including Neurology, Cardiology and Pulmonology. A 2D echo showed no significant stenosis. No chest pain. No palpitations. Past medical history reviewed. REVIEW OF SYSTEMS: CARDIOVASCULAR SYSTEM: No angina, palpitations. RESPIRATORY SYSTEM: As mentioned earlier. GI: As mentioned earlier. : No dysuria or retention. NERVOUS SYSTEM: Diffusely weak. CURRENT MEDICATIONS: Vitamin C, aspirin, Coreg, dexamethasone, multivitamins, Xarelto. Doses are reviewed. PHYSICAL EXAMINATION: Patient is alert and oriented x1. Pulse 82, blood pressure 140/70, respiration 16, temperature 97.2, pulse ox 93% on room air. HEENT: Conjunctivae normal. NECK: No jugular venous distention. CARDIOVASCULAR SYSTEM: S1, S2 muffled. RESPIRATORY SYSTEM: Breath sounds diminished at the bases. A few scattered rhonchi and crackles. ABDOMEN: Soft, non-tender. No mass palpable. LEGS: No edema. No swelling. NERVOUS SYSTEM: Higher functions as mentioned earlier. Moves all 4 limbs. No focal motor or sensory deficit. LYMPHATICS: No lymph node palpable in neck, axillae or groin. NERVOUS SYSTEM: Diffusely weak. LABS: WBC 8.2, hemoglobin 12.2. Sodium 147, potassium 3.1. Albumin is 2.9. ASSESSMENT: 1. Acute COVID-19 infection with acute COVID-19 bilateral interstitial pneumonia, right more than the left, with acute hypoxic respiratory failure on admission. 2. Sepsis secondary to COVID-19 pneumonia, present on admission. 3. Change in mental status, acute metabolic encephalopathy. 4. Troponin 0.396. Possible acute [id number]-elevation myocardial infarction, present on admission. 5. Possible acute right occipital lobe infarct. 6. 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 7. Atrial fibrillation with fast ventricular rate, paroxysmal. 8. Severe protein-calorie malnutrition with a BMI of 15.8. 9. Microcytosis. 10.Thrombocytopenia. 11.Leukopenia. 12.Elevated D-dimer without any evidence of acute pulmonary embolism. 13.Hypernatremia. 14.Elevated plasma lactic acid. 15.Elevated total bilirubin. 16.Severe dehydration, present on admission. 17.Atrial fibrillation history. 18.History of coronary artery disease. 19.History of congestive heart failure, ejection fraction unknown. 20.History of hypertension. 21.History of tibial fracture. 22.History of gait dysfunction. 23.Remote history of nicotine dependence. 24.FULL CODE. RECOMMENDATIONS AND DISCUSSION: I recommend to continue current medications, continue with symptomatic treatment. Potassium supplementation. Guarded prognosis. Further recommendations to follow. See orders for further details. MMODL / IJN: [id number] /
[2021-02-12] MEDS ORDERED: POTASSIUM CHLORIDE 20 MEQ in WATER FOR INJECTION 1 100ML.BAG IVPB STA (18:12)
[2021-02-12] MEDS ORDERED: POTASSIUM CHLORIDE ER 20 MEQ TAB.ER PO STA (18:13)
[2021-02-12 19:08] LABS: Folate, Serum 3.3 ng/mL
[2021-02-12 20:51] LABS: Glucose,Whole Blood 192 mg/dL (75-99)
[2021-02-12] MEDS: RIVAROXABAN 15 MG TAB PO SCH (21:13)
[2021-02-12] MEDS: ATORVASTATIN 10 MG TAB PO SCH (21:13)
--- NOTE | 2021-02-13 00:46 | P.PN ---
Subjective Progress Note Date: 02/12/21 Patient was seen for a follow-up. Patient continues to be restless, appears sick, does not participate with the examination. Objective - Vital Signs Vital signs: Vital Signs Temp 96.7 F L 02/12/21 20:00 Pulse 62 02/12/21 20:00 Resp 18 02/12/21 20:00 BP 131/89 02/12/21 20:00 Pulse Ox 92 L 02/12/21 20:00 Intake & Output 02/12/21 02/12/21 02/13/21 06:59 18:59 06:59 Intake Total 600 1548 118 Output Total 575 1 377 Balance 25 1547 -259 Weight 58.5 kg 58.5 kg Intake: Intake, IV Titration 600 850 Amount Remdesivir 100 mg In 250 Sodium Chloride 0.9% 250 ml @ 250 mls/hr IVPB DAILY@1400 [facility] Rx#: [id number] Sodium Chloride 0.9% 1, 600 600 000 ml @ 75 mls/hr IV . [id number] [facility] Rx#:[id number] Oral 698 118 Output: Urine 575 375 Stool 1 2 Other: Voiding Method Indwelling Catheter Indwelling Catheter Indwelling Catheter - Exam On examination patient is an elderly male, in no significant respiratory distress. He is alert and awake. Speech and language functions appears normal. On cranial nerve examination pupils are round and reacting. Patient has left ptosis. Face appears symmetric. Patient did not cooperate with visual field testing. On muscle strength testing his biceps and triceps are normal, cardiothoracic anesthesia technician is 4. Ankle dorsiflexion appears normal, but he did not cooperate more than 4+ to 5-. Likely effort related. Hip flexion moves well, but did not cooperate. Patient toes are baseline as up. He did not cooperate with sensory or cerebellar functions. - Labs CBC & Chem 7: 02/12/21 08:42 02/12/21 08:42 Labs: Abnormal Lab Results - Last 24 Hours (Table) 02/12/21 02/12/21 02/12/21 Range/Units 06:32 08:42 08:42 Hgb 12.2 L (13.0-17.5) gm/dL MCV 71.6 L (80.0-100.0) fL MCH 21.8 L (25.0-35.0) pg MCHC 30.5 L (31.0-37.0) g/dL RDW 18.6 H (11.5-15.5) % Plt Count 141 L (150-450) k/uL Neutrophils # 7.9 H (1.3-7.7) k/uL Lymphocytes # 0.3 L (1.0-4.8) k/uL Sodium 147 H (137-145) mmol/L Potassium 3.1 L (3.5-5.1) mmol/L Chloride 113 H (98-107) mmol/L BUN 38 H (9-20) mg/dL Glucose 134 H (74-99) mg/dL POC Glucose (mg/dL) 113 H (75-99) mg/dL Hemoglobin A1c (4.0-6.0) % Calcium 7.9 L (8.4-10.2) mg/dL Magnesium 2.6 H (1.6-2.3) mg/dL Total Protein 5.7 L (6.3-8.2) g/dL Albumin 2.9 L (3.5-5.0) g/dL HDL Cholesterol (40-60) mg/dL Vitamin B12 (200.0-944.0) pg/mL 02/12/21 02/12/21 02/12/21 Range/Units 08:42 08:42 11:58 Hgb (13.0-17.5) gm/dL MCV (80.0-100.0) fL MCH (25.0-35.0) pg MCHC (31.0-37.0) g/dL RDW (11.5-15.5) % Plt Count (150-450) k/uL Neutrophils # (1.3-7.7) k/uL Lymphocytes # (1.0-4.8) k/uL Sodium (137-145) mmol/L Potassium (3.5-5.1) mmol/L Chloride (98-107) mmol/L BUN (9-20) mg/dL Glucose (74-99) mg/dL POC Glucose (mg/dL) 146 H (75-99) mg/dL Hemoglobin A1c 6.2 H (4.0-6.0) % Calcium (8.4-10.2) mg/dL Magnesium (1.6-2.3) mg/dL Total Protein (6.3-8.2) g/dL Albumin (3.5-5.0) g/dL HDL Cholesterol 29 L (40-60) mg/dL Vitamin B12 1971.0 H (200.0-944.0) pg/mL 02/12/21 02/12/21 Range/Units 16:48 20:49 Hgb (13.0-17.5) gm/dL MCV (80.0-100.0) fL MCH (25.0-35.0) pg MCHC (31.0-37.0) g/dL RDW (11.5-15.5) % Plt Count (150-450) k/uL Neutrophils # (1.3-7.7) k/uL Lymphocytes # (1.0-4.8) k/uL Sodium (137-145) mmol/L Potassium (3.5-5.1) mmol/L Chloride (98-107) mmol/L BUN (9-20) mg/dL Glucose (74-99) mg/dL POC Glucose (mg/dL) 146 H 192 H (75-99) mg/dL Hemoglobin A1c (4.0-6.0) % Calcium (8.4-10.2) mg/dL Magnesium (1.6-2.3) mg/dL Total Protein (6.3-8.2) g/dL Albumin (3.5-5.0) g/dL HDL Cholesterol (40-60) mg/dL Vitamin B12 (200.0-944.0) pg/mL Microbiology - Last 24 Hours (Table) 02/07/21 12:33 Blood Culture - Preliminary Blood No Growth after 120 hours 02/07/21 12:51 Blood Culture - Preliminary Blood No Growth after 120 hours Assessment and Plan Assessment: * Acute to subacute ischemic stroke right occipital lobe, 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 Event appears embolic in nature, likely due to atrial fibrillation. Patient apparently was on Xarelto. Uncertain if there was any breaks in the treatment regimen, that may have resulted in CVA. Patient continues to be somewhat mildly encephalopathic at this time, not cooperating with exam. * Atrial fibrillation with rapid ventricular rate. * Acute Covis-19 pneumonia * Elevated troponins, cardiology on board * Hypertension Plan: * Continue Xarelto 15 mg daily. Agree with adding aspirin 81 mg. Continue Lipitor 10 mg. * Fasting lipid panel with cholesterol 90, LDL 50, HDL 29 and triglycerides 57 * Hemoglobin A1c 6.2. * Carotid Doppler showed no hemodynamic significant stenosis of the proximal ICA. Antegrade flow in both vertebral arteries. * 2-D echo performed 02/08/2021 was technically limited study. Left ventricular size is normal. Borderline concentric LVH. EF is <20%. The left atrium is mildly dilated. Mild aortic valve sclerosis. Mild aortic regurgitation. * B12 1971, folate 3.3. We will start replacement. * Treatment of other medical conditions as per IM and other specialists. * Continue above management. Neurology will sign off. Please reconsult neurology if any other concerns.
[2021-02-13] MEDS: INSULIN ASPART (NovoLOG) 100 UNIT/ML VIAL SQ SCH ×4 (06:41→21:15)
[2021-02-13] MEDS: carvediloL 6.25 MG TAB PO SCH ×2 (06:42→17:22)
[2021-02-13 08:18] LABS: Glucose,Whole Blood 132 mg/dL (75-99)
[2021-02-13 09:46] LABS: African American GFR (CKD) >90 (>60 ml/min/1.73 sqM); Anion Gap 7 mmol/L; Blood Urea Nitrogen 33 mg/dL (9-20); Calcium 8.2 mg/dL (8.4-10.2); Carbon Dioxide 25 mmol/L (22-30); Chloride 116 mmol/L (98-107); Glucose 133 mg/dL (74-99); Non-African American GFR(CKD) 84 (>60 ml/min/1.73 sqM); Potassium 3.5 mmol/L (3.5-5.1); Sodium 148 mmol/L (137-145)
[2021-02-13] MEDS: CHOLECALCIFEROL 25 MCG (1000 IU) TABLET PO SCH (10:16)
[2021-02-13] MEDS: SODIUM CHLORIDE 0.9% 1,000 ML IV SCH ×2 (10:16→21:16)
[2021-02-13] MEDS: ASCORBIC ACID 500 MG TAB PO SCH (10:16)
[2021-02-13] MEDS: ZINC SULFATE 220 MG CAP PO SCH (10:17)
[2021-02-13] MEDS: DEXAMETHASONE SOD PHOSPHATE 10 MG/ML 1 ML VIAL IV SCH (10:17)
[2021-02-13] MEDS: ASPIRIN 81 MG PO SCH (10:17)
[2021-02-13] MEDS: TAMSULOSIN 0.4 MG CAP.ER.24H PO SCH (10:17)
[2021-02-13 11:44] LABS: Glucose,Whole Blood 157 mg/dL (75-99)
[2021-02-13] MEDS: THIAMINE 100 MG TAB PO SCH (12:56)
[2021-02-13] MEDS: FOLIC ACID 1 MG TAB PO SCH (12:56)
[2021-02-13] MEDS: MULTIVITAMINS, THERA 1 EACH TAB PO SCH (12:56)
[2021-02-13] MEDS: DEXTROSE 5% IN WATER 1,000 ML IV SCH (15:37)
--- NOTE | 2021-02-13 16:40 | PN ---
PROGRESS NOTE DATE OF SERVICE: 02/13/2021 This 85-year-old gentleman who was admitted with acute COVID-19 infection also had some change in mental status. The patient has multiple other medical problems, including possible COVID-19 pneumonia, metabolic encephalopathy, elevated troponin and acute right occipital lobe infarct. Sensorium is slightly better today. No chest pain. No palpitations. No fever. PHYSICAL EXAMINATION: Alert and oriented x1. Pulse 98, blood pressure 147/93, respiration 16, temperature 97 degrees, pulse ox 94% on room air. HEENT: Conjunctivae normal. NECK: No jugular venous distention. CARDIOVASCULAR SYSTEM: S1, S2 muffled. RESPIRATORY SYSTEM: Breath sounds diminished at the bases. A few scattered rhonchi and crackles. ABDOMEN: Soft, non-tender. LEGS: No edema. No swelling. NERVOUS SYSTEM: No focal deficit. LABS: Sodium 148. Glucose noted. ASSESSMENT: 1. Acute COVID-19 infection with acute COVID-19 bilateral interstitial pneumonia, right more than the left, with acute hypoxic respiratory failure, present on admission. 2. Sepsis secondary to COVID-19 pneumonia, present on admission. 3. Change in mental status, acute metabolic encephalopathy. 4. Hypernatremia. 5. Troponin 0.396; possible acute [id number]-elevation myocardial infarction, present on admission. 6. Possible acute right occipital lobe infarct. 7. 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 8. Atrial fibrillation with fast ventricular rate, paroxysmal. 9. Severe protein-calorie malnutrition with body mass index of 15.8. 10.Microcytosis. 11.Thrombocytopenia. 12.Leukopenia. 13.Elevated D-dimer without any evidence of acute pulmonary embolism. 14.Hypernatremia. 15.Elevated plasma lactic acid. 16.Elevated total bilirubin. 17.Severe dehydration, present on admission. 18.Atrial fibrillation history. 19.History of coronary artery disease. 20.History of congestive heart failure, ejection fraction unknown. 21.History of hypertension. 22.History of tibial fracture. 23.History of gait dysfunction. 24.Remote history of nicotine dependence. 25.FULL CODE. RECOMMENDATIONS AND DISCUSSION: I recommend to continue current medications, continue with the monitoring, symptomatic treatment. Otherwise, recommend repeat labs, D5 water currently, and continue to monitor. Guarded prognosis. Further recommendations to follow. evaluation, possibly ECF rehab. MMODL / IJN: [id number] / MTDD
[2021-02-13 16:57] LABS: Glucose,Whole Blood 179 mg/dL (75-99)
[2021-02-13 20:08] LABS: Glucose,Whole Blood 153 mg/dL (75-99)
[2021-02-13] MEDS: ATORVASTATIN 10 MG TAB PO SCH (21:15)
[2021-02-13] MEDS: RIVAROXABAN 20 MG TAB PO SCH (21:15)
[2021-02-14 06:17] LABS: Glucose,Whole Blood 108 mg/dL (75-99)
[2021-02-14] MEDS: INSULIN ASPART (NovoLOG) 100 UNIT/ML VIAL SQ SCH ×4 (06:20→21:09)
[2021-02-14] MEDS: carvediloL 6.25 MG TAB PO SCH ×2 (06:48→17:09)
[2021-02-14 09:20] LABS: African American GFR (CKD) >90 (>60 ml/min/1.73 sqM); Blood Urea Nitrogen 38 mg/dL (9-20); Calcium 8.3 mg/dL (8.4-10.2); Carbon Dioxide 23 mmol/L (22-30); Glucose 142 mg/dL (74-99); Non-African American GFR(CKD) 83 (>60 ml/min/1.73 sqM); Potassium 3.3 mmol/L (3.5-5.1); Sodium 148 mmol/L (137-145)
[2021-02-14 09:21] LABS: Anisocytosis Slight; Basophils % (A) 0 %; Eosinophils % (A) 0 %; HCT 36.5 % (39.0-53.0); HGB 10.8 gm/dL (13.0-17.5); Hypochromasia Marked; Lymphocytes # (A) 0.5 k/uL (1.0-4.8); Lymphocytes % (A) 4 %; MCH 21.4 pg (25.0-35.0); MCHC 29.6 g/dL (31.0-37.0); MCV 72.4 fL (80.0-100.0); Mean Platelet Volume 7.1; Microcytosis Marked; Monocytes # (A) 0.5 k/uL (0-1.0); Monocytes % (A) 4 %; Neutrophils # (A) 9.7 k/uL (1.3-7.7); Neutrophils % (A) 90 %; Platelet Count 150 k/uL (150-450); RBC 5.04 m/uL (4.30-5.90); RDW 19.3 % (11.5-15.5); WBC 10.8 k/uL (3.8-10.6)
[2021-02-14 09:24] LABS: Anion Gap 9 mmol/L; Chloride 116 mmol/L (98-107)
[2021-02-14] MEDS: DEXAMETHASONE SOD PHOSPHATE 10 MG/ML 1 ML VIAL IV SCH (09:50)
[2021-02-14] MEDS: CHOLECALCIFEROL 25 MCG (1000 IU) TABLET PO SCH (09:50)
[2021-02-14] MEDS: ASPIRIN 81 MG PO SCH (09:50)
[2021-02-14] MEDS: ASCORBIC ACID 500 MG TAB PO SCH (09:50)
[2021-02-14] MEDS: TAMSULOSIN 0.4 MG CAP.ER.24H PO SCH (09:50)
[2021-02-14] MEDS: ZINC SULFATE 220 MG CAP PO SCH (09:51)
--- NOTE | 2021-02-14 10:59 | XR ---
EXAMINATION TYPE: XR chest 1V portable DATE OF EXAM: 02/14/2021 COMPARISON: 02/09/2021 HISTORY: Shortness of breath TECHNIQUE: Single frontal view of the chest is obtained. FINDINGS: Diffuse interstitial infiltrates greater on the right. Heart size mildly prominent. No pne umothorax. Biapical pleural thickening. Arthropathy of the shoulders. Basilar infiltrate noted. IMPRESSION: Diffuse interstitial infiltrates. Correlate for interstitial pneumonia.
[2021-02-14 11:55] LABS: Glucose,Whole Blood 175 mg/dL (75-99)
[2021-02-14] MEDS: MULTIVITAMINS, THERA 1 EACH TAB PO SCH (13:10)
[2021-02-14] MEDS: THIAMINE 100 MG TAB PO SCH (13:10)
[2021-02-14] MEDS: FOLIC ACID 1 MG TAB PO SCH (13:10)
[2021-02-14] MEDS: SODIUM CHLORIDE 0.9% 1,000 ML IV SCH (13:17)
[2021-02-14] MEDS: DEXTROSE 5% IN WATER 1,000 ML IV SCH (13:52)
[2021-02-14] MEDS: DEXTROSE 5%-0.45% NACL 1,000 ML IV SCH (14:22)
[2021-02-14 16:59] LABS: Glucose,Whole Blood 214 mg/dL (75-99)
[2021-02-14] MEDS: MORPHINE SULFATE 2 MG/ML SYRINGE IVP PRN (18:08)
[2021-02-14 19:50] LABS: Glucose,Whole Blood 186 mg/dL (75-99)
[2021-02-14] MEDS: ATORVASTATIN 10 MG TAB PO SCH (19:56)
[2021-02-14] MEDS: RIVAROXABAN 20 MG TAB PO SCH (21:09)
[2021-02-14] MEDS: LORazepam 2 MG/ML INJ IV PRN (23:18)
[2021-02-15] MEDS: MORPHINE SULFATE 2 MG/ML SYRINGE IVP PRN ×5 (01:21→17:47)
[2021-02-15] MEDS: DEXTROSE 5%-0.45% NACL 1,000 ML IV SCH ×4 (02:07→20:04)
[2021-02-15] MEDS: LORazepam 2 MG/ML INJ IV PRN ×4 (06:00→19:59)
[2021-02-15 06:13] LABS: Glucose,Whole Blood 161 mg/dL (75-99)
[2021-02-15] MEDS: carvediloL 6.25 MG TAB PO SCH ×2 (06:17→16:56)
[2021-02-15] MEDS: INSULIN ASPART (NovoLOG) 100 UNIT/ML VIAL SQ SCH ×4 (06:18→20:04)
[2021-02-15] MEDS: ASPIRIN 81 MG PO SCH (07:53)
[2021-02-15] MEDS: ASCORBIC ACID 500 MG TAB PO SCH (07:53)
[2021-02-15] MEDS: CHOLECALCIFEROL 25 MCG (1000 IU) TABLET PO SCH (07:53)
[2021-02-15] MEDS: TAMSULOSIN 0.4 MG CAP.ER.24H PO SCH (07:53)
[2021-02-15] MEDS: ZINC SULFATE 220 MG CAP PO SCH (07:54)
[2021-02-15 09:02] VITALS: TEMP 97.7
[2021-02-15] MEDS: DEXAMETHASONE SOD PHOSPHATE 10 MG/ML 1 ML VIAL IV SCH (11:47)
[2021-02-15] MEDS: MULTIVITAMINS, THERA 1 EACH TAB PO SCH (11:54)
[2021-02-15] MEDS: THIAMINE 100 MG TAB PO SCH (11:54)
[2021-02-15] MEDS: FOLIC ACID 1 MG TAB PO SCH (11:54)
[2021-02-15] MEDS ORDERED: MORPHINE SULFATE (100 MG/2 ML) 100 MG in SODIUM CHLORIDE 0.9% 100 ML IV SCH (12:15)
[2021-02-15 14:26] VITALS: BMI 22.1
[2021-02-15] MEDS ORDERED: ATROPINE OPHTH SOLN 1% 5ML BTL SUBLINGUAL PRN (15:23)
[2021-02-15] MEDS ORDERED: SCOPOLAMINE 1.5MG/72HR PATCH TRANSDERM SCH (15:30)
--- NOTE | 2021-02-15 19:23 | P.PN ---
Progress Note - Text Progress Note Date: 02/14/21 Presenting complaint: Weakness and decreased oral intake History of presenting complaint: Patient came in for feeling weak and tired. Slow to answer questions. Computed tomography scan showed infarct in the right occipital lobe. Possibly embolic. Has underlying atrial fibrillation. That was uncontrolled. Medications adjusted Today: Patient has rather been delirious. Rather confused. No oral intake. Somewhat moving about in bed. Earlier today I told the nurse to have the patient's family come in. Review of systems cannot be done as patient other delirious Active Medications Ascorbic Acid (Ascorbic Acid 500 Mg Tab) 1,000 mg PO DAILY [facility] Last Admin: 02/14/21 09:50 Dose: 1,000 mg Documented by: Aspirin (Aspirin 81 Mg) 81 mg PO DAILY [facility] Last Admin: 02/14/21 09:50 Dose: 81 mg Documented by: Atorvastatin Calcium (Atorvastatin 10 Mg Tab) 10 mg PO HS [facility] Last Admin: 02/14/21 19:56 Dose: Not Given Documented by: Carvedilol (Carvedilol 6.25 Mg Tab) 6.25 mg PO AC-BID [facility] Last Admin: 02/14/21 17:09 Dose: 6.25 mg Documented by: Cholecalciferol (Cholecalciferol 25 Mcg (1000 Iu) Tablet) 100 mcg PO DAILY [facility] Last Admin: 02/14/21 09:50 Dose: 100 mcg Documented by: Dexamethasone Sodium Phosphate (Dexamethasone Sod Phosphate 10 Mg/Ml 1 Ml Vial) 6 mg IV DAILY [facility] Last Admin: 02/14/21 09:50 Dose: 6 mg Documented by: Folic Acid (Folic Acid 1 Mg Tab) 1 mg PO DAILY@1200 [facility] Last Admin: 02/14/21 13:10 Dose: Not Given Documented by: Dextrose/Sodium Chloride (Dextrose 5%-1/2ns Iv Soln) 1,000 mls @ 100 mls/hr IV .Q10H [facility] Last Admin: 02/14/21 14:22 Dose: 100 mls/hr Documented by: Insulin Aspart (Insulin Aspart (Novolog) 100 Unit/Ml Vial) 0 unit SQ ACHS [facility]; Protocol Last Admin: 02/14/21 17:12 Dose: 6 unit Documented by: Miscellaneous Information (Potassium Replacement Protocol 1 Each Misc) 1 each MISCELLANE DAILY PRN; Protocol PRN Reason: Per Protocol Miscellaneous Information (Magnesium Replacement Protocol 1 Each Misc) 1 each MISCELLANE DAILY PRN; Protocol PRN Reason: Per Protocol Morphine Sulfate (Morphine Sulfate 2 Mg/Ml Syringe) 2 mg IVP Q4H PRN PRN Reason: Pain/Discomfort Last Admin: 02/14/21 18:08 Dose: 2 mg Documented by: Multivitamins (Multivitamins, Thera 1 Each Tab) 1 each PO DAILY@1200 [facility] Last Admin: 02/14/21 13:10 Dose: Not Given Documented by: Rivaroxaban (Rivaroxaban 20 Mg Tab) 20 mg PO [facility] Last Admin: 02/13/21 21:15 Dose: 20 mg Documented by: Tamsulosin HCl (Tamsulosin 0.4 Mg Cap.Er.24h) 0.4 mg PO PC-BRKFST [facility] Last Admin: 02/14/21 09:50 Dose: 0.4 mg Documented by: Thiamine HCl (Thiamine 100 Mg Tab) 100 mg PO DAILY@1200 [facility] Last Admin: 02/14/21 13:10 Dose: Not Given Documented by: Zinc Sulfate (Zinc Sulfate 220 Mg Cap) 220 mg PO DAILY [facility] Last Admin: 02/14/21 09:51 Dose: 220 mg Documented by: On examination: VITAL SIGNS: 97.5, 100, 21, 133 bun 85, 89% on 6 L GENERAL APPEARANCE: Laying in bed, moving about, lethargic. HEENT: Normal external appearance of nose and ear. EYES: Pupils equal. Conjunctiva normal. NECK: JVD unable to assess RESPIRATORY: Respiratory effort increased. Decreased breath sounds. CARDIOVASCULAR: Heart sounds irregular. ABDOMEN: Soft. Liver and spleen not palpable. No tenderness. No mass palpable. PSYCHIATRY: Patient is delirious NEUROLOGICAL: Moving all 4 limbs Investigations: February 06: WBC 10.8 hemoglobin 10.8 platelets 150 sodium 148 potassium 3.3 creatinine 0.78 Carotid Doppler: No hemodynamic significant stenosis. Computed tomography scan of the brain: Old right occipital lobe infarct. Cerebral atrophy. Oral left internal capsule lacunar infarct. 2-D echocardiogram: EF less than 20%. EKG tracing personally reviewed by me-atrial fibrillation CT chest: Negative for PE. 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 Possibly embolic in nature secondary to underlying atrial fibrillation. Continue with xarelto -Acute COVID 19 pneumonia On Decadron, vitamin C, vitamin D, zinc -Acute congestive heart full exacerbation from systolic dysfunction from coronary artery disease, EF less than 20% Follow clinically -Essential hypertension Follow blood pressure -Persistent atrial fibrillation On telemetry -Coronary artery disease Patient on Coreg, aspirin, Lipitor -Moderate to severe mitral regurgitation Follow clinically -Acute delirium multifactorial, new diagnosis today Treat underlying condition -CODE STATUS DO NOT RESUSCITATE Care was discussed length with the nurse. Prognosis not good Advanced care planning: I did talk to the patient's daughter over the phone. And also grandson. Patient's is admitted with COVID and has dementia and out of the hospital. Patient's overall clinical picture was discussed. They understand that the patient not doing well. CODE STATUS being changed to DO NOT RESUSCITATE. Patient's daughter will be the spokesperson. I did ask him to get legal papers for POA. Didn't come in tomorrow to see if it's any change in the patient's clinical status. With the understanding if things do not get any better we may proceed with comfort measures. This was also discussed evening duty nurse present. Total time spent about 20 minutes with this
[2021-02-15] MEDS: ATORVASTATIN 10 MG TAB PO SCH (19:55)
[2021-02-15] MEDS: RIVAROXABAN 20 MG TAB PO SCH (19:55)
[2021-02-15 21:03] VITALS: BP 119/65
--- NOTE | 2021-02-15 23:26 | P.PN ---
Progress Note - Text Progress Note Date: 02/15/21 Presenting complaint: Weakness and decreased oral intake History of presenting complaint: Patient came in for feeling weak and tired. Slow to answer questions. Computed tomography scan showed infarct in the right occipital lobe. Possibly embolic. Has underlying atrial fibrillation. That was uncontrolled. Medications adjusted. Patient continued to decline. Spoke to patient's family. Patient made DO NOT RESUSCITATE. Today: Patient continues to be delirious. A bit restless. Patient's 2 daughters at the bedside. Patient is getting morphine when necessary. Review of systems cannot be done as patient other delirious Active Medications Ascorbic Acid (Ascorbic Acid 500 Mg Tab) 1,000 mg PO DAILY [facility] Last Admin: 02/15/21 07:53 Dose: Not Given Documented by: Aspirin (Aspirin 81 Mg) 81 mg PO DAILY [facility] Last Admin: 02/15/21 07:53 Dose: Not Given Documented by: Atorvastatin Calcium (Atorvastatin 10 Mg Tab) 10 mg PO HS [facility] Last Admin: 02/15/21 19:55 Dose: Not Given Documented by: Atropine Sulfate (Atropine Ophth Soln 1% 5ml Btl) 2 drops SUBLINGUAL Q4HR PRN PRN Reason: Excess Secretions Last Admin: 02/15/21 16:05 Dose: 2 drops Documented by: Carvedilol (Carvedilol 6.25 Mg Tab) 6.25 mg PO AC-BID [facility] Last Admin: 02/15/21 16:56 Dose: Not Given Documented by: Cholecalciferol (Cholecalciferol 25 Mcg (1000 Iu) Tablet) 100 mcg PO DAILY [facility] Last Admin: 02/15/21 07:53 Dose: Not Given Documented by: Dexamethasone Sodium Phosphate (Dexamethasone Sod Phosphate 10 Mg/Ml 1 Ml Vial) 6 mg IV DAILY [facility] Last Admin: 02/15/21 11:47 Dose: Not Given Documented by: Folic Acid (Folic Acid 1 Mg Tab) 1 mg PO DAILY@1200 [facility] Last Admin: 02/15/21 11:54 Dose: Not Given Documented by: Dextrose/Sodium Chloride (Dextrose 5%-1/2ns Iv Soln) 1,000 mls @ 100 mls/hr IV .Q10H [facility] Last Admin: 02/15/21 20:04 Dose: Not Given Documented by: Morphine Sulfate 100 mg/ (Sodium Chloride) 102 mls @ 1.02 mls/hr IV .Q24H [facility]; Protocol Last Titration: 02/15/21 20:01 Dose: 10 mg/hr, 10.2 mls/hr Documented by: Insulin Aspart (Insulin Aspart (Novolog) 100 Unit/Ml Vial) 0 unit SQ [facility]; Protocol Last Admin: 02/15/21 20:04 Dose: Not Given Documented by: Lorazepam (Lorazepam 2 Mg/Ml Inj) 1 mg IV Q4HR PRN PRN Reason: Anxiety Last Admin: 02/15/21 19:59 Dose: 1 mg Documented by: Miscellaneous Information (Potassium Replacement Protocol 1 Each Misc) 1 each MISCELLANE DAILY PRN; Protocol PRN Reason: Per Protocol Miscellaneous Information (Magnesium Replacement Protocol 1 Each Misc) 1 each MISCELLANE DAILY PRN; Protocol PRN Reason: Per Protocol Morphine Sulfate (Morphine Sulfate 2 Mg/Ml Syringe) 2 mg IVP Q4H PRN PRN Reason: Pain/Discomfort Last Admin: 02/15/21 17:47 Dose: 2 mg Documented by: Multivitamins (Multivitamins, Thera 1 Each Tab) 1 each PO DAILY@1200 [facility] Last Admin: 02/15/21 11:54 Dose: Not Given Documented by: Rivaroxaban (Rivaroxaban 20 Mg Tab) 20 mg PO [facility] Last Admin: 02/15/21 19:55 Dose: Not Given Documented by: Scopolamine (Scopolamine 1.5mg/72hr Patch) 1 patch TRANSDERM Q72H [facility] Last Admin: 02/15/21 16:05 Dose: 1 patch Documented by: Tamsulosin HCl (Tamsulosin 0.4 Mg Cap.Er.24h) 0.4 mg PO -BRKFST [facility] Last Admin: 02/15/21 07:53 Dose: Not Given Documented by: Thiamine HCl (Thiamine 100 Mg Tab) 100 mg PO DAILY@1200 [facility] Last Admin: 02/15/21 11:54 Dose: Not Given Documented by: Zinc Sulfate (Zinc Sulfate 220 Mg Cap) 220 mg PO DAILY [facility] Last Admin: 02/15/21 07:54 Dose: Not Given Documented by: On examination: VITAL SIGNS: 97.7, 124, 25, 11/09/1980, 88% on high flow nonrebreather GENERAL APPEARANCE: Laying in bed, moving about, restless HEENT: Normal external appearance of nose and ear. EYES: Pupils equal. Conjunctiva normal. NECK: JVD unable to assess RESPIRATORY: Respiratory effort increased. Decreased breath sounds. CARDIOVASCULAR: Heart sounds irregular. ABDOMEN: Soft. Liver and spleen not palpable. No tenderness. No mass palpable. PSYCHIATRY: Patient is delirious NEUROLOGICAL: Moving all 4 limbs Investigations: February 06: WBC 10.8 hemoglobin 10.8 platelets 150 sodium 148 potassium 3.3 creatinine 0.78 Carotid Doppler: No hemodynamic significant stenosis. Computed tomography scan of the brain: Old right occipital lobe infarct. Cerebral atrophy. Oral left internal capsule lacunar infarct. 2-D echocardiogram: EF less than 20%. EKG tracing personally reviewed by me-atrial fibrillation CT chest: Negative for PE. 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 Possibly embolic in nature secondary to underlying atrial fibrillation. Continue with xarelto -Acute COVID 19 pneumonia On Decadron, vitamin C, vitamin D, zinc -Acute congestive heart full exacerbation from systolic dysfunction from coronary artery disease, EF less than 20% Follow clinically -Essential hypertension Follow blood pressure -Persistent atrial fibrillation On telemetry -Coronary artery disease Patient on Coreg, aspirin, Lipitor -Moderate to severe mitral regurgitation Follow clinically -Acute delirium multifactorial, new diagnosis today Treat underlying condition -CODE STATUS DO NOT RESUSCITATE Poor prognosis. Patient is doing poorly Advanced care planning: End-of-life care was discussed with the 2 daughters at the bedside. They agree that the patient is doing poorly. At this point we decided to move added make the patient comfort care. IV morphine scopolamine patch Ativan abuse. No artificial feeding. Hospice is being consulted. Care was discussed with the nurse to. Questions were answered. 20 minutes was spent for this.
[2021-02-16 00:25] VITALS: PULSE 39; RESP 8
--- NOTE | 2021-02-16 21:17 | P.DS ---
Providers Date of admission: 02/07/21 15:05 Expected date of discharge: 02/16/21 Attending physician: Miles Modi Consults: 02/07/21 15:05 Consult Physician Routine Consulting Provider: Israel Mukherjee Consult Reason/Comments: Covid pneumonia, Remdesivir Do you want consulting provider notified?: Yes 02/10/21 15:36 Consult Physician Routine Consulting Provider: Willie Elizondo Consult Reason/Comments: right occiptal lobe stroke, lethargy Do you want consulting provider notified?: Yes Primary care physician: [facility] Course: Presenting complaint: Weakness and decreased oral intake History of presenting complaint: Patient came in for feeling weak and tired. Slow to answer questions. Computed tomography scan showed infarct in the right occipital lobe. Possibly embolic. Has underlying atrial fibrillation. That was uncontrolled. Medications adjusted. Patient continued to decline. Spoke to patient's family. Patient made DO NOT RESUSCITATE. Patient continued to deteriorate. Was put on comfort care after discussion with the family. Patient succumbed underlying condition this morning. Consultation: Dr. Bucio from neurology Cardiology associates Dr. Mukherjee in partners from pulmonary Investigations: February 06: WBC 10.8 hemoglobin 10.8 platelets 150 sodium 148 potassium 3.3 creatinine 0.78 Carotid Doppler: No hemodynamic significant stenosis. Computed tomography scan of the brain: Old right occipital lobe infarct. Cerebral atrophy. Oral left internal capsule lacunar infarct. 2-D echocardiogram: EF less than 20%. EKG tracing personally reviewed by me-atrial fibrillation CT chest: Negative for PE. 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 Possibly embolic in nature secondary to underlying atrial fibrillation. -Acute COVID 19 pneumonia -Acute congestive heart full exacerbation from systolic dysfunction from coronary artery disease, EF less than 20% -Essential hypertension -Persistent atrial fibrillation -Coronary artery disease -Moderate to severe mitral regurgitation -Acute delirium multifactorial, new diagnosis today -CODE STATUS DO NOT RESUSCITATE Disposition: Patient Patient Condition at Discharge: Fair Plan - Discharge Summary Discharge Rx Participant: No New Discharge Prescriptions: No Action lisinopriL [Zestril] 5 mg PO DAILY carvediloL [Coreg] 6.25 mg PO BID Furosemide [Lasix] 20 mg PO DAILY Rivaroxaban [Xarelto] 20 mg PO HS Discharge Medication List carvediloL [Coreg] 6.25 mg PO BID 05/12/20 [History] lisinopriL [Zestril] 5 mg PO DAILY 05/12/20 [History] Furosemide [Lasix] 20 mg PO DAILY 06/02/20 [History] Rivaroxaban [Xarelto] 20 mg PO HS 02/07/21 [History] Follow up Appointment(s)/Referral(s): Edgard Villar DO [Primary Care Provider] - 1-2 days Discharge Disposition: - Preliminary Cause of Preliminary Cause of : COVID 19 pneumonia
== END 2021-02-16 04:00 | disposition expired | DRG 871 ==
LOC: EC 12:00 → 3SCARD 15:05
PROVIDERS: ADMIT Hospitalist; ATTEND Hospitalist
PROC: XW033E5 Introduction of Remdesivir Anti-infective into Peripheral Vein, Percutaneous Approach, New Technology Group 5 (ICD-10-PCS; principal; 2021-02-07)
PROC: 5A09457 Assistance with Respiratory Ventilation, 24-96 Consecutive Hours, Continuous Positive Airway Pressure (ICD-10-PCS; 2021-02-14)
DX: A41.89 Other specified sepsis (principal); U07.1 COVID-19; J96.01 Acute respiratory failure with hypoxia; J12.82 Pneumonia due to coronavirus disease 2019; I50.23 Acute on chronic systolic (congestive) heart failure; G93.41 Metabolic encephalopathy; E43 Unspecified severe protein-calorie malnutrition; I63.421 Cerebral infarction due to embolism of right anterior cerebral artery; I21.A1 Myocardial infarction type 2; J44.0 Chronic obstructive pulmonary disease with (acute) lower respiratory infection; J44.1 Chronic obstructive pulmonary disease with (acute) exacerbation; E87.2 Acidosis; N17.9 Acute kidney failure, unspecified; I42.9 Cardiomyopathy, unspecified; E87.0 Hyperosmolality and hypernatremia; E87.1 Hypo-osmolality and hyponatremia; I48.19 Other persistent atrial fibrillation; Z68.1 Body mass index [BMI] 19.9 or less, adult; F05 Delirium due to known physiological condition; D69.6 Thrombocytopenia, unspecified; I27.20 Pulmonary hypertension, unspecified; I11.0 Hypertensive heart disease with heart failure; F03.90 Unspecified dementia, unspecified severity, without behavioral disturbance, psychotic disturbance, mood disturbance, and anxiety; Z51.5 Encounter for palliative care; Z66 Do not resuscitate; R62.7 Adult failure to thrive; I95.9 Hypotension, unspecified; E86.0 Dehydration; E86.1 Hypovolemia; D72.810 Lymphocytopenia; F41.9 Anxiety disorder, unspecified; I25.10 Atherosclerotic heart disease of native coronary artery without angina pectoris; I08.3 Combined rheumatic disorders of mitral, aortic and tricuspid valves; M72.0 Palmar fascial fibromatosis [Dupuytren]; H02.402 Unspecified ptosis of left eyelid; D64.9 Anemia, unspecified; R26.9 Unspecified abnormalities of gait and mobility; R32 Unspecified urinary incontinence; Z79.01 Long term (current) use of anticoagulants; Z79.899 Other long term (current) drug therapy; Z87.891 Personal history of nicotine dependence; Z87.81 Personal history of (healed) traumatic fracture; Z87.19 Personal history of other diseases of the digestive system; Z86.73 Personal history of transient ischemic attack (TIA), and cerebral infarction without residual deficits; Z98.890 Other specified postprocedural states; Z71.3 Dietary counseling and surveillance; Z82.49 Family history of ischemic heart disease and other diseases of the circulatory system
CPT/HCPCS: 36415; 70450; 71045; 71046; 71275; 80048; 80053; 80061; 81001; 82533; 82550; 82607; 82746; 83036; 83605; 83735; 83880; 84145; 84443; 84484; 85025; 85027; 85379; 85610; 85730; 87040; 87502; 87635; 93005; 93306; 93880; 94640; 96361; 96374; 99291